=== PATIENT | male | born 1935 | race Caucasian/White ===

== ENCOUNTER → 2020-05-11 08:05 | Outpatient (BNVA) | payer SELFPAY | PROVIDERS: Family Provider Internal Medicine; PCP Internal Medicine; Visit Provider Specialist | DX: R41.89 Other symptoms and signs involving cognitive functions and awareness (principal); G40.309 Generalized idiopathic epilepsy and epileptic syndromes, not intractable, without status epilepticus; Z87.891 Personal history of nicotine dependence | CPT/HCPCS: 99212 ==

== ENCOUNTER → 2020-09-02 15:27 | Outpatient (BNVA) | payer SELFPAY | PROVIDERS: Family Provider Internal Medicine; PCP Internal Medicine; Visit Provider Specialist | DX: G40.309 Generalized idiopathic epilepsy and epileptic syndromes, not intractable, without status epilepticus (principal); H53.2 Diplopia; R13.10 Dysphagia, unspecified; R47.1 Dysarthria and anarthria | CPT/HCPCS: 99215 ==

== ENCOUNTER 2020-09-03 07:05 | Outpatient (CLI) | payer MEDICAID, SELFPAY ==
--- NOTE | 2020-09-03 07:15 | MR_ITS ---
WS: [id number] MRI HEAD WITH CONTRAST TECHNIQUE: Sagittal T1, T2 axial, T2 axial FLAIR, axial susceptibility weighted imaging, axial diffus ion weighted images, and coronal T2 images were obtained. Pre and post-T1 axial and post T1 coronal i mages. ADC and FSPGR images. CLINICAL INFORMATION: see dx COMPARISON: CT May 07, 2019 FINDINGS: No evidence of restricted diffusion to suggest acute ischemia. Ventricular system and basal cisterns are patent. Moderate to advanced supratentorial white matter changes consistent with small vessel dis ease in a patient this age. Mild parenchymal volume loss. 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 Normal vascular flow voids at the skull base. Visualized proximal 7th and 8th cranial nerves appe ar normal. No hemosiderin on susceptibly weighted images. Normal optic chiasm and pituitary infundibulum. Cavernous sinuses and Meckel's cave are normal in dejah earance. Mild symmetric atrophy involving the temporal lobes and hippocampal formations. No abnormal gadolinium enhancement. Normal visualized dural venous sinuses. MR/MR head wo/w con [id number] IMPRESSION: 1. No evidence of restricted diffusion to suggest acute ischemia. 2. Moderate to advanced small vessel changes with mild parenchymal volume loss . 3. Mild symmetric atrophy involving the temporal lobes hippocampal formations. 4. No abnormal gadolinium enhancement. 5. Normal dural venous sinuses. 6. No hemosiderin on the susceptibility weighted images. 7. Paranasal sinuses and mastoid air cells well aerated. 8. Tiny chronic lacunar infarct right cerebellum.
[2020-09-03 08:18] LABS: Blood Urea Nitrogen 14 mg/dL (8-23)
== END 2020-09-03 07:06 | disposition home or self-care (01) ==
LOC: RADSHAW 07:07
PROVIDERS: PCP Internal Medicine; Visit Provider Specialist
DX: G12.29 Other motor neuron disease (principal); G31.9 Degenerative disease of nervous system, unspecified; I63.81 Other cerebral infarction due to occlusion or stenosis of small artery; G40.309 Generalized idiopathic epilepsy and epileptic syndromes, not intractable, without status epilepticus; G12.22 Progressive bulbar palsy; G70.01 Myasthenia gravis with (acute) exacerbation; F17.210 Nicotine dependence, cigarettes, uncomplicated
CPT/HCPCS: 70553; 82565; 84520; 99215; A9579

== ENCOUNTER 2020-09-03 13:11 | Inpatient (IN) | payer MEDICARE, MEDICAID, SELFPAY ==
[2020-09-03] VITALS (24 sets, daily range): BP systolic 144–203; BP diastolic 63–96; PULSE 74–96; RESP 9–31; TEMP 37.4; O2SAT 92–98; BMI 24.5
--- NOTE | 2020-09-03 13:40 | PC.NURSE ---
Pt direct admin from Dr Posadas's office. Pt alert and oriented. He is able to undress self. Speech is clear. Pt oriented to room. Monitoring attached. Gown on. Iv started. at bedside.
[2020-09-03 14:30] LABS: Basophils # 0.1 10^3/uL (0.0-0.1); Basophils % 1.2 %; Eosinophils # 0.1 10^3/uL (0.0-0.8); Eosinophils % 1.6 %; Hematocrit 44.4 % (42.0-52.0); Hemoglobin 15.1 g/dL (11.7-16.6); Lymphocytes # 1.7 10^3/uL (0.8-4.8); Lymphocytes % 25.8 %; Mean Corpuscular Hemoglobin 30.6 pg (28.0-34.0); Mean Corpuscular Volume 89.9 fL (80-94); Mean Platelet Volume 10.1 fL (7.4-10.4); Monocytes # 0.9 10^3/uL (0.2-0.9); Monocytes % 12.9 %; Neutrophils # 3.87 10^3/uL (1.8-7.7); Neutrophils % 58.1 %; Nucleated Red Blood Cells % 0 %; Platelet Count 192 10^3/cmm (130-400); Red Blood Count 4.94 10^6/uL (4.1-5.3); Red Cell Distribution Width 12.3 % (12.1-15.1); White Blood Count 6.7 10^3/uL (4.0-10.0)
[2020-09-03 14:57] LABS: Alanine Aminotransferase 13 U/L (0-41); Albumin Level 4.2 g/dL (3.5-5.2); Alkaline Phosphatase 46 IU/L (40-130); Anion Gap 12.4 (5-19); Aspartate Amino Transferase 19 U/L (0-40); Blood Urea Nitrogen 11 mg/dL (8-23); Calcium 9.2 mg/dL (8.5-10.5); Carbon Dioxide 28 mmol/L (22-29); Chloride 91 mmol/L (98-107); Globulin 2.1 g/dL (1.3-4.6); Glucose 107 mg/dL (65-115); Osmolality Calculated 264 mOsm/kg (285-295); Potassium 4.4 mmol/L (3.5-5.1); Sodium 127 mmol/L (136-145); Thyroid Stimulating Hormone 3.81 uIU/mL (0.27-4.20); Total Bilirubin 1.1 mg/dL (0.15-1.2); Total Protein 6.3 g/dL (6.6-8.7)
[2020-09-03] MEDS: enoxaparin 60 mg/0.6 mL Syringe SUBCUT (15:37)
[2020-09-03] MEDS: predniSONE 5 mg Tablet PO (15:37)
--- NOTE | 2020-09-03 16:00 | PC.NURSE ---
Bedside swallow eval done. No throat clearing , cough or choking noted. Pt passed.
--- NOTE | 2020-09-03 16:59 | P.HP_ITS ---
Providers/Chief Complaint Admitting Physician: Rosalia Sinha DO Primary Care Provider: Jerman Henao DO Chief Complaint: MYASTHENIA GRAVIS CRISIS History of Present Illness Mauricio Wilson is a 85 year old male with a past medical history of epilepsy that presented to the hospital for direct admission from neurology office due to concern for myasthenic crisis. Patient reports that he has been having symptoms over the past 2 years of inability to close his eyes and over the past 1 month he has had worsening weakness of his muscles in his face. Reports he has been unable to talk or swallow, continually having liquids run out of his mouth and feels like his tongue is thick. Patient was seen for cataract surgery couple of days ago his eye doctor mentioned he was concerned for myasthenia gravis therefore his primary care provider sent him for neurologic evaluation today. Patient was recently started on Mestinon and has had improvement in his symptoms since that time. Dr. Posadas recommended direct admission for 5 days of IVIG followed by 0.4 mg/kg/week infusions following that time. She recommended starting on prednisone 5 mg/day with an increase of 5 mg/day until patient reaches 20 mg daily. Plan is to leave with 20 mg of prednisone Review of Systems Const: Reports: fatigue and malaise; Denies: fever(s) or chills Eyes: Denies: change in vision ENMT: Denies: nasal congestion Card: Denies: chest pain, palpitations or edema Resp: Denies: dyspnea, productive cough or hemoptysis GI: Denies: abdominal pain, nausea, vomiting, diarrhea, constipation, hematochezia or melena : Denies: dysuria or hematuria Musc: Denies: extremity pain or muscle cramps Skin/Breast: Denies: rash or new lesions Neuro: Reports: other (Gradual onset of weakness throughout the day with decreased ability to move facial muscles, inability to close his eyes); Denies: headache(s) or dizziness Psych: Denies: anxiety or depression Endo: Denies: polyuria or hot flashes Hermann/Lymph: Denies: easy bruising or easy bleeding Medications/Allergies Home Medications Medication Instructions Recorded Confirmed Last Taken Type magnesium oxide 420 mg tablet 420 mg PO DAILY 05/11/20 09/03/20 09/03/20 08:00 History levetiracetam 1,000 mg tablet 500 mg PO BID #90 tab 05/27/20 09/03/20 09/03/20 08:00 Rx 500 mg pyridostigmine bromide 60 mg tablet 60 mg PO TID #90 tab 09/02/20 09/03/20 09/03/20 08:00 Rx carboxymethylcellulose sodium 1 drp OPHTHALMIC (EYE) Q2H 09/03/20 09/03/20 09/03/20 16:00 History [Refresh Tears] cholecalciferol (vitamin D3) 2,000 unit PO DAILY 09/03/20 09/03/20 09/03/20 08:00 History [Vitamin D3] 2000 unit Allergies Allergy/AdvReac Type Severity Reaction Status Date / Time No Known Allergies Allergy Verified 05/11/20 08:13 PFSH Acute PFSH: Medical History (Updated 09/03/20 @ 17:03 by Rosalia Sinha DO) Generalized epilepsy Surgical History (Updated 09/03/20 @ 17:03 by Rosalia Sinha DO) History of back surgery History of cataract surgery History of esophagogastroduodenoscopy (EGD) Family History Other CAD (coronary artery disease) Diabetes Social History Smoking and tobacco status: former smoker Quit status (tobacco): has quit using tobacco Year quit tobacco: 40 years ago Alcohol intake: never Vitals/I&O/Wt Last Vital Signs Temp 99.3 F 09/03/20 14:00 Pulse 81 09/03/20 16:15 Resp 23 H 09/03/20 16:15 BP 172/91 09/03/20 16:15 Pulse Ox 96 09/03/20 16:15 09/03/20 09/03/20 09/03/20 06:59 14:59 22:59 Intake Total 42.625 / 42.625 Balance 42.625 / 42.625 Weight last 48 hrs Weight 77.519 kg Physical Exam Const: COMMON NORMALS: patient oriented x3 and alert GENERAL APPEARANCE: cooperative ORIENTATION/CONSCIOUSNESS: Yes awake, Yes oriented to person, Yes oriented to place and Yes oriented to time HENMT: OTHER: Conjunctival erythema bilaterally due to dry eyes chronically. Eye: COMMON NORMALS: Equal, round and reactive pupils present PUPIL: Yes Equal, round and reactive pupils present Neck/C-Spine: COMMON NORMALS: supple GENERAL: Yes normal visual inspection Resp: COMMON NORMALS: normal respiratory effort and clear to auscultation bilaterally EFFORT & INSPECTION: Yes able to speak in complete sentences AUSCULTATION: clear to auscultation bilaterally, no rhonchi and no wheezes Cardio: COMMON NORMALS: regular rate, regular rhythm and No murmurs present (Cardio) RATE: regular rate RHYTHM: regular rhythm GI: COMMON NORMALS: Soft to palpation and non-tender INSPECTION: No abdominal distension AUSCULTATION: Yes normoactive bowel sounds PALPATION: Yes Soft to palpation Extremity: COMMON NORMALS: no clubbing, cyanosis or edema and no calf tenderness Neuro: COMMON NORMALS: patient oriented x3 SENSORIUM/ORIENTATION: Yes alert, Yes oriented to person, Yes oriented to place and Yes oriented to time OTHER: Patient with conjunctival erythema due to inability to close his eyes, answering questions appropriately, alert and oriented x4. Does have some slurred speech, does have some drooling from the corner of his mouth during exam and discussion. Minimal movements of the tongue, no fasciculations. Patient has weakened facial muscles, upper and lower extremity strength symmetric bilaterally Psych: COMMON NORMALS: mental status grossly normal and cooperative Skin: COMMON NORMALS: no rashes or lesions noted GENERAL SKIN EXAM: no rashes or lesions noted Data : 09/03/20 14:20 09/03/20 14:20 A&P Assessment and plan (1) Myasthenic crisis: As discussed with Dr. Posadas direct admission under her guidance IVIG for 5 days Prednisone 5 mg daily and gradually increase by 5 mg/day until reaching 20 mg daily. Plan for potential discharge on [address] Posadas. Continue with serial neurologic checks Plan is to monitor in the ICU with close neurologic follow-up We will follow with neurology recommendations, appreciate recommendations and assistance in patient's care. 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
[2020-09-03] MEDS: levETIRAcetam 500 mg Tablet PO (18:21)
[2020-09-03] MEDS: sodium chloride 0.9% (100 ml) 100 ML (18:22)
[2020-09-03 19:32] LABS: Magnesium 2.1 mg/dL (1.7-2.3); Phosphorus 2.8 mg/dL (2.5-4.5)
--- NOTE | 2020-09-03 19:56 | PC.NURSE ---
Shift Summary: Pt arrives to ICU around 1330. He is a pleasant elderly man who is alert and oriented. He passed the bedside swallow test. IVIG started today, pt had no issues, no flushing or other discomforts with it. He did have elevated B/P for about an hour, it did come down on it's own. He has one IV in his right forearm, flushes well. He uses the urinal frequently, clear yellow urine. He had some leg cramps, requested acetaminophen. Dr Sinha notified via [facility], no reply as of yet. INfo passed on to fly setter, ISA Mack.
[2020-09-03] MEDS: HYDROcodone-acetaminophen 5-325 mg Tablet 1 TAB PO (20:27)
[2020-09-03] MEDS: pyridostigmine 60 mg Tablet PO (21:05)
[2020-09-03] MEDS: morphine 4 mg/mL SDV 1 mL 2 MG IVP (21:50)
[2020-09-04] VITALS (18 sets, daily range): BP systolic 129–186; BP diastolic 61–141; PULSE 66–90; RESP 12–36; TEMP 36.2–36.7; O2SAT 92–97; BMI 25.2
[2020-09-04] MEDS: cyclobenzaprine 10 mg Tablet PO (00:07)
[2020-09-04] MEDS: morphine 4 mg/mL SDV 1 mL 2 MG IVP ×2 (00:54→05:24)
[2020-09-04] MEDS: enoxaparin 60 mg/0.6 mL Syringe SUBCUT ×2 (04:14→16:36)
[2020-09-04 05:15] LABS: Basophils # 0.1 10^3/uL (0.0-0.1); Basophils % 1.5 %; Eosinophils # 0.1 10^3/uL (0.0-0.8); Eosinophils % 1.9 %; Hematocrit 46.8 % (42.0-52.0); Hemoglobin 15.8 g/dL (11.7-16.6); Lymphocytes # 1.4 10^3/uL (0.8-4.8); Lymphocytes % 26.7 %; Mean Corpuscular HGB Conc 33.8 g/dL (30.0-36.0); Mean Corpuscular Hemoglobin 30.4 pg (28.0-34.0); Mean Platelet Volume 10.6 fL (7.4-10.4); Monocytes # 0.5 10^3/uL (0.2-0.9); Neutrophils # 3.13 10^3/uL (1.8-7.7); Neutrophils % 59.3 %; Nucleated Red Blood Cells % 0 %; Platelet Count 185 10^3/cmm (130-400); Red Cell Distribution Width 12.3 % (12.1-15.1); White Blood Count 5.3 10^3/uL (4.0-10.0)
[2020-09-04 05:36] LABS: Alanine Aminotransferase 13 U/L (0-41); Albumin Level 3.9 g/dL (3.5-5.2); Alkaline Phosphatase 45 IU/L (40-130); Aspartate Amino Transferase 22 U/L (0-40); Blood Urea Nitrogen 7 mg/dL (8-23); Calcium 8.9 mg/dL (8.5-10.5); Carbon Dioxide 31 mmol/L (22-29); Globulin 3.4 g/dL (1.3-4.6); Glucose 119 mg/dL (65-115); Total Bilirubin 1.2 mg/dL (0.15-1.2); Total Protein 7.3 g/dL (6.6-8.7)
[2020-09-04 05:46] LABS: Anion Gap 10.2 (5-19); Chloride 93 mmol/L (98-107); Osmolality Calculated 269 mOsm/kg (285-295); Potassium 4.2 mmol/L (3.5-5.1); Sodium 130 mmol/L (136-145)
[2020-09-04] MEDS: CARBOXYMETHYLCELLULOSE SODIUM 1 EACH EYEAFF ×8 (08:09→23:01)
[2020-09-04] MEDS: cholecalciferol (vitamin D3) 1,000 unit Tablet 2000 UNIT PO (08:09)
[2020-09-04] MEDS: predniSONE 5 mg Tablet PO (08:09)
[2020-09-04] MEDS: levETIRAcetam 500 mg Tablet PO ×2 (08:09→17:25)
[2020-09-04] MEDS: pantoprazole 40 mg SDV IVP (08:09)
[2020-09-04] MEDS: pyridostigmine 60 mg Tablet PO ×3 (08:12→20:08)
--- NOTE | 2020-09-04 08:34 | PC.NURSE ---
Pt HR is irregular, frequent PVC, occasional dropped P waves and inverted T waves. Dr. Sinha notified of that and high BP. No new orders at this time as of yet.
--- NOTE | 2020-09-04 08:35 | ECG_ITS ---
[facility] Test Date: 2020-09-04 Pat Name: Mauricio Wilson Department: Room: ICU07 Gender: Male Finishing Range Feeder: : 1935 Requested By: Rosalia Sinha Order Number: [id number] Jhonny MD: Rory Epstein M.D. Measurements Intervals [place] Rate: 87 P: 67 LA: 190 QRS: -4 QRSD: 137 T: -26 QT: 381 QTc: 461 Interpretive Statements SINUS RHYTHM WITH FREQUENT VENTRICULAR PREMATURE COMPLEXES RIGHT BUNDLE BRANCH BLOCK [120+ ms QRS DURATION, UPRIGHT V1, 40+ ms S IN I/aVL/V4/V5/V6] No previous ECG available for comparison Electronically Signed On 09-04-2020 19:37:31 CDT by Rory Epstein M.D. [id number]
--- NOTE | 2020-09-04 08:36 | USCV_ITS ---
Mauricio Wilson Age: 85 Gender: M : 1935 Exam Date: 09/04/2020 10:24 Ordering Phys: Rosalia Sinha DO Technologist: Rolf Nick [place] [facility] [place]: MYASTHENIA BP: 129 / 68 HR: 72 Rhythm: Sinus Technical Quality: Suboptimal MEASUREMENTS (Male / Female) Normal Values 2D ECHO LV Diastolic Diameter PLAX 3.8 cm 4.2 - 5.9 / 3.9 - 5.3 cm LV Systolic Diameter PLAX 2.2 cm IVS Diastolic Thickness 0.9 cm 0.6 - 1.0 / 0.6 - 0.9 cm IVS Systolic Thickness 1.1 cm LVPW Diastolic Thickness 1.0 cm 0.6 - 1.0 / 0.6 - 0.9 cm LVPW Systolic Thickness 1.0 cm LVOT Diameter 2.1 cm LV Ejection Fraction 2D Teich 69.7 % LV Ejection Fraction MOD 2C 44.3 % LV Ejection Fraction 2C AL 45.3 % LA Diameter 3.6 cm LA Width 3.2 cm LA Height 4.3 cm RA Width 3.7 cm RA Height 4.5 cm Aorta at Sinotubular Diameter 0.9 cm M-MODE LV Diastolic Diameter MM 3.9 cm 4.2 - 5.9 / 3.9 - 5.3 cm LV Systolic Diameter MM 2.3 cm LV Ejection Fraction MM Teich 73.2 % IVS Diastolic Thickness MM 0.7 cm 0.6 - 1.0 / 0.6 - 0.9 cm IVS Systolic Thickness MM 1.2 cm LVPW Diastolic Thickness MM 1.0 cm 0.6 - 1.0 / 0.6 - 0.9 cm LVPW Systolic Thickness MM 1.4 cm RV Diastolic Diameter MM 1.4 cm Aortic Annulus Diameter 4.0 cm LA Ao Ratio MM 1.0 MV E Point Septal Separation 1.6 cm DOPPLER AV Peak Velocity 121.8 cm/s LVOT Peak Velocity 91.0 cm/s AV Area Cont Eq vti 2.4 cm squared AV Area Cont Eq pk 2.5 cm squared MV Area PHT 3.6 cm squared Mitral E to A Ratio 0.7 MV E' Velocity 36.2 cm/s Mitral E to MV E' Ratio 7.1 Mitral E to LV E' Lateral Ratio 8.4 Mitral E to LV E' Septal Ratio 6.1 TR Peak Velocity 115.3 cm/s TR Peak Gradient 5.3 mmHg TV Peak E Velocity 73.0 cm/s Right Atrial Pressure 3.0 mmHg Pulmonary Artery Systolic Pressu 8.3 mmHg PV Peak Velocity 105.0 cm/s FINDINGS Left Ventricle Normal left ventricular size and wall thickness. Mildly decreased left ventricular systolic function. Left ventricular ejection fraction is estimated at 50 %. Mild global hypokinesis. Right Ventricle Normal right ventricular size and systolic function. Right ventricular systolic pressure 8.3 mmHg. Right Atrium Normal right atrial size. Left Atrium Left atrium not well visualized. Mildly increased left atrial size. Mitral Valve Mildly thickened mitral valve. Bowing of posterior mitral valve leaflet. No mitral valve prolapse. No mitral valve stenosis. Trace to mild mitral valve regurgitation. Aortic Valve Moderately thickened trileaflet aortic valve. No aortic valve stenosis. No aortic valve regurgitation. Tricuspid Valve Structurally normal tricuspid valve. Trace tricuspid valve regurgitation. Pulmonic Valve Pulmonic valve not well visualized. No pulmonary valve stenosis. Trace pulmonary valve regurgitation. Pericardium No pericardial effusion. Aorta Normal size aortic root and proximal ascending aorta. CONCLUSIONS 1. Normal left ventricular size and wall thickness. Mildly decreased left ventricular systolic function. Left ventricular ejection fraction is estimated at 50 %. Mild global hypokinesis. 2. Normal right ventricular size and systolic function. 3. Mildly increased left atrial size. 4. Trace to mild mitral valve regurgitation. 5. No prior similar studies to compare. Antonia Myers MD (Electronically Signed) Final Date: 04 September 2020 18:53 S
--- NOTE | 2020-09-04 08:38 | PC.NURSE ---
New order for EKG and Echo.
[2020-09-04] MEDS: predniSONE 10 mg Tablet PO (12:02)
--- NOTE | 2020-09-04 13:23 | P.PN_ITS ---
Subjective Subjective: Interval history: Patient awake in bed at time of exam this morning. Reported some continued drooling but eye movement has continued to remain stable. Vitals/I&O/Wt Last Vital Signs Temp 97.8 F 09/04/20 13:00 Pulse 80 09/04/20 13:00 Resp 22 H 09/04/20 13:00 BP 155/61 09/04/20 13:00 Pulse Ox 96 09/04/20 13:00 09/03/20 09/04/20 09/04/20 22:59 06:59 14:59 Intake Total 900.000 / 900.000 220 / 220 Output Total 1600 / 1600 1100 / 2700 360 / 360 Balance -700 / -700.000 -1100 / -1800.000 -140 / -140 Weight last 48 hrs Weight 79.923 kg Weight 77.519 kg Physical Exam Const: COMMON NORMALS: patient oriented x3 and alert GENERAL APPEARANCE: cooperative ORIENTATION/CONSCIOUSNESS: Yes awake, Yes oriented to person, Yes oriented to place and Yes oriented to time HENMT: OTHER: Conjunctival erythema bilaterally due to dry eyes chronically. Eye: COMMON NORMALS: Equal, round and reactive pupils present PUPIL: Yes Equal, round and reactive pupils present Neck/C-Spine: COMMON NORMALS: supple GENERAL: Yes normal visual inspection Resp: COMMON NORMALS: normal respiratory effort and clear to auscultation natalya aterally EFFORT & INSPECTION: Yes able to speak in complete sentences AUSCULTATION: clear to auscultation bilaterally, no rhonchi and no wheezes Cardio: COMMON NORMALS: regular rate, regular rhythm and No murmurs present (Cardio) RATE: regular rate RHYTHM: regular rhythm GI: COMMON NORMALS: Soft to palpation and non-tender INSPECTION: No abdominal distension AUSCULTATION: Yes normoactive bowel sounds PALPATION: Yes Soft to palpation Extremity: COMMON NORMALS: no clubbing, cyanosis or edema and no calf tenderness Neuro: COMMON NORMALS: patient oriented x3 SENSORIUM/ORIENTATION: Yes alert, Yes oriented to person, Yes oriented to place and Yes oriented to time OTHER: Patient with conjunctival erythema due to inability to close his eyes, answering questions appropriately, alert and oriented x4. Does have some slurred speech, does have some drooling from the corner of his mouth during exam and discussion. Minimal movements of the tongue, no fasciculations. Patient has weakened facial muscles, upper and lower extremity strength symmetric bilaterally Psych: COMMON NORMALS: mental status grossly normal and cooperative Skin: COMMON NORMALS: no rashes or lesions noted GENERAL SKIN EXAM: no rashes or lesions noted Data : 09/04/20 04:27 09/04/20 04:27 A&P Assessment and plan (1) Myasthenic crisis: As discussed with Dr. Posadas direct admission under her guidance IVIG for 5 days Prednisone 5 mg daily and gradually increase by 5 mg/day until reaching 20 mg daily. Plan for potential discharge on [address] Posadas. Increase of prednisone to 10 mg today Continue with serial neurologic checks Transfer out of the ICU today We will follow with neurology recommendations, appreciate recommendations and assistance in patient's care. 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
[2020-09-04] MEDS: magnesium oxide 400 mg tablet PO (13:25)
--- NOTE | 2020-09-04 13:34 | PC.NURSE ---
Pt became SOB with excersion. 02 sat remained in the mid 90's but states he felt like he was breathing very thin air.
--- NOTE | 2020-09-04 14:54 | PC.OT ---
OT NOTE: OT EVALUATION ORDERS RECEIVED. OT SCREEN COMPLETED. PATIENT DEMONSTRATES ABILITY TO PERFORM ADLS WITH INDEPENDENCE. NO FURTHER SKILLED OT REQUIRED.
--- NOTE | 2020-09-04 16:07 | P.PN_ITS ---
Subjective Subjective: Interval history: He is able to get his eyes closed. He is able to chew but is having trouble swallowing based upon what he thinks is probably an esophageal stricture. He had a dilated 10 years ago and was warned that it would probably recur. Food gets down so far and he starts feeling short of breath. Vitals/I&O/Wt Last Vital Signs Temp 98.1 F 09/04/20 16:00 Pulse 72 09/04/20 16:00 Resp 20 H 09/04/20 16:00 BP 155/61 09/04/20 16:00 Pulse Ox 93 09/04/20 16:00 09/04/20 09/04/20 09/04/20 06:59 14:59 22:59 Intake Total 220 / 220 Output Total 1100 / 2700 360 / 360 Balance -1100 / -1800.000 -140 / -140 Weight last 48 hrs Weight 176 lb 3.2 oz Weight 170 lb 14.4 oz Physical Exam Narrative: EXAM NARRATIVE: He still has drift of the left eye laterally. No ptosis. He is closing his eyes completely now and although his facial weakness is still evident, right more than left, it is much improved over baseline. His speech is clear without dysarthria. No focal motor weakness. No drift. No tremor. He is sitting up in a chair. 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 He is on IVIG and Mestinon and has just started steroid treatments (which could paradoxically worsen his myasthenia). So far he is tolerating the treatment well and his M NIF has been stable. I think it is okay to transfer him to the floor. I encouraged him to be physically active. He has an esophageal stricture that is causing shortness of breath. Dr. Sinha already did an echocardiogram today and the results are pending on that so that will be helpful. After discharge we can arrange for EGD and dilation of his stricture. If that becomes more of a problem during acute hospitalization Dr. Sinha can consult Dr. Mitchell or Dr. Hodge for that. 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
[2020-09-05] VITALS (14 sets, daily range): BP systolic 148–183; BP diastolic 66–85; PULSE 60–83; RESP 18–21; TEMP 36.5–37.2; O2SAT 92–97
[2020-09-05] MEDS: CARBOXYMETHYLCELLULOSE SODIUM 1 EACH EYEAFF ×11 (00:25→19:46)
[2020-09-05] MEDS: enoxaparin 60 mg/0.6 mL Syringe SUBCUT ×2 (04:15→15:06)
[2020-09-05] MEDS: predniSONE 10 mg Tablet PO (09:09)
[2020-09-05] MEDS: levETIRAcetam 500 mg Tablet PO ×2 (09:09→17:48)
[2020-09-05] MEDS: cholecalciferol (vitamin D3) 1,000 unit Tablet 2000 UNIT PO (09:09)
[2020-09-05] MEDS: pyridostigmine 60 mg Tablet PO ×3 (09:09→19:12)
[2020-09-05] MEDS: magnesium oxide 400 mg tablet PO (09:10)
[2020-09-05 09:26] LABS: Basophils # 0.1 10^3/uL (0.0-0.1); Basophils % 1.5 %; Eosinophils # 0.1 10^3/uL (0.0-0.8); Hematocrit 50.7 % (42.0-52.0); Hemoglobin 16.9 g/dL (11.7-16.6); Lymphocytes # 1.8 10^3/uL (0.8-4.8); Lymphocytes % 28.6 %; Mean Corpuscular HGB Conc 33.3 g/dL (30.0-36.0); Mean Corpuscular Hemoglobin 30.6 pg (28.0-34.0); Mean Corpuscular Volume 91.8 fL (80-94); Mean Platelet Volume 10.4 fL (7.4-10.4); Monocytes # 0.7 10^3/uL (0.2-0.9); Monocytes % 11.1 %; Neutrophils # 3.55 10^3/uL (1.8-7.7); Neutrophils % 57.3 %; Nucleated Red Blood Cells % 0 %; Platelet Count 224 10^3/cmm (130-400); Red Blood Count 5.52 10^6/uL (4.1-5.3); Red Cell Distribution Width 12.5 % (12.1-15.1); White Blood Count 6.2 10^3/uL (4.0-10.0)
[2020-09-05 09:55] LABS: Alanine Aminotransferase 15 U/L (0-41); Albumin Level 4.4 g/dL (3.5-5.2); Alkaline Phosphatase 48 IU/L (40-130); Anion Gap 11.6 (5-19); Aspartate Amino Transferase 24 U/L (0-40); Blood Urea Nitrogen 11 mg/dL (8-23); Calcium 9.3 mg/dL (8.5-10.5); Carbon Dioxide 30 mmol/L (22-29); Chloride 88 mmol/L (98-107); Globulin 4.2 g/dL (1.3-4.6); Glucose 117 mg/dL (65-115); Osmolality Calculated 262 mOsm/kg (285-295); Potassium 3.6 mmol/L (3.5-5.1); Sodium 126 mmol/L (136-145); Total Bilirubin 1.2 mg/dL (0.15-1.2); Total Protein 8.6 g/dL (6.6-8.7)
[2020-09-05] MEDS: pantoprazole 40 mg SDV IVP (11:24)
--- NOTE | 2020-09-05 11:28 | P.PN_ITS ---
Subjective Subjective: Interval history: Patient awake and standing at the sink taking a bath at time of exam today. He reported he is doing well with no concerns. Denies any chest pain or shortness of breath. Vitals/I&O/Wt Last Vital Signs Temp 98.3 F 09/05/20 10:00 Pulse 65 09/05/20 10:00 Resp 20 H 09/05/20 10:00 BP 183/66 09/05/20 10:00 Pulse Ox 95 09/05/20 10:00 09/04/20 09/05/20 09/05/20 22:59 06:59 14:59 Intake Total 640 / 860 250 / 1110 480 / 480 Output Total 1000 / 1360 Balance -360 / -500 250 / -250 480 / 480 Weight last 48 hrs Weight 81.76 kg Weight 79.923 kg Weight 77.519 kg Physical Exam Const: COMMON NORMALS: patient oriented x3 and alert GENERAL APPEARANCE: cooperative ORIENTATION/CONSCIOUSNESS: Yes awake, Yes oriented to person, Yes oriented to place and Yes oriented to time HENMT: OTHER: Conjunctival erythema bilaterally due to dry eyes chronically. Eye: COMMON NORMALS: Equal, round and reactive pupils present PUPIL: Yes Equal, round and reactive pupils present Neck/C-Spine: COMMON NORMALS: supple GENERAL: Yes normal visual inspection Resp: COMMON NORMALS: normal respiratory effort and clear to auscultation bilaterally EFFORT & INSPECTION: Yes able to speak in complete sentences AUSCULTATION: clear to auscultation bilaterally, no rhonchi and no wheezes Cardio: COMMON NORMALS: regular rate, regular rhythm and No murmurs present (Cardio) RATE: regular rate RHYTHM: regular rhythm GI: COMMON NORMALS: Soft to palpation and non-tender INSPECTION: No abdominal distension AUSCULTATION: Yes normoactive bowel sounds PALPATION: Yes Soft to palpation Extremity: COMMON NORMALS: no clubbing, cyanosis or edema and no calf tenderness Neuro: COMMON NORMALS: patient oriented x3 SENSORIUM/ORIENTATION: Yes alert, Yes oriented to person, Yes oriented to place and Yes oriented to time OTHER: Patient with conjunctival erythema due to inability to close his eyes, answering questions appropriately, alert and oriented. Speech seems to have min imally improved, no visible pooling of saliva. Minimal movements of the tongue, no fasciculations. Patient has weakened facial muscles, upper and lower extremity strength symmetric bilaterally Psych: COMMON NORMALS: mental status grossly normal and cooperative Data : 09/05/20 08:35 09/05/20 08:35 A&P Assessment and plan (1) Myasthenic crisis: As discussed with Dr. Posadas direct admission under her guidance IVIG for 5 days, day 3 of IVIG today Prednisone 5 mg daily and gradually increase by 5 mg/day until reaching 20 mg daily. Plan for potential discharge on [address] Posadas. Increase of prednisone to 15 mg today Serial neurologic checks We will follow with neurology recommendations, appreciate recommendations and a ssistance in patient's care. Status: Acute (2) Dysarthria: Secondary to above, will order speech therapy Status: Acute (3) Dysphagia: Status: Acute (4) Diplopia: Patient reports improved since starting Mestinon, further plan as above Status: Acute (5) Generalized epilepsy: Continue on Keppra, seizure precautions Status: Acute Attestations Medical Necessity Statement*: Patient requires further hospitalization due to concern for myasthenic crisis receiving IVIG and steroids. Coding Level of Care Code Acute Casing In Line Setter for [facility] Fwd Diagnoses Myasthenic crisis G70.01 Dysarthria R47.1 Dysphagia R13.10 Diplopia H53.2 Generalized epilepsy G40.309
[2020-09-05] MEDS: sodium chloride 0.9% 1,000 ML 50 ML IV (12:28)
[2020-09-06] VITALS (13 sets, daily range): BP systolic 142–183; BP diastolic 62–85; PULSE 64–73; RESP 14–20; TEMP 36.4–37.1; O2SAT 94–98; BMI 25.8
[2020-09-06] MEDS: enoxaparin 60 mg/0.6 mL Syringe SUBCUT ×2 (03:31→16:59)
[2020-09-06 05:14] LABS: Basophils # 0.1 10^3/uL (0.0-0.1); Basophils % 1.3 %; Eosinophils # 0.1 10^3/uL (0.0-0.8); Eosinophils % 1.3 %; Hematocrit 44.8 % (42.0-52.0); Lymphocytes # 1.6 10^3/uL (0.8-4.8); Lymphocytes % 34.3 %; Mean Corpuscular HGB Conc 33.5 g/dL (30.0-36.0); Mean Corpuscular Hemoglobin 30.7 pg (28.0-34.0); Mean Corpuscular Volume 91.8 fL (80-94); Mean Platelet Volume 10.5 fL (7.4-10.4); Monocytes # 0.6 10^3/uL (0.2-0.9); Monocytes % 12.3 %; Neutrophils # 2.34 10^3/uL (1.8-7.7); Neutrophils % 50.6 %; Nucleated Red Blood Cells % 0 %; Platelet Count 171 10^3/cmm (130-400); Red Blood Count 4.88 10^6/uL (4.1-5.3); Red Cell Distribution Width 12.8 % (12.1-15.1); White Blood Count 4.6 10^3/uL (4.0-10.0)
[2020-09-06 05:43] LABS: Alanine Aminotransferase 14 U/L (0-41); Albumin Level 3.5 g/dL (3.5-5.2); Alkaline Phosphatase 38 IU/L (40-130); Anion Gap 10.1 (5-19); Aspartate Amino Transferase 23 U/L (0-40); Blood Urea Nitrogen 10 mg/dL (8-23); Carbon Dioxide 28 mmol/L (22-29); Chloride 92 mmol/L (98-107); Globulin 4.1 g/dL (1.3-4.6); Glucose 114 mg/dL (65-115); Osmolality Calculated 262 mOsm/kg (285-295); Potassium 4.1 mmol/L (3.5-5.1); Sodium 126 mmol/L (136-145); Total Bilirubin 0.8 mg/dL (0.15-1.2); Total Protein 7.6 g/dL (6.6-8.7)
[2020-09-06] MEDS: predniSONE 10 mg Tablet 15 MG PO (08:30)
[2020-09-06] MEDS: levETIRAcetam 500 mg Tablet PO ×2 (08:30→16:59)
[2020-09-06] MEDS: cholecalciferol (vitamin D3) 1,000 unit Tablet 2000 UNIT PO (08:30)
[2020-09-06] MEDS: magnesium oxide 400 mg tablet PO (08:30)
[2020-09-06] MEDS: pantoprazole 40 mg SDV IVP (08:31)
[2020-09-06] MEDS: pyridostigmine 60 mg Tablet PO ×3 (08:39→21:16)
--- NOTE | 2020-09-06 08:55 | PC.SOCIAL ---
IMM Updated Page 2 of IMM updated and given to patient. Initialed, dated, and timed and placed back in chart.
--- NOTE | 2020-09-06 09:19 | P.PN_ITS ---
Subjective Subjective: Interval history: Patient resting comfortably in bed at time of exam this morning. He denied any chest pain, no new headache or vision changes. Reported that he feels that he is getting ready to go home. He reports some continued redness and dryness in his eyes, continued drooling and occasional difficulty with speech. Vitals/I&O/Wt Last Vital Signs Temp 97.6 F 09/06/20 07:33 Pulse 70 09/06/20 07:33 Resp 20 H 09/06/20 07:33 BP 175/72 09/06/20 07:33 Pulse Ox 95 09/06/20 07:33 09/05/20 09/06/20 09/06/20 22:59 06:59 14:59 Intake Total 480 / 1440 540 / 1980 360 / 360 Output Total 500 / 500 400 / 900 Balance -20 / 940 140 / 1080 360 / 360 Weight last 48 hrs Weight 81.76 kg Weight 81.76 kg Physical Exam Const: COMMON NORMALS: patient oriented x3 and alert GENERAL APPEARANCE: cooperative ORIENTATION/CONSCIOUSNESS: Yes awake, Yes oriented to person, Yes oriented to place and Yes oriented to time HENMT: OTHER: Conjunctival erythema bilaterally due to dry eyes chronically. Eye: COMMON NORMALS: Equal, round and reactive pupils present PUPIL: Yes Equal, round and reactive pupils present Neck/C-Spine: COMMON NORMALS: supple GENERAL: Yes normal visual inspection Resp: COMMON NORMALS: normal respiratory effort and clear to auscultation bilaterally EFFORT & INSPECTION: Yes able to speak in complete sentences AUSCULTATION: clear to auscultation bilaterally, no rhonchi and no wheezes Cardio: COMMON NORMALS: regular rate, regular rhythm and No murmurs present (C ardio) RATE: regular rate RHYTHM: regular rhythm GI: COMMON NORMALS: Soft to palpation and non-tender INSPECTION: No abdominal distension AUSCULTATION: Yes normoactive bowel sounds PALPATION: Yes Soft to palpation Extremity: COMMON NORMALS: no clubbing, cyanosis or edema and no calf t enderness Neuro: COMMON NORMALS: patient oriented x3 SENSORIUM/ORIENTATION: Yes alert, Yes oriented to person, Yes oriented to place and Yes oriented to time OTHER: Patient with conjunctival erythema due to inability to close his eyes, answering questions appropriately, alert and oriented. Speech stable this morning, no visible drooling or pooling of saliva Psych: COMMON NORMALS: mental status grossly normal and cooperative Skin: COMMON NORMALS: no rashes or lesions noted GENERAL SKIN EXAM: no rashes or lesions noted Data : 09/06/20 04:33 09/06/20 04:33 A&P Assessment and plan (1) Myasthenic crisis: As discussed with Dr. Posadas direct admission under her guidance IVIG for 5 days, day 4 of IVIG today Prednisone 5 mg daily and gradually increase by 5 mg/day until reaching 20 mg daily. Plan for potential discharge on [address] mg of steroids per Dr. Posadas. Increase of prednisone to 20 mg today Serial neurologic checks We will follow with neurology recommendations, appreciate recommendations and assistance in patient's care. 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
[2020-09-07] VITALS (9 sets, daily range): BP systolic 142–172; BP diastolic 61–82; PULSE 58–83; RESP 12–20; TEMP 36.5–37.3; O2SAT 93–96
[2020-09-07] MEDS: enoxaparin 60 mg/0.6 mL Syringe SUBCUT (04:11)
[2020-09-07 05:38] LABS: Blood Urea Nitrogen 10 mg/dL (8-23); Calcium 9.2 mg/dL (8.5-10.5); Carbon Dioxide 29 mmol/L (22-29); Chloride 91 mmol/L (98-107); Glucose 109 mg/dL (65-115); Osmolality Calculated 266 mOsm/kg (285-295); Sodium 128 mmol/L (136-145)
[2020-09-07] MEDS: levETIRAcetam 500 mg Tablet PO (09:03)
[2020-09-07] MEDS: magnesium oxide 400 mg tablet PO (09:03)
[2020-09-07] MEDS: predniSONE 20 mg Tablet PO (09:03)
[2020-09-07] MEDS: pyridostigmine 60 mg Tablet PO ×2 (09:03→14:04)
[2020-09-07] MEDS: cholecalciferol (vitamin D3) 1,000 unit Tablet 2000 UNIT PO (09:04)
[2020-09-07] MEDS: pantoprazole 40 mg SDV IVP (09:05)
--- NOTE | 2020-09-07 10:09 | PC.CHAP ---
Pastoral Care Encounter/Spiritual Assessment Type of Contact [] Declined licensed dispensing optician visit [] Patient/Family/Request visit [] Outpatient visit [] Follow-up visit [] Physician referral [] Code/Alert [x] Routine visit [] Staff referral [] Actively dying [] Patient sleeping [] Family support [] [] Out of room [] Palliative care [] [] Receiving care in room [] Pre-surgical visit [] Trauma [] Long length of stay [] ICU visit [] Other: Relational/Emotional Strength [] Patient feels connected with others/family/visitors/staff [] Distress [] Loneliness/isolation [] Abandonment Spirituality of Patient [] Person of Mely [] Attends Confucianism of their Mely [] Believes in Prayer [] Reads Bible or Evangelical materials [] There are Spiritual issues to be addressed Pocket Secretary Assembler Interventions [x] Prayer [x] Active listening [x] Non-anxious presence [x] Spiritual/emotional support [] Crisis/trauma care [] Spiritual counseling [] Bereavement support [] Provided bereavement packet [] Provided Bible/devotional materials [] Provided toy/stuffed animal, coloring book to patient or family member [] Provided Communion [] Anointing/[place] [] Salvation [x] Completed spiritual assessment [] Other: Impact on Illness or Injury [] Angry [] Fearful [] Anxious [] Often cries [] Exhaustion [] Unable to work [] Unable to attend jehovah's witness [] Unable to walk/stand [] Unable to read [] Unable to drive [] Unable to eat/drink [] Unable to sleep [] Unable to be with family [] Patient intubated [] Other: Summary patient had setter. setting up, responsive to conversation Time spent with patient 5 min
--- NOTE | 2020-09-07 11:10 | P.DS_ITS ---
Discharge Providers Date of Admission: 09/03/20 13:11 Date of Discharge: September 07, 2020 Attending Provider at Admission: Rosalia Sinha DO Attending Provider at Discharge: Rosalia Sinha DO Primary Care Provider: Jerman Henao DO Diagnoses at Discharge Discharge Diagnosis (1) Myasthenic crisis: Status: Acute (2) Dysarthria: Status: Acute (3) Dysphagia: Status: Acute (4) Diplopia: Status: Acute (5) Generalized epilepsy: Status: Acute Reason for Visit Reason for Visit: MYASTHENIA GRAVIS CRISIS Hospital Course Hospital Course: Patient was seen and evaluated in neurology office and admitted for further evaluation and treatment due to concern for myasthenic cr bonnie. Under guidance of neurologist, Dr. Posadas, patient was started on IVIG infusions. He was kept on IVIG infusions for total of 5 days. He was continued on prednisone, it was initially started at 5 mg/day and increased 5 5 mg/day until reaching 20 mg daily. He continued to do well with this medication along with treatment with Mestinon. Patient was initially placed in the ICU, continued to improve and was therefore transitioned to the medical floor. Patient completed his 5-day course of IVIG infusion was doing well on date of discharge with no concerns. Discussed with him plan for discharge to home with weekly IVIG continued on Mestinon and steroids, he verbalized understanding and agreed with plan. Physical Exam Const: COMMON NORMALS: patient oriented x3 and alert GENERAL APPEARANCE: cooperative ORIENTATION/CONSCIOUSNESS: Yes awake, Yes oriented to person, Yes oriented to place and Yes oriented to time HENMT: OTHER: Conjunctival erythema bilaterally due to dry eyes chronically. Eye: COMMON NORMALS: Equal, round and reactive pupils present PUPIL: Yes Equal, round and reactive pupils present Neck/C-Spine: COMMON NORMALS: supple GENERAL: Yes normal visual inspection Resp: COMMON NORMALS: normal respiratory effort and clear to auscultation bilaterally EFFORT & INSPECTION: Yes able to speak in complete sentences AUSCULTATION: clear to auscultation bilaterally, no rhonchi and no wheezes Cardio: COMMON NORMALS: regular rate, regular rhythm and No murmurs present (Cardio) RATE: regular rate RHYTHM: regular rhythm GI: COMMON NORMALS: Soft to palpation and non-tender INSPECTION: No abdominal distension AUSCULTATION: Yes normoactive bowel sounds PALPATION: Yes Soft to palpation Extremity: COMMON NORMALS: no clubbing, cyanosis or edema and no calf tenderness Neuro: COMMON NORMALS: patient oriented x3 SENSORIUM/ORIENTATION: Yes alert, Yes oriented to person, Yes oriented to place and Yes oriented to time OTHER: Patient with conjunctival erythema due to inability to close his eyes, answering questions appropriately, alert and oriented. Speech stable this morning, no visible drooling or pooling of saliva Psych: COMMON NORMALS: mental status grossly normal and cooperative Skin: COMMON NORMALS: no rashes or lesions noted GENERAL SKIN EXAM: no rashes or lesions noted Discharge Data Data Completed and Pending: Completed Studies During Hospitalization Category Date Time Status CV echo complete* [id number] Routine Ultrasound 09/04/20 08:36 Completed Labs from last 24 hours 09/07/20 04:22 Sodium 128 L Potassium 4.0 Chloride 91 L Carbon Dioxide 29 Anion Gap 12.0 BUN 10 Creatinine 0.8 GFR Calculation Not Reportable Glucose 109 Calculated Osmolal ity 266 L Calcium 9.2 Vitals: Last Vital Signs Temp 98.6 F 09/07/20 09:49 Pulse 83 09/07/20 10:19 Resp 16 09/07/20 10:19 BP 172/61 09/07/20 09:49 Pulse Ox 93 09/07/20 10:19 Discharge Plan Discharge Patient Disposition: Home Condition: Stable Prescriptions: New prednisone 20 mg Tablet 20 mg PO DAILY 30 Days Qty: 30 RF: 0 Continued magnesium oxide 420 mg tablet 420 mg PO DAILY RF: 0 pyridostigmine bromide [Mestinon] 60 mg tablet 60 mg PO TID Qty: 90 RF: 4 levetiracetam [Keppra] 1,000 mg tablet 500 mg PO BID Qty: 90 RF: 3 Refresh Tears 0.5 % Drops 1 drp OPHTHALMIC (EYE) Q2H RF: 0 Vitamin D3 50 mcg (2,000 unit) Capsule 2,000 unit PO DAILY RF: 0 Discharge Orders: Discharge Order (Routine); Ordered 09/07/20 Ordered By: Rosalia Sinha Referrals: Sammi Posadas MD [Physician] - 2 weeks Jerman Henao DO [Primary Care Provider] - 1-3 days Discharge Diet: Advance as tolerated and Soft Mechanical Discharge Activity: Increase activity as tolerated Activity Restrictions/Additional Instructions: Continue with IVIG infusions weekly as directed by her neurologist, Dr. Posadas Discharge to home with prednisone 20 mg daily Follow-up with primary care provider in 2 to 3 days Follow-up with neurology, Dr. 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
== END 2020-09-07 16:00 | disposition home or self-care (01) | DRG 57 ==
LOC: ICU 13:22 → MEDSURG 09-04 18:43
PROVIDERS: Admitting Provider Family Medicine; PCP Internal Medicine; Referring Provider Specialist; Visit Provider Family Medicine
DX: G70.01 Myasthenia gravis with (acute) exacerbation (principal); G40.309 Generalized idiopathic epilepsy and epileptic syndromes, not intractable, without status epilepticus; Z79.899 Other long term (current) drug therapy; Z87.891 Personal history of nicotine dependence; R47.1 Dysarthria and anarthria; R13.10 Dysphagia, unspecified; H53.2 Diplopia; K22.2 Esophageal obstruction
CPT/HCPCS: 12345; 36415; 80048; 80053; 83735; 84100; 84443; 85025; 92507; 92523; 92526; 92610; 93005; 93306; 94664; 96372; 96375; 97110; 97161; C9113; J1568; J1650; J2270; J7030; J7512

== ENCOUNTER 2020-09-21 10:03 | Outpatient (RCR) | payer MEDICAID, SELFPAY ==
[2020-09-14 12:52] VITALS: BP 161/90; PULSE 97; RESP 18; TEMP 37.2; O2SAT 95; BMI 25.8
[2020-09-21 10:21] VITALS: BP 180/79; PULSE 80; RESP 18; TEMP 36.8; O2SAT 95
== END 2020-09-26 23:59 | disposition home or self-care (01) ==
LOC: OPS 10:03
PROVIDERS: PCP Internal Medicine; Visit Provider Family Medicine
DX: G70.01 Myasthenia gravis with (acute) exacerbation (principal)
CPT/HCPCS: 96365; 96366; J1568

== ENCOUNTER 2020-10-26 11:55 | Outpatient (RCR) | payer MEDICAID, SELFPAY ==
[2020-09-28 09:56] VITALS: BMI 25.8
[2020-09-28 10:24] VITALS: BP 173/72; PULSE 82; RESP 18; TEMP 36.8; O2SAT 97
[2020-10-05 10:14] VITALS: BP 184/73; PULSE 79; RESP 18; TEMP 36.8; O2SAT 96
[2020-10-12 10:37] VITALS: BP 174/82; PULSE 74; RESP 18; TEMP 36.8; O2SAT 97
--- NOTE | 2020-10-12 12:17 | PC.NURSE ---
started ivig at 96cc and hour. 30min in at 1116 increased to 196. 30min late increase to 330. Ended infusion at 1219.
[2020-10-19 10:27] VITALS: BP 158/73; PULSE 86; RESP 18; TEMP 36.9; O2SAT 96
[2020-10-26 12:43] VITALS: BP 197/81; PULSE 72; RESP 18; TEMP 37.4; O2SAT 98
== END 2020-10-26 23:59 | disposition home or self-care (01) ==
LOC: OPS 11:55
PROVIDERS: PCP Internal Medicine; Visit Provider Family Medicine
DX: G70.01 Myasthenia gravis with (acute) exacerbation (principal)
CPT/HCPCS: 96365; 96366; J1568

== ENCOUNTER 2020-11-02 10:43 | Outpatient (RCR) | payer MEDICAID, SELFPAY ==
[2020-11-02 11:01] VITALS: BP 180/90; PULSE 76; RESP 18; TEMP 36.6; O2SAT 96
== END 2020-11-26 23:59 | disposition home or self-care (01) ==
LOC: OPS 10:43
PROVIDERS: PCP Internal Medicine; Visit Provider Family Medicine
DX: G70.01 Myasthenia gravis with (acute) exacerbation (principal)
CPT/HCPCS: 96365; 96366; J1568

== ENCOUNTER 2020-12-07 11:58 | Inpatient (IN) | payer MEDICARE, MEDICAID, SELFPAY ==
[2020-12-07] VITALS (12 sets, daily range): BP systolic 161–202; BP diastolic 74–119; PULSE 80–120; RESP 16–27; TEMP 36.7–36.8; O2SAT 90–100; BMI 25.1
--- NOTE | 2020-12-07 12:28 | XRR_ITS ---
PROCEDURE INFORMATION: Exam: XR Chest, 1 View Exam date and time: 12/07/2020 12:30 PM Age: 85 years old Clinical indication: Cough and dyspnea; Additional info: Dyspnea/cough TECHNIQUE: Imaging protocol: XR of the chest Views: 1 view. COMPARISON: No relevant prior studies available. FINDINGS: Lungs: There are bibasilar pulmonary infiltrates greater on the left side which is consistent with bilateral pneumonia. Pleural space: Unremarkable. No pleural effusion. No pneumothorax. Heart/Mediastinum: Unremarkable. No cardiomegaly. Bones/joints: Unremarkable. XR/XR chest 1V portable [id number] IMPRESSION: Bibasilar pulmonary infiltrates greater on the left consistent with pneumonia.
--- NOTE | 2020-12-07 12:29 | ECG_ITS ---
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 Measurements Intervals [place] Rate: 90 P: 60 ID: [id number] QRS: -7 QRSD: 123 T: -5 QT: 388 QTc: 477 Interpretive Statements SINUS RHYTHM WITH OCCASIONAL SUPRAVENTRICULAR PREMATURE COMPLEXES POSSIBLE RIGHT VENTRICULAR CONDUCTION DELAY [RSR (QR) IN V1/V2] SEPTAL MYOCARDIAL INFARCTION , OF INDETERMINATE AGE [40+ ms Q WAVE IN V1/V2] Compared to ECG 09/04/2020 08:47:09 Myocardial infarct finding now present Ventricular premature complex(es) no longer present Right bundle-branch block no longer present Electronically Signed On 12-07-2020 17:22:32 COMPUTER SYSTEMS DESIGNER by Antonia Myers M.D. [id number]
[2020-12-07 12:45] LABS: ABG PCO2 44.2 mmHg (35-45); ABG PH Result 7.45 (7.35-7.45); Alveolar-Arterial Oxygen Gradi 3.8 mmHg (5-10); Arterial Blood Gas Hematocrit 44.9 % (42-52); Base Excess ABG 5.4 mmol/L (-2.0-2.0); Blood Gas Allen Test Pos; Blood Gas Operator Identificat MONRO; Blood Gas Sample Site Radial, right; Blood Gas Sample Type Arterial; Carboxyhemoglobin 1.8 %THgb (0.4-20.1); HCO3 ABG 30.4 mmol/L (22-26); HGB O2 Sat 92.1 % (95-100); Ionized Calcium Level - ABG 1.2 mmol/L (1.1-1.4); Methemoglobin 0.7 % (0.4-1.5); Oxygen Device ROOM AIR; Oxygen Saturation ABG 94.4; PO2 ABG 67.6 mmHg (80.0-100.0); Potassium Level - ABG 4.5 mmol/L (3.5-5.0); Total Hemoglobin 14.7 g/dL (14-18)
--- NOTE | 2020-12-07 12:56 | ED_ITS ---
HPI - SOB/Dyspnea General: Chief Complaint: Shortness of Breath/Dyspnea Stated Complaint: DIFFICULTY BREATHING, CONFUSION Time Seen by Provider: 12/07/20 12:14 History of Present Illness: HPI Narrative: 85-year-old male comes in complaining of shortness of breath. He has a history of myasthenia gravis. He also is a former smoker. Room air on arrival was 90%. He has had a moderately productive cough is been increasing for the last several weeks he denies any fever sweats chills no nausea vomiting or diarrhea. He is a former smoker he is not on any inhaled medications. MD elicited complaint: shortness of breath and cough Pertinent past history: COPD Onset (ago): day(s) Timing: constant Severity: moderate Exacerbating factors: exertion and coughing Relieving factors: oxygen Known history of: COPD Associated symptoms: Reports chest congestion and nausea; Deny abdominal pain, chest pain, cough, diaphoresis, dizziness, extremity pain, fever(s), hemoptysis, lightheadedness, myalgias, orthopnea, palpitations, paresthesias, polydipsia, polyuria, rash, sense of impending doom, syncope or vomiting Treatment prior to arrival: none Review of Systems Const: Denies: fever(s) or diaphoresis ENMT: Denies: throat pain, ear or mastoid pain, nasal discharge or nasal congestion Card: Denies: chest pain, palpitations, lightheadedness, syncope or orthopnea Resp: Reports: chest congestion; Denies: hemoptysis GI: Reports: nausea; Denies: abdominal pain or vomiting : Denies: flank pain, dysuria, urinary frequency or urinary urgency Musc: Denies: extremity pain Skin/Breast: Denies: rash or pruritus Neuro: Denies: dizziness Endo: Denies: polyuria or polydipsia PFSH ED PFSH: Medical History Generalized epilepsy Surgical History History of back surgery History of cataract surgery History of esophagogastroduodenoscopy (EGD) Family History Other CAD (coronary artery disease) Diabetes Social History (Reviewed 12/07/20 @ 13:28 by ASHOK Menchaca Smoking and tobacco status: former smoker Quit status (tobacco): has quit using tobacco Year quit tobacco: 40 years ago Alcohol intake: never Physical Exam Const: COMMON NORMALS: no acute distress GENERAL APPEARANCE: cooperative and comfortable ORIENTATION/CONSCIOUSNESS: Yes awake, Yes oriented to person, Yes oriented to place and Yes oriented to time HENMT: COMMON NORMALS: normocephalic, atraumatic and hearing grossly normal bilaterally HEAD & SCALP: normocephalic and atraumatic Eye: COMMON NORMALS: Equal, round and reactive pupils present, EOMs intact bilaterally, conjunctivae normal and no scleral icterus CONJUNCTIVA: Yes conjunctivae normal PUPIL: Yes Equal, round and reactive pupils present Neck/C-Spine: COMMON NORMALS: no JVD Resp: COMMON NORMALS: normal respiratory effort, No retractions and No use of accessory muscles AUSCULTATION: rales and wheezes Cardio: COMMON NORMALS: no JVD, regular rate, regular rhythm and No murmurs present (Cardio) RATE: regular rate RHYTHM: regular rhythm GI: COMMON NORMALS: Soft to palpation and No hepatosplenomegaly present AUSCULTATION: Yes normoactive bowel sounds PALPATION: Yes Soft to palpation, No Tenderness to palpation present (GI), No Guarding due to palpation present (GI) and Yes No hepatosplenomegaly present Extremity: COMMON NORMALS: normal to inspection, capillary refill normal, no clubbing, cyanosis or edema, no calf tenderness and no pedal edema Neuro: SENSORIUM/ORIENTATION: Yes oriented to person, Yes oriented to place and Yes oriented to time Skin: COMMON NORMALS: no rashes or lesions noted GENERAL SKIN EXAM: no rashes or lesions noted Course Vital Signs: Vital signs: Vital Signs Temperature 98.2 F 12/07/20 12:16 Pulse Rate 101 H 12/07/20 15:30 Respiratory Rate 16 12/07/20 15:30 Blood Pressure 171/84 12/07/20 15:30 Pulse Oximetry 93 12/07/20 15:30 MDM - SOB/Dyspnea MDM Narrative: Medical decision making narrative: Bilateral lower lobe pneumonia is also Covid positive. I think you will probably continue to struggle and may even worsen a bit at this point probably best to admit him for his hyponatremia community-acquired pneumonia and Covid pneumonitis discussed Dr. Nguyễn. Lab Data: Labs: Lab Results 12/07/20 12/07/20 12/07/20 Range/Units 12:31 12:42 12:42 WBC 8.7 (4.0-10.0) 10^3/ uL RBC 4.52 (4.1-5.3) 10^6/u L Hgb 14.5 (11.7-16.6) g/dL Hct 41.7 L (42.0-52.0) % MCV 92.3 (80-94) fL MCH 32.1 (28.0-34.0) pg MCHC 34.8 (30.0-36.0) g/dL RDW 12.2 (12.1-15.1) % Plt Count 264 (130-400) 10^3/c mm MPV 10.1 (7.4-10.4) fL Neut % (Auto) 80.2 % Lymph % (Auto) 9.0 % Wilson % (Auto) 9.2 % Eos % (Auto) 0.0 % Baso % (Auto) 0.6 % Neut # (Auto) 7.01 (1.8-7.7) 10^3/u L Lymph # (Auto) 0.8 (0.8-4.8) 10^3/u L Wilson # (Auto) 0.8 (0.2-0.9) 10^3/u L Eos # (Auto) 0.0 (0.0-0.8) 10^3/u L Baso # (Auto) 0.1 (0.0-0.1) 10^3/u L Nucleated RBC % (a uto) 0 % Nucleated RBCs # 0.0 /100WBC Specimen Type Arterial Sample Site Radial, right ABG pH 7.45 (7.35-7.45) ABG pCO2 44.2 (35-45) mmHg ABG pO2 67.6 L (80.0-100.0) mmH g ABG HCO3 30.4 H (22-26) mmol/L ABG O2 Saturation 94.4 ABG Base Excess 5.4 H (-2.0-2.0) mmol/ L Wayne Test Pos A-a O2 Gradient 3.8 L (5-10) mmHg Hematocrit 44.9 (42-52) % Hgb O2 Saturation 92.1 L (95-100) % Carboxyhemoglobin 1.8 (0.4-20.1) %THgb Methemoglobin 0.7 (0.4-1.5) % Total Hemoglobin 14.7 (14-18) g/dL Sodium 122.0 L 120 L (131-143) mmol/L Potassium 4.5 4.8 (3.5-5.0) mmol/L Glucose 123.0 H 124 H (70-115) mg/dL Ionized Calcium 1.2 (1.1-1.4) mmol/L O2 Delivery Device Room air FiO2 21.0 % Bondactor Machine Operator ID [place] Chloride 84 L (98-107) mmol/L Carbon Dioxide 28 (22-29) mmol/L Anion Gap 12.8 (5-19) BUN 17 (8-23) mg/dL Creatinine 0.7 (0.7-1.2) mg/dL GFR Calculation Not Reportable Calculated Osmolal ity 253 L (285-295) mOsm/k g Calcium 8.9 (8.5-10.5) mg/dL Total Bilirubin 0.7 (0.15-1.2) mg/dL AST 24 (0-40) U/L ALT 13 (0-41) U/L Alkaline Phosphata se 66 (40-130) IU/L Creatine Kinase 106 (39-308) U/L Troponin T Baselin e (0-15) ng/L Total Protein 6.2 L (6.6-8.7) g/dL Albumin 3.3 L (3.5-5.2) g/dL Globulin 2.9 (1.3-4.6) g/dL Urine Color (Yellow) Urine Appearance (CLEAR) Urine pH (5-7) Ur Specific Gravit y (1.005-1.030) Urine Protein (Negative) Urine Glucose (UA) (Normal) Urine Ketones (Negative) Urine Blood (Negative) Urine Nitrate (Negative) Urine Bilirubin (Negative) Urine Urobilinogen (Negative) mg/dL Ur Leukocyte Eda ase (Negative) Urine RBC (0-2) /hpf Urine WBC (0-5) /hpf Ur Squamous Epith Cells (0-5) /hpf Amorphous Sediment Urine Bacteria (NONE) /hpf Hyaline Casts /lpf Urine Mucus /hpf SARS-CoV-2 Ag (Rap id) (Negative) 01/11/21 01/11/21 01/11/21 Range/Units 12:42 12:53 13:59 WBC (4.0-10.0) 10^3/ uL RBC (4.1-5.3) 10^6/u L Hgb (11.7-16.6) g/dL Hct (42.0-52.0) % MCV (80-94) fL MCH (28.0-34.0) pg MCHC (30.0-36.0) g/dL RDW (12.1-15.1) % Plt Count (130-400) 10^3/c mm MPV (7.4-10.4) fL Neut % (Auto) % Lymph % (Auto) % Wilson % (Auto) % Eos % (Auto) % Baso % (Auto) % Neut # (Auto) (1.8-7.7) 10^3/u L Lymph # (Auto) (0.8-4.8) 10^3/u L Wilson # (Auto) (0.2-0.9) 10^3/u L Eos # (Auto) (0.0-0.8) 10^3/u L Baso # (Auto) (0.0-0.1) 10^3/u L Nucleated RBC % (a uto) % Nucleated RBCs # /100WBC Specimen Type Sample Site ABG pH (7.35-7.45) ABG pCO2 (35-45) mmHg ABG pO2 (80.0-100.0) mmH g ABG HCO3 (22-26) mmol/L ABG O2 Saturation ABG Base Excess (-2.0-2.0) mmol/ L Wayne Test A-a O2 Gradient (5-10) mmHg Hematocrit (42-52) % Hgb O2 Saturation (95-100) % Carboxyhemoglobin (0.4-20.1) %THgb Methemoglobin (0.4-1.5) % Total Hemoglobin (14-18) g/dL Sodium (131-143) mmol/L Potassium (3.5-5.0) mmol/L Glucose (70-115) mg/dL Ionized Calcium (1.1-1.4) mmol/L O2 Delivery Device FiO2 % Bondactor Machine Operator ID Chloride (98-107) mmol/L Carbon Dioxide (22-29) mmol/L Anion Gap (5-19) BUN (8-23) mg/dL Creatinine (0.7-1.2) mg/dL GFR Calculation Calculated Osmolal ity (285-295) mOsm/k g Calcium (8.5-10.5) mg/dL Total Bilirubin (0.15-1.2) mg/dL AST (0-40) U/L ALT (0-41) U/L Alkaline Phosphata se (40-130) IU/L Creatine Kinase (39-308) U/L Troponin T Baselin e 23 H (0-15) ng/L Total Protein (6.6-8.7) g/dL Albumin (3.5-5.2) g/dL Globulin (1.3-4.6) g/dL Urine Color Yellow (Yellow) Urine Appearance Clear (CLEAR) Urine pH 5 (5-7) Ur Specific Gravit y 1.020 (1.005-1.030) Urine Protein 1+ H (Negative) Urine Glucose (UA) Norm (Normal) Urine Ketones Negative (Negative) Urine Blood 2+ H (Negative) Urine Nitrate Negative (Negative) Urine Bilirubin Neg (Negative) Urine Urobilinogen Norm (Negative) mg/dL Ur Leukocyte Eda ase Negative (Negative) Urine RBC 0-4 H (0-2) /hpf Urine WBC 0-4 H (0-5) /hpf Ur Squamous Epith Cells 0-4 H (0-5) /hpf Amorphous Sediment Not Reportable Urine Bacteria Trace (NONE) /hpf Hyaline Casts 0-4 H /lpf Urine Mucus 1+ /hpf SARS-CoV-2 Ag (Rap id) Positive H (Negative) Discharge Plan Discharge Patient Disposition: Admitted As Inpatient Admit Provider: Janice Huffman Clinical Impression: Community acquired pneumonia, COVID-19, Hyponatremia Condition: Stable Coding Level of Care Code ED Dry Heat Room Attendant for Chg Fwd Exam Comprehensive
[2020-12-07 13:01] LABS: Basophils # 0.1 10^3/uL (0.0-0.1); Basophils % 0.6 %; Hematocrit 41.7 % (42.0-52.0); Hemoglobin 14.5 g/dL (11.7-16.6); Lymphocytes # 0.8 10^3/uL (0.8-4.8); Mean Corpuscular HGB Conc 34.8 g/dL (30.0-36.0); Mean Corpuscular Hemoglobin 32.1 pg (28.0-34.0); Mean Corpuscular Volume 92.3 fL (80-94); Mean Platelet Volume 10.1 fL (7.4-10.4); Monocytes # 0.8 10^3/uL (0.2-0.9); Monocytes % 9.2 %; Neutrophils # 7.01 10^3/uL (1.8-7.7); Neutrophils % 80.2 %; Nucleated Red Blood Cells % 0 %; Platelet Count 264 10^3/cmm (130-400); Red Blood Count 4.52 10^6/uL (4.1-5.3); Red Cell Distribution Width 12.2 % (12.1-15.1); White Blood Count 8.7 10^3/uL (4.0-10.0)
[2020-12-07 13:27] LABS: Troponin(5th) Baseline 23 ng/L (0-15)
[2020-12-07 13:28] LABS: Alanine Aminotransferase 13 U/L (0-41); Albumin Level 3.3 g/dL (3.5-5.2); Alkaline Phosphatase 66 IU/L (40-130); Anion Gap 12.8 (5-19); Aspartate Amino Transferase 24 U/L (0-40); Blood Urea Nitrogen 17 mg/dL (8-23); Calcium 8.9 mg/dL (8.5-10.5); Carbon Dioxide 28 mmol/L (22-29); Chloride 84 mmol/L (98-107); Creatine Phosphokinase 106 U/L (39-308); Globulin 2.9 g/dL (1.3-4.6); Glucose 124 mg/dL (65-115); Osmolality Calculated 253 mOsm/kg (285-295); Potassium 4.8 mmol/L (3.5-5.1); Sodium 120 mmol/L (136-145); Total Bilirubin 0.7 mg/dL (0.15-1.2); Total Protein 6.2 g/dL (6.6-8.7)
[2020-12-07 13:34] LABS: SARS Covid-2 Antigen Positive (Negative)
[2020-12-07 14:16] LABS: Add Urine Microscopic? YES; Bilirubin Urine Neg (Negative); Blood Urine 2+ (Negative); Glucose Urine UA Norm (Normal); Ketones Urine Negative (Negative); Leukocyte Esterase Urine Negative (Negative); Nitrate Urine Negative (Negative); Protein Urine 1+ (Negative); Urine Appearance Clear (CLEAR); Urine Color Yellow (Yellow); Urobilinogen Urine Norm (Negative); pH Urine 5 (5-7)
[2020-12-07 14:18] LABS: Mucus Urine 1+ /hpf
[2020-12-07 14:19] LABS: Bacteria Urine TRACE /hpf; Hyaline Casts Urine 0-4 /lpf
[2020-12-07 14:20] LABS: Add Urine Culture? No; RBC Urine 0-4 /hpf (0-2); Squamous Epithelial Cell Urine 0-4 /hpf (0-5); WBC Urine 0-4 /hpf (0-5)
--- NOTE | 2020-12-07 14:29 | ECG_ITS ---
[facility] Test Date: 2020-12-07 Pat Name: Mauricio Wilson Department: Room: Gender: Male Employment And Claims Aide: : 1935 Requested By: Benjamín Carlson Order Number: [id number] Jhonny MD: Antonia Myers M.D. Measurements Intervals [place] Rate: 92 P: 60 [place]: 180 QRS: -12 QRSD: 134 T: -8 QT: 376 QTc: 465 Interpretive Statements SINUS RHYTHM WITH FREQUENT VENTRICULAR PREMATURE COMPLEXES INTRAVENTRICULAR CONDUCTION DELAY [130+ ms QRS DURATION] Compared to ECG 12/07/2020 12:31:37 Ventricular premature complex(es) now present Intraventricular conduction delay now present Myocardial infarct finding no longer present Electronically Signed On 12-07-2020 20:25:05 CARDIO CLINICIAN by Antonia Myers M.D. [id number]
--- NOTE | 2020-12-07 15:50 | PC.NURSE ---
Spoke with pt's Lyn and updated her on pt admission. Pt left pt's phone and other belongings for pt. Belongings left at bedside in belonging bag with pt label and pt notified of belongings being at bedside.
[2020-12-07 16:03] LABS: Troponin 5 2HR 19.48 ng/L (0-15)
--- NOTE | 2020-12-07 16:03 | PC.NURSE ---
Read and agree with assessment.
[2020-12-07 16:11] LABS: Troponin 5 2HR Delta -3.52 ABS# (0-10)
--- NOTE | 2020-12-07 18:29 | ECG_ITS ---
[facility] Test Date: 2020-12-07 Pat Name: Mauricio Wilson Department: Room: 268 Gender: Male Weaving Teacher: : 1935 Requested By: Benjamín Carlson Order Number: [id number] Jhonny MD: Aniyah Elaine M.D. Measurements Intervals [place] Rate: 92 P: 66 [place]: 189 QRS: -17 QRSD: 136 T: 0 QT: 367 QTc: 454 Interpretive Statements SINUS RHYTHM WITH OCCASIONAL VENTRICULAR PREMATURE COMPLEXES RIGHT BUNDLE BRANCH BLOCK [120+ ms QRS DURATION, UPRIGHT V1, 40+ ms S IN I/aVL/V4/V5/V6] WARNING: DATA QUALITY MAY AFFECT INTERPRETATION Compared to ECG 12/07/2020 14:16:06 Right bundle-branch block now present Intraventricular conduction delay no longer present Electronically Signed On 12-08-2020 21:39:55 CORE FILER by Aniyah Elaine M.D. [email or web address] [email or web address].[email or web address]/[id number]
--- NOTE | 2020-12-07 18:30 | PC.NURSE ---
Report to Mel MOSS Report received from Frank in the ER. Frank states that patient came to the ER with complaints of being short of breath for 3 to 4 days with a couch that has productive yellow sputum. Patient is A&Ox3. Respirations even and non-labored on on 2 liters of oxygen. Patient has a #18 gauge in his left AC. Patient has Myasthenia Gravis. Frank states that he gave the patient 750mg of Levofloxacin in the ER and that was all he gave him.
[2020-12-07] MEDS: sodium chloride 0.9% 1,000 ML 100 ML IV (20:28)
[2020-12-07] MEDS: enoxaparin 40 mg/0.4 mL Syringe SUBCUT (20:29)
[2020-12-07] MEDS: dexamethasone 4 mg/mL INJ 6 MG IVP (20:34)
[2020-12-07] MEDS: famotidine 20 mg Tablet PO (20:39)
[2020-12-07] MEDS: pyridostigmine 60 mg Tablet PO (20:39)
[2020-12-07] MEDS: levETIRAcetam 500 mg Tablet PO (20:39)
--- NOTE | 2020-12-07 20:51 | P.HP_ITS ---
Providers/Chief Complaint Primary Care Provider: Jerman Henao DO Chief Complaint: DIFFICULTY BREATHING, CONFUSION History of Present Illness 85-year-old male with a past medical history significant for myasthenia gravis, and epilepsy was presented to the hospital with respiratory distress. This was associated with generalized weakness, subjective fevers and chills. Also noted poor appetite. Upon arrival to emergency room patient was subjectively complaining of respiratory distress however was not hypoxic. Oxygen saturations were 90% on room air. Initial laboratory workup showed a WBC of 8.7, hemoglobin of 14.5, hematocrit of 41.7 and a platelet count of 264. Arterial blood gases showed a pH of 7.45, pCO2 44.2, PO2 of 67.6 and bicarb of 30.4. Sodium of 120, potassium of 4.8, chloride of 84, bicarb 28, BUN of 17 and creatinine is 0.7. Troponin trend of 23, 19.48, delta T of -3.52. Rapid COVID antigen was positive. Imaging studies included a chest x-ray which showed bibasilar pulmonary infiltrates greater on the left consistent with pneumonia. Patient was given Levaquin 750 mg IV x1 and admitted to the hospital. Review of Systems General: Reports: 10 or more systems reviewed and unremarkable except in HPI and below Medications/Allergies Home Medications Medication Instructions Recorded Confirmed Last Taken Type magnesium oxide 420 mg tablet 420 mg PO DAILY@0800 05/11/20 12/07/20 12/07/20 History Refresh Tears 1 drp OPHTHALMIC (EYE) Q2H 09/03/20 12/07/20 12/07/20 History cholecalciferol (vitamin D3) 2,000 unit PO DAILY@0800 09/03/20 12/07/20 12/07/20 History [Vitamin D3] Keppra 500 mg PO BID@0800,199912/07/20 12/07/20 12/07/20 History Mestinon 60 mg PO TID@0800,1199,199912/07/20 12/07/20 12/07/20 History Allergies Allergy/AdvReac Type Severity Reaction Status Date / Time No Known Allergies Allergy Verified 10/05/20 11:18 PFSH Acute PFSH: Medical History Generalized epilepsy Surgical History History of back surgery History of cataract surgery History of esophagogastroduodenoscopy (EGD) Family History Other CAD (coronary artery disease) Diabetes Social History Smoking and tobacco status: former smoker Quit status (tobacco): has quit using tobacco Year quit tobacco: 40 years ago Alcohol intake: never Vitals/I&O/Wt Last Vital Signs Temp 98.2 F 12/07/20 12:16 Pulse 92 12/07/20 14:03 Resp 16 12/07/20 14:03 BP 161/89 12/07/20 12:16 Pulse Ox 100 12/07/20 14:03 Weight last 48 hrs Weight 79.379 kg Physical Exam Narrative: EXAM NARRATIVE: General: Alert, awake, no distress on RA HEENT : Grossly unremarkable CVS: NSR CHEST : non-labored respiration ABD ; Soft NT, ND Ext : No edema Data : 12/07/20 12:42 12/07/20 12:42 Micro: Microbiology 12/07/20 13:43 Blood Culture - Preliminary Blood SPECIMEN COLLECTED A&P Assessment and plan (1) COVID-19: Status: Acute (2) Hyponatremia: Status: Acute (3) Generalized epilepsy: Status: Acute (4) Acute respiratory distress: Status: Acute Acute respiratory distress due to COVID-19 pneumonia - COVID-19 ag positive - Chest x-ray bilateral bibasilar infiltrates - Currently on RA - Supplemental 02 as needed - Maintain o2 saturation > 92 - Albuterol MDI - Decadron 6 mg IV daily x total 10 days - Emperically on levaquin 750 mg IV daily - Blood culture x 2 drawn in ER - Check ferritin, d-dimer, CRP, procalcitonin in am - High risk for respiratory decompensation Hyponatremia - Chronically low - Today 120 - Check UA sodium,cl,cr,osm prior to IVF - NS at 75cc/hr - cautious IV hydration due to above Elevated troponin - Trend non-consistent with acs - May consider ECHO Hx of Myasthenia gravis / Epilepsy - Continue home meds GI ppx - Pepcid 20 mg PO BID DVT ppx - Lovenox 40 mg SQ daily Attestations Medical Necessity Statement*: Patient require less than 2 midnight stay in [facility] for evaluation and treatment currently. Time Spent in Patient Care: Greater than 35 minutes (>than 50% of time spent in counselling and/or direct pt care on unit) . 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
[2020-12-07 23:00] LABS: Urine Creatinine 133 mg/dL (39-259); Urine Random Chloride 37 mmol/L; Urine Random Sodium 24 mmol/L
[2020-12-08] VITALS (11 sets, daily range): BP systolic 130–184; BP diastolic 56–85; PULSE 73–102; RESP 16–18; TEMP 36.5–37.1; O2SAT 90–97
[2020-12-08] MEDS: ondansetron 2 mg/ML SDV 2 mL 4 MG IVP
--- NOTE | 2020-12-08 00:41 | PM.EVENT ---
Event Note Event Note: Called with patient haveing 2 episodes of vomiting bright red blood. Did receive lovenox. This has been stopped. Checkiing HH now with type and screen, PT, PTT. HR 70s, SBP 150s presently. No c/o abdmomnial pain but does not feel right . Have ordered a one time dose of IV protonix and changed oral pepcid to oral protonix. Nurse to let me know if any further vomiting. COVID positive which makes endoscopic evaluation more of a risk. Will monitor. Has telemetry.
[2020-12-08] MEDS: pantoprazole 40 mg SDV IVP (00:46)
--- NOTE | 2020-12-08 01:12 | PC.NURSE ---
Emesis Patient vomited bright red blood x3 at this time. Dr. Zurita notified after second emesis (within minutes apart from each other). Labs and protonix ordered. In the process of drawing labs patient vomited a 3rd time. Moderate amount of bright red blood. Patient has no complaints, stating that he has no pain, but something's not right. Patient setting on side of bed at this time. Protonix and zofran have both been administered IV. Will monitor for further vomiting and notify Dr. Zurita if continues.
[2020-12-08 01:20] LABS: Hematocrit 35.6 % (42.0-52.0); Hemoglobin 12.1 g/dL (11.7-16.6)
[2020-12-08 01:24] LABS: INR 1.18 (0.8-1.2)
[2020-12-08 01:25] LABS: Partial Thromboplastin Time 36.7 SECONDS (23.9-36.7)
--- NOTE | 2020-12-08 02:48 | PC.NURSE ---
Emesis Emptied basin bin of bright red blood again at this time. Moderate amount. Patient reports that he feels like it is slowing down. Updated him that we will draw labs again at 0400, and that Dr. Zurita has consulted for Dr. Mitchell to see him tomorrow.
[2020-12-08 04:34] LABS: Basophils % 0.2 %; Hemoglobin 12.9 g/dL (11.7-16.6); Lymphocytes # 0.5 10^3/uL (0.8-4.8); Lymphocytes % 4.6 %; Mean Corpuscular HGB Conc 33.9 g/dL (30.0-36.0); Mean Corpuscular Hemoglobin 32.1 pg (28.0-34.0); Mean Corpuscular Volume 94.5 fL (80-94); Mean Platelet Volume 10.4 fL (7.4-10.4); Monocytes # 0.3 10^3/uL (0.2-0.9); Neutrophils # 8.87 10^3/uL (1.8-7.7); Neutrophils % 91.3 %; Nucleated Red Blood Cells % 0 %; Platelet Count 294 10^3/cmm (130-400); Red Blood Count 4.02 10^6/uL (4.1-5.3); Red Cell Distribution Width 12.2 % (12.1-15.1); White Blood Count 9.7 10^3/uL (4.0-10.0)
[2020-12-08] MEDS: promethazine 25 mg Supp PR (04:46)
[2020-12-08 05:14] LABS: Alanine Aminotransferase 11 U/L (0-41); Albumin Level 3.1 g/dL (3.5-5.2); Alkaline Phosphatase 57 IU/L (40-130); Anion Gap 15.8 (5-19); Aspartate Amino Transferase 23 U/L (0-40); Blood Urea Nitrogen 30 mg/dL (8-23); Calcium 8.8 mg/dL (8.5-10.5); Carbon Dioxide 26 mmol/L (22-29); Chloride 88 mmol/L (98-107); Globulin 3.3 g/dL (1.3-4.6); Glucose 173 mg/dL (65-115); Osmolality Calculated 270 mOsm/kg (285-295); Potassium 4.8 mmol/L (3.5-5.1); Sodium 125 mmol/L (136-145); Total Bilirubin 0.5 mg/dL (0.15-1.2); Total Protein 6.4 g/dL (6.6-8.7)
[2020-12-08 05:15] LABS: Procalcitonin 0.31 ng/mL (0-0.5)
[2020-12-08 05:21] LABS: D Dimer 2.28 ug/mIFEU (0-0.59)
[2020-12-08 05:25] LABS: Ferritin 985 ng/mL (30-400)
[2020-12-08 06:00] LABS: Magnesium 2.1 mg/dL (1.7-2.3)
--- NOTE | 2020-12-08 06:32 | PC.NURSE ---
Shift Summary Patient had emesis throughout the night of bright red blood multiple times. Physician notified and lab work drawn, protonix, zofran, and phenergan administered as ordered with little relief. Hemoglobin drawn twice throughout shift, remains stable at this time. Per Dr. Zurita, Dr. Mitchell consulted to see patient. Patient reports that he feels fine. He states that it is him coughing that is causing the blood, although patient is vomiting the blood, he believes the blood is coming from him lungs.
--- NOTE | 2020-12-08 09:33 | PC.NURSE ---
couldn't keep breakfast down.
[2020-12-08] MEDS: pyridostigmine 60 mg Tablet PO ×2 (09:34→22:04)
[2020-12-08] MEDS: levETIRAcetam 500 mg Tablet PO (09:35)
[2020-12-08] MEDS: sodium chloride 0.9% 1,000 ML 50 ML IV (09:35)
[2020-12-08] MEDS: pantoprazole 40 MG in sodium chloride 0.9% (plus) 100 ML 20 MG IV ×3 (10:26→21:59)
--- NOTE | 2020-12-08 11:45 | PC.OT ---
OT note: Pt to transfer to VICU. Will attempt eval later as able.
[2020-12-08 11:47] LABS: Hematocrit 36.6 % (42.0-52.0); Hemoglobin 12.4 g/dL (11.7-16.6)
[2020-12-08] MEDS: metoclopramide 5 mg/mL SDV 2 mL 10 MG IVP ×2 (12:22→18:44)
--- NOTE | 2020-12-08 14:01 | PC.PT ---
PT note; patient demonstrated good safety awareness and independence with transfers and ambulation in room, instructed in written home exercise program, patient verbalized understanding of same, no further PT visits planned at this time patient to continue independently
--- NOTE | 2020-12-08 15:42 | P.PN_ITS ---
Subjective Subjective: Interval history: 85-year-old male with a past medical history significant for myasthenia gravis, and epilepsy was presented to the hospital with respiratory distress. This was associated with generalized weakness, subjective fevers and chills. Also noted poor appetite. Upon arrival to emergency room patient was subjectively complaining of respiratory distress however was not hypoxic. Oxygen saturations were 90% on room air. Initial laboratory workup showed a WBC of 8.7, hemoglobin of 14.5, hematocrit of 41.7 and a platelet count of 264. Arterial blood gases showed a pH of 7.45, pCO2 44.2, PO2 of 67.6 and bicarb of 30.4. Sodium of 120, potassium of 4.8, chloride of 84, bicarb 28, BUN of 17 and creatinine is 0.7. Troponin trend of 23, 19.48, delta T of -3.52. Rapid COVID antigen was positive. Imaging studies included a chest x-ray which showed bibasilar pulmonary infiltrates greater on the left consistent with pneumonia. Patient was given Levaquin 750 mg IV x1 and admitted to the hospital. Upon admission to the hospital patient's respiratory status has slightly worsened. He was requiring 4 L of O2 via nasal cannula which is increased from room air on admission. In addition was noted to have multiple episodes of bright red emesis overnight in addition throughout the day. Hemoglobin was rechecked however stable. Was started on PPI. General surgery was consulted and patient was transitioned NPO. Appear to have labored respiration at the time of my evaluation. Requested to have patient transferred to viral ICU. Patient was started on Lovenox on admission which was held. 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 Stated this had led to aspiration pneumonitis and pulmonary abscess which was also surgical drain. Since then he has not had any repeat EGDs. Medications: Reviewed: Yes Vitals/I&O/Wt Last Vital Signs Temp 98.7 F 12/08/20 12:00 Pulse 88 12/08/20 14:39 Resp 16 12/08/20 14:39 BP 142/56 12/08/20 12:00 Pulse Ox 90 12/08/20 14:39 12/08/20 12/08/20 12/08/20 06:59 14:59 22:59 Intake Total 120 / 120 Output Total 200 / 300 Balance -200 / -300 120 / 120 Weight last 48 hrs Weight 79.038 kg Weight 79.379 kg Physical Exam Narrative: EXAM NARRATIVE: General: Alert, awake, Labored respiration on 4L via NC HEENT : Grossly unremarkable CVS: NSR CHEST : non-labored respiration ABD ; Soft NT, ND Ext : No edema Data : 12/08/20 11:05 12/08/20 04:00 Micro: Microbiology 12/07/20 00:03 Gram Stain - Final Sputum - Expectorated Sputum 12/07/20 13:43 Blood Culture - Preliminary Blood NEGATIVE TO DATE 12/07/20 12:42 Blood Culture - Preliminary Blood SPECIMEN COLLECTED A&P Assessment and plan (1) COVID-19: Status: Acute (2) Hyponatremia: Status: Acute (3) Generalized epilepsy: Status: Acute (4) Acute respiratory distress: Status: Acute Upper GI bleed - Multiple episodes of blood emesis - HB stable - Monitor q8hr - Transfuse if sig drop - Type and cross - Lovneox stopped - General surgery consulted - NPO - Considering EGD - Emperically started on zosyn 3.375 g q8hr Acute respiratory distress due to COVID-19 pneumonia - COVID-19 ag positive - Chest x-ray bilateral bibasilar infiltrates - Labored respiration today - o2 requirement increased to 4L - Supplemental 02 as needed - Maintain o2 saturation > 92 - Albuterol MDI - Decadron 6 mg IV daily x total 10 days - may have to hold - Empirically on levaquin 750 mg IV daily / Zosyn 3.375g q8hr - Blood culture x 2 drawn - Check ferritin, d-dimer, CRP, procalcitonin qother day - High risk for respiratory decompensation Hyponatremia - Chronically low - Today 120 - 125 - Improving - Check UA sodium,cl,cr,osm prior to IVF - unfortunatly not drawn - NS at 75cc/hr - cautious IV hydration due to above Elevated troponin - Trend non-consistent with acs - May consider ECHO Hx of Myasthenia gravis / Epilepsy - Continue home meds - Keppra changed to IV 500 mg BID GI ppx - Protonix DVT ppx -SCDs only Disposition: Due to multiple episodes of blood emesis, labored respiration and increase in oxygen requirements will transfer to VICU for close observation due to high risk of decompensation. D/w VICU hospitalist - to assume care of patient. Attestations Medical Necessity Statement*: Will require further hospitalization for COVID- 19 related respiratory failure in addition to upper GI bleed. Will require over 2 midnights stay in hospital for further evaluation and treatment. Time Spent in Patient Care: Greater than 35 minutes (>than 50% of time spent in counselling and/or direct pt care on unit) . 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
[2020-12-08 16:53] LABS: Hemoglobin 12.5 g/dL (11.7-16.6)
[2020-12-08] MEDS: levofloxacin-dextrose 5 % 750 MG/150 ML PREMIX 100 MG IV (18:44)
--- NOTE | 2020-12-08 22:28 | PC.NURSE ---
When assessing the patient, he stated that he was tired of being sick and wanted to . This nurse used therapeutic communication to calm the patient down.
[2020-12-08 23:29] LABS: Hematocrit 33.9 % (42.0-52.0); Hemoglobin 11.3 g/dL (11.7-16.6)
[2020-12-09] VITALS (13 sets, daily range): BP systolic 140–164; BP diastolic 62–87; PULSE 81–102; RESP 16–19; TEMP 36.4–37.1; O2SAT 90–96
[2020-12-09] MEDS: pantoprazole 40 MG in sodium chloride 0.9% (plus) 100 ML 20 MG IV (03:08)
--- NOTE | 2020-12-09 04:48 | NUR.SHIFT ---
Patient has had one bout of emesis during the beginning of the night, this was some time after the patient received mastion, patient drank minimal amount of fluid to admin medication. Patient did state that he was feeling better than he was and didn't state anything about dying at the end of shift to this nurse.
[2020-12-09 05:23] LABS: Basophils % 0.3 %; Hematocrit 34.5 % (42.0-52.0); Hemoglobin 11.6 g/dL (11.7-16.6); Lymphocytes % 11.3 %; Mean Corpuscular HGB Conc 33.6 g/dL (30.0-36.0); Mean Corpuscular Volume 95.3 fL (80-94); Mean Platelet Volume 9.8 fL (7.4-10.4); Monocytes # 1.3 10^3/uL (0.2-0.9); Monocytes % 14.6 %; Neutrophils # 6.55 10^3/uL (1.8-7.7); Neutrophils % 71.4 %; Nucleated Red Blood Cells % 0 %; Platelet Count 327 10^3/cmm (130-400); Red Blood Count 3.62 10^6/uL (4.1-5.3); Red Cell Distribution Width 12.6 % (12.1-15.1); White Blood Count 9.2 10^3/uL (4.0-10.0)
[2020-12-09 05:46] LABS: Alanine Aminotransferase 11 U/L (0-41); Albumin Level 2.9 g/dL (3.5-5.2); Alkaline Phosphatase 45 IU/L (40-130); Anion Gap 11.1 (5-19); Aspartate Amino Transferase 26 U/L (0-40); Blood Urea Nitrogen 29 mg/dL (8-23); Calcium 8.7 mg/dL (8.5-10.5); Carbon Dioxide 32 mmol/L (22-29); Chloride 95 mmol/L (98-107); Globulin 2.9 g/dL (1.3-4.6); Glucose 162 mg/dL (65-115); Magnesium 2.3 mg/dL (1.7-2.3); Osmolality Calculated 285 mOsm/kg (285-295); Potassium 5.1 mmol/L (3.5-5.1); Sodium 133 mmol/L (136-145); Total Bilirubin 0.4 mg/dL (0.15-1.2); Total Protein 5.8 g/dL (6.6-8.7)
[2020-12-09 05:57] LABS: Slide Review Slide Review Perform
[2020-12-09] MEDS: sodium chloride 0.9% 1,000 ML 50 ML IV (08:14)
[2020-12-09] MEDS: remdesivir 200 MG in sodium chloride 0.9% (100 ml) 100 ML 100 MG IV (08:52)
--- NOTE | 2020-12-09 12:03 | P.PN_ITS ---
Subjective Subjective: Interval history: 85-year-old male with a past medical history significant for myasthenia gravis, and epilepsy was presented to the hospital with respiratory distress. This was associated with generalized weakness, subjective fevers and chills. Also noted poor appetite. Upon arrival to emergency room patient was subjectively complaining of respiratory distress however was not hypoxic. Oxygen saturations were 90% on room air. Initial laboratory workup showed a WBC of 8.7, hemoglobin of 14.5, hematocrit of 41.7 and a platelet count of 264. Arterial blood gases showed a pH of 7.45, pCO2 44.2, PO2 of 67.6 and bicarb of 30.4. Sodium of 120, potassium of 4.8, chloride of 84, bicarb 28, BUN of 17 and creatinine is 0.7. Troponin trend of 23, 19.48, delta T of -3.52. Rapid COVID antigen was positive. Imaging studies included a chest x-ray which showed bibasilar pulmonary infiltrates greater on the left consistent with pneumonia. Patient was given Levaquin 750 mg IV x1 and admitted to the hospital. Upon admission to the hospital patient's respiratory status has slightly worsened. He was requiring 4 L of O2 via nasal cannula which is increased from room air on admission. In addition was noted to have multiple episodes of bright red emesis overnight in addition throughout the day. Hemoglobin was rechecked however stable. Was started on PPI. General surgery was consulted and patient was transitioned NPO. Appear to have labored respiration at the time of my evaluation. Requested to have patient transferred to viral ICU. Patient was started on Lovenox on admission which was held. 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 Stated this had led to aspiration pneumonitis and pulmonary abscess which was also surgical drain. Since then he has not had any repeat EGDs. Throughout the day on 0112 patient improved. Did not have any further episodes of bloody emesis. Hemoglobin remained stable. O2 saturations remained at 4 L. initially plan to transition to ICU however as patient improved he was stable for regular medical floor. 12/09/2020 Patient remain on 4 L of O2 via nasal cannula overnight. No further episodes of bloody emesis. Did not have any new complaints. Medications: Reviewed: Yes Vitals/I&O/Wt Last Vital Signs Temp 98.1 F 12/09/20 10:57 Pulse 85 12/09/20 10:57 Resp 16 12/09/20 10:57 BP 156/62 12/09/20 10:57 Pulse Ox 95 12/09/20 10:57 12/08/20 12/09/20 12/09/20 22:59 06:59 14:59 Intake Total 349.667 / 400.510 9370 / 1579.667 Output Total 200 / 200 Balance 349.667 / 469.667 910 / 1379.667 Weight last 48 hrs Weight 78.925 kg Weight 79.038 kg Weight 79.379 kg Physical Exam Narrative: EXAM NARRATIVE: General: Alert, awake, Labored respiration on 4L via NC HEENT : Grossly unremarkable CVS: NSR CHEST : non-labored respiration ABD ; Soft NT, ND Ext : No edema Data : 12/09/20 05:13 12/09/20 05:13 Micro: Microbiology 12/07/20 00:03 Gram Stain - Final Sputum - Expectorated Sputum Sputum Culture - Preliminary 12/07/20 12:42 Blood Culture - Preliminary Blood NEGATIVE TO DATE 12/07/20 13:43 Blood Culture - Preliminary Blood NEGATIVE TO DATE A&P Assessment and plan (1) COVID-19: Status: Acute (2) Hyponatremia: Status: Acute (3) Generalized epilepsy: Status: Acute (4) Acute respiratory distress: Status: Acute Upper GI bleed - Currently resolved - Multiple episodes of blood emesis on 12/07-12(am) - HB stable- can change to daily labs - Hb 14 -> 11.6 - Type and cross - Lovenox stopped - General surgery consulted - NPO - Considering EGD- hold for now- will likely require once stable from COVID - Empirically started on zosyn 3.375 g q8hr Acute respiratory distress due to COVID-19 pneumonia - COVID-19 ag positive - Chest x-ray bilateral bibasilar infiltrates - Labored respiration today - o2 requirement increased to 4L - Supplemental 02 as needed - Maintain o2 saturation > 92 - Albuterol MDI - Decadron 6 mg IV daily x total 10 days - HELD - Started on Zosyn 3.375g q8hr - Will d/c levaquin - Blood culture x 2 drawn- NGTD - Check ferritin, d-dimer, CRP, procalcitonin qother day - High risk for respiratory decompensation - D/w patient - Started on Remdesivir 200mg IV x1 - 100mg IV daily x 4 days - Will Repeat chest x-ray - may require gentle diuresis Hyponatremia - Chronically low - Today 120 - 125 - 133 - Improving - Saline lock IVF Elevated troponin - Trend non-consistent with acs - ECHO ordered - pending - Monitor daily weight Hx of Myasthenia gravis / Epilepsy - Continue home meds - Keppra changed to IV 500 mg BID GI ppx - Protonix DVT ppx -SCDs only -No lovenox due to UGI bleed Attestations Medical Necessity Statement*: Patient require further hospitalization for management of acute hypoxic respiratory failure and upper GI bleed. Time Spent in Patient Care: Greater than 35 minutes (>than 50% of time spent in counselling and/or direct pt care on unit) . 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
--- NOTE | 2020-12-09 12:13 | XR_ITS ---
WS: [id number] Portable AP upright chest, 12/09/2020 Clinical Data: respiratory failure Comparison: Portable chest, 12/07/2020. Findings: The bibasilar pulmonary opacities remain unchanged. No nodules or masses are seen. The hear t is normal. The aortic arch and descending aorta show minimal calcification and tortuosity. The pulm onary vascularity is not increased. No pneumothorax is seen. Monitor leads are on the chest wall. XR/XR chest 1V portable [id number] Impression: Bilateral bibasilar pulmonary opacities are unchanged.
[2020-12-09] MEDS: pantoprazole 40 mg SDV IVP ×2 (12:51→22:17)
[2020-12-09 16:28] LABS: Osmolality Urine 703 mOsm/kg (50-1200)
[2020-12-09] MEDS: metoclopramide 5 mg/mL SDV 2 mL 10 MG IVP (17:40)
[2020-12-09] MEDS: levETIRAcetam 500 mg Tablet PO (17:40)
[2020-12-09] MEDS: levofloxacin-dextrose 5 % 750 MG/150 ML PREMIX 100 MG IV (17:40)
[2020-12-09] MEDS: pyridostigmine 60 mg Tablet PO (22:17)
[2020-12-10] VITALS (21 sets, daily range): BP systolic 132–181; BP diastolic 47–72; PULSE 77–93; RESP 17–23; TEMP 36.4–37.1; O2SAT 93–98
[2020-12-10] MEDS: albuterol 8 gm MDI 2 PUFF INHALATION ×5 (00:10→21:54)
[2020-12-10 05:15] LABS: Basophils # 0.1 10^3/uL (0.0-0.1); Basophils % 0.5 %; Hematocrit 35.2 % (42.0-52.0); Hemoglobin 11.4 g/dL (11.7-16.6); Lymphocytes # 1.3 10^3/uL (0.8-4.8); Lymphocytes % 13.8 %; Mean Corpuscular HGB Conc 32.4 g/dL (30.0-36.0); Mean Corpuscular Hemoglobin 32.1 pg (28.0-34.0); Mean Corpuscular Volume 99.2 fL (80-94); Mean Platelet Volume 9.7 fL (7.4-10.4); Monocytes # 1.2 10^3/uL (0.2-0.9); Monocytes % 12.8 %; Neutrophils # 6.54 10^3/uL (1.8-7.7); Neutrophils % 70.3 %; Nucleated Red Blood Cells % 0 %; Platelet Count 341 10^3/cmm (130-400); Red Blood Count 3.55 10^6/uL (4.1-5.3); Red Cell Distribution Width 12.6 % (12.1-15.1); White Blood Count 9.3 10^3/uL (4.0-10.0)
[2020-12-10 05:24] LABS: D Dimer 1.64 ug/mIFEU (0-0.59)
[2020-12-10 05:27] LABS: C Reactive Protein 49.5 mg/L (0.0-4.9)
[2020-12-10 05:28] LABS: Alanine Aminotransferase 11 U/L (0-41); Albumin Level 3.2 g/dL (3.5-5.2); Alkaline Phosphatase 45 IU/L (40-130); Anion Gap 7.9 (5-19); Aspartate Amino Transferase 27 U/L (0-40); Blood Urea Nitrogen 21 mg/dL (8-23); Calcium 8.7 mg/dL (8.5-10.5); Carbon Dioxide 39 mmol/L (22-29); Chloride 92 mmol/L (98-107); Globulin 2.4 g/dL (1.3-4.6); Glucose 139 mg/dL (65-115); Magnesium 2.2 mg/dL (1.7-2.3); Osmolality Calculated 283 mOsm/kg (285-295); Potassium 4.9 mmol/L (3.5-5.1); Sodium 134 mmol/L (136-145); Total Bilirubin 0.4 mg/dL (0.15-1.2); Total Protein 5.6 g/dL (6.6-8.7)
[2020-12-10 05:38] LABS: Procalcitonin 0.16 ng/mL (0-0.5)
[2020-12-10 05:49] LABS: Ferritin 913 ng/mL (30-400)
[2020-12-10 05:51] LABS: ABG PH Result 7.38 (7.35-7.45); Blood Gas Allen Test Pos; Blood Gas LPM 3.5 %; Blood Gas Sample Site Radial, right; Blood Gas Sample Type Arterial; HCO3 ABG 38.4 mmol/L (22-26); Oxygen Device NC; PO2 ABG 71.5 mmHg (80.0-100.0)
[2020-12-10 05:53] LABS: ABG PCO2 65.5 mmHg (35-45)
[2020-12-10 06:17] LABS: Slide Review Slide Review Perform
[2020-12-10] MEDS: remdesivir 100 MG in sodium chloride 0.9% (100 ml) 100 ML IV (06:19)
[2020-12-10] MEDS: pantoprazole 40 mg SDV IVP (08:55)
[2020-12-10] MEDS: pyridostigmine 60 mg Tablet PO (08:55)
[2020-12-10] MEDS: levETIRAcetam 500 mg Tablet PO (08:55)
--- NOTE | 2020-12-10 15:37 | PC.SOCIAL ---
*IMM* Pt was gave his Important message from medic[employer] via phone due to being on precautions. He stated that he understood. IMM is in the chart.
--- NOTE | 2020-12-10 17:01 | PM.PN ---
Subjective Subjective: Interval history: 85-year-old male with a past medical history significant for myasthenia gravis, and epilepsy was presented to the hospital with respiratory distress. This was associated with generalized weakness, subjective fevers and chills. Also noted poor appetite. Upon arrival to emergency room patient was subjectively complaining of respiratory distress however was not hypoxic. Oxygen saturations were 90% on room air. Initial laboratory workup showed a WBC of 8.7, hemoglobin of 14.5, hematocrit of 41.7 and a platelet count of 264. Arterial blood gases showed a pH of 7.45, pCO2 44.2, PO2 of 67.6 and bicarb of 30.4. Sodium of 120, potassium of 4.8, chloride of 84, bicarb 28, BUN of 17 and creatinine is 0.7. Troponin trend of 23, 19.48, delta T of -3.52. Rapid COVID antigen was positive. Imaging studies included a chest x-ray which showed bibasilar pulmonary infiltrates greater on the left consistent with pneumonia. Patient was given Levaquin 750 mg IV x1 and admitted to the hospital. Upon admission to the hospital patient's respiratory status has slightly worsened. He was requiring 4 L of O2 via nasal cannula which is increased from room air on admission. In addition was noted to have multiple episodes of bright red emesis overnight in addition throughout the day. Hemoglobin was rechecked however stable. Was started on PPI. General surgery was consulted and patient was transitioned NPO. Appear to have labored respiration at the time of my evaluation. Requested to have patient transferred to viral ICU. Patient was started on Lovenox on admission which was held. 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 Stated this had led to aspiration pneumonitis and pulmonary abscess which was also surgical drain. Since then he has not had any repeat EGDs. Throughout the day on 0112 patient improved. Did not have any further episodes of bloody emesis. Hemoglobin remained stable. O2 saturations remained at 4 L. initially plan to transition to ICU however as patient improved he was stable for regular medical floor. 12/09/2020 Patient remain on 4 L of O2 via nasal cannula overnight. No further episodes of bloody emesis. Did not have any new complaints. 12/10/2020 Overnight patient again had emesis some of which had evidence of bright red blood. Continued to feel nauseous. Noted to have slightly increase in work of breathing. Remain on 4 L via nasal cannula. Repeat arterial blood gases performed in a.m.. Patient stated he was feeling weak. Remained afebrile overnight. Medications: Reviewed: Yes Vitals/I&O/Wt Last Vital Signs Temp 98.7 F 12/10/20 11:58 Pulse 80 12/10/20 15:22 Resp 18 12/10/20 15:22 BP 142/47 12/10/20 11:58 Pulse Ox 96 12/10/20 15:22 12/10/20 12/10/20 12/10/20 06:59 14:59 22:59 Intake Total 240 / 240 Output Total 100 / 100 Balance 140 / 140 Weight last 48 hrs Weight 78.698 kg Weight 78.925 kg Physical Exam Narrative: EXAM NARRATIVE: General: Alert, awake, Labored respiration on 4L via NC HEENT : Grossly unremarkable CVS: NSR CHEST : non-labored respiration ABD ; Soft NT, ND Ext : No edema Data : 12/10/20 04:40 12/10/20 04:40 Micro: Microbiology 12/07/20 00:03 Gram Stain - Final Sputum - Expectorated Sputum Sputum Culture - Final A&P Assessment and plan (1) COVID-19: Status: Acute (2) Hyponatremia: Status: Acute (3) Generalized epilepsy: Status: Acute (4) Acute respiratory distress: Status: Acute Upper GI bleed - Multiple episodes of blood emesis on 12/07-12(am) - Intermittent episodes - HB stable- can change to daily labs - Hb 14 -> 11.6 - > 11.4 - Type and cross - Lovenox stopped - General surgery consulted however due to stable hbg this as held - CLD resumed - Empirically started on zosyn 3.375 g q8hr Acute respiratory distress with hypercapnia/hypoxemia due to COVID-19 pneumonia - COVID-19 ag positive - Chest x-ray bilateral bibasilar infiltrates - Ferritin 985 - > 913 - D-Dimer - 2.28 - > 1.64 - Supplemental 02 as needed - Maintain o2 saturation > 92 - Albuterol MDI - Decadron 6 mg IV daily x total 10 days - HELD - Started on Zosyn 3.375g q8hr - Blood culture x 2 drawn- NGTD - Check ferritin, d-dimer, CRP, procalcitonin qother day - High risk for respiratory decompensation - Remdesivir 200mg IV x1 - 100mg IV daily x 4 days - on day 2 today - 12/10-> Ph 7.38, PCO2 65.5, pO2 71.5, Hco3 38.4 - Unable to use bipap on floor- request to transfer to VICU placed - Repeat chest x-ray and ABG in am Hyponatremia - Chronically low - Today 120 - 125 - 133 - 134 - Improving - Saline lock IVF Elevated troponin with mild newly dx systolic HF - Trend non-consistent with acs - ECHO - Ef 50 %, mild global hypokinesis - May consider gentle diuresis - Monitor daily weight Hx of Myasthenia gravis / Epilepsy - Continue home meds - Keppra changed to IV 500 mg BID GI ppx - Protonix 40 mg IV BID DVT ppx -SCDs only -No lovenox due to UGI bleed Attestations Medical Necessity Statement*: Patient require further hospitalization for management of hypoxic respiratory failure, upper GI bleed Time Spent in Patient Care: Greater than 35 minutes (>than 50% of time spent in counselling and/or direct pt care on unit). 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
[2020-12-10 19:36] LABS: Hematocrit 31.7 % (42.0-52.0); Hemoglobin 10.3 g/dL (11.7-16.6)
[2020-12-10] MEDS: piperacillin-tazobactam 3.375 GM in sodium chloride 0.9% (plus) 50 ML IV (20:19)
[2020-12-11] VITALS (75 sets, daily range): BP systolic 120–200; BP diastolic 55–135; PULSE 71–183; RESP 15–43; TEMP 36.6–37.1; O2SAT 91–99; BMI 24.9
[2020-12-11] MEDS: pantoprazole 40 mg SDV IVP ×3 (00:21→21:33)
[2020-12-11] MEDS: pyridostigmine 60 mg Tablet PO ×4 (00:22→20:40)
--- NOTE | 2020-12-11 00:46 | ECG_ITS ---
[facility] ED Test Date: 2020-12-11 Pat Name: Mauricio Wilson Department: Room: ICU19 Gender: Male Enterer: : 1935 Requested By: Haimda Zurita Order Number: [id number] Jhonny MD: Antonia Myers M.D. Measurements Intervals [place] Rate: 170 P: MS: QRS: -16 QRSD: 88 T: 18 QT: 233 QTc: 392 Interpretive Statements ATRIAL FIBRILLATION WITH RAPID VENTRICULAR RESPONSE LOW QRS VOLTAGE IN PRECORDIAL LEADS [QRS DEFLECTION < 1.0 mV IN CHEST LEADS] POSSIBLE RIGHT VENTRICULAR CONDUCTION DELAY [RSR (QR) IN V1/V2] PROBABLE SEPTAL MYOCARDIAL INFARCTION [35 ms Q WAVE IN V1/V2], PROBABLY RECENT MARKED ST ELEVATION, CONSIDER ANTERIOR INJURY Compared to ECG 12/07/2020 20:59:21 Low QRS voltage now present Myocardial infarct finding now present ST (T wave) deviation now present Sinus rhythm no longer present Ventricular premature complex(es) no longer present Right bundle-branch block no longer present Electronically Signed On 12-15-2020 22:28:57 RESIDENT DOCTOR by Antonia Myers M.D. [id number]
--- NOTE | 2020-12-11 02:43 | PC.NURSE ---
Pt wanted to get to edge of bed to use urinal. Upon attempting to get up, heart rate increased to 170bpm. EKG obtained and Dr. Zurita notified of afib with RVR. EKG also read acute mi , Dr. Zurita notified of this also. Dilitazem ordered, but pt back in SR with heart rate 90s to 100s. Dr Zurita notified that diltiazem not given. Will continue to monitor and notify MD as needed.
[2020-12-11] MEDS: albuterol 8 gm MDI 2 PUFF INHALATION ×4 (03:45→19:22)
[2020-12-11] MEDS: piperacillin-tazobactam 3.375 GM in sodium chloride 0.9% (plus) 50 ML IV ×3 (04:00→19:10)
[2020-12-11 04:25] LABS: ABG PCO2 48.6 mmHg (35-45); ABG PH Result 7.48 (7.35-7.45); Arterial Blood Gas Hematocrit 36.2 % (42-52); Base Excess ABG 11.1 mmol/L (-2.0-2.0); Blood Gas Operator Identificat HARKR; Blood Gas Sample Site Brachial, left; Blood Gas Sample Type Arterial; HCO3 ABG 36.2 mmol/L (22-26); Oxygen Device NC
[2020-12-11] MEDS: remdesivir 100 MG in sodium chloride 0.9% (100 ml) 100 ML IV (06:06)
[2020-12-11] MEDS: acetaminophen 325 mg Tablet 650 MG PO (08:35)
[2020-12-11 13:47] LABS: Basophils % 0.3 %; Eosinophils % 0.1 %; Hematocrit 38.6 % (42.0-52.0); Hemoglobin 12.1 g/dL (11.7-16.6); Lymphocytes # 1.4 10^3/uL (0.8-4.8); Lymphocytes % 11.4 %; Mean Corpuscular HGB Conc 31.3 g/dL (30.0-36.0); Mean Corpuscular Hemoglobin 31.2 pg (28.0-34.0); Mean Corpuscular Volume 99.5 fL (80-94); Mean Platelet Volume 10.1 fL (7.4-10.4); Monocytes % 8.4 %; Neutrophils # 9.27 10^3/uL (1.8-7.7); Neutrophils % 78.4 %; Nucleated Red Blood Cells % 0 %; Platelet Count 333 10^3/cmm (130-400); Red Blood Count 3.88 10^6/uL (4.1-5.3); Red Cell Distribution Width 12.6 % (12.1-15.1); White Blood Count 11.8 10^3/uL (4.0-10.0)
[2020-12-11 13:50] LABS: Blood Urea Nitrogen 25 mg/dL (8-23); Calcium 8.7 mg/dL (8.5-10.5); Carbon Dioxide 29 mmol/L (22-29); Chloride 93 mmol/L (98-107); Glucose 154 mg/dL (65-115); Osmolality Calculated 287 mOsm/kg (285-295); Sodium 135 mmol/L (136-145)
[2020-12-11 13:57] LABS: Anion Gap 17.1 (5-19); Potassium 4.1 mmol/L (3.5-5.1)
--- NOTE | 2020-12-11 14:13 | PM.PN ---
Subjective Subjective: Interval history: 85-year-old male with a past medical history significant for myasthenia gravis on qwk IVIG, and epilepsy was presented to the hospital with respiratory distress. This was associated with generalized weakness, subjective fevers and chills. Also noted poor appetite. Upon arrival to emergency room patient was subjectively complaining of respiratory distress however was not hypoxic. Oxygen saturations were 90% on room air. Initial laboratory workup showed a WBC of 8.7, hemoglobin of 14.5, hematocrit of 41.7 and a platelet count of 264. Arterial blood gases showed a pH of 7.45, pCO2 44.2, PO2 of 67.6 and bicarb of 30.4. Sodium of 120, potassium of 4.8, chloride of 84, bicarb 28, BUN of 17 and creatinine is 0.7. Troponin trend of 23, 19.48, delta T of -3.52. Rapid COVID antigen was positive. Imaging studies included a chest x-ray which showed bibasilar pulmonary infiltrates greater on the left consistent with pneumonia. Patient was given Levaquin 750 mg IV x1 and admitted to the hospital. Upon admission to the hospital patient's respiratory status has slightly worsened. He was requiring 4 L of O2 via nasal cannula which is increased from room air on admission. Initially was started on decadron however did not tolerate this well. Due to increase in oxygen requirement he was then started on Remdesivir 5 day IV protocol. Inflammatory markers were slightly improving. He was noted to have hypercarbic/hypoxemic respiratory failure on ABG. Hospitalization was complicated with multiple episodes of nausea with subsequent bloody emesis. Hb decreased from 14.5 - > 10. Lovenox which was initially started was held. Noted to have wet cough after emesis, suspected to have some aspiration. IV abx were changed to zosyn 3.375g IV q8hr to added anaerobic coverage. General surgery was consulted however due to stable hgb in setting of covid19 plan for EGD was deferred. Due to concern of rapid respiratory decompensation he was transferred to VICU. Additionally was noted to have a brief run of atrial fibrillation with RVR. No prior h/o of this. Spontaneously converted to NSR as reported by nursing staff. 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 Stated this had led to aspiration pneumonitis and pulmonary abscess which was also surgical drain. Since then he has not had any repeat EGDs. 12/09/2020 Patient remain on 4 L of O2 via nasal cannula overnight. No further episodes of bloody emesis. Did not have any new complaints. 12/10/2020 Overnight patient again had emesis some of which had evidence of bright red blood. Continued to feel nauseous. Noted to have slightly increase in work of breathing. Remain on 4 L via nasal cannula. Repeat arterial blood gases performed in a.m.. Patient stated he was feeling weak. Remained afebrile overnight. 12/11/2020 Overnight patient was noted to have dark tarry bm. Also noted to have a brief run of atrial fibrillation lasting < 30 mins then converting to NSR. No recurrence of bloody emesis.Respiratory status remained stable. Medications: Reviewed: Yes Vitals/I&O/Wt Last Vital Signs Temp 98.8 F 12/11/20 11:00 Pulse 85 12/11/20 14:03 Resp 16 12/11/20 14:01 BP 135/73 12/11/20 13:00 Pulse Ox 97 12/11/20 14:01 12/10/20 12/11/20 12/11/20 22:59 06:59 14:59 Intake Total 30 / 370 155 / 525 188.333 / 188.333 Output Total 125 / 225 250 / 250 Balance 30 / 270 30 / 300 -61.667 / -61.667 Weight last 48 hrs Weight 78.698 kg Weight 78.698 kg Physical Exam Narrative: EXAM NARRATIVE: General: Alert, awake,4L via NC HEENT : Grossly unremarkable CVS: NSR on tele CHEST : non-labored respiration ABD ; Soft NT, ND Ext : No edema Data : 12/11/20 13:05 12/11/20 13:05 Micro: Microbiology 12/07/20 00:03 Gram Stain - Final Sputum - Expectorated Sputum Sputum Culture - Final A&P Assessment and plan (1) COVID-19: Status: Acute (2) Hyponatremia: Status: Acute (3) Generalized epilepsy: Status: Acute (4) Acute respiratory distress: Status: Acute Upper GI bleed - Multiple episodes of blood emesis on 12/07-(am) - Intermittent episodes - HB stable- can change to daily labs - Hb 14 -> 11.6 - > 11.4 -> 12.1 - Type and cross - Lovenox stopped - General surgery consulted however due to stable hbg this as held - CLD resumed today Acute respiratory distress with hypercapnia/hypoxemia due to COVID-19 pneumonia - COVID-19 ag positive - Chest x-ray bilateral bibasilar infiltrates - Ferritin 985 - > 913 - D-Dimer - 2.28 - > 1.64 - Supplemental 02 as needed - Maintain o2 saturation > 92 - Albuterol MDI - Decadron 6 mg IV daily x total 10 days - HELD - Started on Zosyn 3.375g q8hr - Blood culture x 2 drawn- NGTD - Check ferritin, d-dimer, CRP, procalcitonin qother day - High risk for respiratory decompensation - Remdesivir 200mg IV x1 - 100mg IV daily x 4 days - on day 2 today - 12/10-> Ph 7.38, PCO2 65.5, pO2 71.5, Hco3 38.4 - Will repeat ABG/Chest x-ray in Am Hyponatremia - Chronically low - Today 120 - 125 - 133 - 134 - 135 - Improving - Saline lock IVF Elevated troponin with mild newly dx systolic HF - Trend non-consistent with acs - ECHO - Ef 50 %, mild global hypokinesis - May consider gentle diuresis - Monitor daily weight Paroxysmal Atrial Fibrillation - Brief episode overnight - Currently NSR - ECHO as noted above - No OAC due to UGI bleed - May consider cardiology consult Hx of Myasthenia gravis / Epilepsy - Continue home meds - Holding weekly IVIG - D/w Neurology - If he becomes symptomatic - will order IVIG - Keppra 500 mg BID GI ppx - Protonix 40 mg IV BID DVT ppx -SCDs only -No lovenox due to UGI bleed Attestations Medical Necessity Statement*: Continue hospitalization for management of covid-19 pnuemonia, gi bleed and now p.afib Time Spent in Patient Care: Greater than 35 minutes (>than 50% of time spent in counselling and/or direct pt care on unit). Coding Level of Care Code Acute Speech Professor for g Fwd Diagnoses COVID-19 U07.1 Hyponatremia E87.1 Generalized epilepsy G40.309 Acute respiratory distress R06.03
--- NOTE | 2020-12-11 18:46 | PC.NURSE ---
1045 Dr. Huffman at bedside. Discussed lab results, small black tary stools, no vomiting. Orders to get PT up to chair and clear diet. 1415 Reported labs results and UOP to to Dr. Huffman.
[2020-12-11] MEDS: morphine 4 mg/mL SDV 1 mL 1 MG IVP (20:34)
[2020-12-11] MEDS: ondansetron 2 mg/ML SDV 2 mL 4 MG IVP (23:31)
[2020-12-12] VITALS (31 sets, daily range): BP systolic 101–148; BP diastolic 54–94; PULSE 67–105; RESP 12–31; TEMP 36.4–36.7; O2SAT 91–98
[2020-12-12] MEDS: morphine 4 mg/mL SDV 1 mL 1 MG IVP ×2 (02:27→11:27)
[2020-12-12] MEDS: piperacillin-tazobactam 3.375 GM in sodium chloride 0.9% (plus) 50 ML IV ×3 (02:36→19:10)
[2020-12-12 04:13] LABS: ABG PCO2 54.6 mmHg (35-45); ABG PH Result 7.45 (7.35-7.45); Arterial Blood Gas Hematocrit 38.4 % (42-52); Base Excess ABG 11.9 mmol/L (-2.0-2.0); Blood Gas Allen Test Pos; Blood Gas Operator Identificat JB; Blood Gas Sample Site Radial, left; Blood Gas Sample Type Arterial; Oxygen Device NC; PO2 ABG 67.6 mmHg (80.0-100.0)
[2020-12-12 04:25] LABS: Basophils # 0.1 10^3/uL (0.0-0.1); Basophils % 0.4 %; Eosinophils % 0.3 %; Hematocrit 36.6 % (42.0-52.0); Hemoglobin 11.7 g/dL (11.7-16.6); Lymphocytes # 1.6 10^3/uL (0.8-4.8); Lymphocytes % 13.9 %; Mean Corpuscular Hemoglobin 31.3 pg (28.0-34.0); Mean Corpuscular Volume 97.9 fL (80-94); Monocytes # 0.9 10^3/uL (0.2-0.9); Monocytes % 7.9 %; Neutrophils % 75.9 %; Nucleated Red Blood Cells % 0 %; Platelet Count 397 10^3/cmm (130-400); Red Blood Count 3.74 10^6/uL (4.1-5.3); Red Cell Distribution Width 12.5 % (12.1-15.1); White Blood Count 11.6 10^3/uL (4.0-10.0)
[2020-12-12 04:58] LABS: D Dimer 1.24 ug/mIFEU (0-0.59)
[2020-12-12 04:59] LABS: Procalcitonin 0.12 ng/mL (0-0.5)
[2020-12-12] MEDS: remdesivir 100 MG in sodium chloride 0.9% (100 ml) 100 ML IV (05:08)
[2020-12-12 05:11] LABS: Alanine Aminotransferase 12 U/L (0-41); Albumin Level 2.9 g/dL (3.5-5.2); Alkaline Phosphatase 49 IU/L (40-130); Anion Gap 10.9 (5-19); Aspartate Amino Transferase 59 U/L (0-40); Blood Urea Nitrogen 25 mg/dL (8-23); C Reactive Protein 66.2 mg/L (0.0-4.9); Calcium 8.8 mg/dL (8.5-10.5); Carbon Dioxide 35 mmol/L (22-29); Chloride 96 mmol/L (98-107); Ferritin 846 ng/mL (30-400); Globulin 3.5 g/dL (1.3-4.6); Glucose 150 mg/dL (65-115); Osmolality Calculated 293 mOsm/kg (285-295); Potassium 3.9 mmol/L (3.5-5.1); Sodium 138 mmol/L (136-145); Total Bilirubin 0.7 mg/dL (0.15-1.2); Total Protein 6.4 g/dL (6.6-8.7)
--- NOTE | 2020-12-12 07:00 | XRR_ITS ---
PROCEDURE INFORMATION: Exam: XR Chest, 1 View Exam date and time: 12/12/2020 12:00 AM Age: 85 years old Clinical indication: Shortness of breath; Additional info: Respiratory failure TECHNIQUE: Imaging protocol: XR of the chest Views: 1 view. COMPARISON: CR XR chest 1V portable [id number] 12/09/2020 1:00 PM FINDINGS: Lungs: Bibasilar pulmonary opacities are present greater on the left side. These have not significantly changed and are consistent with atelectasis and pneumonia. Pleural space: Unremarkable. No pleural effusion. No pneumothorax. Heart/Mediastinum: Unremarkable. No cardiomegaly. Bones/joints: Unremarkable. XR/XR chest 1V portable [id number] IMPRESSION: No significant change in the bibasilar infiltrates.
[2020-12-12] MEDS: pyridostigmine 60 mg Tablet PO ×3 (07:26→20:17)
[2020-12-12] MEDS: acetaminophen 325 mg Tablet 650 MG PO ×2 (08:36→20:17)
[2020-12-12] MEDS: albuterol 8 gm MDI 2 PUFF INHALATION ×2 (08:41→19:44)
[2020-12-12] MEDS: pantoprazole 40 mg SDV IVP ×2 (10:19→22:24)
[2020-12-12] MEDS: levETIRAcetam 500 mg Tablet PO ×2 (11:19→20:17)
--- NOTE | 2020-12-12 12:03 | ECG_ITS ---
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 Measurements Intervals [place] Rate: 88 P: 42 VT: 138 QRS: -32 QRSD: 126 T: 233 QT: 425 QTc: 517 Interpretive Statements SINUS RHYTHM MARKED LEFT AXIS DEVIATION [QRS AXIS < -30] RIGHT BUNDLE BRANCH BLOCK MARKED T-WAVE ABNORMALITY, CONSIDER ANTEROLATERAL ISCHEMIA MODERATE T-WAVE ABNORMALITY, CONSIDER INFERIOR ISCHEMIA Compared to ECG 12/11/2020 00:45:38 Left-axis deviation now present Right bundle-branch block now present T-wave abnormality now present Possible ischemia now present Atrial fibrillation no longer present ST (T wave) deviation no longer present Electronically Signed On 12-15-2020 22:26:53 SERVICE PROVIDER by Antonia Myers M.D. [id number]
--- NOTE | 2020-12-12 12:12 | PC.SOCIAL ---
IMM Updated Updated pt's family, via phone, on Pg 2 IMM. No questions voiced. Signed, dated, & timed copy to be scanned into chart.
--- NOTE | 2020-12-12 17:03 | P.PN_ITS ---
Subjective Subjective: Interval history: 85-year-old male with a past medical history significant for myasthenia gravis on qwk IVIG, and epilepsy was presented to the hospital with respiratory distress. This was associated with generalized weakness, subjective fevers and chills. Also noted poor appetite. Upon arrival to emergency room patient was subjectively complaining of respiratory distress however was not hypoxic. Oxygen saturations were 90% on room air. Initial laboratory workup showed a WBC of 8.7, hemoglobin of 14.5, hematocrit of 41.7 and a platelet count of 264. Arterial blood gases showed a pH of 7.45, pCO2 44.2, PO2 of 67.6 and bicarb of 30.4. Sodium of 120, potassium of 4.8, chloride of 84, bicarb 28, BUN of 17 and creatinine is 0.7. Troponin trend of 23, 19.48, delta T of -3.52. Rapid COVID antigen was positive. Imaging studies included a chest x-ray which showed bibasilar pulmonary infiltrates greater on the left consistent with pneumonia. Patient was given Levaquin 750 mg IV x1 and admitted to the hospital. Upon admission to the hospital patient's respiratory status has slightly worsened. He was requiring 4 L of O2 via nasal cannula which is increased from room air on admission. Initially was started on decadron however did not tolerate this well. Due to increase in oxygen requirement he was then started on Remdesivir 5 day IV protocol. Inflammatory markers were slightly improving. He was noted to have hypercarbic/hypoxemic respiratory failure on ABG. Hospitalization was complicated with multiple episodes of nausea with subsequent bloody emesis. Hb decreased from 14.5 - > 10. Lovenox which was initially started was held. Noted to have wet cough after emesis, suspected to have some aspiration. IV abx were changed to zosyn 3.375g IV q8hr to added anaerobic coverage. General surgery was consulted however due to stable hgb in setting of covid19 plan for EGD was deferred. Due to concern of rapid respiratory decompensation he was transferred to VICU. Additionally was noted to have a brief run of atrial fibrillation with RVR. No prior h/o of this. Spontaneously converted to NSR as reported by nursing staff. 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 Stated this had led to aspiration pneumonitis and pulmonary abscess which was also surgical drain. Since then he has not had any repeat EGDs. 12/09/2020 Patient remain on 4 L of O2 via nasal cannula overnight. No further episodes of bloody emesis. Did not have any new complaints. 12/10/2020 Overnight patient again had emesis some of which had evidence of bright red blood. Continued to feel nauseous. Noted to have slightly increase in work of breathing. Remain on 4 L via nasal cannula. Repeat arterial blood gases performed in a.m.. Patient stated he was feeling weak. Remained afebrile overnight. 12/11/2020 Overnight patient was noted to have dark tarry bm. Also noted to have a brief run of atrial fibrillation lasting < 30 mins then converting to NSR. No recurrence of bloody emesis.Respiratory status remained stable. 12/12/20 Patient remained stable overnight. No fever, chills, nausea or vomiting. Medications: Reviewed: Yes Vitals/I&O/Wt Last Vital Signs Temp 98.1 F 12/12/20 16:00 Pulse 77 12/12/20 16:23 Resp 18 12/12/20 16:23 BP 118/59 12/12/20 16:00 Pulse Ox 97 12/12/20 16:23 12/12/20 12/12/20 12/12/20 06:59 14:59 22:59 Intake Total 855 / 3598.333 600 / 600 Balance 855 / 3148.333 600 / 600 Weight last 48 hrs Weight 78.698 kg Physical Exam Narrative: EXAM NARRATIVE: General: Alert, awake,4L via NC HEENT : Grossly unremarkable CVS: NSR on tele CHEST : non-labored respiration ABD ; Soft NT, ND Ext : No edema Data : 12/12/20 03:15 12/12/20 03:15 Micro: Microbiology 12/07/20 12:42 Blood Culture - Final Blood NO GROWTH AFTER 5 DAYS 12/07/20 13:43 Blood Culture - Final Blood NO GROWTH AFTER 5 DAYS A&P Assessment and plan (1) COVID-19: Status: Acute (2) Hyponatremia: Status: Acute (3) Generalized epilepsy: Status: Acute (4) Acute respiratory distress: Status: Acute Upper GI bleed - Multiple episodes of blood emesis on 12/07-12(am) - Intermittent episodes - HB stable- can change to daily labs - Hb 14 -> 11.6 - > 11.4 -> 12.1 - 11.7 - Type and crossed - Lovenox stopped - General surgery consulted however due to stable hbg this as held - CLD resumed - tolerating - if stable hb will advance in am Acute respiratory distress with hypercapnia/hypoxemia due to COVID-19 pneumonia - COVID-19 ag positive - Chest x-ray bilateral bibasilar infiltrates - Ferritin 985 - > 913 - > 846 - D-Dimer - 2.28 - > 1.64 -> 1.24 - Supplemental 02 as needed - Maintain o2 saturation > 92 - Albuterol MDI - Decadron 6 mg IV daily x total 10 days - HELD - Continue on Zosyn 3.375g q8hr - Blood culture x 2 drawn- NGTD - Check ferritin, d-dimer, CRP, procalcitonin qother day - Remdesivir 200mg IV x1 - 100mg IV daily x 4 days - 12/10-> Ph 7.38, PCO2 65.5, pO2 71.5, Hco3 38.4 - Will repeat ABG/Chest x-ray PRN Hyponatremia -improved - Chronically low - Today 120 - 125 - 133 - 134 - 135 - Labs in am Elevated troponin with mild newly dx systolic HF - Trend non-consistent with acs - ECHO - Ef 50 %, mild global hypokinesis - May consider gentle diuresis - Monitor daily weight Paroxysmal Atrial Fibrillation - Currenlty NSR - Brief episode overnight - Currently NSR - ECHO as noted above - No OAC due to UGI bleed - May consider cardiology consult Hx of Myasthenia gravis / Epilepsy - Continue home meds - Holding weekly IVIG - D/w Neurology - If he becomes symptomatic - will order IVIG - Keppra 500 mg BID GI ppx - Protonix 40 mg IV BID DVT ppx -SCDs only -No lovenox due to UGI bleed Attestations Medical Necessity Statement*: Continue hospitalization for management of covid 19 pneumonia and UGI bleed Time Spent in Patient Care: Greater than 35 minutes (>than 50% of time spent in counselling and/or direct pt care on unit) . Coding Level of Care Code Acute Shear Assembler for g Fwd Diagnoses COVID-19 U07.1 Hyponatremia E87.1 Generalized epilepsy G40.309 Acute respiratory distress R06.03
--- NOTE | 2020-12-12 17:53 | PC.NURSE ---
1135 PT had run of bigeminy and felt restless. Morphine was given and Dr. Huffman was notified. 1200 Dr. Huffman at bedside. Orders for EKG. 1203 EKG done [address] Huffman, stated incomplete RBBB present on admission, PT with no other symptoms and ECHO ok. Continue to monitor.
[2020-12-13] VITALS (19 sets, daily range): BP systolic 121–172; BP diastolic 63–86; PULSE 68–100; RESP 18–31; TEMP 36.4–36.9; O2SAT 91–97; BMI 24.7
[2020-12-13] MEDS: piperacillin-tazobactam 3.375 GM in sodium chloride 0.9% (plus) 50 ML IV ×3 (03:08→18:40)
[2020-12-13] MEDS: morphine 4 mg/mL SDV 1 mL 1 MG IVP (04:21)
[2020-12-13] MEDS: remdesivir 100 MG in sodium chloride 0.9% (100 ml) 100 ML IV (05:29)
[2020-12-13] MEDS: levETIRAcetam 500 mg Tablet PO ×2 (08:16→22:37)
[2020-12-13] MEDS: pyridostigmine 60 mg Tablet PO ×3 (08:16→22:36)
[2020-12-13] MEDS: albuterol 8 gm MDI 2 PUFF INHALATION ×2 (09:13→15:25)
[2020-12-13] MEDS: pantoprazole 40 mg SDV IVP ×2 (09:44→22:37)
--- NOTE | 2020-12-13 12:58 | P.PN_ITS ---
Subjective Subjective: Interval history: 85-year-old male with a past medical history significant for myasthenia gravis on qwk IVIG, and epilepsy was presented to the hospital with respiratory distress. This was associated with generalized weakness, subjective fevers and chills. Also noted poor appetite. Upon arrival to emergency room patient was subjectively complaining of respiratory distress however was not hypoxic. Oxygen saturations were 90% on room air. Initial laboratory workup showed a WBC of 8.7, hemoglobin of 14.5, hematocrit of 41.7 and a platelet count of 264. Arterial blood gases showed a pH of 7.45, pCO2 44.2, PO2 of 67.6 and bicarb of 30.4. Sodium of 120, potassium of 4.8, chloride of 84, bicarb 28, BUN of 17 and creatinine is 0.7. Troponin trend of 23, 19.48, delta T of -3.52. Rapid COVID antigen was positive. Imaging studies included a chest x-ray which showed bibasilar pulmonary infiltrates greater on the left consistent with pneumonia. Patient was given Levaquin 750 mg IV x1 and admitted to the hospital. Upon admission to the hospital patient's respiratory status has slightly worsened. He was requiring 4 L of O2 via nasal cannula which is increased from room air on admission. Initially was started on decadron however did not tolerate this well. Due to increase in oxygen requirement he was then started on Remdesivir 5 day IV protocol. Inflammatory markers were slightly improving. He was noted to have hypercarbic/hypoxemic respiratory failure on ABG. Hospitalization was complicated with multiple episodes of nausea with subsequent bloody emesis. Hb decreased from 14.5 - > 10. Lovenox which was initially started was held. Noted to have wet cough after emesis, suspected to have some aspiration. IV abx were changed to zosyn 3.375g IV q8hr to added anaerobic coverage. General surgery was consulted however due to stable hgb in setting of covid19 plan for EGD was deferred. Due to concern of rapid respiratory decompensation he was transferred to VICU. Additionally was noted to have a brief run of atrial fibrillation with RVR. No prior h/o of this. Spontaneously converted to NSR as reported by nursing staff. 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 Stated this had led to aspiration pneumonitis and pulmonary abscess which was also surgical drain. Since then he has not had any repeat EGDs. 12/09/2020 Patient remain on 4 L of O2 via nasal cannula overnight. No further episodes of bloody emesis. Did not have any new complaints. 12/10/2020 Overnight patient again had emesis some of which had evidence of bright red blood. Continued to feel nauseous. Noted to have slightly increase in work of breathing. Remain on 4 L via nasal cannula. Repeat arterial blood gases performed in a.m.. Patient stated he was feeling weak. Remained afebrile overnight. 12/11/2020 Overnight patient was noted to have dark tarry bm. Also noted to have a brief run of atrial fibrillation lasting < 30 mins then converting to NSR. No recurrence of bloody emesis.Respiratory status remained stable. 12/12/20 Patient remained stable overnight. No fever, chills, nausea or vomiting. 12/13 Improving Medications: Reviewed: Yes Vitals/I&O/Wt Last Vital Signs Temp 97.8 F 12/14/20 04:00 Pulse 83 12/14/20 04:00 Resp 18 12/14/20 04:00 BP 147/66 12/14/20 04:00 Pulse Ox 93 12/14/20 04:00 12/13/20 12/13/20 12/14/20 14:59 22:59 06:59 Intake Total 1250 / 1250 580 / 1830 Balance 1250 / 1250 580 / 1830 Weight last 48 hrs Weight 78.97 kg Weight 78.018 kg Physical Exam Narrative: EXAM NARRATIVE: General: Alert, awake,4L via NC HEENT : Grossly unremarkable CVS: NSR on tele CHEST : non-labored respiration ABD ; Soft NT, ND Ext : No edema Data : 12/12/20 03:15 12/12/20 03:15 A&P Assessment and plan (1) COVID-19: Status: Acute (2) Hyponatremia: Status: Acute (3) Generalized epilepsy: Status: Acute (4) Acute respiratory distress: Status: Acute Upper GI bleed - Multiple episodes of blood emesis on 12/07-(am) - Intermittent episodes - HB stable- can change to daily labs - Hb 14 -> 11.6 - > 11.4 -> 12.1 - 11.7 - Type and crossed - Lovenox stopped - General surgery consulted however due to stable hbg this as held - CLD resumed - tolerating - if stable hb will advance in am Acute respiratory distress with hypercapnia/hypoxemia due to COVID-19 pneumonia - COVID-19 ag positive - Chest x-ray bilateral bibasilar infiltrates - Ferritin 985 - > 913 - > 846 - D-Dimer - 2.28 - > 1.64 -> 1.24 - Supplemental 02 as needed - Maintain o2 saturation > 92 - Albuterol MDI - Decadron 6 mg IV daily x total 10 days - HELD - Continue on Zosyn 3.375g q8hr - Blood culture x 2 drawn- NGTD - Check ferritin, d-dimer, CRP, procalcitonin qother day - Remdesivir 200mg IV x1 - 100mg IV daily x 4 days - 12/10-> Ph 7.38, PCO2 65.5, pO2 71.5, Hco3 38.4 - Will repeat ABG/Chest x-ray PRN Hyponatremia -improved - Chronically low - Today 120 - 125 - 133 - 134 - 135 - Labs in am Elevated troponin with mild newly dx systolic HF - Trend non-consistent with acs - ECHO - Ef 50 %, mild global hypokinesis - May consider gentle diuresis - Monitor daily weight Paroxysmal Atrial Fibrillation - Currenlty NSR - Brief episode overnight - Currently NSR - ECHO as noted above - No OAC due to UGI bleed - May consider cardiology consult Hx of Myasthenia gravis / Epilepsy - Continue home meds - Holding weekly IVIG - D/w Neurology - If he becomes symptomatic - will order IVIG - Keppra 500 mg BID GI ppx - Protonix 40 mg IV BID DVT ppx -SCDs only -No lovenox due to UGI bleed Transfer to floor Attestations Medical Necessity Statement*: Continuehospital say for advancing diet Time Spent in Patient Care: Greater than 35 minutes Coding Level of Care Code Acute Maintenance Leader for Chg Fwd Diagnoses COVID-19 U07.1 Hyponatremia E87.1 Generalized epilepsy G40.309 Acute respiratory distress R06.03
[2020-12-14] VITALS (8 sets, daily range): BP systolic 124–156; BP diastolic 66–76; PULSE 81–97; RESP 17–18; TEMP 36.6–37.1; O2SAT 88–96
[2020-12-14] MEDS: piperacillin-tazobactam 3.375 GM in sodium chloride 0.9% (plus) 50 ML IV ×2 (05:40→11:19)
--- NOTE | 2020-12-14 08:34 | PC.SOCIAL ---
*IMM* Updated. Patient received updated IMM.
[2020-12-14] MEDS: levETIRAcetam 500 mg Tablet PO (08:42)
[2020-12-14] MEDS: pyridostigmine 60 mg Tablet PO ×2 (08:42→11:19)
[2020-12-14] MEDS: albuterol 8 gm MDI 2 PUFF INHALATION (10:11)
[2020-12-14] MEDS: pantoprazole 40 mg SDV IVP (10:12)
[2020-12-14 14:22] LABS: Hematocrit 39.2 % (42.0-52.0); Hemoglobin 12.3 g/dL (11.7-16.6)
--- NOTE | 2020-12-14 14:54 | P.DS_ITS ---
Discharge Providers Date of Admission: 12/07/20 14:28 Date of Discharge: December 14, 2020 Attending Provider at Admission: Janice Huffman Attending Provider at Discharge: Janice Huffman Primary Care Provider: Jerman Henao DO Diagnoses at Discharge Discharge Diagnosis (1) COVID-19: Status: Acute (2) Hyponatremia: Status: Acute (3) Generalized epilepsy: Status: Acute (4) Acute respiratory distress: Status: Acute Reason for Visit Reason for Visit: DIFFICULTY BREATHING, CONFUSION Hospital Course Hospital Course 85-year-old male with a past medical history significant for myasthenia gravis on qwk IVIG, and epilepsy was presented to the hospital with respiratory distress. This was associated with generalized weakness, subjective fevers and chills. Also noted poor appetite. Upon arrival to emergency room patient was subjectively complaining of respiratory distress however was not hypoxic. Oxygen saturations were 90% on room air. Initial laboratory workup showed a WBC of 8.7, hemoglobin of 14.5, hematocrit of 41.7 and a platelet count of 264. Arterial blood gases showed a pH of 7.45, pCO2 44.2, PO2 of 67.6 and bicarb of 3 0.4. Sodium of 120, potassium of 4.8, chloride of 84, bicarb 28, BUN of 17 and creatinine is 0.7. Troponin trend of 23, 19.48, delta T of -3.52. Rapid COVID antigen was positive. Imaging studies included a chest x-ray which showed bibasilar pulmonary infiltrates greater on the left consistent with pneumonia. Patient was given Levaquin 750 mg IV x1 and admitted to the hospital. Upon admission to the hospital patient's respiratory status has slightly worsened. He was requiring 4 L of O2 via nasal cannula which is increased from room air on admission. Initially was started on decadron however did not tolerate this well. Due to increase in oxygen requirement he was then started on Remdesivir 5 day IV protocol. Inflammatory markers were slightly improving. He was noted to have hypercarbic/hypoxemic respiratory failure on ABG. Hospitalization was complicated with multiple episodes of nausea with subsequent bloody emesis. Hb decreased from 14.5 - > 10. 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 Stated this had led to aspiration pneumonitis and pulmonary abscess which was also surgical drain. Since then he has not had any repeat EGDs. General surgery was consulted however due to stable hemoglobin and COVID- 19 infection consultation was deferred to outpatient. Patient's diet was slowly advanced to GI soft which he tolerated. Did not have any further episodes of bloody emesis. Plan to follow up with general surgery outpatient for eval repeat cbc was requested for 2 days post discharge. Patient was advised to return to ER if any recurrance of emesis or bm with blood. Noted to have wet cough after emesis, suspected to have some aspiration. IV abx were changed to zosyn 3.375g IV q8hr to added anaerobic coverage. Additionally was noted to have a brief run of atrial fibrillation with RVR. No prior h/o of this. Spontaneously converted to NSR as reported by nursing staff. Patient's respiratory status continued to improve. After completion of 5 day course of remdesivir home O2 eval was obtained and patient was discharged in stable condition. Physical Exam Narrative: EXAM NARRATIVE: General: Alert, awake,2L via NC HEENT : Grossly unremarkable CVS: NSR on tele CHEST : non-labored respiration ABD ; Soft NT, ND Ext : No edema Discharge Data Data Completed and Pending: Completed Studies During Hospitalization Category Date Time Status XR chest 1V johan ble [id number] Routine Exams 12/09/20 12:13 Completed XR chest 1V johan ble [id number] Routine Exams 12/12/20 07:00 Completed XR chest 1V johan ble [id number] Stat Exams 12/07/20 12:28 Completed Labs from last 24 hours 12/14/20 14:10 Hgb 12.3 Hct 39.2 L Vitals: Last Vital Signs Temp 97.8 F 12/14/20 11:52 Pulse 88 12/14/20 11:52 Resp 17 12/14/20 11:52 BP 124/69 12/14/20 11:52 Pulse Ox 96 12/14/20 11:52 Discharge Plan Discharge Patient Disposition: Home Condition: Stable Prescriptions: New Augmentin 875-125 mg tablet 1 tab PO BID Qty: 10 RF: 0 Protonix 40 mg tablet,delayed release (DR/EC) 40 mg PO BID Qty: 30 RF: 0 Continued magnesium oxide 420 mg tablet 420 mg PO DAILY@0800 RF: 0 Refresh Tears 0.5 % Drops 1 drp OPHTHALMIC (EYE) Q2H RF: 0 cholecalciferol (vitamin D3) [Vitamin D3] 50 mcg (2,000 unit) Capsule 2,000 unit PO DAILY@0800 RF: 0 Mestinon 60 mg tablet 60 mg PO TID@0800,1200,2000 RF: 0 Keppra 1,000 mg tablet 500 mg PO BID@0800,1999 RF: 0 Discharge Orders: Discharge Order (Routine); Ordered 12/14/20 Ordered By: Janice Huffman Other Ambulatory Orders: Complete Blood Count w/Auto (Routine) Timeframe: 2 Days Location: Determined by Patient Ordered By: Janice Huffman DME: Oxygen (Order) Location: None Selected Ordered By: Janice Huffman Referrals: Sammi Posadas MD [Physician] - 01/13/21 1:15 pm (To resume weakly IVIG infusion ) Jerry Mitchell MD [Physician] - 12/25/20 10:45 am (Follow up outpatient for work up of GI bleed) Jerman Henao DO [Primary Care Provider] - 12/21/20 10:45 am Discharge Diet: GI Soft Discharge Activity: Increase activity as tolerated Patient Instructions: Amoxicillin/Clavulanate Potassium (By mouth), Pantoprazole (By mouth), Viral Pneumonia (DC) Activity Restrictions/Additional Instructions: Please retrn to Er if any recurrance of bloody emesis or trouble breathing Discharge Attestations Time Spent in Discharge Care*: greater than 30 min Specific Discharge Activities: educating patient, educating and/or supporting family/caregiver, discussing with pcp/other providers, discussing with case hardener/social workers/dc planners, documenting/other paperwork and evaluating patient/reviewing data Status at Discharge: Cognitive status at discharge: cognitively intact , Behavioral status at discharge: cooperative , Functional status at discharge: independent ambulation Overall status at discharge: patient is progressing back to baseline Quality Metrics Clinical Quality Measures During this hospital stay, did patient experience: None Coding Level of Care Code Acute Regional Rehabilitation Director for Chg Fwd Diagnoses COVID-19 U07.1 Hyponatremia E87.1 Generalized epilepsy G40.309 Acute respiratory distress R06.03
== END 2020-12-14 19:00 | disposition home or self-care (01) | DRG 177 ==
LOC: ER 13:30 → MEDSURG 15:53 → ICU 12-10 23:44 → MEDSURG 12-13 16:43
PROVIDERS: Hospitalist; Admitting Provider Hospitalist; Emergency Provider Family Medicine; PCP Internal Medicine; Visit Provider Hospitalist
DX: U07.1 COVID-19 (principal); J12.82 Pneumonia due to coronavirus disease 2019; J69.0 Pneumonitis due to inhalation of food and vomit; J96.02 Acute respiratory failure with hypercapnia; J96.01 Acute respiratory failure with hypoxia; E87.1 Hypo-osmolality and hyponatremia; K92.2 Gastrointestinal hemorrhage, unspecified; G70.00 Myasthenia gravis without (acute) exacerbation; G40.409 Other generalized epilepsy and epileptic syndromes, not intractable, without status epilepticus; Z87.891 Personal history of nicotine dependence; I48.91 Unspecified atrial fibrillation
CPT/HCPCS: 12345; 36415; 36600; 71045; 80048; 80051; 80053; 81001; 82330; 82436; 82550; 82570; 82728; 82803; 82805; 83605; 83735; 83935; 84145; 84300; 84484; 85014; 85018; 85025; 85378; 85610; 85730; 86140; 86850; 86900; 87040; 87070; 87205; 87426; 93005; 94640; 94664; 96372; 97161; 97165; 97530; 99283; C9113; J1100; J1650; J1953; J1956; J2270; J2405; J2543; J2765; J3535; J7030; J8498

== ENCOUNTER 2020-12-16 11:38 | Outpatient (CLI) | payer MEDICAID, SELFPAY ==
[2020-12-16 12:41] LABS: Basophils # 0.1 10^3/uL (0.0-0.1); Basophils % 0.7 %; Eosinophils # 0.1 10^3/uL (0.0-0.8); Eosinophils % 1.2 %; Hematocrit 34.6 % (42.0-52.0); Lymphocytes # 1.1 10^3/uL (0.8-4.8); Lymphocytes % 12.4 %; Mean Corpuscular HGB Conc 31.8 g/dL (30.0-36.0); Mean Corpuscular Hemoglobin 31.6 pg (28.0-34.0); Mean Corpuscular Volume 99.4 fL (80-94); Mean Platelet Volume 9.9 fL (7.4-10.4); Monocytes # 0.6 10^3/uL (0.2-0.9); Monocytes % 6.8 %; Neutrophils % 77.9 %; Nucleated Red Blood Cells % 0 %; Platelet Count 277 10^3/cmm (130-400); Red Blood Count 3.48 10^6/uL (4.1-5.3); Red Cell Distribution Width 12.7 % (12.1-15.1); White Blood Count 8.9 10^3/uL (4.0-10.0)
== END 2020-12-16 11:39 | disposition home or self-care (01) ==
PROVIDERS: PCP Internal Medicine; Visit Provider Hospitalist
DX: K92.2 Gastrointestinal hemorrhage, unspecified (principal)
CPT/HCPCS: 36415; 85025

== ENCOUNTER 2020-12-29 16:00 | Outpatient (CLI) | payer MEDICAID, SELFPAY ==
[2021-01-02 19:08] LABS: Acetylcholine Recept Modulatin 9
== END 2020-12-29 16:01 | disposition home or self-care (01) ==
PROVIDERS: PCP Internal Medicine; Visit Provider Specialist
DX: G12.29 Other motor neuron disease (principal)
CPT/HCPCS: 36415; 83516

== ENCOUNTER → 2021-01-05 11:37 | Outpatient (BNVA) | payer MEDICAID, SELFPAY | PROVIDERS: PCP Internal Medicine; Visit Provider Specialist | DX: G70.00 Myasthenia gravis without (acute) exacerbation (principal); G40.309 Generalized idiopathic epilepsy and epileptic syndromes, not intractable, without status epilepticus; Z87.891 Personal history of nicotine dependence | CPT/HCPCS: 99214; 99215 ==

== ENCOUNTER 2021-02-24 10:25 | Outpatient (CLI) | payer MEDICAID, SELFPAY ==
[2021-02-24 11:08] LABS: Basophils # 0.1 10^3/uL (0.0-0.1); Basophils % 1.9 %; Eosinophils # 0.3 10^3/uL (0.0-0.8); Eosinophils % 3.8 %; Hemoglobin 14.8 g/dL (11.7-16.6); Lymphocytes # 1.8 10^3/uL (0.8-4.8); Lymphocytes % 25.5 %; Mean Corpuscular HGB Conc 32.2 g/dL (30.0-36.0); Mean Corpuscular Hemoglobin 30.2 pg (28.0-34.0); Mean Corpuscular Volume 93.9 fL (80-94); Mean Platelet Volume 10.7 fL (7.4-10.4); Monocytes # 0.9 10^3/uL (0.2-0.9); Monocytes % 13.2 %; Neutrophils # 3.79 10^3/uL (1.8-7.7); Neutrophils % 55.2 %; Nucleated Red Blood Cells % 0 %; Platelet Count 234 10^3/cmm (130-400); Red Cell Distribution Width 13.2 % (12.1-15.1); White Blood Count 6.9 10^3/uL (4.0-10.0)
== END 2021-02-24 10:26 | disposition home or self-care (01) ==
PROVIDERS: PCP Internal Medicine; Visit Provider Specialist
DX: G70.00 Myasthenia gravis without (acute) exacerbation (principal); D49.89 Neoplasm of unspecified behavior of other specified sites
CPT/HCPCS: 36415; 85025

== ENCOUNTER 2021-03-10 13:24 | Inpatient (IN) | payer MEDICARE, MEDICAID, SELFPAY ==
[2021-03-10] VITALS (7 sets, daily range): BP systolic 161–190; BP diastolic 56–98; PULSE 60–79; RESP 16–18; TEMP 36.6–37.1; O2SAT 93–98; BMI 25.1
--- NOTE | 2021-03-10 14:22 | PFTS_ITS ---
Date of Study:03/10/21 Date of Dictation: 03/12/2021 MECHANICS: Forced vital capacity (FVC) is reduced. Forced expiratory volume in one second (FEV1) is moderately reduced 54%. FEV1/FVC is normal. Postbronchodilator study not performed.. . FLOW VOLUME LOOP: Normal . LUNG VOLUMES: Not measured DIFFUSING CAPACITY FOR CARBON MONOXIDE: Not measured . INTERPRETATION: The spirometry consistent with restrictive lung disease. Please correlate clinically. MTDD
--- NOTE | 2021-03-10 15:15 | W.ED.WEAKNES ---
HPI - Weakness General: Chief complaint: Weakness Stated complaint: SLURRED SPEECH, BLURRY VISION, MEDS NOT WORKING Time Seen by Provider: 03/10/21 14:03 History of Present Illness: HPI Narrative: This is a 85-year-old male who feels he is having a flare of his myasthenia gravis that is been progressing over the past week but has been out of town for the past 4 days and when returned noticed he seemed progressively worse. Both deny any respiratory distress or shortness of breath He feels his gait is a little bit more unsteady and having difficulty closing eyes all the way and using moisture drops. Patient has also noticed some intermittent dysarthria for 4 days as well, sometimes has difficulty getting out words or eating correctly. He denies any respiratory difficulty he does not feel this is severe as his previous flares but wanted to catch it early they called the neurologist but she is out of town in the office instructed him to come here. He is taking pyridostigmine, no steroids and no CellCept he is continuing to take his Keppra. In the past he has had IVIG for crisis and that has done him well Review of Systems General: Reports: 10 or more systems reviewed and unremarkable except in HPI and below Narrative: General: denies fatigue, fever or chills HEENT: denies ear pain, denies nasal congestion, diplopia, difficulty fully closing eyes, denies sore throat Neck: denies masses or pain Resp: denies cough, denies shortness of breath, denies pleuritic pain Cardio: denies chest pain, denies edema GI: denies abdominal pain, denies N/V/D, denies black/tarry or bloody stools : denies hematuria, denies dysuria Neuro: denies headache, denies dizziness, denies motor or sensory changes Musculoskeletal: denies pain, denies swelling Skin: denies rashes Psych: denies SI or HI Endocrine: denies thyroid symptoms, denies lymphadenopathy all over ROS reviewed and patient denies PFSH ED PFSH: Medical History Generalized epilepsy Surgical History History of back surgery History of cataract surgery History of esophagogastroduodenoscopy (EGD) Family History Other CAD (coronary artery disease) Diabetes Social History Smoking and tobacco status: former smoker Quit status (tobacco): has quit using tobacco Year quit tobacco: 40 years ago Alcohol intake: never Physical Exam Narrative: EXAM NARRATIVE: General: a/o/3, no distress Head: atraumatic HEENT: normal eyes except ptosis bilaterally, normal conjunctiva, normal hearing, normal external nose, normal mouth, mucous membranes moist Neck: FROM, trachea midline Chest: normal expansion, no gross deformities Resp: normal speech, no retractions, no accessory muscle use, CTA bilaterally Cardio: regular rate and rhythm and no murmur, no peripheral edema, normal peripheral pulses GI: soft, flat non tender, no guarding normal BS : deferred Musculoskeletal: FROM, no pain or gross deformities Neuro: a/o appropriate for age, no gross motor or sensory deficits, CN II-XII grossly intact, normal coordination, normal speech hand spray operator equal, gait is normal but he uses a cane for caution Skin: no rashes Psych: cooperative, normal mood and effect Course Vital Signs: Vital signs: Vital Signs Temperature 98.7 F 03/10/21 13:45 Pulse Rate 79 03/10/21 13:45 Respiratory Rate 18 03/10/21 13:45 Blood Pressure 190/79 03/10/21 13:45 Pulse Oximetry 95 03/10/21 13:45 MDM - Weakness MDM Narrative: Medical decision making narrative: Discussed with neurology on-call Dr. Alfonso who will be willing to start the case but he will be leaving town tomorrow so we checked with the hospitalist Dr. Zurtia who accepts the patient for admission and I checked with pharmacy who says they do have enough of the IVIG to treat him for 1 g/kg x 2 days. Patient is agreeable to this he and his both deny feeling he is had a stroke and declined a CAT scan they feel this is a reaction with his myasthenia gravis but both deny any type of respiratory complaints or distress they just wanted to get this taken care of sooner than later before he got too ill Still waiting for respiratory to do a vital capacity as requested per neurology consult for neurology was placed in the system and pharmacy ordered his IVIG to get that started soon as possible patient is respiratory groves very stable however as with this disease things can change quickly therefore medications were started immediately and patient at this time was stable for the medical floor. Medical Records: Attestation: I reviewed the patient's medical records. Lab Data: Attestation: I reviewed the patient's lab results. Labs: Lab Results 03/10/21 Range/Units 15:00 WBC 7.4 (4.0-10.0) 10^3/ uL RBC 5.61 H (4.1-5.3) 10^6/u L Hgb 16.6 (11.7-16.6) g/dL Hct 51.2 (42.0-52.0) % MCV 91.3 (80-94) fL MCH 29.6 (28.0-34.0) pg MCHC 32.4 (30.0-36.0) g/dL RDW 13.0 (12.1-15.1) % Plt Count 272 (130-400) 10^3/c mm MPV 10.8 H (7.4-10.4) fL Neut % (Auto) 58.9 % Lymph % (Auto) 25.9 % [place] % (Auto) 9.7 % Eos % (Auto) 3.1 % Baso % (Auto) 2.0 % Neut # (Auto) 4.37 (1.8-7.7) 10^3/u L Lymph # (Auto) 1.9 (0.8-4.8) 10^3/u L [place] # (Auto) 0.7 (0.2-0.9) 10^3/u L Eos # (Auto) 0.2 (0.0-0.8) 10^3/u L Baso # (Auto) 0.2 H (0.0-0.1) 10^3/u L Nucleated RBC % (a uto) 0 % Nucleated RBCs # 0.0 /100WBC Discharge Plan Discharge Patient Disposition: Admitted As Inpatient Clinical Impression: Myasthenia gravis Condition: Stable Coding Level of Care Code ED Poly Operator for Alessio Chavez
--- NOTE | 2021-03-10 15:19 | P.CONIM_ITS ---
Providers/Reason For Consult Consulting Physican/Specialty*: Alfonso/Neurology Reason for Consult*: Myasthenia History of Present Illness History of Present Illness Mauricio Wilson is a 85 year old male with diagnosis of myasthenia gravis followed by Dr Posadas. Dr Posadas's notes indicate a prior positive ACH antibody, but those results are not available in the computer. From the chart documentation, he presented with bulbar and ocular symptoms in August 2020. He was initially managed for the acute exacerbation with IVIG and was started on pyridostigmine and prednisone. He subsequently was apparently treated with weekly IVIG for maintenance. He was admitted in November 2020 with respiratory distress found to be related to Covid infection. During that hospitalization he was not apparently felt to have myasthenic complications. 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 There was plan for followup in 1 month, but it appears he was lost to followup. He indicates he took Cellcept until he ran out. He is unsure why he was not on prednisone. He presented to the ER today after he had contacted the neuroscience office to report that he had been going backwards he had only been taking pyridostigmine 60mg tid and has had several weeks of fluctuating ptosis, diplopia dysarthria and questionable dyspnea on exertion. The neuroscience office requested he report to the ER because Dr Posadas was out of town, and I have been consulted to assist in his management. Review of Systems General: Reports: 10 or more systems reviewed and unremarkable except in HPI and below Narrative: General: denies fatigue, fever or chills HEENT: denies ear pain, denies nasal congestion, diplopia, difficulty fully closing eyes, denies sore throat Neck: denies masses or pain Resp: denies cough, denies shortness of breath, denies pleuritic pain Cardio: denies chest pain, denies edema GI: denies abdominal pain, denies N/V/D, denies black/tarry or bloody stools : denies hematuria, denies dysuria Neuro: denies headache, denies dizziness, denies motor or sensory changes Musculoskeletal: denies pain, denies swelling Skin: denies rashes Psych: denies SI or HI Endocrine: denies thyroid symptoms, denies lymphadenopathy all over ROS reviewed and patient denies Meds/Allergies Home Medications and Allergies Home Medications Medication Instructions Recorded Confirmed Last Taken Type magnesium oxide 420 mg tablet 420 mg PO DAILY@0800 05/11/20 03/10/21 03/10/21 History carboxymethylcellulose sodium 1 drp OPHTHALMIC (EYE) Q2H 09/03/20 03/10/21 03/10/21 History [Refresh Tears] cholecalciferol (vitamin D3) 2,000 unit PO DAILY@0800 09/03/20 03/10/21 03/10/21 History [Vitamin D3] levetiracetam [Keppra] 500 mg PO BID@12/07/20 03/10/21 03/10/21 History pyridostigmine bromide 60 mg tablet 60 mg PO TID@0800,1199,1999 #270 01/05/21 03/10/21 03/10/21 Rx tab Allergies Allergy/AdvReac Type Severity Reaction Status Date / Time No Known Allergies Allergy Verified 01/05/21 13:06 PFSH Acute PFSH: Medical History Generalized epilepsy Surgical History History of back surgery History of cataract surgery History of esophagogastroduodenoscopy (EGD) Family History Other CAD (coronary artery disease) Diabetes Social History Smoking and tobacco status: former smoker Quit status (tobacco): has quit using tobacco Year quit tobacco: 40 years ago Alcohol intake: never Vitals/I&O/Wt Last Vital Signs Temp 98.7 F 03/10/21 13:45 Pulse 79 03/10/21 13:45 Resp 18 03/10/21 13:45 BP 190/79 03/10/21 13:45 Pulse Ox 95 03/10/21 13:45 Weight last 48 hrs Weight 175 lb Physical Exam Const: COMMON NORMALS: no acute distress, average body habitus, patient oriented x3, healthy appearing and alert GENERAL APPEARANCE: cooperative and comfortable HENMT: FACE & SINUS: normal facial exam and face symmetric Eye: COMMON NORMALS: Equal, round and reactive pupils present, EOMs intact bilaterally and conjunctivae normal CONJUNCTIVA: Yes conjunctivae normal PUPIL: Yes Equal, round and reactive pupils present OTHER: flutuating ptosis and some limted eye movements to up gaze. Neuro: COMMON NORMALS: patient oriented x3 and no focal motor deficits SEN SORIUM/ORIENTATION: Yes alert CRANIAL NERVES: Yes CN II (optic), Yes CN III (oculomotor), Yes CN IV (trochlear), Yes CN V (trigeminal), Yes CN VII (facial), Yes CN VIII (vestibulocochlear), Yes CN IX and CN X (glossopharyngeal/vagus), Yes CN XI (spinal accessory) and Yes CN XII (hypoglossal) COORDINATION/ BALANCE: [id number] test normal SPEECH: abnormal speech (flaccid dysarthria) GAIT: Yes Normal gait present MOTOR EXAM: 5/5 motor strength present throughout COORDINATION: [id number] test normal A&P Assessment and plan (1) Myasthenia gravis: The patient has apparently had prior myasthenic crisis in the past year that responded quickly to IVIG therapy. I recommend repeating this treatment for the acute relapse. This can be dosed as 1g/kg/day for 2 days or as 400mg/kg/day/for 5 days. I would also recommend he restart steroids as it is unclear that he has had a sufficent trial of them. I would recommend restarting prednisone 5mg/qd and increase daily by 5mg to a goal dose of 20mg/day. I would also agree with starting a steroid sparing agent as planned by Dr Posadas in her last visit, and would recommend Cellcept 1000mg BID. Would recommend close monitoring of his respiratory function with FVC/NIF q8 hour and low threshold to intensify his level of care should he deteriorate. I am [facility] and am departing the area tomorrow, I am available until 1600. Status: Acute Consult Attestations Medical Necessity Statement: I recommend treatment for myasthenic crisis with observation for neurologic deterioration and need for respiratory support. Time Spent in Patient Care: Greater than 35 minutes Coding Level of Care Code Acute Unix Systems Administrator for [facility] Diagnoses Myasthenia gravis G70.00
[2021-03-10 15:22] LABS: Basophils # 0.2 10^3/uL (0.0-0.1); Eosinophils # 0.2 10^3/uL (0.0-0.8); Eosinophils % 3.1 %; Hematocrit 51.2 % (42.0-52.0); Hemoglobin 16.6 g/dL (11.7-16.6); Lymphocytes # 1.9 10^3/uL (0.8-4.8); Lymphocytes % 25.9 %; Mean Corpuscular HGB Conc 32.4 g/dL (30.0-36.0); Mean Corpuscular Hemoglobin 29.6 pg (28.0-34.0); Mean Corpuscular Volume 91.3 fL (80-94); Mean Platelet Volume 10.8 fL (7.4-10.4); Monocytes # 0.7 10^3/uL (0.2-0.9); Monocytes % 9.7 %; Neutrophils # 4.37 10^3/uL (1.8-7.7); Neutrophils % 58.9 %; Nucleated Red Blood Cells % 0 %; Platelet Count 272 10^3/cmm (130-400); Red Blood Count 5.61 10^6/uL (4.1-5.3); White Blood Count 7.4 10^3/uL (4.0-10.0)
[2021-03-10 15:34] LABS: Lactate (Lactic Acid level) 0.8 mmol/L (0.5-2.2)
[2021-03-10 16:30] LABS: Erythrocyte Sedimentation Rate 7 mm/hr (0-10)
[2021-03-10 16:58] LABS: Add Urine Microscopic? NO; Charge for UA Resulting for Rev
[2021-03-10 17:16] LABS: Bilirubin Urine Neg (Negative); Blood Urine Neg (Negative); Glucose Urine UA Norm (Normal); Ketones Urine Negative (Negative); Leukocyte Esterase Urine Negative (Negative); Nitrate Urine Negative (Negative); Protein Urine Neg (Negative); Specific Gravity, Urine 1.005 (1.005-1.030); Urine Appearance Clear (CLEAR); Urine Color Straw (Yellow); Urobilinogen Urine Norm (Negative); pH Urine 6.5 (5-7)
[2021-03-10 17:29] LABS: Alanine Aminotransferase 14 U/L (0-41); Albumin Level 4.3 g/dL (3.5-5.2); Alkaline Phosphatase 53 IU/L (40-130); Anion Gap 10.3 (5-19); Aspartate Amino Transferase 25 U/L (0-40); Blood Urea Nitrogen 12 mg/dL (8-23); Calcium 8.6 mg/dL (8.5-10.5); Carbon Dioxide 31 mmol/L (22-29); Chloride 91 mmol/L (98-107); Globulin 2.7 g/dL (1.3-4.6); Glucose 108 mg/dL (65-115); Lipase 24 U/L (13-60); Magnesium 2.2 mg/dL (1.7-2.3); Osmolality Calculated 266 mOsm/kg (285-295); Potassium 4.3 mmol/L (3.5-5.1); Sodium 128 mmol/L (136-145); Thyroid Stimulating Hormone 2.69 uIU/mL (0.27-4.20)
--- NOTE | 2021-03-10 17:30 | PC.NURSE ---
pt report called to Ilya MOSS in SBAR format.
--- NOTE | 2021-03-10 18:29 | PM.HP ---
Providers/Chief Complaint Admitting Physician: Hamida Zurita MD Chief Complaint: SLURRED SPEECH, BLURRY VISION, MEDS NOT WORKING History of Present Illness Mauricio Wilson is a 85 year old male who presented to the emergency room with vision changes, difficulty swallowing and talking. He has known myasthenia gravis. He had previously been on maintenance IVIG in addition to Mestinon. He had Covid in November and his IVIG schedule was interrupted secondary to this. He was seen by Dr. Posadas in early December and started on CellCept. He has run out of this medication. Unable to tell me exactly when but says he quit taking it when the bottle was empty. The first thing that he really noticed specifically is that he was unable to read which he enjoys doing. He has been having both double and blurry vision. He currently is unable to close his eyes. His speech is gotten worse and he is started having difficulty swallowing because his lips and his tongue are not working the way that they usually do. Does not really describe any episodes of aspiration. Denies difficulty breathing. He walks with a walker. I cannot really get a sense of what his baseline exertional ability is. Does not sound like it is much worse than usual. He has been able to manage his ADLs but knows that he needs to get something to yield improvement. Dr. Alfonso is on-call for neurology. Case was discussed with him and he recommended 1 of 2 treatment options. IVIG 1 mg/kg/day was started in the emergency room. We do have sufficient stock on hand and he is being admitted for care. No recent fevers. He had Covid in November and reports that he has recovered well from that without lingering symptoms. He had had GI bleeding during that hospital stay but has not had recurrence of such. lung abscess esophagus surgery Review of Systems Const: Denies: fever(s), chills or change in appetite Eyes: Reports: change in vision, blurry vision, increased production of tears and other (Unable to close eyes) ENMT: Reports: dry mouth and other (Intermittent difficulty swallowing, tongue feels like it does not work); Denies: throat pain or nasal congestion Card: Denies: chest pain, palpitations or edema Resp: Denies: dyspnea, productive cough or non-productive cough GI: Denies: abdominal pain, nausea, vomiting, diarrhea, constipation, hematochezia or melena : Denies: difficulty urinating Musc: Reports: muscle cramps; Denies: extremity swelling Skin/Breast: Denies: rash or pruritus Neuro: Denies: headache(s), numbness in extremities or dizziness Psych: Denies: anxiety or depression Hermann/Lymph: Denies: easy bruising or easy bleeding Medications/Allergies Home Medications Medication Instructions Recorded Confirmed Last Taken Type magnesium oxide 420 mg tablet 420 mg PO DAILY@0800 05/11/20 03/10/21 03/10/21 History carboxymethylcellulose sodium 1 drp OPHTHALMIC (EYE) Q2H 09/03/20 03/10/21 03/10/21 History [Refresh Tears] cholecalciferol (vitamin D3) 2,000 unit PO DAILY@0800 09/03/20 03/10/21 03/10/21 History [Vitamin D3] levetiracetam [Keppra] 500 mg PO BID@0800,2000 12/07/20 03/10/21 03/10/21 History pyridostigmine bromide [Mestinon] 60 mg PO TID@0600,1400,2200 03/10/21 03/10/21 03/10/21 History Allergies Allergy/AdvReac Type Severity Reaction Status Date / Time No Known Allergies Allergy Verified 01/05/21 13:06 PFSH Acute PFSH: Medical History (Updated 03/10/21 @ 22:46 by Hamida Zurita MD) COVID-19 (~11/2020) Generalized epilepsy GI bleed when hospitalized with covid History of lung abscess Describes having had an abscess in his lung that required surgical removal many years ago Myasthenia gravis Surgical History (Updated 03/10/21 @ 22:46 by Hamida Zurita MD) History of back surgery x2 History of cataract surgery Bilateral History of esophagogastroduodenoscopy (EGD) History of surgery Describes a remote surgical procedure in which he had something done around his esophagus and his liver that may have involved around a concern for biliary duct malignancy possibility Family History Other CAD (coronary artery disease) Diabetes Social History Smoking and tobacco status: former smoker Quit status (tobacco): has quit using tobacco Year quit tobacco: 40 years ago Alcohol intake: never Vitals/I&O/Wt Last Vital Signs Temp 98.7 F 03/10/21 13:45 Pulse 79 03/10/21 17:15 Resp 18 03/10/21 17:15 BP 161/78 03/10/21 17:15 Pulse Ox 97 03/10/21 18:13 03/10/21 03/10/21 03/10/21 06:59 14:59 22:59 Intake Total 80.183 / 80.183 Balance 80.183 / 80.183 Weight last 48 hrs Weight 79.379 kg Physical Exam Narrative: EXAM NARRATIVE: Awake and alert, extraocular movements are intact although patient is unable to close his eyelids. Oropharynx is clear. Speech is a little slurred and at times difficult to understand. Able to swallow pills with water without choking. Lungs are clear to auscultation bilaterally. Regular rate and rhythm. Abdomen is soft. No lower extremity edema. Has a little bit of a tremor noted in both hands. Has his cane at his side. Gait was not currently assessed. Data : 03/10/21 15:00 03/10/21 15:00 A&P Assessment and plan (1) Myasthenia gravis: With acute presentation of progressively worsening symptoms Status: Acute (2) Hyponatremia: Clinically looks dry Status: Acute (3) Generalized epilepsy: No recent seizure activity Status: Acute Additional A&P Information Inpatient admission Appreciate Dr. Alfonso's assistance in care IVIG per neurology dose recommendations Continue Mestinon Has been started on some prednisone CellCept has been ordered and he will need a prescription at discharge Monitor both tolerance of and response to treatment Spirometry has been ordered, will follow Continuous pulse oximetry at least initially IV fluids Recheck electrolytes in the morning Lovenox for DVT prophylaxis Monitor for evidence of GI bleed which had occurred and November when he was hospitalized with Covid Follow-up pending acetylcholine receptor labs Continue home Keppra Continue home artificial tears and magnesium Supportive care otherwise Plans were discussed with patient and he was given an opportunity to ask questions Full code Attestations Medical Necessity Statement*: Anticipated stay greater than 2 midnights in a gentleman with acute symptoms attributable to myasthenia. IVIG and other immunosuppressive therapy has been initiated as described above. Coding Level of Care Code Acute Sales Merchandising Specialist for [facility] Fwd Diagnoses Myasthenia gravis G70.00 Hyponatremia E87.1 Generalized epilepsy G40.309
[2021-03-10] MEDS: levETIRAcetam 500 mg Tablet PO (19:59)
[2021-03-10] MEDS: pyridostigmine 60 mg Tablet PO (21:44)
[2021-03-10] MEDS: enoxaparin 40 mg/0.4 mL Syringe SUBCUT (22:48)
[2021-03-10] MEDS: sodium chloride 0.45% 1,000 ML 75 ML IV (22:49)
[2021-03-10] MEDS: acetaminophen 325 mg Tablet 650 MG PO (22:52)
--- NOTE | 2021-03-10 23:08 | PC.RESP ---
NIF best out of three was -45.
[2021-03-11] VITALS (13 sets, daily range): BP systolic 123–182; BP diastolic 62–82; PULSE 70–89; RESP 17–18; TEMP 36.4–36.8; O2SAT 91–96
[2021-03-11 06:29] LABS: Basophils # 0.1 10^3/uL (0.0-0.1); Eosinophils # 0.2 10^3/uL (0.0-0.8); Eosinophils % 4.1 %; Hematocrit 44.8 % (42.0-52.0); Hemoglobin 14.7 g/dL (11.7-16.6); Lymphocytes # 1.1 10^3/uL (0.8-4.8); Lymphocytes % 24.1 %; Mean Corpuscular HGB Conc 32.8 g/dL (30.0-36.0); Mean Corpuscular Hemoglobin 29.8 pg (28.0-34.0); Mean Corpuscular Volume 90.9 fL (80-94); Mean Platelet Volume 10.8 fL (7.4-10.4); Monocytes # 0.5 10^3/uL (0.2-0.9); Monocytes % 10.2 %; Neutrophils # 2.72 10^3/uL (1.8-7.7); Neutrophils % 59.2 %; Nucleated Red Blood Cells % 0 %; Platelet Count 207 10^3/cmm (130-400); Red Blood Count 4.93 10^6/uL (4.1-5.3); Red Cell Distribution Width 13.1 % (12.1-15.1); White Blood Count 4.6 10^3/uL (4.0-10.0)
[2021-03-11] MEDS: pyridostigmine 60 mg Tablet PO ×3 (06:30→22:19)
[2021-03-11 06:57] LABS: Anion Gap 12.2 (5-19); Blood Urea Nitrogen 11 mg/dL (8-23); Calcium 8.4 mg/dL (8.5-10.5); Carbon Dioxide 26 mmol/L (22-29); Chloride 97 mmol/L (98-107); Glucose 110 mg/dL (65-115); Magnesium 2.1 mg/dL (1.7-2.3); Osmolality Calculated 272 mOsm/kg (285-295); Potassium 4.2 mmol/L (3.5-5.1); Sodium 131 mmol/L (136-145)
[2021-03-11 07:23] LABS: Uric Acid 3.9 mg/dL (3.4-7.0)
[2021-03-11] MEDS: magnesium oxide 400 mg tablet PO (10:11)
[2021-03-11] MEDS: artificial tears Op Soln 15 mL Btl 1 DROP EYEAFF ×4 (10:11→15:56)
[2021-03-11] MEDS: levETIRAcetam 500 mg Tablet PO ×2 (10:11→22:19)
[2021-03-11] MEDS: cholecalciferol (vitamin D3) 1,000 unit Tablet 2000 UNIT PO (10:11)
[2021-03-11] MEDS: acetaminophen 325 mg Tablet 650 MG PO (10:11)
--- NOTE | 2021-03-11 11:10 | PC.CHAP ---
Pastoral Care Encounter/Spiritual Assessment Type of Contact [] Declined molded parts inspector visit [] Patient/Family/Request visit [] Outpatient visit [] Follow-up visit [] Physician referral [] Code/Alert [x] Routine visit [] Staff referral [] Actively dying [] Patient sleeping [] Family support [] [] Out of room [] Palliative care [] [x] Receiving care in room [] Pre-surgical visit [] Trauma [] Long length of stay [] ICU visit [] Other: Relational/Emotional Strength [x] Patient feels connected with others/family/visitors/staff [] Distress [] Loneliness/isolation [] Abandonment Spirituality of Patient [x] Person of Mely [] Attends Confucianist of their Mely [x] Believes in Prayer [] Reads Bible or Tenriism materials [] There are Spiritual issues to be addressed Automation Technologist Interventions [x] Prayer [x] Active listening [x] Non-anxious presence [x] Spiritual/emotional support [] Crisis/trauma care [x] Spiritual counseling [] Bereavement support [] Provided bereavement packet [] Provided Bible/devotional materials [] Provided toy/stuffed animal, coloring book to patient or family member [] Provided Communion [] Anointing/Bertrand [] Salvation [x] Completed spiritual assessment [] Other: Impact on Illness or Injury [] Angry [x] Fearful [] Anxious [] Often cries [] Exhaustion [] Unable to work [] Unable to attend yazdanism [] Unable to walk/stand [] Unable to read [] Unable to drive [] Unable to eat/drink [] Unable to sleep [] Unable to be with family [] Patient intubated [] Other: Summary checking Meds doesn't know what needs to be done? Time spent with patient 10 mins
--- NOTE | 2021-03-11 12:39 | PM.PN ---
Subjective Subjective: Interval history: No new symptoms. Has started to be able to close his left eye a bit. Speech is a bit better. Symptoms are still coming and going. Vitals/I&O/Wt Last Vital Signs Temp 97.5 F L 03/11/21 11:32 Pulse 76 03/11/21 11:32 Resp 18 03/11/21 11:32 BP 174/69 03/11/21 11:32 Pulse Ox 93 03/11/21 11:32 03/10/21 03/11/21 03/11/21 22:59 06:59 14:59 Intake Total 800.000 / 800.000 Output Total 0 / 0 Balance 800.000 / 800.000 Weight last 48 hrs Weight 79.379 kg Physical Exam Narrative: EXAM NARRATIVE: Awake and alert, speech is clear, able to protrude tongue midline, can close left eyelid, righted lead does not close completely but is improved from yesterday. Increased tearing noted particularly to the right eye. Lungs are clear. No accessory muscle use noted. Regular rate and rhythm. Moves all extremities. No abnormal movements currently noted. Data : 03/11/21 06:06 03/11/21 05:55 A&P Assessment and plan (1) Myasthenia gravis: With acute presentation of progressively worsening symptoms Status: Acute (2) Hyponatremia: Status: Acute (3) Generalized epilepsy: No recent seizure activity Status: Acute Additional A&P Information To receive second dose of IVIG today Continue Mestinon Prednisone was just a one-time dose and does not look like he got it CellCept resumed per Dr. Alfonso NIF has ranged -45-48 Continue IV fluids and recheck BMP in the morning Lovenox for DVT prophylaxis Monitor for evidence of GI bleed which had occurred and November when he was hospitalized with Covid Follow-up pending acetylcholine receptor labs Continue home Keppra Continue home artificial tears and magnesium Supportive care otherwise Assuming no issues overnight anticipate discharge tomorrow and will need outpatient follow-up with Dr. Posadas, prescription for CellCept Plans were discussed with patient and he was given an opportunity to ask questions Full code Attestations Medical Necessity Statement*: Requires ongoing inpatient stay for continued management with IVIG as noted. Coding Level of Care Code Acute Customs Entry Clerk for [facility] Fwd Diagnoses Myasthenia gravis G70.00 Hyponatremia E87.1 Generalized epilepsy G40.309
[2021-03-11] MEDS: predniSONE 5 mg Tablet PO (17:32)
[2021-03-11] MEDS: enoxaparin 40 mg/0.4 mL Syringe SUBCUT (22:19)
[2021-03-12 03:41] VITALS: BP 162/78; PULSE 73; RESP 16; TEMP 36.7; O2SAT 94
[2021-03-12] MEDS: pyridostigmine 60 mg Tablet PO (05:32)
[2021-03-12] MEDS: acetaminophen 325 mg Tablet 650 MG PO ×2 (06:54→12:44)
[2021-03-12 07:44] VITALS: BP 175/82; PULSE 65; RESP 16; TEMP 36.7; O2SAT 95
[2021-03-12] MEDS: cholecalciferol (vitamin D3) 1,000 unit Tablet 2000 UNIT PO (09:22)
[2021-03-12] MEDS: magnesium oxide 400 mg tablet PO (09:22)
[2021-03-12] MEDS: levETIRAcetam 500 mg Tablet PO (09:22)
[2021-03-12 09:27] VITALS: PULSE 74; RESP 20; O2SAT 96
--- NOTE | 2021-03-12 09:30 | PC.RESP ---
Patient performed NIF x3. -42, -44,-40.
[2021-03-12 11:07] VITALS: BP 164/80; PULSE 75; RESP 16; TEMP 36.9; O2SAT 92
--- NOTE | 2021-03-12 12:35 | PM.DCS ---
Discharge Providers Date of Admission: 03/10/21 15:14 Date of Discharge: March 12, 2021 Attending Provider at Admission: Hamida Zurita MD Attending Provider at Discharge: Hamida Zurita MD Diagnoses at Discharge Discharge Diagnosis (1) Myasthenia gravis: Status: Acute (2) Hyponatremia: Status: Acute (3) Generalized epilepsy: Status: Acute Reason for Visit Reason for Visit: SLURRED SPEECH, BLURRY VISION, MEDS NOT WORKING Hospital Course Hospital Course Mr. Wilson is a gentleman with myasthenia gravis who presented to the emergency room with increasing episodes and severity of double and blurry vision, inability to close his eyes, difficulty with mastication and the like. These are his classic symptoms with his myasthenia. He has not really been that short of breath. He had been off of IVIG since he had Covid in November. He saw Dr. Posadas in December and was given a prescription for CellCept but has not had a follow-up appointment since then and ran out of his prescription. Availability of IVIG was verified and he was admitted here with consultation by Dr. Alfonso. Dr. Alfonso recommended 1 g/kg of IVIG daily x2 days, increasing CellCept to 1000 twice daily and he also recommended initiation of prednisone. Patient had a significant earlier this year when he had Covid. I have held on initiating the recommended prednisone at this time. Patient did well without new issues throughout the hospital stay. NIF stayed in mid 40s. He was eager to go home after completing his IVIG. He could close his eyes a bit more. He was not having as much difficulty eating. Watch him to the middle of the day as he generally does better in the mornings. He has a follow-up appointment with Dr. Posadas already scheduled for 21 April. We will see if we can get him in sooner or at least get her in contact with him regarding ongoing management. Prescriptions were provided for the new medications including with a refill. Discharge Data Data Completed and Pending: Pending at discharge Category Date Time Status Acetylcholine Rec ept Modulatin Rout ine Lab 03/10/21 18:01 Received Acetylcholine Rec eptor Binding Rout ine Lab 03/10/21 18:01 Received Acetylcholine Rec eptor Block Routin e Lab 03/10/21 18:01 Received Miscellaneous Jennie t Routine Lab 03/10/21 Received Laboratory Last Values WBC 4.6 10^3/uL (4.0- 10.0) 03/11/21 06:06 RBC 4.93 10^6/uL (4.1 -5.3) 03/11/21 06:06 Hgb 14.7 g/dL (11.7-1 6.6) 03/11/21 06:06 Hct 44.8 % (42.0-52.0 ) 03/11/21 06:06 MCV 90.9 fL (80-94) 03/11/21 06:06 MCH 29.8 pg (28.0-34. 0) 03/11/21 06:06 MCHC 32.8 g/dL (30.0-3 6.0) 03/11/21 06:06 RDW 13.1 % (12.1-15.1 ) 03/11/21 06:06 Plt Count 207 10^3/cmm (130 -400) 03/11/21 06:06 MPV 10.8 fL (7.4-10.4 ) H 03/11/21 06:06 Neut % (Auto) 59.2 % 03/11/21 06:06 Lymph % (Auto) 24.1 % 03/11/21 06:06 Treasure % (Auto) 10.2 % 03/11/21 06:06 Eos % (Auto) 4.1 % 03/11/21 06:06 Baso % (Auto) 2.0 % 03/11/21 06:06 Neut # (Auto) 2.72 10^3/uL (1.8 -7.7) 03/11/21 06:06 Lymph # (Auto) 1.1 10^3/uL (0.8- 4.8) 03/11/21 06:06 [place] # (Auto) 0.5 10^3/uL (0.2- 0.9) 03/11/21 06:06 Eos # (Auto) 0.2 10^3/uL (0.0- 0.8) 03/11/21 06:06 Baso # (Auto) 0.1 10^3/uL (0.0- 0.1) 03/11/21 06:06 Nucleated RBC % (a uto) 0 % 03/11/21 06:06 Nucleated RBCs # 0.0 /100WBC 03/11/21 06:06 ESR 7 mm/hr (0-10) 03/10/21 15:00 Sodium 131 mmol/L (136-1 45) L 03/11/21 05:55 Potassium 4.2 mmol/L (3.5-5 .1) 03/11/21 05:55 Chloride 97 mmol/L (98-107 ) L 03/11/21 05:55 Carbon Dioxide 26 mmol/L (22-29) 03/11/21 05:55 Anion Gap 12.2 (5-19) 03/11/21 05:55 BUN 11 mg/dL (8-23) 03/11/21 05:55 Creatinine 0.6 mg/dL (0.7-1. 2) L 03/11/21 05:55 GFR Calculation Not Reportable 03/11/21 05:55 Glucose 110 mg/dL (65-115 ) 03/11/21 05:55 Calculated Osmolal ity 272 mOsm/kg (285- 295) L 03/11/21 05:55 Lactate 0.8 mmol/L (0.5-2 .2) 03/10/21 15:00 Uric Acid 3.9 mg/dL (3.4-7. 0) 03/11/21 05:55 Calcium 8.4 mg/dL (8.5-10 .5) L 03/11/21 05:55 Magnesium 2.1 mg/dL (1.7-2. 3) 03/11/21 05:55 Total Bilirubin 1.0 mg/dL (0.15-1 .2) 03/10/21 15:00 Total Bilirubin Cancelled 03/10/21 15:00 AST 25 U/L (0-40) 03/10/21 15:00 AST Cancelled 03/10/21 15:00 ALT 14 U/L (0-41) 03/10/21 15:00 ALT Cancelled 03/10/21 15:00 Alkaline Phosphata se 53 IU/L (40-130) 03/10/21 15:00 Alkaline Phosphata se Cancelled 03/10/21 15:00 Total Protein 7.0 g/dL (6.6-8.7 ) 03/10/21 15:00 Total Protein Cancelled 03/10/21 15:00 Albumin 4.3 g/dL (3.5-5.2 ) 03/10/21 15:00 Albumin Cancelled 03/10/21 15:00 Globulin 2.7 g/dL (1.3-4.6 ) 03/10/21 15:00 Globulin Cancelled 03/10/21 15:00 Lipase 24 U/L (13-60) 03/10/21 15:00 Lipase Cancelled 03/10/21 15:00 TSH 2.69 uIU/mL (0.27 -4.20) 03/10/21 15:00 TSH Cancelled 03/10/21 15:00 Urine Color Straw (Yellow) 03/10/21 16:45 Urine Appearance Clear (CLEAR) 03/10/21 16:45 Urine pH 6.5 (5-7) 03/10/21 16:45 Ur Specific Gravit y 1.005 (1.005-1.0 30) 03/10/21 16:45 Urine Protein Neg (Negative) 03/10/21 16:45 Urine Glucose (UA) Norm (Normal) 03/10/21 16:45 Urine Ketones Negative (Negati ve) 03/10/21 16:45 Urine Blood Neg (Negative) 03/10/21 16:45 Urine Nitrate Negative (Negati ve) 03/10/21 16:45 Urine Bilirubin Neg (Negative) 03/10/21 16:45 Urine Urobilinogen Norm mg/dL (Negat owen) 03/10/21 16:45 Ur Leukocyte Eda ase Negative (Negati ve) 03/10/21 16:45 Vitals: Last Vital Signs Temp 98.5 F 03/12/21 11:07 Pulse 75 03/12/21 11:07 Resp 16 03/12/21 11:07 BP 164/80 03/12/21 11:07 Pulse Ox 92 03/12/21 11:07 Discharge Plan Discharge Patient Disposition: Home Condition: Stable Prescriptions: New mycophenolate mofetil 500 mg Tablet 1,000 mg PO BID Qty: 60 RF: 1 Continued magnesium oxide 420 mg tablet 420 mg PO DAILY@0800 RF: 0 carboxymethylcellulose sodium [Refresh Tears] 0.5 % Drops 1 drp OPHTHALMIC (EYE) Q2H RF: 0 cholecalciferol (vitamin D3) [Vitamin D3] 50 mcg (2,000 unit) Capsule 2,000 unit PO DAILY@0800 RF: 0 levetiracetam [Keppra] 1,000 mg tablet 500 mg PO BID@0800,2000 RF: 0 Mestinon 60 mg tablet 60 mg PO TID@0600,1400,2200 RF: 0 Discharge Orders: Discharge Order (Routine); Ordered 03/12/21 Ordered By: Hamida Zurita Other Ambulatory Orders: Complete Blood Count w/Auto (Routine) Timeframe: 4 Weeks Location: Determined by Patient Ordered By: Hamida Zurita Referrals: Sammi Posadas MD [Physician] - 03/29/21 2:00 pm (Apt at Dr Posadas guidance. Hospital 03/10-03/12 with worse myasthenia symptoms. Resumed Cellcept, gave IVIG, next apt with Dr Posadas not until 04/21. Last seen 01/05. Labs okay, NIF 40s. Dr Alfonso recommended steroids be started but with GI bleed recently held on starting.) Discharge Diet: Usual diet Discharge Activity: Resume usual activity Patient Instructions: Mycophenolate (By mouth), Hyponatremia, Myasthenia Gravis, Opioid Safety Activity Restrictions/Additional Instructions: You were started back on Cellcept as per neurology instructions. You received IVIG 1gm/kg/day for 2 days. NIFs (a way to monitor respiratory status) during stay mid 40s. You mestinon and keppra are being continued. Will see if you can get an earlier appointment with Dr Posadas. Otherwise keep appointment on 04/21 as already scheduled. Discharge Attestations Time Spent in Discharge Care*: greater than 30 min Specific Discharge Activities: educating patient, documenting/other paperwork and evaluating patient/reviewing data Status at Discharge: Cognitive status at discharge: cognitively intact, Behavioral status at discharge: cooperative, Functional status at discharge: uses cane/walker Overall status at discharge: patient is not back to baseline Quality Metrics Clinical Quality Measures During this hospital stay, did patient experience: None Coding Level of Care Code Acute Chg FW OH note Diagnoses Myasthenia gravis G70.00 Hyponatremia E87.1 Generalized epilepsy G40.309
--- NOTE | 2021-03-12 13:00 | PC.NURSE ---
Patient had bottle of Pyridostigm in pyxis it was sent home with patient at this time.
[2021-03-12 13:08] VITALS: BP 164/80; PULSE 75; RESP 16; TEMP 36.9; O2SAT 92
--- NOTE | 2021-03-12 13:09 | PC.NURSE ---
Gave patient discharge instructions, answered all questions. Patient and state verbal understanding. IV catheter removed, tip intact patient tolerated well. Discharged in stable condition.
[2021-03-16 19:33] LABS: Acetylcholine Receptor Block 38 (<15)
[2021-03-18 18:29] LABS: Acetylcholine Recept Modulatin 88
== END 2021-03-12 13:13 | disposition home or self-care (01) | DRG 57 ==
LOC: ER 15:12 → MEDSURG 16:44
PROVIDERS: Psychiatry & Neurology Neurology; Admitting Provider Hospitalist; Emergency Provider Emergency Medicine; Visit Provider Hospitalist
DX: G70.01 Myasthenia gravis with (acute) exacerbation (principal); E87.1 Hypo-osmolality and hyponatremia; Z86.16 Personal history of COVID-19; Z79.899 Other long term (current) drug therapy; G40.409 Other generalized epilepsy and epileptic syndromes, not intractable, without status epilepticus; Z87.891 Personal history of nicotine dependence
CPT/HCPCS: 36415; 80048; 80053; 81003; 83516; 83519; 83605; 83690; 83735; 84443; 84550; 85025; 85651; 94010; 94664; 96372; 99285; J1568; J1650; J7512; J7517

== ENCOUNTER → 2021-03-29 14:12 | Outpatient (BNVA) | payer MEDICAID, SELFPAY | PROVIDERS: PCP Internal Medicine; Visit Provider Specialist | DX: G70.00 Myasthenia gravis without (acute) exacerbation (principal); D49.89 Neoplasm of unspecified behavior of other specified sites; G40.309 Generalized idiopathic epilepsy and epileptic syndromes, not intractable, without status epilepticus; Z87.891 Personal history of nicotine dependence | CPT/HCPCS: 99215 ==

== ENCOUNTER → 2021-03-30 13:16 | Day surgery (SDC) | payer MEDICAID, SELFPAY ==
[2021-03-30 14:34] VITALS: BP 176/93; PULSE 60; RESP 18; TEMP 36.8; O2SAT 94; BMI 25.1
== END ==
PROVIDERS: PCP Internal Medicine; Visit Provider Specialist
DX: G70.00 Myasthenia gravis without (acute) exacerbation (principal)
CPT/HCPCS: 96365; 96366; J1568

== ENCOUNTER → 2021-04-05 11:39 | Outpatient (BNVA) | payer MEDICAID, SELFPAY | PROVIDERS: PCP Internal Medicine; Visit Provider Specialist | DX: G70.00 Myasthenia gravis without (acute) exacerbation (principal); G40.309 Generalized idiopathic epilepsy and epileptic syndromes, not intractable, without status epilepticus | CPT/HCPCS: 99214 ==

== ENCOUNTER 2021-04-20 09:00 | Outpatient (RCR) | payer MEDICAID, SELFPAY ==
[2021-03-31 13:49] VITALS: BP 165/94; PULSE 78; RESP 18; TEMP 36.7; O2SAT 96
--- NOTE | 2021-03-31 15:26 | PC.NURSE ---
Pt receiving IVIG to left AC without difficulty. No reaction noted. Pt escorted to OPS Room 3 for remainder of infusion. Report given to Janelle MOSS.
[2021-04-07 10:32] VITALS: BP 172/105; PULSE 71; RESP 18; TEMP 36.7; O2SAT 96
[2021-04-13 09:27] VITALS: BP 173/84; PULSE 77; RESP 18; TEMP 36.9; O2SAT 97
[2021-04-20 09:30] VITALS: BP 159/83; PULSE 63; RESP 16; TEMP 36.9; O2SAT 97
== END 2021-04-26 23:59 | disposition home or self-care (01) ==
LOC: GILAB 09:00
PROVIDERS: PCP Internal Medicine; Visit Provider Specialist
DX: G70.00 Myasthenia gravis without (acute) exacerbation (principal)
CPT/HCPCS: 96365; 96366; J1568

== ENCOUNTER → 2021-05-10 08:09 | Outpatient (BNVA) | payer MEDICAID, SELFPAY | PROVIDERS: PCP Internal Medicine; Visit Provider Specialist | DX: G40.309 Generalized idiopathic epilepsy and epileptic syndromes, not intractable, without status epilepticus (principal); G70.00 Myasthenia gravis without (acute) exacerbation; Z87.891 Personal history of nicotine dependence | CPT/HCPCS: 99214 ==

== ENCOUNTER 2021-05-25 08:43 | Outpatient (RCR) | payer MEDICAID, SELFPAY ==
[2021-04-27 10:07] VITALS: BP 159/74; PULSE 62; RESP 18; TEMP 36.9; O2SAT 96; BMI 25.1
[2021-05-04 09:05] VITALS: BP 163/79; PULSE 72; RESP 18; TEMP 36.6; O2SAT 97
[2021-05-11 09:44] VITALS: BP 167/80; PULSE 67; RESP 18; TEMP 36.5; O2SAT 96
[2021-05-18 09:05] VITALS: BP 167/116; PULSE 57; RESP 18; TEMP 36.9; O2SAT 97
[2021-05-25 09:00] VITALS: BP 179/100; PULSE 93; RESP 18; TEMP 36.8; O2SAT 96; BMI 25.7
== END 2021-05-26 23:59 | disposition home or self-care (01) ==
LOC: GILAB 08:43
PROVIDERS: PCP Internal Medicine; Visit Provider Specialist
DX: G70.00 Myasthenia gravis without (acute) exacerbation (principal)
CPT/HCPCS: 96365; 96366; J1568

== ENCOUNTER 2021-06-01 09:00 | Outpatient (RCR) | payer MEDICAID, SELFPAY ==
[2021-06-01 09:14] VITALS: BP 184/90; PULSE 81; RESP 24; TEMP 36.9; O2SAT 98; BMI 25.7
== END 2021-06-26 23:59 | disposition home or self-care (01) ==
LOC: GILAB 09:00
PROVIDERS: PCP Internal Medicine; Visit Provider Specialist
DX: G70.00 Myasthenia gravis without (acute) exacerbation (principal)
CPT/HCPCS: 96365; 96366; J1568

== ENCOUNTER → 2021-06-07 08:08 | Outpatient (BNVA) | payer MEDICAID, SELFPAY | PROVIDERS: PCP Internal Medicine; Visit Provider Specialist | DX: G70.00 Myasthenia gravis without (acute) exacerbation (principal); G40.309 Generalized idiopathic epilepsy and epileptic syndromes, not intractable, without status epilepticus; Z87.891 Personal history of nicotine dependence | CPT/HCPCS: 99214 ==

== ENCOUNTER → 2021-06-15 08:57 | Day surgery (SDC) | payer MEDICAID, SELFPAY ==
[2021-06-15 08:45] VITALS: BMI 26.5
[2021-06-15 09:05] VITALS: BP 161/77; PULSE 79; RESP 18; TEMP 36.6; O2SAT 97
== END ==
PROVIDERS: PCP Internal Medicine; Visit Provider Specialist
DX: G70.00 Myasthenia gravis without (acute) exacerbation (principal)
CPT/HCPCS: 96365; 96366; J1568

== ENCOUNTER → 2021-07-05 08:12 | Outpatient (BNVA) | payer MEDICAID, SELFPAY | PROVIDERS: PCP Internal Medicine; Visit Provider Specialist | DX: G40.309 Generalized idiopathic epilepsy and epileptic syndromes, not intractable, without status epilepticus (principal); G70.00 Myasthenia gravis without (acute) exacerbation; Z87.891 Personal history of nicotine dependence | CPT/HCPCS: 99214 ==

== ENCOUNTER 2021-07-13 09:01 | Outpatient (RCR) | payer MEDICAID, SELFPAY ==
[2021-06-29 09:39] VITALS: BP 180/89; PULSE 89; RESP 18; TEMP 36.6; O2SAT 97
[2021-07-13 09:35] VITALS: BP 177/87; PULSE 79; RESP 18; TEMP 36.7; O2SAT 97
== END 2021-07-27 23:59 | disposition home or self-care (01) ==
LOC: GILAB 09:01
PROVIDERS: PCP Internal Medicine; Visit Provider Specialist
DX: G70.00 Myasthenia gravis without (acute) exacerbation (principal)
CPT/HCPCS: 96365; 96366; J1568

== ENCOUNTER 2021-08-11 10:59 | Outpatient (CLI) | payer MEDICAID, SELFPAY ==
[2021-08-11 11:30] LABS: Basophils % 0.6 %; Eosinophils % 0.1 %; Hemoglobin 16.3 g/dL (11.7-16.6); Lymphocytes # 0.5 10^3/uL (0.8-4.8); Lymphocytes % 7.3 %; Mean Corpuscular HGB Conc 33.3 g/dL (30.0-36.0); Mean Corpuscular Volume 96.3 fl (80-94); Mean Platelet Volume 10.3 fL (7.4-10.4); Monocytes # 0.2 10^3/uL (0.2-0.9); Monocytes % 3.2 %; Neutrophils # 6.36 10^3/uL (1.8-7.7); Nucleated Red Blood Cells % 0 %; Platelet Count 203 10^3/cmm (130-400); Red Blood Count 5.09 10^6/uL (4.1-5.3); Red Cell Distribution Width 13.1 % (12.1-15.1); White Blood Count 7.2 10^3/uL (4.0-10.0)
[2021-08-11 12:03] LABS: NT Pro B Type Natriuretic Pept 1157 pg/mL (0-450)
[2021-08-12 19:02] LABS: Alternaria Alternata (M6) Ige <0.10 kU/L; Alternaria Class 0; Bermuda Class 0; Bermuda Grass (G2) Ige <0.10 kU/L; Cat Dander (E1) Ige <0.10 kU/L; Cat Dander Class 0; Common Ragweed (Short) (W1) Ig <0.10 kU/L; D. Farinae Class 0; Dermatophagoides Class 0; Dermatophagoides Farinae (D2) <0.10 kU/L; Dermatophagoides Pteronyssinus <0.10 kU/L; Dog Dander (E5) Ige <0.10 kU/L; Dog Dander Class 0; Elm (T8) Ige <0.10 kU/L; Elm Class 0; English Plantain (W9) Ige <0.10 kU/L; English Plantain Class 0; House Dust (Greer) (H1) Ige <0.10 kU/L; House Dust (Hollister- Stier) <0.10 kU/L; House Dust Class 0; Immunoglobulin E 7 kU/L (<OR=114); Immunoglobulin E 8 kU/L (<OR=114); Johnson Grass (G10) Ige <0.10 kU/L; Johnson Grass Cl 0; June Grass Class 0; June Grass(Kentucky Blue) (G8) <0.10 kU/L; Lamb'S Quarters (Goose Foot) <0.10 kU/L; Lamb'S Quarters Class 0; Maple (Box Elder) (T1) Ige <0.10 kU/L; Maple Class 0; Meadow Fescue (G4) Ige <0.10 kU/L; Meadow Fescue Class 0; Mucor Racemosus Class 0; Oak (T7) Ige <0.10 kU/L; Oak Class 0; Orchard Grass (Cocksfoot) (G3) <0.10 kU/L; Penicillium Class 0; Penicillium Notatum (M1) Ige <0.10 kU/L; Perennial Rye Grass (G5) Ige <0.10 kU/L; Perennial Rye Grass Class 0; Ragweeed Class 0; Rough Marsh Elder (W16) Ige <0.10 kU/L; Rough Marsh Elder Class 0; Sweet Vernal Class 0; Sweet Vernal Grass (G1) Ige <0.10 kU/L; Timothy Grass (G6) Ige <0.10 kU/L; Timothy Grass Class 0
[2021-08-13 19:57] LABS: Aspergillus Fumigatus, Igg Ab, 41.9 mg/L (<=102)
== END 2021-08-11 11:00 | disposition home or self-care (01) ==
LOC: LAB 11:03
PROVIDERS: PCP Internal Medicine; Visit Provider Internal Medicine Pulmonary Disease
DX: J44.9 Chronic obstructive pulmonary disease, unspecified (principal); R06.02 Shortness of breath; R06.00 Dyspnea, unspecified
CPT/HCPCS: 36415; 82785; 83880; 85025; 86003

== ENCOUNTER → 2021-08-17 08:21 | Outpatient (BNVA) | payer MEDICAID, SELFPAY | PROVIDERS: PCP Internal Medicine; Visit Provider Specialist | DX: G70.00 Myasthenia gravis without (acute) exacerbation (principal); G40.309 Generalized idiopathic epilepsy and epileptic syndromes, not intractable, without status epilepticus; Z79.899 Other long term (current) drug therapy; J44.9 Chronic obstructive pulmonary disease, unspecified; Z87.891 Personal history of nicotine dependence | CPT/HCPCS: 99214 ==

== ENCOUNTER 2021-08-24 08:56 | Outpatient (RCR) | payer MEDICAID, SELFPAY ==
[2021-08-03 09:08] VITALS: BP 188/88; PULSE 71; RESP 18; TEMP 36.9; O2SAT 97
[2021-08-03 09:33] VITALS: BMI 25.8
[2021-08-24 09:11] VITALS: BMI 26.1
[2021-08-24 09:27] VITALS: BP 161/84; PULSE 90; RESP 16; TEMP 36.9; O2SAT 97
== END 2021-08-26 23:59 | disposition home or self-care (01) ==
LOC: GILAB 08:56
PROVIDERS: PCP Internal Medicine; Visit Provider Specialist
DX: G70.00 Myasthenia gravis without (acute) exacerbation (principal)
CPT/HCPCS: 96365; 96366; J1568

== ENCOUNTER → 2021-09-14 09:09 | Day surgery (SDC) | payer MEDICAID, SELFPAY ==
[2021-09-14 09:36] VITALS: BP 161/79; PULSE 95; RESP 18; TEMP 36.4; O2SAT 98; BMI 26.1
== END ==
PROVIDERS: PCP Internal Medicine; Visit Provider Specialist
DX: G70.00 Myasthenia gravis without (acute) exacerbation (principal)
CPT/HCPCS: 96365; 96366; J1568

== ENCOUNTER → 2021-10-05 08:55 | Day surgery (SDC) | payer MEDICAID, SELFPAY ==
[2021-10-05 09:43] VITALS: BP 179/71; PULSE 86; RESP 18; TEMP 36.8; O2SAT 97; BMI 26.1
== END ==
PROVIDERS: PCP Internal Medicine; Visit Provider Specialist
DX: G70.00 Myasthenia gravis without (acute) exacerbation (principal)
CPT/HCPCS: 96365; J1568

== ENCOUNTER → 2021-10-26 08:53 | Day surgery (SDC) | payer MEDICAID, SELFPAY ==
[2021-10-26 09:11] VITALS: BP 152/113; PULSE 75; RESP 18; TEMP 36.5; O2SAT 96
[2021-10-26 09:12] VITALS: BMI 26.1
== END ==
PROVIDERS: PCP Internal Medicine; Visit Provider Specialist
DX: G70.00 Myasthenia gravis without (acute) exacerbation (principal)
CPT/HCPCS: 96365; 96366; J1568

== ENCOUNTER 2021-11-04 10:03 | Inpatient (IN) | payer MEDICARE, MEDICAID, SELFPAY ==
[2021-11-04] VITALS (13 sets, daily range): BP systolic 111–161; BP diastolic 65–91; PULSE 55–102; RESP 16–28; TEMP 36.7–37.1; O2SAT 91–96; BMI 25.8
--- NOTE | 2021-11-04 10:41 | ED_ITS ---
HPI - SOB/Dyspnea General: Chief Complaint: Shortness of Breath/Dyspnea Stated Complaint: SOB/WEAK/N,V Time Seen by Provider: 11/04/21 10:40 History of Present Illness: HPI Narrative: 86-year-old male with history of COPD and myasthenia gravis presents due to worsening shortness of breath over the past 2 to 3 days. Reports diffuse weakness. Denies any recent change in his medications. Denies any focal numbness weakness or tingling. Denies fevers chills or cough. Denies chest pain. States that he has had some lower extremity swelling bilaterally but no pain. Denies fevers or chills. Does report some episodes of nausea with activity but denies any vomiting. Denies any abdominal pain diarrhea or constipation. Review of Systems Narrative: - CONSTITUTIONAL: Denies weight loss, fever and chills. - HEENT: Denies changes in vision and hearing. - RESPIRATORY: As above - CV: Denies palpitations and CP. - GI: As above - : Denies dysuria and urinary frequency. - MSK: Denies myalgia and joint pain. - SKIN: Denies rash and pruritus. - NEUROLOGICAL: Denies headache, weakness, numbness and syncope. - PSYCHIATRIC: Denies suicidal ideation PFSH ED PFSH: Medical History COVID-19 (~11/2020) Generalized epilepsy GI bleed when hospitalized with covid History of lung abscess Describes having had an abscess in his lung that required surgical removal many years ago Myasthenia gravis Surgical History History of back surgery x2 History of cataract surgery Bilateral History of esophagogastroduodenoscopy (EGD) History of surgery Describes a remote surgical procedure in which he had something done around his esophagus and his liver that may have involved around a concern for b iliary duct malignancy possibility Family History Other CAD (coronary artery disease) Diabetes Social History Smoking and tobacco status: former smoker Quit status (tobacco): has quit using tobacco Year quit tobacco: 1979 Former quit date comment: 2ppd x 15 years then 4-5 cigars/day x 25 years Alcohol intake: never History of recent travel: No Physical Exam Narrative: EXAM NARRATIVE: - GENERAL: Alert and oriented x 3. No acute distress. Well-nourished. - EYES: EOMI. Anicteric. - HENT: Atraumatic, no C-spine tenderness. Moist mucous membranes. No scleral icterus. No cervical lymphadenopathy. - LUNGS: Speaks in full sentences without stopping, mild bilateral wheezing. No accessory muscle use. Equal lung sounds bilaterally. No respiratory distress. - CARDIOVASCULAR: Regular rate and rhythm. No murmur. No JVD. - ABDOMEN: Soft, non-tender and non-distended. Negative CVA tenderness bilaterally, no rebound or guarding, negative Macias sign. No palpable masses. - EXTREMITIES: +1 edema. Non-tender. - SKIN: No rashes or lesions. Warm. - NEUROLOGIC: No meningismus or focal neurological deficits. CN II-XII grossly intact. - PSYCHIATRIC: Cooperative. Appropriate mood and affect. Course Vital Signs: Vital signs: Vital Signs Temperature 98.7 F 11/04/21 10:30 Pulse Rate 102 H 11/04/21 12:30 Respiratory Rate 28 H 11/04/21 12:30 Blood Pressure 161/91 11/04/21 12:30 Pulse Oximetry 91 11/04/21 12:30 MDM - SOB/Dyspnea MDM Narrative: Medical decision making narrative: 86-year-old male presents with shortness of breath. Is found to be mildly overloaded with lower extremity edema. BNP is elevated to 9000.EKG does not reveal any sign of acute ischemia but he did go back and forth between normal sinus rhythm and A. fib with RVR which improved with diltiazem. Lasix also provided. D-dimer is elevated but CTA does not reveal signs of PE. Initial x-ray read as possible pneumonia so patient was covered with 1 dose of azithromycin and Rocephin however due to volume overload do not believe IV fluids are required at this time. Remainder of lab work reviewed. Remainder of lab work and imaging reviewed. Discussed with hospitalist and they agreed patient would benefit from admission. Patient admitted in stable condition. Further evaluation management per hospitalist team. Lab Data: Labs: Lab Results 3 11/04/21 11/04/21 11/04/21 11:07 11:07 11:07 WBC 9.9 10^3/uL 10^3/ uL (4.0-10.0) RBC 4.84 10^6/uL 10^6 /uL (4.1-5.3) Hgb 14.9 g/dL g/dL (11.7-16.6) Hct 45.7 % % (42.0-52.0) MCV 94.4 fl H fl (80-94) MCH 30.8 pg pg (28.0-34.0) MCHC 32.6 g/dL g/dL (30.0-36.0) RDW 13.5 % % (12.1-15.1) Plt Count 185 10^3/cmm 10^3 /cmm (130-400) MPV 10.8 fL H fL (7.4-10.4) Neut % (Auto) 90.1 % % Lymph % (Auto) 3.9 % % [place] % (Auto) 4.4 % % Eos % (Auto) 0.1 % % Baso % (Auto) 0.6 % % Neut # (Auto) 8.90 10^3/uL H 10 ^3/uL (1.8-7.7) Lymph # (Auto) 0.4 10^3/uL L 10^ 3/uL (0.8-4.8) [place] # (Auto) 0.4 10^3/uL 10^3/ uL (0.2-0.9) Eos # (Auto) 0.0 10^3/uL 10^3/ uL (0.0-0.8) Baso # (Auto) 0.1 10^3/uL 10^3/ uL (0.0-0.1) Nucleated RBC % (a uto) 0 % % Nucleated RBCs # 0.0 /100WBC /100W BC PT 13.60 SECONDS SEC ONDS (12.1-14.9) INR 1.01 (0.8-1.2) APTT 28.1 SECONDS SECO NDS (23.9-36.7) D-Dimer 0.94 ug/mIFEU H u g/mIFEU (0-0.59) Sodium 129 mmol/L L mmol /L (136-145) Potassium 4.4 mmol/L mmol/L (3.5-5.1) Chloride 92 mmol/L L mmol/ L (98-107) Carbon Dioxide 26 mmol/L mmol/L (22-29) Anion Gap 15.4 (5-19) BUN 12 mg/dL mg/dL (8-23) Creatinine 0.8 mg/dL mg/dL (0.7-1.2) GFR Calculation Not Reportable Glucose 138 mg/dL H mg/dL (65-115) Calculated Osmolal ity 270 mOsm/kg L mOs m/kg (285-295) Lactate Calcium 8.8 mg/dL mg/dL (8.5-10.5) Total Bilirubin 1.0 mg/dL mg/dL (0.15-1.2) AST 43 U/L H U/L (0-40) ALT 31 U/L U/L (0-41) Alkaline Phosphata se 55 IU/L IU/L (40-130) Troponin T Baselin e Troponin T 120 [place] Troponin T NT-Pro-B Natriuret Pep 9424 pg/mL H pg/m L (0-450) Total Protein 7.2 g/dL g/dL (6.6-8.7) Albumin 4.1 g/dL g/dL (3.5-5.2) Globulin 3.1 g/dL g/dL (1.3-4.6) TSH 3.07 uIU/mL uIU/m L (0.27-4.20) Free T4 1.28 ng/dL ng/dL (0.82-1.77) Urine Color Urine Appearance Urine pH Ur Specific Gravit y Urine Protein Urine Glucose (UA) Urine Ketones Urine Blood Urine Nitrate Urine Bilirubin Urine Urobilinogen Ur Leukocyte Eda ase Urine RBC Urine WBC Ur Squamous Epith Cells Amorphous Sediment Urine Bacteria SARS-CoV-2 Ag (Rap id) 11/04/21 11/04/21 11/04/21 11:07 11:07 11:07 WBC RBC Hgb Hct MCV MCH MCHC RDW Plt Count MPV Neut % (Auto) Lymph % (Auto) [place] % (Auto) Eos % (Auto) Baso % (Auto) Neut # (Auto) Lymph # (Auto) [place] # (Auto) Eos # (Auto) Baso # (Auto) Nucleated RBC % (a uto) Nucleated RBCs # PT INR APTT D-Dimer Sodium Potassium Chloride Carbon Dioxide Anion Gap BUN Creatinine GFR Calculation Glucose Calculated Osmolal ity Lactate 1.3 mmol/L mmol/L (0.5-2.2) Calcium Total Bilirubin AST ALT Alkaline Phosphata se Troponin T Baselin e 62 ng/L H ng/L (0-15) Troponin T 120 [place] Troponin T NT-Pro-B Natriuret Pep Total Protein Albumin Globulin TSH Free T4 Urine Color Urine Appearance Urine pH Ur Specific Gravit y Urine Protein Urine Glucose (UA) Urine Ketones Urine Blood Urine Nitrate Urine Bilirubin Urine Urobilinogen Ur Leukocyte Eda ase Urine RBC Urine WBC Ur Squamous Epith Cells Amorphous Sediment Urine Bacteria SARS-CoV-2 Ag (Rap id) Negative (Negative) 11/04/21 11/04/21 11:09 13:33 WBC RBC Hgb Hct MCV MCH MCHC RDW Plt Count MPV Neut % (Auto) Lymph % (Auto) [place] % (Auto) Eos % (Auto) Baso % (Auto) Neut # (Auto) Lymph # (Auto) [place] # (Auto) Eos # (Auto) Baso # (Auto) Nucleated RBC % (a uto) Nucleated RBCs # PT INR APTT D-Dimer Sodium Potassium Chloride Carbon Dioxide Anion Gap BUN Creatinine GFR Calculation Glucose Calculated Osmolal ity Lactate Calcium Total Bilirubin AST ALT Alkaline Phosphata se Troponin T Baselin e Troponin T 120 [place] 55.51 ng/L H ng/L (0-15) Delta Troponin T -6.49 ABS# L ABS# (0-10) NT-Pro-B Natriuret Pep Total Protein Albumin Globulin TSH Free T4 Urine Color Yellow (Yellow) Urine Appearance Clear (CLEAR) Urine pH 7 (5-7) Ur Specific Gravit y 1.005 (1.005-1.030) Urine Protein Trace (Negative) Urine Glucose (UA) Norm (Normal) Urine Ketones 1+ H (Negative) Urine Blood Neg (Negative) Urine Nitrate Negative (Negative) Urine Bilirubin Neg (Negative) Urine Urobilinogen Norm mg/dL mg/dL (Negative) Ur Leukocyte Eda ase Negative (Negative) Urine RBC 0-4 /hpf H /hpf (0-2) Urine WBC 0-4 /hpf H /hpf (0-5) Ur Squamous Epith Cells 0-4 /hpf H /hpf (0-5) Amorphous Sediment Not Reportable Urine Bacteria Trace /hpf /hpf (NONE) SARS-CoV-2 Ag (Rap id) EKG Data^: EKG 1: Other EKG Comments: Sinus rhythm with frequent PVC, rate of 98, right bundle branch block, no sign of acute ischemia or other acute abnormality. Second EKG: A. fib with RVR rate of 120. PVCs are present. No sign of acute ischemia or other acute abnormality. There is still right bundle branch block. Discharge Plan Discharge Prescriptions: No Action levetiracetam [Keppra] 1,000 mg tablet 500 mg PO BID@0800,2000 Qty: 180 RF: 3 carboxymethylcellulose sodium [Refresh Tears] 0.5 % Drops 1 drp OPHTHALMIC (EYE) PRN RF: 0 cholecalciferol (vitamin D3) [Vitamin D3] 50 mcg (2,000 unit) Capsule 2,000 unit PO DAILY@0800 RF: 0 ropinirole 0.5 mg tablet 1 mg PO BEDTIME RF: 0 aspirin 325 mg Tablet 650 mg PO PRN PRN (Reason: Pain) RF: 0 Tylenol Ex Str Rapid Release 500 mg Tablet 1,000 mg PO Q4H PRN (Reason: Pain) RF: 0 Refresh P.M. Ointment 1 applic OPHTHALMIC (EYE) BEDTIME RF: 0 Vitamin C 500 mg Tablet 500 mg PO QAM RF: 0 magnesium oxide 400 mg magnesium Tablet 400 mg PO QAM RF: 0 prednisone 20 mg tablet 20 mg PO QAM RF: 0 mycophenolate mofetil 500 mg tablet 1,000 mg PO BID@08,20 RF: 0 Mestinon 60 mg tablet 60 mg PO TID@06,14,22 RF: 0 Symbicort 80-4.5 mcg/actuation HFA aerosol inhaler 2 puff inhalation BID@08,20 RF: 0 albuterol sulfate 90 mcg/actuation aerosol powdr breath activated 1 inh inhalation QID PRN (Reason: Shortness Of Breath) RF: 0 Coding Level of Care Code ED [employer] Disassembler for Jakeg Scott
--- NOTE | 2021-11-04 10:45 | XR_ITS ---
WS: [id number] Exam: XR chest 1V portable [id number] Date/Time of Exam: 11/04/2021 10:47 AM Reason For Exam: sob Comparison 12/12/2020. Mild infiltrate noted in the left lower lung zone. The right lung is clear. No pleural effusions. Hea rt size is top limits normal. Mild prominence of superior mediastinum unchanged. No pneumothorax. Bon y structures are intact. Chronically elevated left diaphragm. XR/XR chest 1V portable [id number] IMPRESSION: 1. Mild infiltrate in the left lower lung zone.
--- NOTE | 2021-11-04 10:46 | ECG_ITS ---
[facility] Test Date: 2021-11-04 Pat Name: Mauricio Wilson Department: Room: Gender: Male Automated Weaver: : 1935 Requested By: King Bear Order Number: [id number] Jhonny MD: Rory Epstein M.D. Measurements Intervals [place] Rate: 98 P: 63 NE: 170 QRS: -59 QRSD: 137 T: -59 QT: 392 QTc: 502 Interpretive Statements SINUS RHYTHM WITH FREQUENT VENTRICULAR PREMATURE COMPLEXES WITH OCCASIONAL SUPRAVENTRICULAR PREMATURE COMPLEXES INDETERMINATE AXIS RIGHT BUNDLE BRANCH BLOCK [120+ ms QRS DURATION, UPRIGHT V1, 40+ ms S IN I/aVL/V4/V5/V6] Compared to ECG 12/12/2020 12:17:16 Ventricular premature complex(es) now present Indeterminate axis now present Left-axis deviation no longer present T-wave abnormality no longer present Possible ischemia no longer present Electronically Signed On 11-06-2021 7:41:16 PLASTER PATTERN CASTER by Rory Epstein M.D. [id number] f
--- NOTE | 2021-11-04 11:04 | PC.NURSE ---
pt placed on continuous spo2, nibp, and cm monitoring.
[2021-11-04 11:22] LABS: Basophils # 0.1 10^3/uL (0.0-0.1); Basophils % 0.6 %; Eosinophils % 0.1 %; Hematocrit 45.7 % (42.0-52.0); Hemoglobin 14.9 g/dL (11.7-16.6); Lymphocytes # 0.4 10^3/uL (0.8-4.8); Lymphocytes % 3.9 %; Mean Corpuscular HGB Conc 32.6 g/dL (30.0-36.0); Mean Corpuscular Hemoglobin 30.8 pg (28.0-34.0); Mean Corpuscular Volume 94.4 fl (80-94); Mean Platelet Volume 10.8 fL (7.4-10.4); Monocytes # 0.4 10^3/uL (0.2-0.9); Monocytes % 4.4 %; Neutrophils % 90.1 %; Nucleated Red Blood Cells % 0 %; Platelet Count 185 10^3/cmm (130-400); Red Blood Count 4.84 10^6/uL (4.1-5.3); Red Cell Distribution Width 13.5 % (12.1-15.1); White Blood Count 9.9 10^3/uL (4.0-10.0)
[2021-11-04] MEDS: albuterol 8 gm MDI 2 PUFF INHALATION (11:43)
[2021-11-04 11:44] LABS: SARS Covid-2 Antigen Negative (Negative)
[2021-11-04] MEDS: cefTRIAXone 2,000 MG in sodium chloride 0.9% (plus) 50 ML 100 MG IV (11:50)
[2021-11-04 11:51] LABS: Troponin(5th) Baseline 62 ng/L (0-15)
[2021-11-04 11:52] LABS: Lactate (Lactic Acid level) 1.3 mmol/L (0.5-2.2)
[2021-11-04 11:59] LABS: Alanine Aminotransferase 31 U/L (0-41); Albumin Level 4.1 g/dL (3.5-5.2); Alkaline Phosphatase 55 IU/L (40-130); Anion Gap 15.4 (5-19); Aspartate Amino Transferase 43 U/L (0-40); Blood Urea Nitrogen 12 mg/dL (8-23); Calcium 8.8 mg/dL (8.5-10.5); Carbon Dioxide 26 mmol/L (22-29); Chloride 92 mmol/L (98-107); Creatinine Clr Calc Pharmacy 74.3349; Globulin 3.1 g/dL (1.3-4.6); Glucose 138 mg/dL (65-115); NT Pro B Type Natriuretic Pept 9424 pg/mL (0-450); Osmolality Calculated 270 mOsm/kg (285-295); Potassium 4.4 mmol/L (3.5-5.1); Sodium 129 mmol/L (136-145); Thyroid Stimulating Hormone 3.07 uIU/mL (0.27-4.20); Total Protein 7.2 g/dL (6.6-8.7)
[2021-11-04 12:03] LABS: Bilirubin Urine Neg (Negative); Blood Urine Neg (Negative); Glucose Urine UA Norm (Normal); Ketones Urine 1+ (Negative); Nitrate Urine Negative (Negative); Protein Urine Trace (Negative); Specific Gravity, Urine 1.005 (1.005-1.030); Urine Appearance Clear (CLEAR); Urine Color Yellow (Yellow); pH Urine 7 (5-7)
[2021-11-04 12:04] LABS: Leukocyte Esterase Urine Negative (Negative); Urobilinogen Urine Norm (Negative)
[2021-11-04 12:12] LABS: Bacteria Urine TRACE /hpf; RBC Urine 0-4 /hpf (0-2); Squamous Epithelial Cell Urine 0-4 /hpf (0-5); WBC Urine 0-4 /hpf (0-5)
[2021-11-04 12:13] LABS: Add Urine Culture? No
[2021-11-04] MEDS: FUROsemide 10 mg/mL SDV 4mL 40 MG IVP ×2 (12:32→21:03)
[2021-11-04] MEDS: azithromycin 500 MG in sodium chloride 0.9% 250 ML 250 MG IV (12:35)
[2021-11-04 12:36] LABS: INR 1.01 (0.8-1.2)
[2021-11-04 12:37] LABS: Partial Thromboplastin Time 28.1 SECONDS (23.9-36.7)
[2021-11-04 12:39] LABS: D Dimer 0.94 ug/mIFEU (0-0.59)
[2021-11-04 12:40] LABS: Free T4 Free Thyroxine 1.28 ng/dL (0.82-1.77)
--- NOTE | 2021-11-04 12:46 | ECG_ITS ---
[facility] Test Date: 2021-11-04 Pat Name: Mauricio Wilson Department: Room: Gender: Male Vice President Of Engineering: : 1935 Requested By: King Bear Order Number: [id number] Jhonny MD: Rory Epstein M.D. Measurements Intervals [place] Rate: 120 P: NC: QRS: -61 QRSD: 134 T: 11 QT: 306 QTc: 434 Interpretive Statements ATRIAL FIBRILLATION WITH RAPID VENTRICULAR RESPONSE WITH ABERRANT CONDUCTION OR VENTRICULAR PREMATURE COMPLEXES INDETERMINATE AXIS RIGHT BUNDLE BRANCH BLOCK [120+ ms QRS DURATION, UPRIGHT V1, 40+ ms S IN I/aVL/V4/V5/V6] Compared to ECG 11/04/2021 10:58:30 Aberrant conduction of supraventricular beat(s) now present Sinus rhythm no longer present Electronically Signed On 11-06-2021 7:48:22 DIRECTOR OF GROUP COUNSELING PROGRAM by Rory Epstein M.D. [id number]
--- NOTE | 2021-11-04 12:49 | CT_ITS ---
WS: [id number] CT CHEST ANGIOGRAPHY WITH REFORMATS HISTORY: Pulmonary embolism. TECHNIQUE: Contiguous axial images are obtained through the chest during arterial injection of intrav enous contrast. Images are reconstructed to evaluate the pulmonary arteries. MIP imaging also reviewe d. All CT scans at [facility] use at least one of these dose optimization techniques: automat ed exposure control; mA and/or kV adjustment per patient size (includes targeted exams where dose is matched to clinical indication); or iterative reconstruction. CONTRAST: Omnipaque 350; 72 mL IV. DLP: 581.2 mGy.cm COMPARISON: 03/02/2009 Very good opacification of the pulmonary arteries. No filling defects or pulmonary emboli. Mild ather osclerosis aorta. Mild ectasia of aorta. Marked enlargement of the LEFT heart chambers. No RIGHT hear t strain. Scattered small subsegmental irregular opacifications throughout both lobes. More significant increas e interstitial thickening at the lung bases probably due to pneumonitis. There is a small amount of p leural thickening and a very small effusion at the LEFT lung base. Subpleural triangular nodule super ior segment LEFT lower lobe may be an area of scarring. Similar finding seen on the prior study. There is marked distention of the esophagus with fluid beginning just above the [place]. Similar findi ngs were noted on the study from 03/02/2009. No significant mediastinal or hilar adenopathy. Cholelithiasis without acute cholecystitis. Visualized adrenal glands are normal. Mild anterior wedgi ng of T4, T5 and T6. CT/CT angio chest PE protcl [id number] IMPRESSION: 1. No pulmonary emboli. 2. Markedly enlarged LEFT heart chambers. 3. Dilated fluid-filled esophagus. Similar findings were noted involving the e sophagus on a study from 2008 suggesting this is chronic stricture or achalasia . 4. A few scattered irregular opacifications throughout both lobes and areas of pneumonitis at the lung bases.
[2021-11-04] MEDS: iohexol 350 mg/mL 100 mL Btl IV (13:08)
--- NOTE | 2021-11-04 13:27 | PC.NURSE ---
food tray provided to pt.
[2021-11-04 14:13] LABS: Troponin 5 2HR 55.51 ng/L (0-15)
[2021-11-04 14:21] LABS: Troponin 5 2HR Delta -6.49 ABS# (0-10)
--- NOTE | 2021-11-04 15:05 | PM.HP ---
Providers/Chief Complaint Primary Care Provider: Jerman Henao DO Chief Complaint: SOB/WEAK/N,V History of Present Illness Mauricio Wilson is a 86 year old male with past medical history of, myasthenia gravis, seizure disorder, COPD asthma overlap syndrome,HFpEF, A. fib, COVID-19, came in with chief complaint of shortness of breath with minimal exertion,going on for the last couple of days , generalized weakness and fatigue, worsening bilateral lower extremity swelling.He denies any fever, cough chest pain, nausea vomiting, headache runny nose. Upon arrival in the ER he was found to be in A. fib with RVR, for which he received IV diltiazem.He also received a dose of Rocephin and azithromycin in the ER, along with 40 mg Lasix IV one-time dose. he was worked up for above-mentioned complaint: Pertinent imaging studies: CTA chest: No pulmonary emboli Markedly enlarged LEFT heart chambers,Scattered small subsegmental irregular opacifications throughout both lobes. More significant increase interstitial thickening at the lung bases probably due to pneumonitis. There is a small amount of pleural thickening and a very small effusion at the LEFT lung base. Subpleural triangular nodule superior segment LEFT lower lobe may be an area of scarring. Similar finding seen on the prior study. EKG : A. fib with RVR Pertinent labs: WBC 9.9, H&H : 14.9/45, PLT : 185 , serum sodium 129, serum potassium 4.4, BUN serum creatinine: 12/0.8, serum lactic acid 1.3, TSH 3, proBNP: 9424, troponin trend without significant delta Rapid Covid antigen negative Review of Systems Const: Denies: body aches, change in appetite or diaphoresis Resp: Denies: wheezing or pain on inspiration GI: Denies: abdominal pain, nausea, vomiting, diarrhea or constipation : Denies: flank pain or difficulty urinating Musc: Denies: back pain, extremity pain or extremity swelling Neuro: Denies: headache(s) or confusion Medications/Allergies Home Medications Medication Instructions Recorded Confirmed Last Taken Type carboxymethylcellulose sodium 1 drp OPHTHALMIC (EYE) PRN 09/03/20 11/04/21 10/26/21 History [Refresh Tears] cholecalciferol (vitamin D3) 2,000 unit PO DAILY@0800 09/03/20 11/04/21 11/04/21 History [Vitamin D3] levetiracetam 1,000 mg tablet 500 mg PO BID@0800,1999 #180 tab 08/17/21 11/04/21 11/04/21 08:00 Rx ropinirole 1 mg PO BEDTIME 08/24/21 11/04/21 11/03/21 History Mestinon 60 mg PO TID@06,,11/04/21 11/04/21 11/04/21 06:00 History Symbicort 2 puff INHALATION BID@11/04/21 11/04/21 11/04/21 History acetaminophen [Tylenol Ex Str 1,000 mg PO Q4H PRN 11/04/21 11/04/21 Unknown History Rapid Release] albuterol sulfate 1 inh INHALATION QID PRN 11/04/21 11/04/21 Unknown History artificial tears ointment [Refresh 1 applic OPHTHALMIC (EYE) BEDTIME 11/04/21 11/04/21 Unknown History P.M.] ascorbic acid (vitamin C) [Vitamin 500 mg PO QAM 11/04/21 11/04/21 11/04/21 History C] aspirin 650 mg PO PRN PRN 11/04/21 11/04/21 11/03/21 History magnesium oxide 400 mg PO QAM 11/04/21 11/04/21 11/04/21 06:00 History mycophenolate mofetil 1,000 mg PO BID@11/04/21 11/04/21 11/04/21 08:00 History prednisone 20 mg PO QAM 11/04/21 11/04/21 11/04/21 06:30 History Allergies Allergy/AdvReac Type Severity Reaction Status Date / Time No Known Allergies Allergy Verified 11/04/21 11:40 PFSH Acute PFSH: Medical History COVID-19 (~11/2020) Generalized epilepsy GI bleed when hospitalized with covid History of lung abscess Describes having had an abscess in his lung that required surgical removal many years ago Myasthenia gravis Surgical History History of back surgery x2 History of cataract surgery Bilateral History of esophagogastroduodenoscopy (EGD) History of surgery Describes a remote surgical procedure in which he had something done around his esophagus and his liver that may have involved around a concern for biliary duct malignancy possibility Family History Other CAD (coronary artery disease) Diabetes Social History Smoking and tobacco status: former smoker Quit status (tobacco): has quit using tobacco Year quit tobacco: 1979 Former quit date comment: 2ppd x 15 years then 4-5 cigars/day x 25 years Alcohol intake: never History of recent travel: No Vitals/I&O/Wt Last Vital Signs Temp 98.7 F 11/04/21 10:30 Pulse 102 H 11/04/21 12:30 Resp 28 H 11/04/21 12:30 BP 161/91 11/04/21 12:30 Pulse Ox 91 11/04/21 12:30 Weight last 48 hrs Weight 81.647 kg Physical Exam Const: COMMON NORMALS: patient oriented x3 HENMT: COMMON NORMALS: normocephalic and atraumatic Resp: OTHER: Diminished breath sound bilaterally Cardio: PERIPHERAL PULSES: Peripheral pulses 2+ throughout OTHER: Irregularly irregular rhythm, S1-S2 variable intensity GI: COMMON NORMALS: Normal to inspection, nondistended, normoactive bowel sounds present, Soft to palpation, non-tender, No hepatosplenomegaly present and no masses AUSCULTATION: Yes normoactive bowel sounds PALPATION: Yes Soft to palpation and Yes No hepatosplenomegaly present RECTAL EXAM: Yes deferred Extremity: COMMON NORMALS: no clubbing, cyanosis or edema and no pedal edema Neuro: COMMON NORMALS: patient oriented x3 Data : 11/04/21 11:07 11/04/21 11:07 Micro: Microbiology 11/04/21 11:07 Blood Culture - Preliminary Blood SPECIMEN COLLECTED 11/04/21 11:07 Blood Culture - Preliminary Blood SPECIMEN COLLECTED A&P Assessment and plan (1) Heart failure: Status: Acute (2) Atrial fibrillation with RVR: Status: Acute (3) Asthma-COPD overlap syndrome: Status: Acute (4) Hyponatremia: Status: Acute (5) Myasthenia gravis: Status: Acute (6) Generalized epilepsy: Status: Acute Additional A&P Information 86 year old male with past medical history of, myasthenia gravis, seizure disorder, COPD asthma overlap syndrome,HFpEF, A. fib, COVID-19, came in with chief complaint of shortness of breath with minimal exertion,going on for the last couple of days , generalized weakness and fatigue, worsening bilateral lower extremity swelling. #Decompensated heart failure with preserved ejection fraction: Secondary to A. fib with RVR Patient presented with worsening shortness of breath, worsening bilateral lower extremity swelling, fatigue, weakness. Elevated proBNP, CT chest suggestive of, volume overload (interstitial thickening, small pleural effusion) 2D echo: Monitor x-ray chest Lasix 40 mg IV every 12 hours daily Intake output charting Daily weight Telemetry monitoring k>4, mg >2 #A. fib with RVR: Received IV Cardizem push in the ER. Currently heart rate is better controlled. Metoprolol tartrate 5 mg p.o. twice daily Eliquis 5 mg p.o. twice daily. Monitor H&H. #Hyponatremia: Likely secondary to decompensated heart failure Continue to monitor BMP #Asthma COPD overlap syndrome: Continue inhalers, duo nebs, prednisone #History of seizure disorder: Continue Keppra 500 mg p.o. twice daily #History of myasthenia gravis: Continue CellCept, continue pyridostigmine CODE STATUS: Full code DVT prophylaxis: On Eliquis Attestations Medical Necessity Statement*: Patient needs to be in hospital for management of decompensated heart failure. A. fib with RVR, anticipated length of stay greater than 2 midnights. 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
--- NOTE | 2021-11-04 15:05 | PC.NURSE ---
attempted report nurse unavailable.
--- NOTE | 2021-11-04 15:30 | PC.NURSE ---
From ER Received pt from ER. Pt is alert, orientedx4. Denies any pain or SOB. Pt is hard of hearing. Pt telemetry shows SR w/ occ. PVC's. Call ligh provided to pt. Oriented pt to staff.
[2021-11-04 17:48] LABS: Troponin 5 6HR 51.06 ng/L (0-15)
[2021-11-04] MEDS: ipratropium-albuterol 3 mL Neb INHALATION (20:26)
[2021-11-04] MEDS: levETIRAcetam 500 mg Tablet PO (20:59)
[2021-11-04] MEDS: ropinirole 1 mg Tablet PO (20:59)
[2021-11-04] MEDS: metoprolol tartrate 25 mg Tablet PO (20:59)
[2021-11-04] MEDS: apixaban 5 mg Tablet PO (21:02)
[2021-11-04] MEDS: pyridostigmine 60 mg Tablet PO (21:17)
[2021-11-05] VITALS (13 sets, daily range): BP systolic 111–147; BP diastolic 65–82; PULSE 72–96; RESP 16–28; TEMP 36.6–36.8; O2SAT 92–96
[2021-11-05] MEDS: ipratropium-albuterol 3 mL Neb INHALATION ×3 (02:46→21:41)
--- NOTE | 2021-11-05 05:11 | PC.NURSE ---
Frequent safety and comfort rounds continue. Orders and/or nursing care completed as indicated. Patient monitored for response to intervention and treatment(s). Education provided include when taking leads off to walk or go to the bathroom that they must be put back on. Patient and/or customer account representative verbalizes understanding. Will continue to monitor.
[2021-11-05] MEDS: pyridostigmine 60 mg Tablet PO ×3 (05:43→21:36)
[2021-11-05] MEDS: predniSONE 20 mg Tablet PO (05:44)
[2021-11-05 06:45] LABS: Basophils % 0.2 %; Hematocrit 44.8 % (42.0-52.0); Hemoglobin 15.1 g/dL (11.7-16.6); Lymphocytes # 0.7 10^3/uL (0.8-4.8); Lymphocytes % 8.3 %; Mean Corpuscular HGB Conc 33.7 g/dL (30.0-36.0); Mean Corpuscular Hemoglobin 31.5 pg (28.0-34.0); Mean Corpuscular Volume 93.3 fl (80-94); Mean Platelet Volume 10.6 fL (7.4-10.4); Monocytes # 1.1 10^3/uL (0.2-0.9); Monocytes % 13.4 %; Neutrophils % 77.2 %; Nucleated Red Blood Cells % 0 %; Platelet Count 210 10^3/cmm (130-400); Red Cell Distribution Width 13.5 % (12.1-15.1); White Blood Count 8.2 10^3/uL (4.0-10.0)
[2021-11-05 07:07] LABS: Alanine Aminotransferase 28 U/L (0-41); Albumin Level 3.9 g/dL (3.5-5.2); Alkaline Phosphatase 45 IU/L (40-130); Anion Gap 19.9 (5-19); Aspartate Amino Transferase 33 U/L (0-40); Blood Urea Nitrogen 22 mg/dL (8-23); Calcium 9.2 mg/dL (8.5-10.5); Carbon Dioxide 24 mmol/L (22-29); Chloride 92 mmol/L (98-107); Globulin 3.1 g/dL (1.3-4.6); Glucose 128 mg/dL (65-115); Osmolality Calculated 279 mOsm/kg (285-295); Potassium 3.9 mmol/L (3.5-5.1); Sodium 132 mmol/L (136-145); Total Bilirubin 0.8 mg/dL (0.15-1.2)
[2021-11-05 07:18] LABS: Procalcitonin 0.08 ng/mL (0-0.5)
[2021-11-05] MEDS: apixaban 5 mg Tablet PO ×2 (08:20→21:36)
[2021-11-05] MEDS: levETIRAcetam 500 mg Tablet PO ×2 (08:20→21:36)
[2021-11-05] MEDS: cholecalciferol (vitamin D3) 1,000 unit Tablet 2000 UNIT PO (08:20)
[2021-11-05] MEDS: metoprolol tartrate 25 mg Tablet PO ×2 (08:20→21:36)
[2021-11-05] MEDS: FUROsemide 10 mg/mL SDV 4mL 40 MG IVP ×2 (08:20→21:39)
--- NOTE | 2021-11-05 10:00 | PC.NURSE ---
Pt sitting on the side of the bed talking to staff. Pt resp even and non-labored no distress or sob noted. Pt had no c/o pain or discomfort at the present time. No needs voiced. Call light in reach. Will cont to monitor.
--- NOTE | 2021-11-05 13:17 | PM.PN ---
Subjective Subjective: Interval history: Patient was seen and examined this morning shortness of breath has improved, Heart rate is well controlled. H&H has remained stable. His other vitals and labs have been reviewed. Medications: Reviewed: Yes Vitals/I&O/Wt Last Vital Signs Temp 98.3 F 11/05/21 08:00 Pulse 88 11/05/21 12:00 Resp 23 H 11/05/21 12:00 BP 147/79 11/05/21 12:00 Pulse Ox 93 11/05/21 12:00 11/04/21 11/05/21 11/05/21 22:59 06:59 14:59 Intake Total 50 / 300 250 / 250 Output Total 700 / 700 Balance 50 / 300 -450 / -450 Weight last 48 hrs Weight 81.238 kg Weight 81.647 kg Physical Exam Const: COMMON NORMALS: patient oriented x3 HENMT: COMMON NORMALS: normocephalic and atraumatic HEAD & SCALP: normocephalic and atraumatic Resp: OTHER: Minimal wheezing present in both lungs reynoso Cardio: COMMON NORMALS: Peripheral pulses 2+ throughout PERIPHERAL PULSES: Peripheral pulses 2+ throughout OTHER: Irregularly irregular rhythm, S1-S2 variable intensity GI: COMMON NORMALS: Normal to inspection, nondistended, normoactive bowel sounds present, Soft to palpation, non-tender, No hepatosplenomegaly present and no masses AUSCULTATION: Yes normoactive bowel sounds PALPATION: Yes Soft to palpation and Yes No hepatosplenomegaly present RECTAL EXAM: Yes deferred Extremity: COMMON NORMALS: no clubbing, cyanosis or edema and no pedal edema Neuro: COMMON NORMALS: patient oriented x3 Data : 11/05/21 06:29 11/05/21 06:29 Micro: Microbiology 11/04/21 11:07 Blood Culture - Preliminary Blood NEGATIVE TO DATE 11/04/21 11:07 Blood Culture - Preliminary Blood NEGATIVE TO DATE A&P Assessment and plan (1) Heart failure: Status: Acute (2) Atrial fibrillation with RVR: Status: Acute (3) Asthma-COPD overlap syndrome: Status: Acute (4) Hyponatremia: Status: Acute (5) Myasthenia gravis: Status: Acute (6) Generalized epilepsy: Status: Acute Additional A&P Information 86 year old male with past medical history of, myasthenia gravis, seizure disorder, COPD asthma overlap syndrome,HFpEF, AMisbah cr, COVID-19, came in with chief complaint of shortness of breath with minimal exertion,going on for the last couple of days , generalized weakness and fatigue, worsening bilateral lower extremity swelling. #Decompensated heart failure with preserved ejection fraction: Secondary to A. shaye with RVR Patient presented with worsening shortness of breath, worsening bilateral lower extremity swelling, fatigue, weakness. Elevated proBNP, CT chest suggestive of, volume overload (interstitial thickening, small pleural effusion) 2D echo: Monitor x-ray chest Lasix 40 mg IV every 12 hours daily Intake output charting Daily weight Telemetry monitoring k>4, mg >2 #A. fib with RVR: Received IV Cardizem push in the ER. Currently heart rate is better controlled. Metoprolol tartrate 50 mg p.o. twice daily Eliquis 5 mg p.o. twice daily. Monitor H&H. #Hyponatremia: Likely secondary to decompensated heart failure:Improving Continue to monitor BMP #Asthma COPD overlap syndrome: Continue inhalers, duo nebs, prednisone #History of seizure disorder: Continue Keppra 500 mg p.o. twice daily #History of myasthenia gravis: Continue CellCept, continue pyridostigmine CODE STATUS: Full code DVT prophylaxis: On Eliquis Attestations Medical Necessity Statement*: needs to be in hospital for management of decompensated heart failure. 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
--- NOTE | 2021-11-05 13:38 | PC.CHAP ---
Pastoral Care Encounter/Spiritual Assessment Type of Contact [] Declined enterprise systems administrator visit [] Patient/Family/Request visit [] Outpatient visit [] Follow-up visit [] Physician referral [] Code/Alert [xx] Routine visit [] Staff referral [] Actively dying [] Patient sleeping [] Family support [] [] Out of room [] Palliative care [] [] Receiving care in room [] Pre-surgical visit [] Trauma [] Long length of stay [] ICU visit [] Other: Relational/Emotional Strength [xx] Patient feels connected with others/family/visitors/staff [] Distress [] Loneliness/isolation [] Abandonment Spirituality of Patient [xx] Person of Mely [] Attends Evangelical of their Mely [xx] Believes in Prayer [xx] Reads Bible or Restorationism materials [] There are Spiritual issues to be addressed Clerical Warehouse Worker Interventions [xx] Prayer [xx] Active listening [xx] Non-anxious presence [] Spiritual/emotional support [] Crisis/trauma care [] Spiritual counseling [] Bereavement support [] Provided bereavement packet [xx] Provided Bible/devotional materials [] Provided toy/stuffed animal, coloring book to patient or family member [] Provided Communion [] Anointing/[place] [] Salvation [xx] Completed spiritual assessment [] Other: Impact on Illness or Injury [] Angry [] Fearful [] Anxious [] Often cries [] Exhaustion [] Unable to work [] Unable to attend pentecostal [] Unable to walk/stand [] Unable to read [] Unable to drive [] Unable to eat/drink [] Unable to sleep [] Unable to be with family [] Patient intubated [] Other: Summary 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 He and his have also had numerous foster children they have cared for over the years. He hopes he has made a positive difference in the lives of others during his life. This is his greatest concern and he hopes God will continue to use him and his in positive influences for the rest of their lives. Time spent with patient 15 minutes
--- NOTE | 2021-11-05 16:44 | USCV_ITS ---
Mauricio Wilson Age: 86 Gender: M : 1935 Exam Date: 11/05/2021 05:09 Ordering Phys: Allen Meza MD Technologist: Nella Rojas Exam Location: [facility] [place] Indication: SOB BP: 128 / 65 HR: 78 Rhythm: Sinus Technical Quality: Adequate MEASUREMENTS (Male / Female) Normal Values 2D ECHO LV Diastolic Diameter PLAX 5.1 cm 4.2 - 5.9 / 3.9 - 5.3 cm LV Systolic Diameter PLAX 4.2 cm LV Chamber Size 6.3 cm IVS Diastolic Thickness 1.1 cm 0.6 - 1.0 / 0.6 - 0.9 cm IVS Systolic Thickness 1.5 cm LVPW Diastolic Thickness 1.6 cm 0.6 - 1.0 / 0.6 - 0.9 cm LVPW Systolic Thickness 1.7 cm RV Chamber Size 2.5 cm LVOT Diameter 2.0 cm LV Ejection Fraction 2D Teich 37.2 % LV Ejection Fraction MOD 2C 44.9 % LV Ejection Fraction 2C AL 48.5 % LA Diameter 4.3 cm LA Width 3.6 cm LA Height 5.2 cm RA Width 4.4 cm RA Height 5.3 cm Aorta at Sinotubular Diameter 2.9 cm M-MODE Aortic Annulus Diameter 3.4 cm LA Ao Ratio MM 1.5 MV E Point Septal Separation 1.3 cm DOPPLER AV Peak Velocity 140.0 cm/s LVOT Peak Velocity 86.0 cm/s AV Area Cont Eq vti 2.2 cm squared AV Area Cont Eq pk 1.9 cm squared MV Area PHT 5.0 cm squared Mitral E to A Ratio 1.3 MV E' Velocity 45.6 cm/s Mitral E to MV E' Ratio 13.2 Mitral E to LV E' Lateral Ratio 13.1 Mitral E to LV E' Septal Ratio 13.6 TR Peak Velocity 273.3 cm/s TR Peak Gradient 29.9 mmHg TR Mean Velocity 201.7 cm/s TR Mean Gradient 18.4 mmHg TR Velocity Time Integral 96.4 cm TV Peak E Velocity 80.0 cm/s Right Atrial Pressure 3.0 mmHg Pulmonary Artery Systolic Pressu 32.9 mmHg PV Peak Velocity 75.0 cm/s RV Acceleration Time 0.1 s RV Ejection Time 0.4 s RV AcT/ET 0.4 FINDINGS Left Ventricle Diffuse hypokinesis of the left ventricle. Ejection fraction around 37%. Mildly dilated LV cavity Right Ventricle Normal right ventricular size and systolic function. Right Atrium Mildly increased right atrial size. Left Atrium Mildly increased left atrial size. Mitral Valve Mild to moderate mitral valve regurgitation. Aortic Valve Thickened aortic valve. Tricuspid Valve Mild tricuspid valve regurgitation. Pulmonic Valve Pulmonic valve not well visualized. Pericardium Normal pericardium without effusion. Aorta Normal ascending aorta dimension. CONCLUSIONS Diffuse hypokinesis of the left ventricle. Ejection fraction around 37%. Mildly dilated LV cavity. Mild biatrial enlargement Thickened aortic valve. Mild to moderate mitral valve regurgitation. Mild tricuspid valve regurgitation. Estimated pulmonary artery peak systolic pressure of 33 mmHg There is no pericardial effusion. There are no intracardiac masses. Compared to the study from 09/04/2020, there is worsening of the LV systolic function Dr Aniyah Elaine MD FAC (Electronically Signed) Final Date: 05 November 2021 15:49 S
[2021-11-05] MEDS: ropinirole 1 mg Tablet PO (21:36)
[2021-11-06] VITALS (18 sets, daily range): BP systolic 111–152; BP diastolic 66–86; PULSE 76–98; RESP 16–28; TEMP 36.4–36.7; O2SAT 93–97
[2021-11-06] MEDS: ipratropium-albuterol 3 mL Neb INHALATION ×4 (02:59→21:15)
[2021-11-06 05:22] LABS: Basophils % 0.6 %; Eosinophils % 0.3 %; Hematocrit 42.5 % (42.0-52.0); Hemoglobin 14.2 g/dL (11.7-16.6); Lymphocytes # 1.2 10^3/uL (0.8-4.8); Mean Corpuscular HGB Conc 33.4 g/dL (30.0-36.0); Mean Corpuscular Hemoglobin 31.1 pg (28.0-34.0); Mean Platelet Volume 10.3 fL (7.4-10.4); Monocytes # 0.8 10^3/uL (0.2-0.9); Monocytes % 12.2 %; Neutrophils # 4.62 10^3/uL (1.8-7.7); Neutrophils % 68.2 %; Nucleated Red Blood Cells % 0 %; Platelet Count 202 10^3/cmm (130-400); Red Blood Count 4.57 10^6/uL (4.1-5.3); Red Cell Distribution Width 13.6 % (12.1-15.1); White Blood Count 6.8 10^3/uL (4.0-10.0)
[2021-11-06] MEDS: pyridostigmine 60 mg Tablet PO ×3 (05:42→20:48)
[2021-11-06] MEDS: predniSONE 20 mg Tablet PO (05:42)
[2021-11-06 05:44] LABS: Alanine Aminotransferase 22 U/L (0-41); Albumin Level 3.5 g/dL (3.5-5.2); Alkaline Phosphatase 39 IU/L (40-130); Anion Gap 19.5 (5-19); Aspartate Amino Transferase 28 U/L (0-40); Blood Urea Nitrogen 27 mg/dL (8-23); Calcium 8.4 mg/dL (8.5-10.5); Carbon Dioxide 25 mmol/L (22-29); Chloride 92 mmol/L (98-107); Globulin 2.6 g/dL (1.3-4.6); Glucose 127 mg/dL (65-115); Osmolality Calculated 283 mOsm/kg (285-295); Potassium 3.5 mmol/L (3.5-5.1); Sodium 133 mmol/L (136-145); Total Bilirubin 0.8 mg/dL (0.15-1.2); Total Protein 6.1 g/dL (6.6-8.7)
--- NOTE | 2021-11-06 06:25 | PC.NURSE ---
Frequent safety and comfort rounds continue. Orders and/or nursing care completed as indicated. Patient monitored for response to intervention and treatment(s). Education provided include not taking iv tubing off. Patient and/or rental sales representative verbalizes understanding. Will continue to monitor.
[2021-11-06] MEDS: levETIRAcetam 500 mg Tablet PO ×2 (08:59→20:48)
[2021-11-06] MEDS: cholecalciferol (vitamin D3) 1,000 unit Tablet 2000 UNIT PO (08:59)
[2021-11-06] MEDS: metoprolol tartrate 25 mg Tablet PO ×2 (09:00→20:49)
--- NOTE | 2021-11-06 09:03 | P.PN_ITS ---
Subjective Subjective: Interval history: Patient was seen and examined this morning,sob has improved a lot. deny any other complain. His vitals and labs have been reviewed. Medications: Reviewed: Yes Vitals/I&O/Wt Last Vital Signs Temp 98.2 F 11/05/21 18:51 Pulse 96 11/06/21 08:00 Resp 28 H 11/06/21 08:00 BP 152/86 11/06/21 08:00 Pulse Ox 94 11/06/21 08:00 11/05/21 11/06/21 11/06/21 22:59 06:59 14:59 Intake Total 120 / 370 Output Total 950 / 1650 2150 / 3800 150 / 150 Balance -830 / -1280 -2150 / -3430 -150 / -150 Weight last 48 hrs Weight 81.221 kg Weight 81.238 kg Weight 81.647 kg Physical Exam Const: COMMON NORMALS: patient oriented x3 HENMT: COMMON NORMALS: normocephalic and atraumatic HEAD & SCALP: normocephalic and atraumatic Resp: COMMON NORMALS: normal respiratory effort and clear to auscultation bilaterally EFFORT & INSPECTION: Yes able to speak in complete sentences and Yes symmetric chest movement AUSCULTATION: clear to auscultation bilaterally Cardio: COMMON NORMALS: regular rhythm, S1 normal heart sound present, S2 normal heart sound present and Peripheral pulses 2+ throughout RHYTHM: regular rhythm HEART SOUNDS: S1 normal heart sound present and S2 normal heart sound present PERIPHERAL PULSES: Peripheral pulses 2+ throughout GI: COMMON NORMALS: Normal to inspection, nondistended, normoactive bowel sounds present, Soft to palpation, non-tender, No hepatosplenomegaly present and no masses AUSCULTATION: Yes normoactive bowel sounds PALPATION: Yes Soft to palpation and Yes No hepatosplenomegaly present RECTAL EXAM: Yes deferred Extremity: COMMON NORMALS: no clubbing, cyanosis or edema and no pedal edema Neuro: COMMON NORMALS: patient oriented x3 Data : 11/06/21 05:06 11/06/21 05:06 Micro: Microbiology 11/04/21 11:07 Blood Culture - Preliminary Blood NEGATIVE TO DATE 11/04/21 11:07 Blood Culture - Preliminary Blood NEGATIVE TO DATE A&P Assessment and plan (1) Heart failure: Status: Acute (2) Atrial fibrillation with RVR: Status: Acute (3) Asthma-COPD overlap syndrome: Status: Acute (4) Hyponatremia: Status: Acute (5) Myasthenia gravis: Status: Acute (6) Generalized epilepsy: Status: Acute Additional A&P Information 86 year old male with past medical history of, myasthenia gravis, seizure disorder, COPD asthma overlap syndrome,HFpEF, A. fib, COVID-19, came in with chief complaint of shortness of breath with minimal exertion,going on for the last couple of days , generalized weakness and fatigue, worsening bilateral lower extremity swelling. #Decompensated heart failure with reduced ejection fraction: Secondary to A. fib with RVR Patient presented with worsening shortness of breath, worsening bilateral lower extremity swelling, fatigue, weakness. Elevated proBNP, CT chest suggestive of, volume overload (interstitial thickening, small pleural effusion) Repeat 2D echo: Diffuse hypokinesis of the left ventricle. Ejection fraction around 37%. Mildly dilated LV cavity. Mild biatrial enlargement. Thickened aortic valve. Mild to moderate mitral valve regurgitation. Mild tricuspid valve regurgitation. Echo done in 2019: Normal left ventricular size and wall thickness. Mildly decreased left ventricular systolic function. Left ventricular ejection fraction is estimated at 50 %.Mild global hypokinesis. Normal right ventricular size and systolic function. Mildly increased left atrial size. Trace to mild mitral valve regurgitation. Monitor x-ray chest Initially on Lasix 40 mg IV every 12 hours daily. Switch to Lasix 40 p.o. twice daily Entresto started Will initiate low-dose spironolactone Intake output charting Daily weight Telemetry monitoring k>4, mg >2 Appreciate cardiology input: Patient will follow up with his primary supervisor remelt as an outpatient for possible stress test, and if needed any intervention. #A. fib with RVR: Received IV Cardizem push in the ER. Currently heart rate is better controlled. Metoprolol tartrate 50 mg p.o. twice daily Eliquis 5 mg p.o. twice daily. Monitor H&H. #Hyponatremia: Likely secondary to decompensated heart failure:Improving Continue to monitor BMP #Asthma COPD overlap syndrome: Continue inhalers, duo nebs, prednisone #History of seizure disorder: Continue Keppra 500 mg p.o. twice daily #History of myasthenia gravis: Continue CellCept, continue pyridostigmine CODE STATUS: Full code DVT prophylaxis: On Eliquis Attestations Medical Necessity Statement*: Patient is in hospital for management of heart failure. 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
--- NOTE | 2021-11-06 10:26 | P.CONIM_ITS ---
Providers/Reason For Consult Consulting Physician/Specialty*: TARAN Elaine MD/cardiology Reason for Consult*: Patient with a heart failure and worsening LV systolic function Attending Physician: Allen Meza MD Primary Care Provider: Jerman Henao DO History of Present Illness History of Present Illness Mauricio Wilson is a 86 year old male with a history of intermittent atrial fibrillation, COPD, myasthenia gravis and epilepsy presented to the emergency room with progressive shortness of breath. He was found to have features of congestive heart failure. His echocardiogram revealed LV ejection fraction of around 37%. This is a significant drop in the LV ejection fraction from August 2020 when the echocardiogram revealed ejection fraction around 50%. Cardiology consult is requested for further cardiac evaluation recommendations. This patient has no previous history for any coronary disease, myocardial infarction or congestive heart failure. He was admitted to hospital in November of this year with respiratory distress. At that time, he was found to be COVID- 19 positive with lung infiltrates. His hospital course was complicated with a brief. Of atrial fibrillation. He spontaneously converted to sinus rhythm. Apart from this history, he has no significant past history for cardiac arrhythmias or any coronary events. He is mainly present with a progressive shortness of breath and some leg swelling. He was treated with IV diuretics and other symptomatic measures. He seems to be improving. Currently his status is back to the baseline. Denies any fever or chills. No severe cough. He has difficulty in ambulation because of the extremity weakness with exertion. Apparently this is attributed to the myasthenia gravis. He has no history for any high blood pressure, dyslipidemia or diabetes. History of generalized seizures disorder and COPD. He is being followed by the pulmonary service as an outpatient for his lung conditions. Review of Systems Narrative: CONSTITUTIONAL: No fever or chills. Has some feeling of generalized weakness/fatigue, chronic EYES: No blurring of vision or other visual disturbances lately. ENT: No hoarseness of voice, auditory disturbances or sore throat. CARDIOVASCULAR: As mentioned above. RESPIRATORY: History of COPD GASTROINTESTINAL: Moderate history of GI bleed GENITOURINARY: No dysuria or hematuria. INTEGUMENTARY: No skin rashes or history of skin cancer. NEURO: History of myasthenia gravis PSYCHIATRIC: No history of psychosis or major depression. HEMATOLOGIC: History of anemia ENDOCRINE: No history of polyuria or polydipsia. MUSCULOSKELETAL: No recent joint pain or swelling. ALLERGY/IMMUNOLOGY: As mentioned above. Meds/Allergies Home Medications and Allergies Home Medications Medication Instructions Recorded Confirmed Last Taken Type carboxymethylcellulose sodium 1 drp OPHTHALMIC (EYE) PRN 09/03/20 11/08/21 10/26/21 History [Refresh Tears] cholecalciferol (vitamin D3) 2,000 unit PO DAILY@0800 09/03/20 11/08/21 11/04/21 History [Vitamin D3] Symbicort 2 puff INHALATION BID@,20 11/04/21 11/08/21 11/04/21 History Vitamin C 500 mg PO QAM 11/04/21 11/08/21 11/04/21 History acetaminophen 1,000 mg PO Q4H PRN 11/04/21 11/08/21 Unknown History albuterol sulfate 1 inh INHALATION QID PRN 11/04/21 11/08/21 Unknown History artificial tears ointment 1 applic OPHTHALMIC (EYE) BEDTIME 11/04/21 11/08/21 Unknown History magnesium oxide 400 mg PO QAM 11/04/21 11/08/21 11/04/21 06:00 History apixaban [Eliquis] 5 mg PO BID@0900,2100 #60 tab 11/07/21 11/08/21 Unknown Rx aspirin 81 mg PO DAILY #30 tab 11/07/21 11/08/21 Unknown Rx furosemide 40 mg PO BID@08,16 30 Days #60 tab 11/07/21 11/08/21 Unknown Rx metoprolol tartrate 25 mg PO BID@0900,2100 30 Days #60 11/07/21 11/08/21 Unknown Rx tab sacubitril-valsartan [Entresto] 1 tab PO BID #60 tab 11/07/21 11/08/21 Unknown Rx levetiracetam 1,000 mg tablet 500 mg PO BID@0800,1999 #180 tab 11/08/21 11/08/21 Unknown Rx mycophenolate mofetil 500 mg tablet 1,000 mg PO BID@, #120 tab 11/08/21 11/08/21 Unknown Rx prednisone 20 mg tablet 20 mg PO QAM #30 tab 11/08/21 11/08/21 Unknown Rx pyridostigmine bromide 60 mg tablet 60 mg PO TID@ #90 tab 11/08/21 11/08/21 Unknown Rx ropinirole 2 mg tablet 2 mg PO BEDTIME #30 tab 11/08/21 11/08/21 Unknown Rx Allergies Allergy/AdvReac Type Severity Reaction Status Date / Time No Known Allergies Allergy Verified 11/08/21 09:32 Current Medications Current Medications Generic Name Dose Route Start Last Admin Trade Name Roloq PRN Reason Stop Dose Admin Albuterol/Ipratropium 3 ml 11/05/21 21:30 11/06/21 09:12 Ipratropium-Albuterol 3 Ml Neb INHALATION 3 ml Q6H.RESPIRATORY CEASAR Administration Apixaban 5 mg 11/04/21 21:00 11/05/21 21:36 Apixaban 5 Mg Tablet PO 5 mg BID@0900,2100 CEASAR Administration Furosemide 40 mg 11/04/21 22:00 11/05/21 21:39 Furosemide 10 Mg/Ml Sdv 4ml IVP 40 mg Q12H CEASAR Administration Levetiracetam 500 mg 11/04/21 20:00 11/06/21 08:59 Levetiracetam 500 Mg Tablet PO 500 mg BID@0800,2000 CEASAR Administration Metoprolol Tartrate 25 mg 11/04/21 21:00 11/06/21 09:00 Metoprolol Tartrate 25 Mg Tablet PO 25 mg BID@0900,2100 CEASAR Administration Mycophenolate Mofetil 1,000 mg 11/04/21 20:00 11/05/21 21:35 Mycophenolate Mofetil 500 Mg Tablet PO 1,000 mg BID@08,20 CEASAR Administration Prednisone 20 mg 11/05/21 06:00 11/06/21 05:42 Prednisone 20 Mg Tablet PO 20 mg QAM CEASAR Administration Pyridostigmine [place] 60 mg 11/04/21 22:00 11/06/21 05:42 Pyridostigmine 60 Mg Tablet PO 60 mg TID@ CEASAR Administration Ropinirole HCl 1 mg 11/04/21 21:00 11/05/21 21:36 Ropinirole 1 Mg Tablet PO 1 mg BEDTIME CEASAR Administration Fluticasone/Salmeterol 2 puff 11/04/21 20:00 11/06/21 09:12 Fluticasone-Salmeterol 250-50 Diskus INHALATION 2 puff BID@08,20 CEASAR Administration Vitamin D 2,000 unit 11/05/21 08:00 11/06/21 08:59 Cholecalciferol (Vitamin D3) 1,000 Unit Tablet PO 2,000 unit DAILY@0800 CEASAR Administration PFSH Acute PFSH: Medical History Asthma-COPD overlap syndrome COVID-19 (~11/2020) Generalized epilepsy GI bleed when hospitalized with covid Heart failure History of lung abscess Describes having had an abscess in his lung that required surgical removal many years ago Myasthenia gravis Surgical History History of back surgery x2 History of cataract surgery Bilateral History of esophagogastroduodenoscopy (EGD) History of surgery Describes a remote surgical procedure in which he had something done around his esophagus and his liver that may have involved around a concern for bilia ry duct malignancy possibility Family History Other CAD (coronary artery disease) Diabetes Social History Quit status (tobacco): has quit using tobacco Year quit tobacco: 1979 Former quit date comment: 2ppd x 15 years then 4-5 cigars/day x 25 years Alcohol intake: never History of recent travel: No Vitals/I&O/Wt Last Vital Signs Temp 98.2 F 11/05/21 18:51 Pulse 98 11/06/21 09:21 Resp 20 H 11/06/21 09:21 BP 152/86 11/06/21 08:00 Pulse Ox 94 11/06/21 09:21 11/05/21 11/06/21 11/06/21 22:59 06:59 14:59 Intake Total 120 / 370 Output Total 950 / 1650 2150 / 3800 150 / 150 Balance -830 / -1280 -2150 / -3430 -150 / -150 Weight last 48 hrs Weight 179 lb 1 oz Weight 179 lb 1.6 oz Weight 180 lb Physical Exam Narrative: EXAM NARRATIVE: GENERAL: The patient is alert and oriented times three. Not in any acute distress. HEENT: No significant pallor, icterus or lymphadenopathy. The pupils are symmetrical. Oral cavity: There are no mucous membrane lesions. Funduscopic examination: The fundus is not visualized NECK: Trachea appears to be central. No masses noted. No JVD or thyromegaly appreciated. No carotid bruit. RESPIRATORY: Chest is symmetrical. No intercostals muscle retraction or any accessory muscle activation. There is no chest wall tenderness. Breath sounds are heard bilaterally. Scattered coarse crackles and occasional expiratory wheezing BREASTS: Deferred. HEART: The PMI is in the 5th left intercostals space just inside the midclavicular line. No palpable precordial events. S1 and S2 are normal. No S3 or S4 heard. No pericardial rub or any click heard. Short systolic murmur the left sternal border. No diastolic murmurs ABDOMEN: No vessel pulsations or distention. No tenderness. No organomegaly appreciated. No abdominal bruit. Bowel sounds are normally heard. : Deferred. RECTAL: Deferred. LYMPHATIC: No lymphadenopathy noted in the neck or groin. EXTREMITIES: No edema or cyanosis. No clubbing. Peripheral pulses are palpable in fairly good volume and amplitude. MUSCULOSKELETAL: No acute joint deformities or swelling SKIN: There are no significant scars or skin rash noted. NEUROPSYCHIATRIC: The patient is alert and oriented x3. Appears to be in a good mood. The higher functions are grossly within normal limits. No tremors or rigidity noted. Data 2 Labs: Other Labs: Laboratory Last Values WBC 6.8 10^3/uL (4.0- 10.0) 11/06/21 05:06 RBC 4.57 10^6/uL (4.1 -5.3) 11/06/21 05:06 Hgb 14.2 g/dL (11.7-1 6.6) 11/06/21 05:06 Hct 42.5 % (42.0-52.0 ) 11/06/21 05:06 MCV 93.0 fl (80-94) 11/06/21 05:06 MCH 31.1 pg (28.0-34. 0) 11/06/21 05:06 MCHC 33.4 g/dL (30.0-3 6.0) 11/06/21 05:06 RDW 13.6 % (12.1-15.1 ) 11/06/21 05:06 Plt Count 202 10^3/cmm (130 -400) 11/06/21 05:06 MPV 10.3 fL (7.4-10.4 ) 11/06/21 05:06 Neut % (Auto) 68.2 % 11/06/21 05:06 Lymph % (Auto) 18.0 % 11/06/21 05:06 [place] % (Auto) 12.2 % 11/06/21 05:06 Eos % (Auto) 0.3 % 11/06/21 05:06 Baso % (Auto) 0.6 % 11/06/21 05:06 Neut # (Auto) 4.62 10^3/uL (1.8 -7.7) 11/06/21 05:06 Lymph # (Auto) 1.2 10^3/uL (0.8- 4.8) 11/06/21 05:06 [place] # (Auto) 0.8 10^3/uL (0.2- 0.9) 11/06/21 05:06 Eos # (Auto) 0.0 10^3/uL (0.0- 0.8) 11/06/21 05:06 Baso # (Auto) 0.0 10^3/uL (0.0- 0.1) 11/06/21 05:06 Nucleated RBC % (a uto) 0 % 11/06/21 05:06 Nucleated RBCs # 0.0 /100WBC 11/06/21 05:06 PT 13.60 SECONDS (12 .1-14.9) 11/04/21 11:07 INR 1.01 (0.8-1.2) 11/04/21 11:07 APTT 28.1 SECONDS (23. 9-36.7) 11/04/21 11:07 D-Dimer 0.94 ug/mIFEU (0- 0.59) H 11/04/21 11:07 Sodium 133 mmol/L (136-1 45) L 11/06/21 05:06 Potassium 3.5 mmol/L (3.5-5 .1) 11/06/21 05:06 Chloride 92 mmol/L (98-107 ) L 11/06/21 05:06 Carbon Dioxide 25 mmol/L (22-29) 11/06/21 05:06 Anion Gap 19.5 (5-19) H 11/06/21 05:06 BUN 27 mg/dL (8-23) H 11/06/21 05:06 Creatinine 0.9 mg/dL (0.7-1. 2) 11/06/21 05:06 GFR Calculation Not Reportable 11/06/21 05:06 Glucose 127 mg/dL (65-115 ) H 11/06/21 05:06 Calculated Osmolal ity 283 mOsm/kg (285- 295) L 11/06/21 05:06 Lactate 1.3 mmol/L (0.5-2 .2) 11/04/21 11:07 Calcium 8.4 mg/dL (8.5-10 .5) L 11/06/21 05:06 Magnesium 2.0 mg/dL (1.7-2. 3) 11/05/21 06:29 Total Bilirubin 0.8 mg/dL (0.15-1 .2) 11/06/21 05:06 AST 28 U/L (0-40) 11/06/21 05:06 ALT 22 U/L (0-41) 11/06/21 05:06 Alkaline Phosphata se 39 IU/L (40-130) L 11/06/21 05:06 Troponin T Baselin e 62 ng/L (0-15) H 11/04/21 11:07 Troponin T 120 Min mirna 55.51 ng/L (0-15) H 11/04/21 13:33 Delta Troponin T -6.49 ABS# (0-10) L 11/04/21 13:33 Troponin T Hi Sens 6Hr 51.06 ng/L (0-15) H 11/04/21 17:22 Troponin T Hi Sens 6Hr Delta -10.94 ng/L (0-12 ) L 11/04/21 17:22 NT-Pro-B Natriuret Pep 9424 pg/mL (0-450 ) H 11/04/21 11:07 Total Protein 6.1 g/dL (6.6-8.7 ) L 11/06/21 05:06 Albumin 3.5 g/dL (3.5-5.2 ) 11/06/21 05:06 Globulin 2.6 g/dL (1.3-4.6 ) 11/06/21 05:06 Procalcitonin 0.08 ng/mL (0-0.5 ) 11/05/21 06:29 TSH 3.07 uIU/mL (0.27 -4.20) 11/04/21 11:07 Free T4 1.28 ng/dL (0.82- 1.77) 11/04/21 11:07 Urine Color Yellow (Yellow) 11/04/21 11:09 Urine Appearance Clear (CLEAR) 11/04/21 11:09 Urine pH 7 (5-7) 11/04/21 11:09 Ur Specific Gravit y 1.005 (1.005-1.0 30) 11/04/21 11:09 Urine Protein Trace (Negative) 11/04/21 11:09 Urine Glucose (UA) Norm (Normal) 11/04/21 11:09 Urine Ketones 1+ (Negative) H 11/04/21 11:09 Urine Blood Neg (Negative) 11/04/21 11:09 Urine Nitrate Negative (Negati ve) 11/04/21 11:09 Urine Bilirubin Neg (Negative) 11/04/21 11:09 Urine Urobilinogen Norm mg/dL (Negat owen) 11/04/21 11:09 Ur Leukocyte Eda ase Negative (Negati ve) 11/04/21 11:09 Urine RBC 0-4 /hpf (0-2) H 11/04/21 11:09 Urine WBC 0-4 /hpf (0-5) H 11/04/21 11:09 Ur Squamous Epith Cells 0-4 /hpf (0-5) H 11/04/21 11:09 Amorphous Sediment Not Reportable 11/04/21 11:09 Urine Bacteria Trace /hpf (NONE) 11/04/21 11:09 SARS-CoV-2 Ag (Rap id) Negative (Negati ve) 11/04/21 11:07 Micro: Micro: Microbiology 11/04/21 11:07 Blood Culture - Pr eliminary Blood NEGATIVE TO LION E 11/04/21 11:07 Blood Culture - Pr eliminary Blood NEGATIVE TO LION E Imaging^: Echo: My impression: Done on 11/05/2021 Diffuse hypokinesis of the left ventricle. Ejection fraction around 37%. Mildly dilated LV cavity. Mild biatrial enlargement Thickened aortic valve. Mild to moderate mitral valve regurgitation. Mild tricuspid valve regurgitation. Estimated pulmonary artery peak systolic pressure of 33 mmHg There is no pericardial effusion. There are no intracardiac masses. Compared to the study from 09/04/2020, there is worsening of the LV systolic function CTA Chest: Radiologist's impression: 1. No pulmonary emboli. 2. Markedly enlarged LEFT heart chambers. 3. Dilated fluid-filled esophagus. Similar findings were noted involving the esophagus on a study from 2008 suggesting this is chronic stricture or achalasia. 4. A few scattered irregular opacifications throughout both lobes and areas of pneumonitis at the lung bases. EKG^: EKG 1: My Interpretation: Multifocal atrial tachycardia with a rate of 120 bpm. Frequent PVCs. Diffuse nonspecific T wave changes. Right bundle branch block pattern. A&P Assessment and plan (1) Acute on chronic systolic heart failure: Patient is currently compensated. Hemodynamically seems to be stable. At this point, I may change the IV Lasix to p.o. Lasix 40 mg twice daily. I also may start him on Entresto 1 tablet p.o. twice daily. Watching his vital signs closely. Status: Resolved (2) Intermittent atrial fibrillation: Currently the patient is in sinus rhythm. He is on oral anticoagulation which may be continued. He was found to be in multifocal atrial tachycardia during this hospital admission. Because of the history of atrial fibrillation and the cardiomyopathy, it may be appropriate to keep him on oral anticoagulation. Status: Acute (3) Myasthenia gravis: May continue on the current management (4) Asthma-COPD overlap syndrome: Optimize bronchodilator treatment as per the primary (5) Generalized epilepsy: Continue on the current management as per the neurology service (6) Cardiomyopathy: The etiology is unclear. For further evaluation, a sestamibi/sestamibi perfusion scan would be appropriate. This could be done as an outpatient, since the patient seems to be stable with no specific symptoms. Status: Acute Qualifiers: Cardiomyopathy type: other Qualified Code(s): I42.8 - Other car diomyopathies Additional A&P Information The other problems are History of electrolyte imbalance, currently seems corrected History of dysphagia/diplopia/dysarthria-possibly myasthenia related Patient be closely monitored on telemetry today. If he continues to remain stable, may be discharged home tomorrow to have further cardiac performed as an outpatient. The current assessment and management plans were discussed with the patient and his family in detail which he understood well. Thank you for the opportunity to follow this patient make these recommendations Consult Attestations Medical Necessity Statement: Deferred to the primary Coding Level of Care Code Acute Range Technician for Jakeg Fwd History Detailed Exam Detailed Medical Decision Making Moderate Complexity Diagnoses Acute on chronic systolic heart failure I50.23 Intermittent atrial fibrillation I48.0 Myasthenia gravis G70.00 Asthma-COPD overlap syndrome J44.9 Generalized epilepsy G40.309 Cardiomyopathy I42.8 Cardiomyopathy type: other Hyponatremia E87.1
[2021-11-06] MEDS: FUROsemide 40 mg Tablet PO (17:10)
[2021-11-06] MEDS: sacubitril/valsartan 24-26 mg Tablet 1 EACH PO (17:10)
[2021-11-06] MEDS: magnesium lactate 84 mg Tablet PO (17:10)
[2021-11-06] MEDS: ropinirole 1 mg Tablet PO (20:49)
[2021-11-06] MEDS: apixaban 5 mg Tablet PO ×2 (20:49→20:50)
[2021-11-07] VITALS (8 sets, daily range): BP systolic 98–135; BP diastolic 57–76; PULSE 74–93; RESP 18–25; TEMP 36.1–36.7; O2SAT 90–95
[2021-11-07] MEDS: ipratropium-albuterol 3 mL Neb INHALATION (03:10)
[2021-11-07 06:11] LABS: Basophils # 0.1 10^3/uL (0.0-0.1); Basophils % 0.8 %; Eosinophils # 0.1 10^3/uL (0.0-0.8); Eosinophils % 0.6 %; Hematocrit 51.8 % (42.0-52.0); Hemoglobin 17.1 g/dL (11.7-16.6); Lymphocytes # 1.7 10^3/uL (0.8-4.8); Lymphocytes % 16.1 %; Mean Corpuscular Hemoglobin 30.9 pg (28.0-34.0); Mean Corpuscular Volume 93.5 fl (80-94); Mean Platelet Volume 10.6 fL (7.4-10.4); Monocytes % 9.4 %; Neutrophils # 7.67 10^3/uL (1.8-7.7); Nucleated Red Blood Cells % 0 %; Platelet Count 265 10^3/cmm (130-400); Red Blood Count 5.54 10^6/uL (4.1-5.3); Red Cell Distribution Width 13.4 % (12.1-15.1); White Blood Count 10.7 10^3/uL (4.0-10.0)
[2021-11-07] MEDS: pyridostigmine 60 mg Tablet PO (06:22)
[2021-11-07] MEDS: predniSONE 20 mg Tablet PO (06:22)
[2021-11-07 06:35] LABS: Alanine Aminotransferase 28 U/L (0-41); Albumin Level 4.3 g/dL (3.5-5.2); Alkaline Phosphatase 54 IU/L (40-130); Anion Gap 17.6 (5-19); Aspartate Amino Transferase 36 U/L (0-40); Blood Urea Nitrogen 19 mg/dL (8-23); Calcium 9.1 mg/dL (8.5-10.5); Carbon Dioxide 29 mmol/L (22-29); Chloride 89 mmol/L (98-107); Creatinine Clr Calc Pharmacy 59.4396; Globulin 3.7 g/dL (1.3-4.6); Glucose 128 mg/dL (65-115); Osmolality Calculated 278 mOsm/kg (285-295); Potassium 3.6 mmol/L (3.5-5.1); Sodium 132 mmol/L (136-145); Total Bilirubin 1.1 mg/dL (0.15-1.2)
[2021-11-07] MEDS: metoprolol tartrate 25 mg Tablet PO (08:07)
[2021-11-07] MEDS: levETIRAcetam 500 mg Tablet PO (08:07)
[2021-11-07] MEDS: magnesium lactate 84 mg Tablet PO (08:07)
[2021-11-07] MEDS: sacubitril/valsartan 24-26 mg Tablet 1 EACH PO (08:07)
[2021-11-07] MEDS: cholecalciferol (vitamin D3) 1,000 unit Tablet 2000 UNIT PO (08:07)
[2021-11-07] MEDS: FUROsemide 40 mg Tablet PO (08:08)
[2021-11-07] MEDS: apixaban 5 mg Tablet PO (08:08)
--- NOTE | 2021-11-07 10:16 | P.DS_ITS ---
Discharge Providers Date of Admission: 11/04/21 14:43 Date of Discharge: November 07, 2021 Attending Provider at Admission: Allen Meza MD Attending Provider at Discharge: Allen Meza MD Primary Care Provider: Jerman Henao DO Diagnoses at Discharge Discharge Diagnosis (1) Heart failure: (2) Atrial fibrillation with RVR: Status: Resolved (3) Asthma-COPD overlap syndrome: (4) Hyponatremia: Status: Resolved (5) Myasthenia gravis: (6) Generalized epilepsy: Reason for Visit Reason for Visit: SOB/WEAK/N,V Hospital Course Hospital Course 86 year old male with past medical history of, myasthenia gravis, seizure disorder, COPD asthma overlap syndrome,HFpEF, Paroxysmal A. fib, COVID-19, came in with chief complaint of shortness of breath with minimal exertion,going on for the last couple of days , generalized weakness and fatigue, worsening bilateral lower extremity swelling.He denies any fever, cough chest pain, nausea vomiting, headache runny nose. Upon arrival in the ER he was found to be in A. fib with RVR, for which he received IV diltiazem.He also received a dose of Rocephin and azithromycin in the ER, along with 40 mg Lasix IV one-time dose. he was worked up for above-mentioned complaint: Pertinent imaging studies: CTA chest: No pulmonary emboli Markedly enlarged LEFT heart chambers,Scattered small subsegmental irregular opacifications throughout both lobes. More significant increase interstitial thickening at the lung bases probably due to pneumonitis. There is a small amount of pleural thickening and a very small effusion at the LEFT lung base. Subpleural triangular nodule superior segment LEFT lower lobe may be an area of scarring. Similar finding seen on the prior study. EKG : A. fib with RVR . Pertinent labs: WBC 9.9, H&H : 14.9/45, PLT : 185 , serum sodium 129, serum potassium 4.4, BUN serum creatinine: 12/0.8, serum lactic acid 1.3, TSH 3, proBNP: 9424, troponin trend without significant delta Rapid Covid antigen negative. During the hospital stay he was managed for Decompensated H/F Reduced ejection fraction vuley 2/2 A Fib with RVR, 2D Echo done during the hospital stay has shown marked reduction in L.V function as compared to 2d Echo done a year back. She was kept on I.V diuresis and was discharged on po lasix 40 bid as well as entresto was started in addition to metoprolol.T 50 mg po BID.For his afib he was discharged on metoprolol.T as well as eliquis was added.He was in sinus at the time of discharge. For his Hyponatremia: Likely secondary to decompensated heart failure, serum sodium was normal at the time of discharge. Asthma COPD overlap syndrome: Continue inhalers, duo nebs, prednisone.History of seizure disorder: Continue Keppra 500 mg p.o. twice daily. History of myasthenia gravis: Continue CellCept, continue pyridostigmine.Patient will continue to follow cardiology as outpatient for possible stress test as a part of cardiomyopathy work up to r/o possible ischemic Cardiomyopathy. Patient has been asked to do repeat BMP as well as cbc in a week as he has been started on entresto as well as eliquis,he has likely prior h/o G.I Bleed, kiran not too certain at this time.It will be good to monitor his cbc.Patient responded well to above medical management and at the time of discharge he was euvolemic and was not complaining of SOB.He will continue to follow as well cardiology as outpatient. Physical Exam Const: COMMON NORMALS: patient oriented x3 HENMT: COMMON NORMALS: normocephalic and atraumatic HEAD & SCALP: normocephalic and atraumatic Resp: COMMON NORMALS: normal respiratory effort and clear to auscultation bilaterally EFFORT & INSPECTION: Yes able to speak in complete sentences and Yes symmetric chest movement AUSCULTATION: clear to auscultation bilaterally OTHER: Minimal wheezing present in both lungs reynoso Cardio: COMMON NORMALS: regular rhythm, S1 normal heart sound present, S2 normal heart sound present and Peripheral pulses 2+ throughout RHYTHM: regular rhythm HEART SOUNDS: S1 normal heart sound present and S2 normal heart sound present PERIPHERAL PULSES: Peripheral pulses 2+ throughout OTHER: Irregularly irregular rhythm, S1-S2 variable intensity GI: COMMON NORMALS: Normal to inspection, nondistended, normoactive bowel sounds present, Soft to palpation, non-tender, No hepatosplenomegaly present and no masses AUSCULTATION: Yes normoactive bowel sounds PALPATION: Yes Soft to palpation and Yes No hepatosplenomegaly present RECTAL EXAM: Yes deferred Extremity: COMMON NORMALS: no clubbing, cyanosis or edema and no pedal edema Neuro: COMMON NORMALS: patient oriented x3 Discharge Data Data Completed and Pending: Completed Studies During Hospitalization Category Date Time Status CT angio chest PE protcl [id number] Urge nt Cat Scan 11/04/21 12:49 Completed XR chest 1V johan ble [id number] Stat Exams 11/04/21 10:45 Completed CV. echo complete * [id number] Routine Ultrasound 11/05/21 16:44 Completed Pending at discharge Category Date Time Status Blood Culture Sta t Lab 11/04/21 11:07 Results Labs from last 24 hours 11/07/21 11/07/21 05:37 05:37 WBC 10.7 H RBC 5.54 H Hgb 17.1 H Hct 51.8 MCV 93.5 MCH 30.9 MCHC 33.0 RDW 13.4 Plt Count 265 D MPV 10.6 H Neut % (Auto) 72.0 Lymph % (Auto) 16.1 [place] % (Auto) 9.4 Eos % (Auto) 0.6 Baso % (Auto) 0.8 Neut # (Auto) 7.67 Lymph # (Auto) 1.7 [place] # (Auto) 1.0 H Eos # (Auto) 0.1 Baso # (Auto) 0.1 Nucleated RBC % (a uto) 0 Nucleated RBCs # 0.0 Sodium 132 L Potassium 3.6 Chloride 89 L Carbon Dioxide 29 Anion Gap 17.6 BUN 19 Creatinine 1.0 GFR Calculation Not Reportable Glucose 128 H Calculated Osmolal ity 278 L Calcium 9.1 Total Bilirubin 1.1 AST 36 ALT 28 Alkaline Phosphata se 54 Total Protein 8.0 Albumin 4.3 Globulin 3.7 Vitals: Last Vital Signs Temp 97.0 F L 11/07/21 07:51 Pulse 92 11/07/21 07:51 Resp 25 H 11/07/21 07:51 BP 98/57 11/07/21 07:51 Pulse Ox 94 11/07/21 07:51 Discharge Plan Discharge Patient Disposition: Home Condition: Stable Prescriptions: New aspirin 81 mg tablet,delayed release (DR/EC) 81 mg PO DAILY Qty: 30 RF: 3 Eliquis 5 mg Tablet 5 mg PO BID@0900,2100 Qty: 60 RF: 3 furosemide 40 mg Tablet 40 mg PO BID@08,16 30 Days Qty: 60 RF: 3 metoprolol tartrate 25 mg Tablet 25 mg PO BID@0900,2100 30 Days Qty: 60 RF: 3 Entresto 24-26 mg Tablet 1 tab PO BID Qty: 60 RF: 3 Continued levetiracetam [Keppra] 1,000 mg tablet 500 mg PO BID@0800,2000 Qty: 180 RF: 3 carboxymethylcellulose sodium [Refresh Tears] 0.5 % Drops 1 drp OPHTHALMIC (EYE) PRN RF: 0 cholecalciferol (vitamin D3) [Vitamin D3] 50 mcg (2,000 unit) Capsule 2,000 unit PO DAILY@0800 RF: 0 ropinirole 0.5 mg tablet 1 mg PO BEDTIME RF: 0 acetaminophen 500 mg Tablet 1,000 mg PO Q4H PRN (Reason: Pain) RF: 0 artificial tears ointment Ointment 1 applic OPHTHALMIC (EYE) BEDTIME RF: 0 Vitamin C 500 mg Tablet 500 mg PO QAM RF: 0 magnesium oxide 400 mg magnesium Tablet 400 mg PO QAM RF: 0 prednisone 20 mg tablet 20 mg PO QAM RF: 0 mycophenolate mofetil 500 mg tablet 1,000 mg PO BID@08,20 RF: 0 Mestinon 60 mg tablet 60 mg PO TID@06,, RF: 0 Symbicort 80-4.5 mcg/actuation HFA aerosol inhaler 2 puff inhalation BID@08,20 RF: 0 albuterol sulfate 90 mcg/actuation aerosol powdr breath activated 1 inh inhalation QID PRN (Reason: Shortness Of Breath) RF: 0 Discontinued aspirin 325 mg Tablet 650 mg PO PRN PRN (Reason: Pain) RF: 0 Discharge Orders: Discharge Order (Routine); Ordered 11/07/21 Ordered By: Allen Meza Other Ambulatory Orders: Basic Metabolic Panel (Routine) Timeframe: 1 Week Facility: [facility] - Location: Lab - Main Lab Ordered By: Allen Meza Complete Blood Count w/Auto (Routine) Timeframe: 1 Week Location: Determined by Patient Ordered By: Allen Meza Referrals: Rory Epstein M.D [Physician] - 2 weeks ([facility] will contact you to schedule an follow-up appointment. If you haven't heard from them by Monday. Please call ) Phyllis Glynn FNP [Nurse Practitioner] - 1 week ([facility] will contact you to schedule an follow-up appointment. If you haven't heard from them by Monday. Please call ) Discharge Diet: Regular Discharge Activity: Resume usual activity Patient Instructions: Metoprolol (By mouth), Furosemide (By mouth) (Lasix), Aspirin (By mouth), Apixaban (By mouth) (Eliquis), Sacubitril/Valsartan (By mouth) (Entresto), Heart Failure (DC), A-fib (Atrial Fibrillation) (DC), Hyponatremia (DC), Opioid Safety Discharge Attestations Time Spent in Discharge Care*: greater than 30 min Specific Discharge Activities: educating patient, educating and/or supporting family/caregiver, discussing with pcp/other providers, discussing with disability case manager/social workers/dc planners, documenting/other paperwork and evaluating patient/reviewing data Status at Discharge: Cognitive status at discharge: cognitively intact , Behavioral status at discharge: cooperative , Quality Metrics Clinical Quality Measures During this hospital stay, did patient experience: None Coding Level of Care Code Acute Chg FW DC note Diagnoses Heart failure I50.9 Atrial fibrillation with RVR I48.91 Asthma-COPD overlap syndrome J44.9 Hyponatremia E87.1 Myasthenia gravis G70.00 Generalized epilepsy G40.309
--- NOTE | 2021-11-07 10:42 | PC.SOCIAL ---
IMM UPDATED IMM dated and initialed and copy given to patient
--- NOTE | 2021-11-07 13:48 | PC.NURSE ---
Discharge Note Patient discharged to Home via Private vehicle accompanied by spouse. Discharge instructions reviewed with patient and/or junior sales representative. Mobile pharmacy medications and/or prescriptions provided. Belongings/home medications returned.
== END 2021-11-07 13:52 | disposition home or self-care (01) | DRG 292 ==
LOC: ER 15:03 → CSU 15:05
PROVIDERS: Admitting Provider Internal Medicine; Emergency Provider Emergency Medicine; PCP Internal Medicine; Visit Provider Internal Medicine
DX: I50.33 Acute on chronic diastolic (congestive) heart failure (principal); E87.1 Hypo-osmolality and hyponatremia; I42.9 Cardiomyopathy, unspecified; I48.0 Paroxysmal atrial fibrillation; J44.9 Chronic obstructive pulmonary disease, unspecified; G70.00 Myasthenia gravis without (acute) exacerbation; G40.409 Other generalized epilepsy and epileptic syndromes, not intractable, without status epilepticus; Z86.16 Personal history of COVID-19; Z79.82 Long term (current) use of aspirin; Z87.891 Personal history of nicotine dependence; Z79.52 Long term (current) use of systemic steroids
CPT/HCPCS: 36415; 71045; 71275; 80053; 81001; 83605; 83735; 83880; 84145; 84439; 84443; 84484; 85025; 85378; 85610; 85730; 87040; 87426; 93005; 93306; 94640; 96365; 96367; 96375; 99285; J0456; J0696; J1940; J2930; J3490; J3535; J7050; J7512; J7517; Q9967

== ENCOUNTER → 2021-11-08 09:27 | Outpatient (BNVA) | payer MEDICAID, SELFPAY | PROVIDERS: PCP Internal Medicine; Visit Provider Specialist | DX: G70.00 Myasthenia gravis without (acute) exacerbation (principal); I42.8 Other cardiomyopathies; I48.0 Paroxysmal atrial fibrillation; J44.9 Chronic obstructive pulmonary disease, unspecified; G40.309 Generalized idiopathic epilepsy and epileptic syndromes, not intractable, without status epilepticus; Z87.891 Personal history of nicotine dependence | CPT/HCPCS: 99213; 99214 ==

== ENCOUNTER → 2021-11-15 10:48 | Outpatient (BNVA) | payer MEDICAID, SELFPAY | PROVIDERS: PCP Internal Medicine; Visit Provider Nurse Practitioner Family | DX: I42.8 Other cardiomyopathies (principal) | CPT/HCPCS: 80048 ==

== ENCOUNTER → 2021-11-23 08:56 | Day surgery (SDC) | payer MEDICAID, SELFPAY ==
[2021-11-23 09:09] VITALS: BP 142/77; PULSE 76; RESP 18; TEMP 36.7; O2SAT 97
== END ==
PROVIDERS: PCP Internal Medicine; Visit Provider Specialist
DX: G70.00 Myasthenia gravis without (acute) exacerbation (principal)
CPT/HCPCS: 96365; 96366; J1568

== ENCOUNTER 2021-12-16 14:31 | Outpatient (CLI) | payer MEDICAID, SELFPAY ==
--- NOTE | 2021-12-16 15:00 | USCV_ITS ---
Mauricio Wilson Age: 86 Gender: M : 1935 Exam Date: 12/16/2021 14:49 Ordering Phys: Rory Epstein M.D ([email or web address]) Technologist: UMA [place] [facility] [place]ication: heart failure BP: 126 / 58 HR: 76 Rhythm: Other Technical Quality: Technically difficult study MEASUREMENTS (Male / Female) Normal Values 2D ECHO LV Diastolic Diameter PLAX 4.2 cm 4.2 - 5.9 / 3.9 - 5.3 cm LV Systolic Diameter PLAX 3.1 cm IVS Diastolic Thickness 0.9 cm 0.6 - 1.0 / 0.6 - 0.9 cm IVS Systolic Thickness 1.2 cm LVPW Diastolic Thickness 1.2 cm 0.6 - 1.0 / 0.6 - 0.9 cm LVPW Systolic Thickness 1.5 cm RV Chamber Size 2.9 cm LVOT Diameter 2.0 cm LV Ejection Fraction MOD 2C 61.9 % LV Ejection Fraction 2C AL 62.1 % LA Diameter 3.4 cm LA Width 3.6 cm LA Height 4.8 cm RA Width 2.9 cm RA Height 3.8 cm Aorta at Sinotubular Diameter 2.4 cm M-MODE Aortic Annulus Diameter 3.3 cm LA Ao Ratio MM 1.1 MV E Point Septal Separation 0.9 cm DOPPLER AV Peak Velocity 106.0 cm/s LVOT Peak Velocity 119.0 cm/s AV Area Cont Eq vti 3.3 cm squared AV Area Cont Eq pk 3.5 cm squared MV Area PHT 3.1 cm squared Mitral E to A Ratio 0.6 MV E' Velocity 30.0 cm/s Mitral E to MV E' Ratio 12.1 Mitral E to LV E' Lateral Ratio 10.5 Mitral E to LV E' Septal Ratio 14.3 TV Peak E Velocity 34.0 cm/s PV Peak Velocity 82.7 cm/s RV Acceleration Time 0.1 s RV Ejection Time 0.3 s RV AcT/ET 0.4 FINDINGS Left Ventricle Mildly increased left ventricular cavity size. Severely decreased left ventricular systolic function. Global left ventricular hypokinesis. Left ventricular ejection fraction is estimated at 35 %. Grade I/IV diastolic dysfunction (abnormal relaxation filling pattern), normal to mildly elevated filling pressures. Right Ventricle The right ventricle is normal in size and function. Right Atrium The right atrium is normal in size. Left Atrium The left atrium is normal in size. Mitral Valve Structurally normal mitral valve without significant stenosis or prolapse. There is no mitral regurgitation. Aortic Valve Severe aortic valve calcification. Mild restriction of the leaflet noted. Tricuspid Valve Structurally normal tricuspid valve without significant stenosis or regurgitation. Pulmonary artery systolic pressure is normal. Pulmonic Valve Structurally normal pulmonic valve without significant stenosis. There is no pulmonic regurgitation. Pericardium Normal pericardium without effusion. Aorta Normal ascending aorta dimension. CONCLUSIONS 1-Mildly increased left ventricular cavity size. Severely decreased left ventricular systolic function. Global left ventricular hypokinesis. Left ventricular ejection fraction is estimated at 35 %. Grade I/IV diastolic dysfunction (abnormal relaxation filling pattern), normal to mildly elevated filling pressures. 2-Severe aortic valve calcification. Mild restriction of the leaflet noted. 4-There is no pericardial effusion. 5-Right atrial pressure is around 5 mm of mercury. 6-No significant change since the prior echocardiogram study of 11/05/2021. Anabel Cortez MD (Electronically Signed) Final Date: 16 December 2021 19:58 S
== END 2021-12-16 14:32 | disposition home or self-care (01) ==
LOC: RAD 14:33
PROVIDERS: PCP Internal Medicine; Visit Provider Internal Medicine
DX: I50.9 Heart failure, unspecified (principal); I70.0 Atherosclerosis of aorta
CPT/HCPCS: 93306

== ENCOUNTER → 2021-12-22 09:01 | Day surgery (SDC) | payer MEDICAID, SELFPAY ==
[2021-12-22 09:46] VITALS: BP 143/61; PULSE 68; RESP 18; TEMP 36.2; O2SAT 99
== END ==
PROVIDERS: PCP Internal Medicine; Visit Provider Specialist
DX: G70.00 Myasthenia gravis without (acute) exacerbation (principal)
CPT/HCPCS: 96365; 96366; J1568

== ENCOUNTER → 2022-01-18 09:01 | Day surgery (SDC) | payer MEDICAID, SELFPAY ==
[2022-01-18 09:26] VITALS: BP 127/72; PULSE 73; RESP 18; TEMP 36.7; O2SAT 97
== END ==
PROVIDERS: PCP Internal Medicine; Visit Provider Specialist
DX: G70.00 Myasthenia gravis without (acute) exacerbation (principal)
CPT/HCPCS: 96365; 96366; J1568

== ENCOUNTER → 2022-02-15 08:53 | Day surgery (SDC) | payer MEDICAID, SELFPAY ==
[2022-02-15 10:06] VITALS: BP 144/66; PULSE 79; RESP 18; TEMP 36.5; O2SAT 96
== END ==
PROVIDERS: PCP Internal Medicine; Visit Provider Specialist
DX: G70.00 Myasthenia gravis without (acute) exacerbation (principal)
CPT/HCPCS: 96365; 96366; J1568

== ENCOUNTER → 2022-02-23 10:29 | Outpatient (BNVA) | payer MEDICAID, SELFPAY | PROVIDERS: PCP Internal Medicine; Visit Provider Specialist | DX: G70.00 Myasthenia gravis without (acute) exacerbation (principal); G40.309 Generalized idiopathic epilepsy and epileptic syndromes, not intractable, without status epilepticus; I50.20 Unspecified systolic (congestive) heart failure | CPT/HCPCS: 99214 ==

== ENCOUNTER 2022-02-24 09:44 | Outpatient (CLI) | payer MEDICAID, SELFPAY ==
[2022-02-24 09:48] VITALS: BMI 25.8
--- NOTE | 2022-02-24 09:53 | NMCV_ITS ---
NM reyes perf SPECT r/s* [id number] Mauricio Wilson Age: 86 Gender: M : 1935 Exam Date: 02/24/2022 11:04 Ordering Phys: Rory Epstein M.D ([email or web address]) Technologist: CASI Lopes Exam Location: [facility] Indications: CONGESTIVE HEART FAILURE STRESS TEST Please see separate stress test report [facility] for full findings IMAGE PROTOCOL Rest/Stress 1 Lexiscan Day Radiopharmaceutical Dose (mCi) Administration Site Administered by Rest: Tc-99m 11.0 IV CASI Rosales Sestamibi Stress:Tc-99m 32.2 IV CASI Bolaños Sestamibi Rest: 24-Feb-2022 60 Discovery 630 Stress: 24-Feb-2022 30 Discovery 630 0.4mg Lexiscan. Supine position only as patient was unable to lay prone. SPECT RESULTS Technical Quality: Excellent Raw Data Analysis: Normal Image Corrections: No attenuation or motion correction applied Summed Stress Score: 1 Summed Rest Score: 4 Summed Difference Score: 0 PERFUSION FINDINGS There is homogenous radiotracer uptake throughout the myocardium. No evidence of ischemia seen. FUNCTIONAL RESULTS (calculated via Gated SPECT) Stress Image LV EF (%): 44 Stress EDV (mL):124 TID: 0.8 Stress ESV (mL):69 FUNCTIONAL FINDINGS: LV systolic function is mildly reduced with EF of 44% IMPRESSIONS 1. Normal myocardial perfusion imaging with no evidence of ischemia 2. LV systolic function is mildly reduced Rory Epstein MD (Electronically Signed) Final Date: 24 February 2022 21:17 S
--- NOTE | 2022-02-24 09:53 | ECG_ITS ---
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 Interpretive Statements NAME OF STUDY: LEXISCAN SESTAMIBI STRESS TEST INDICATION: [Heart Failure, New Onset] Procedure: At the baseline, the blood pressure was 158/55 mmHg with a heart rate of 75 bpm. The electrocardiogram showed normal sinus rhythm, normal axis with normal ST and T's. The Lexiscan was infused over a period of 20 seconds. A total of 0.4 mg of Lexiscan was infused. The stress phase was continued for a total of 5 minutes. Heart rate was at the end of stress phase was 82 bpm and a blood pressure of 119/63 mmHg. The EKG at the peak infusion revealed since normal sinus rhythm with no significant ST-T wave changes.PVCs are noted Sestamibi was injected 20 seconds after the Lexiscan infusion. Blood pressure at the end of recovery phase was 105/54 mmHg with a heart rate of 76 bpm. Conclusion: 1. Normal EKG response to Lexiscan infusion 2. No Lexiscan induced chest pain or cardiac arrhythmia. 3. Normal blood pressure and heart rate response. 4. Sestamibi/sestamibi perfusion scan pending; see separate report. Electronically Signed On 03-05-2022 13:12:06 CDT by Rory Epstein M.D. [id number]
[2022-02-24] MEDS: regadenoson 0.4 Mg/5 ml Syringe IVP (12:04)
[2022-02-24 12:53] VITALS: BP 155/70; PULSE 69
== END 2022-02-24 09:45 | disposition home or self-care (01) ==
LOC: CDL 09:45
PROVIDERS: PCP Internal Medicine; Visit Provider Internal Medicine
DX: I50.9 Heart failure, unspecified (principal); R06.02 Shortness of breath
CPT/HCPCS: 78452; 93017; A9500; J2785

== ENCOUNTER → 2022-03-15 08:57 | Day surgery (SDC) | payer MEDICAID, SELFPAY ==
[2022-03-15 09:23] VITALS: BP 136/67; PULSE 69; RESP 18; TEMP 36.4; O2SAT 100
== END ==
PROVIDERS: PCP Internal Medicine; Visit Provider Specialist
DX: G70.00 Myasthenia gravis without (acute) exacerbation (principal)
CPT/HCPCS: 96365; 96366; J1568

== ENCOUNTER → 2022-03-23 09:31 | Outpatient (BNVA) | payer MEDICAID, SELFPAY | PROVIDERS: PCP Internal Medicine; Visit Provider Internal Medicine Pulmonary Disease | DX: J44.9 Chronic obstructive pulmonary disease, unspecified (principal); R29.90 Unspecified symptoms and signs involving the nervous system; G70.00 Myasthenia gravis without (acute) exacerbation; G40.309 Generalized idiopathic epilepsy and epileptic syndromes, not intractable, without status epilepticus; R06.00 Dyspnea, unspecified; Z87.891 Personal history of nicotine dependence; Z86.16 Personal history of COVID-19 | CPT/HCPCS: 99214 ==

== ENCOUNTER → 2022-04-12 08:50 | Day surgery (SDC) | payer MEDICAID, SELFPAY ==
[2022-04-12 09:21] VITALS: BP 145/59; PULSE 72; RESP 18; TEMP 36.6; O2SAT 99
== END ==
PROVIDERS: PCP Internal Medicine; Visit Provider Specialist
DX: G70.00 Myasthenia gravis without (acute) exacerbation (principal)
CPT/HCPCS: 96365; 96366; J1568

== ENCOUNTER → 2022-05-23 10:08 | Outpatient (BNVA) | payer MEDICAID, SELFPAY | PROVIDERS: PCP Internal Medicine; Visit Provider Internal Medicine Pulmonary Disease | DX: J44.9 Chronic obstructive pulmonary disease, unspecified (principal); R29.90 Unspecified symptoms and signs involving the nervous system; G70.00 Myasthenia gravis without (acute) exacerbation; G40.309 Generalized idiopathic epilepsy and epileptic syndromes, not intractable, without status epilepticus; R06.00 Dyspnea, unspecified; Z87.891 Personal history of nicotine dependence | CPT/HCPCS: 99214 ==

== ENCOUNTER 2022-06-14 11:07 | Outpatient (CLI) | payer MEDICAID, SELFPAY ==
--- NOTE | 2022-06-14 11:33 | PFTS_ITS ---
Date of Study:06/14/22 Date of Dictation: MECHANICS: Forced vital capacity (FVC) is reduced. Forced expiratory volume in one second (FEV1) is reduced. FEV1/FVC is reduced. FLOW VOLUME LOOP: Reduced lateral lung volumes with scooping. LUNG VOLUMES: Total lung capacity (TLC) is normal. Residual volume (RV) is normal. DIFFUSING CAPACITY FOR CARBON MONOXIDE: Mild reduced. INTERPRETATION: The postbronchodilator spirometry is consistent with moderate airflow obstruction. There is no significant postbronchodilator response. Lung volumes are normal. Gas exchange (DLCO) is mildly reduced. MTDD
== END 2022-06-14 11:08 | disposition home or self-care (01) ==
PROVIDERS: PCP Internal Medicine; Visit Provider Internal Medicine Pulmonary Disease
DX: J44.9 Chronic obstructive pulmonary disease, unspecified (principal)
CPT/HCPCS: 94060; 94618; 94726; 94729

== ENCOUNTER → 2022-06-16 09:53 | Outpatient (BNVA) | payer MEDICAID, SELFPAY | PROVIDERS: PCP Internal Medicine; Visit Provider Specialist | DX: G70.00 Myasthenia gravis without (acute) exacerbation (principal); G40.309 Generalized idiopathic epilepsy and epileptic syndromes, not intractable, without status epilepticus; M79.7 Fibromyalgia; Z79.52 Long term (current) use of systemic steroids | CPT/HCPCS: 20550; 20552; 99213; 99214; J1030; J3490 ==

== ENCOUNTER → 2022-07-11 13:37 | Outpatient (BNVA) | payer MEDICAID, SELFPAY | PROVIDERS: PCP Internal Medicine; Visit Provider Internal Medicine | DX: I50.22 Chronic systolic (congestive) heart failure (principal); R06.00 Dyspnea, unspecified; Z87.891 Personal history of nicotine dependence; J44.9 Chronic obstructive pulmonary disease, unspecified; I48.0 Paroxysmal atrial fibrillation; Z79.01 Long term (current) use of anticoagulants | CPT/HCPCS: 99214 ==

== ENCOUNTER → 2022-08-25 15:09 | Outpatient (BNVA) | payer MEDICAID, SELFPAY | PROVIDERS: PCP Internal Medicine; Referring Provider Internal Medicine; Visit Provider Orthopaedic Surgery | DX: M48.56XA Collapsed vertebra, not elsewhere classified, lumbar region, initial encounter for fracture (principal); M48.54XA Collapsed vertebra, not elsewhere classified, thoracic region, initial encounter for fracture | CPT/HCPCS: 99204 ==

== ENCOUNTER 2022-08-29 13:05 | Outpatient (CLI) | payer MEDICAID, SELFPAY ==
--- NOTE | 2022-08-29 13:14 | MR_ITS ---
WS: [id number] MRI LUMBAR SPINE NONCONTRAST HISTORY: Chronic back pain. Prior history of surgery. COMPARISON: None available. TECHNIQUE: Sagittal and axial multisequence imaging is submitted. Increase in thoracic kyphosis. Please see thoracic spine MRI performed on the same day. Straightening of the normal lumbar lordosis. L3 anterolisthesis by 3 mm. Mild anterior wedging of L1 with marrow edema and fracture noted along the inferior endplate. Additional very minimal marrow doc a in the L4 and L5 vertebral bodies. Loss of height involving all lumbar vertebral bodies. Disc spaces are narrowed and desiccated, most significant at L5-S1. Conus terminates normally at L1-2 disc level. L1-L2: Mild disc bulging and facet arthritis. L2-L3: Mild annular disc bulging and osteophytic ridging. L3-L4: Mild annular disc bulging. Large posterior laminectomy defect. No significant stenosis. L4-L5: Diffuse annular disc bulging and osteophytic ridging. Large posterior laminectomy defect. Mild RIGHT foraminal stenosis due to osteophyte and disc disease. L5-S1: Mild disc bulging with a large posterior laminectomy defect. Moderate facet joint arthritis. M ild bilateral foraminal stenosis. MR/MR lumbar spine wo con* [id number] IMPRESSION: 1. Large posterior laminectomy defects from L3 to L5. 2. Mild bilateral foraminal stenosis L5-S1 on the RIGHT at L4-5. 3. New compression fracture of L1 without retropulsion. Very minimal increased T2 signal in the L4 and L5 vertebral bodies probably due to subacute fractures . No retropulsion.
--- NOTE | 2022-08-29 13:45 | MR_ITS ---
WS: [id number] MRI THORACIC SPINE noncontrast HISTORY: Chronic back pain. COMPARISON: None available. TECHNIQUE: Multiplanar sequences are performed in sagittal and axial planes. Increase in thoracic kyphosis. Multiple compression fractures are identified. There is a very small a mount of increased T2 and STIR sequences in the superior endplates of T9 and T10. Slightly greater in creased signal within the T11 vertebral body. No retropulsion. T2 bright lobulated mass in the soft t issues posterior to the T4-5 thoracic spine. Disc spaces throughout the thoracic spine are narrowed. Mild LEFT curvature thoracic spine. T1-2: Normal. T2-3: Mild LEFT facet arthritis. T3-4: Normal. T4-5: Mild foraminal narrowing due to facet arthritis. T5-6: Normal. T6-7: Normal. T7-8: Mild foraminal narrowing. T8-9: Mild osteophytic ridging and disc bulging. Mild encroachment upon the ventral thecal sac and f oraminal stenosis. T9-10: Moderate facet joint arthritis and foraminal narrowing. T10-11: Mild facet joint arthritis. T11-12: Facet joint arthritis. Paravertebral soft tissues are negative. MR/MR thoracic spin wo con* [id number] IMPRESSION: 1. Minimal acute appearing compression fractures along the superior endplates of T9 and T10 and slightly greater involvement of the superior endplate of T11. No retropulsion. 2. Multilevel facet joint arthritis and foraminal narrowing as above. No high- grade stenosis. Most significant stenosis at T8-9 due to disc and osteophyte di sease.
== END 2022-08-29 13:06 | disposition home or self-care (01) ==
LOC: RAD 13:06
PROVIDERS: PCP Internal Medicine; Visit Provider Orthopaedic Surgery
DX: M48.54XA Collapsed vertebra, not elsewhere classified, thoracic region, initial encounter for fracture (principal); M48.04 Spinal stenosis, thoracic region; M48.07 Spinal stenosis, lumbosacral region; M54.6 Pain in thoracic spine
CPT/HCPCS: 72146; 72148

== ENCOUNTER → 2022-08-30 08:46 | Outpatient (BNVA) | payer MEDICAID, SELFPAY | PROVIDERS: PCP Internal Medicine; Visit Provider Orthopaedic Surgery | DX: M48.54XA Collapsed vertebra, not elsewhere classified, thoracic region, initial encounter for fracture (principal); M48.56XA Collapsed vertebra, not elsewhere classified, lumbar region, initial encounter for fracture | CPT/HCPCS: 99214 ==

== ENCOUNTER 2022-09-05 05:42 | Day surgery (SDC) | payer MEDICAID, SELFPAY ==
[2022-09-01 13:36] VITALS: BMI 25.8
--- NOTE | 2022-09-01 13:53 | ECG_ITS ---
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 Measurements Intervals [place] Rate: 76 P: 49 FL: 192 QRS: -14 QRSD: 132 T: -14 QT: 382 QTc: 430 Interpretive Statements SINUS RHYTHM WITH SINUS ARRHYTHMIA INDETERMINATE AXIS RIGHT BUNDLE BRANCH BLOCK [120+ ms QRS DURATION, UPRIGHT V1, 40+ ms S IN I/aVL/V4/V5/V6] Compared to ECG 11/04/2021 14:01:42 Atrial fibrillation no longer present Aberrant conduction of supraventricular beat(s) no longer present Ventricular premature complex(es) no longer present Electronically Signed On 09-01-2022 17:11:02 CDT by Antonia Myers M.D. [id number]
[2022-09-01 14:19] LABS: Anion Gap 14.6 (5-19); Blood Urea Nitrogen 25 mg/dL (8-23); Calcium 8.5 mg/dL (8.5-10.5); Carbon Dioxide 28 mmol/L (22-29); Chloride 93 mmol/L (98-107); Glucose 144 mg/dL (65-115); Osmolality Calculated 279 mOsm/kg (285-295); Potassium 4.6 mmol/L (3.5-5.1); Sodium 131 mmol/L (136-145)
--- NOTE | 2022-09-01 15:51 | ANES.PREANE2 ---
Pre-Anesthetic Assessment Height/Weight: Height 1.78 m Weight 81.647 kg Operation Date: 09/05/22 07:00 Proposed Procedures p Kyphoplasty L4 L5 32765(Bilateral) - Lee Marie DO Familial anesthetic complications: none Was Beta Herber taken within 24 hours: N/A Was Clonidine taken within 24 hours: N/A Social No alcohol and No tobacco Exam alert, oriented x 3, clear to auscultation bilaterally and regular rate & rhythm Airway Submandibular: within normal limits Cervical ROM: within normal limits Mallampati: Class II Dentition: false Pulmonary Chronic Obstructive Pulmonary Disease CV/HEM Congestive Heart Failure (EF 30%), Hypertension and Murmur CONCLUSIONS ?1-Mildly increased left ventricular cavity size. Severely ?decreased left ventricular systolic function. Global left ?ventricular hypokinesis. Left ventricular ejection fraction is ?estimated at 35 %. Grade I/IV diastolic dysfunction (abnormal ?relaxation filling pattern), normal to mildly elevated filling ?pressures. ?2-Severe aortic valve calcification.? Mild restriction of the ?leaflet noted. ?4-There is no pericardial effusion. ?5-Right atrial pressure is around 5 mm of mercury. ?6-No significant change since the prior echocardiogram study of ?11/05/2021. ?Anabel Cortez MD ?(Electronically Signed) ?Final Date:? ? ? 16 December 2021 Metabolic chronic steroids Neuropsych Seizure Myasthenia Gravis Anesthetic Plan ASA status: 3 Anesthesia: General Medications/Allergies Home Medications Medication Instructions Recorded Confirmed Last Taken Type cholecalciferol (vitamin D3) 50 2,000 unit PO DAILY@0800 09/03/20 09/01/22 04/12/22 History mcg (2,000 unit) capsule (Vitamin D3) acetaminophen 500 mg tablet 1,000 mg PO Q4H PRN Pain 11/04/21 09/01/22 04/12/22 History albuterol sulfate 90 mcg/actuation 1 inh inhalation QID PRN Shortness 11/04/21 09/01/22 04/12/22 History breath activated powder inhaler Of Breath aspirin 81 mg tablet,delayed 81 mg PO DAILY #30 tabs 11/07/21 09/01/22 08/30/22 Rx release levetiracetam 1,000 mg tablet 500 mg PO BID@0800,1999 #180 tabs 11/08/21 08/30/22 04/12/22 Rx (Keppra) apixaban 5 mg tablet (Eliquis) 5 mg PO BID@0900,2100 #180 tabs 03/07/22 09/01/22 04/12/22 Rx furosemide 40 mg tablet 40 mg PO BID@08,16 #180 tabs 03/07/22 09/01/22 04/12/22 Rx metoprolol tartrate 25 mg tablet 25 mg PO BID@0900,2100 #180 tabs 03/07/22 09/01/22 04/12/22 Rx budesonide-formoterol HFA 160 2 puff inhalation BID #10.2 grams 03/23/22 09/01/22 04/12/22 Rx mcg-4.5 mcg/actuation aerosol inhaler (Symbicort) ropinirole 4 mg tablet 4 mg .Route .COMPLEX #90 tabs 07/05/22 09/01/22 Unknown Rx sacubitril 49 mg-valsartan 51 mg 1 tab PO BID #180 tabs 07/11/22 09/01/22 Unknown Rx tablet (Entresto) prednisone 20 mg tablet 20 mg PO DAILY #15 tabs 08/25/22 09/01/22 Unknown Rx pyridostigmine bromide 60 mg 60 mg PO TID@, #90 tabs 08/30/22 09/01/22 Unknown Rx tablet (Mestinon) mycophenolate mofetil 500 mg tablet 1,000 mg PO BID 09/01/22 09/01/22 Unknown History Allergies Allergy/AdvReac Type Severity Reaction Status Date / Time No Known Allergies Allergy Verified 08/30/22 09:00 FOR[facility], [facility] Anesthesia Medical History Asthma-COPD overlap syndrome COVID-19 (~11/2020) Generalized epilepsy GI bleed when hospitalized with covid Heart failure History of lung abscess Describes having had an abscess in his lung that required surgical removal many years ago Myasthenia gravis Systolic CHF with reduced left ventricular function, NYHA class 2 Surgical History History of back surgery x2 History of cataract surgery Bilateral History of esophagogastroduodenoscopy (EGD) History of surgery Describes a remote surgical procedure in which he had something done around his esophagus and his liver that may have involved around a concern for biliary duct malignancy possibility Family History Other CAD (coronary artery disease) Diabetes Social History Smoking and tobacco status: former smoker Quit status (tobacco): has quit using tobacco Year quit tobacco: 1979 Former quit date comment: 2ppd x 15 years then 4-5 cigars/day x 25 years Alcohol intake: former History of recent travel: No Data Anesthesia : 09/01/22 13:45 BMP 09/01/22 13:45 Sodium 131 L Potassium 4.6 Chloride 93 L Carbon Dioxide 28 BUN 25 H Creatinine 1.0 Glucose 144 H Calcium 8.5 Cardiac Studies: Echocardiogram 12/16/21 Echocardiogram Ultrasound 09/04/20 Sestamibi Stress Test (Cardiology) 02/24/22
[2022-09-05] VITALS (8 sets, daily range): BP systolic 83–137; BP diastolic 49–68; PULSE 76–109; RESP 14–114; TEMP 36.4–36.7; O2SAT 93–100
--- NOTE | 2022-09-05 | SCC_ITS ---
Procedure: 1. Kyphoplasty L4 2. Kyphoplasty L5 236 seconds of fluoroscopic guidance, for a cumulative dose of 57.4 mGy and 71.4 mGy, was provided to Dr. Marie by the radiology department. C-arm images of the lumbar spine were saved for the patient's permanent record. [facility]
[2022-09-05] MEDS: sodium chloride 0.9% 1,000 ML 30 ML IV (06:30)
--- NOTE | 2022-09-05 06:31 | P.ANESUD_ITS ---
Pre-Anesthetic Update Pre-Anesthetic Assessment: Date of Surgery/Procedure: 09/05/22 Preop Rebecca gnosis: Lumbar 4 and lumbar 5 compression fractures Proposed Procedure: Operation Date: 09/05/22 07:00 Proposed Procedures p Kyphoplasty L4 L5 65875(Bilateral) - Lee Marie, DO Any changes to Pre-Anesthetic Assessment?: No Last Intake: Intake Last Liquid Date 09/04/22 Last Liquid Time 19:00 Last Solid Date 09/04/22 Last Solid Time 19:00 Vitals: Temperature 98.1 F 09/05/22 06:05 Temperature Source Temporal Artery S can 09/05/22 06:05 Pulse Rate 90 09/05/22 06:05 Respiratory Rate 20 H 09/05/22 06:05 Blood Pressure 122/54 09/05/22 06:05 Blood Pressure Misty n 76 09/05/22 06:05 Pulse Oximetry 94 09/05/22 06:05 Oxygen Delivery Me thod 09/05/22 06:14 Exam: Pre-Anes Outpt Exam: alert, oriented x 3, clear to auscultation bilaterally and regular rate & rhythm Additional Exam Findings (including area of procedure): coarse breath sounds b/l Cardiac Studies: Echocardiogram 12/16/21 Echocardiogram Ultrasound 09/04/20 Sestamibi Stress Test (Cardiology) 02/24
--- NOTE | 2022-09-05 06:35 | W.PM.OPSUD ---
Surgery/Procedure H&P Update DATE OF PROCEDURE: September 05, 2022 DATE H&P PERFORMED: 08/30/22 H&P UPDATE INFORMATION: I have reviewed H&P completed within last 30 days, I have examined patient prior to procedure and No changes to prior documentation PREOP DIAGNOSIS: Lumbar 4 and lumbar 5 compression fractures PLANNED PROCEDURE: Operation Date: 09/05/22 07:00 Proposed Procedures p Kyphoplasty L4 L5 36215(Bilateral) - Lee Marie DO
[2022-09-05] MEDS: ceFAZolin 2,000 MG in sodium chloride 0.9% (plus) 50 ML 100 MG IV (07:03)
[2022-09-05] MEDS: iohexol 300 mg/mL 50 mL Btl (OR ONLY) XX (08:00)
--- NOTE | 2022-09-05 08:37 | PM.OP ---
Operative Report Date of procedure: September 05, 2022 Pre-op diagnosis: Preop Diagnosis 1. 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 Kyphoplasty L4 2. Kyphoplasty L5 Surgeon: Lee Marie Guidance And Control System Engineer: Jose Otero Estimated blood loss (mL): 5 Procedure: 1. Kyphoplasty L4 2. Kyphoplasty L5 Patient is brought to the operative suite after being placed in the prone position all areas impingement well-padded. Patient is prepped and draped normal sterile fashion. Biplanar fluoroscopy was brought in in order to get AP and lateral fluoroscopy. The skin incision is made over the L4 pedicle on both the left and right side. The gouge was inserted the drill was inserted and then the balloon was inserted. This was also done on the right side. Then the cement was inserted. This is washed under AP and lateral fluoroscopy. Next attention was brought to the L5 level. The again because of the angle like it actually is a same incision and the starting drill was inserted on the superior lateral corner of the pedicle and driven into the pedicle into the vertebral body and the drill was brought and then the balloon then the cement as was done on L4. AP lateral fluoroscopy ensured that the cement was in appropriate position. Wounds were irrigated and the wounds were closed with suture and sterile dressings were applied and patient was transferred to the PACU in stable condition
--- NOTE | 2022-09-05 08:38 | SUR.PHASEI ---
0825 PT TO PACU 4 PT AWAKES TO VOICE BUT DOES NOT FOLLOW COMMANDS, MONIOTR SR NO ECTOPY NOTED IV TO RT AC #20 WITH NS 300ML NS UP AT KVO RATE PER GRAVITY, ID BRACELET TO LT WRIST, PT ID'D WITH 2 IDENTIFIERS, WARM BLANKET TO PT. BILAT SCDS ON DRESSING TO BACK X 1 D/I . 0835 PT MORE ALERT , VERY [place], PT MOVES BILAT FEET TO COMMAND, MONITOR UNCHANGED PT ON RA TRIAL, PT DENIES PAIN AND NAUSEA AT THIS TIME, PT ORIENTED X3.
[2022-09-05] MEDS: HYDROcodone-acetaminophen 5-325 mg Tablet 1 TAB PO (09:32)
--- NOTE | 2022-09-05 13:21 | ANE.PACU2 ---
Inpatient post-anesthesia follow up: Airway intact: Yes Vital signs: Temperature 97.6 F Pulse Rate 78 Respiratory Rate 18 Blood Pressure 128/68 Pulse Oximetry 96 Oxygen Delivery Me thod Room Air Oxygen Flow Rate 8 Fraction of Inspir ed Oxygen Hydration adequate: Yes Nausea and vomiting: No Pain level: 1 Mental status: Baseline
== END 2022-09-05 10:25 | disposition home or self-care (01) ==
PROVIDERS: Anesthesiology; PCP Internal Medicine; Visit Provider Orthopaedic Surgery
PROC: (CPT 63047; principal; 2022-09-05 07:00)
DX: S32.040A Wedge compression fracture of fourth lumbar vertebra, initial encounter for closed fracture (principal); S32.050A Wedge compression fracture of fifth lumbar vertebra, initial encounter for closed fracture; X58.XXXA Exposure to other specified factors, initial encounter; J44.9 Chronic obstructive pulmonary disease, unspecified; I11.0 Hypertensive heart disease with heart failure; I50.20 Unspecified systolic (congestive) heart failure; Z79.52 Long term (current) use of systemic steroids; Z79.82 Long term (current) use of aspirin; Z86.16 Personal history of COVID-19; Z87.891 Personal history of nicotine dependence
CPT/HCPCS: 63047; 63048; 76000; 80048; 93005; J1100; J2370; J2405; J2704; J2710; J3010; J3490; J7030

== ENCOUNTER → 2022-09-20 10:38 | Outpatient (BNVA) | payer MEDICAID, SELFPAY | PROVIDERS: PCP Internal Medicine; Visit Provider Orthopaedic Surgery | DX: Z47.89 Encounter for other orthopedic aftercare (principal) | CPT/HCPCS: 99212; 99213 ==

== ENCOUNTER → 2022-09-22 10:55 | Outpatient (BNVA) | payer MEDICAID, SELFPAY | PROVIDERS: PCP Internal Medicine; Visit Provider Internal Medicine Pulmonary Disease | DX: J44.9 Chronic obstructive pulmonary disease, unspecified (principal); R06.00 Dyspnea, unspecified; J45.909 Unspecified asthma, uncomplicated; Z87.891 Personal history of nicotine dependence; G70.00 Myasthenia gravis without (acute) exacerbation; Z86.16 Personal history of COVID-19; I50.9 Heart failure, unspecified | CPT/HCPCS: 80053; 83735; 85025; 99214 ==

== ENCOUNTER 2022-10-04 11:09 | Inpatient (IN) | payer MEDICARE, MEDICAID, SELFPAY ==
[2022-10-04] VITALS (31 sets, daily range): BP systolic 101–138; BP diastolic 51–72; PULSE 74–110; RESP 15–34; TEMP 36.5–37.1; O2SAT 83–100
--- NOTE | 2022-10-04 11:21 | W.ED.EXTPRO ---
HPI - Extremity Problem General: Chief complaint: Extremity Problem,Nontraumatic Stated complaint: legs swelling Time Seen by Provider: 10/04/22 11:21 History of Present Illness: Mr. Wilson is an 87-year-old gentleman with significant past medical history of systolic heart failure, cardiomyopathy, myasthenia gravis, COPD, intermittent atrial fibrillation presenting to the emergency department with lower extremity concerns. He reports longstanding history of bilateral lower extremity swelling associated with his heart disease. Over the past month this has become more painful and he has noticed near constant weeping to the point that it soaks and socks and shoes. He has been on medications including recent increase in Lasix without significant relief. Due to a history of restless leg syndrome he is unable to significantly elevate his feet. He has not tried compression wraps. Overall intensity symptoms is moderate to severe. Course has worsened. No other specific changes in health, exacerbating, or alleviating factors identified. Onset (ago): month(s) Pain Consistency: constant Location: lower extremity (Bilateral) Associated symptoms: Reports other Review of Systems General: Reports: 10 or more systems reviewed and unremarkable except in HPI and below PFSH ED PFSH: Medical History Asthma-COPD overlap syndrome COVID-19 (~11/2020) Generalized epilepsy GI bleed when hospitalized with covid Heart failure History of lung abscess Describes having had an abscess in his lung that required surgical removal many years ago Myasthenia gravis Systolic CHF with reduced left ventricular function, NYHA class 2 Surgical History History of back surgery x2 History of cataract surgery Bilateral History of esophagogastroduodenoscopy (EGD) History of surgery Describes a remote surgical procedure in which he had something done around his esophagus and his liver that may have involved around a concern for biliary duct malignancy possibility Family History Other CAD (coronary artery disease) Diabetes Social History Smoking and tobacco status: former smoker Quit status (tobacco): has quit using tobacco Year quit tobacco: 1979 Former quit date comment: 2ppd x 15 years then 4-5 cigars/day x 25 years Alcohol intake: former History of recent travel: No Physical Exam Const: COMMON NORMALS: alert GENERAL APPEARANCE: cooperative and well developed HENMT: COMMON NORMALS: normocephalic and atraumatic HEAD & SCALP: normocephalic and atraumatic THROAT: posterior oropharynx normal Eye: COMMON NORMALS: conjunctivae normal CONJUNCTIVA: Yes conjunctivae normal SCLERA: sclerae normal Neck/C-Spine: COMMON NORMALS: supple GENERAL: Yes trachea midline Resp: EFFORT & INSPECTION: Yes able to speak in complete sentences AUSCULTATION: diminished lung sounds Cardio: COMMON NORMALS: regular rate and regular rhythm RATE: regular rate RHYTHM: regular rhythm GI: COMMON NORMALS: Soft to palpation PALPATION: Yes Soft to palpation and No Tenderness to palpation present (GI) Extremity: GENERAL: Yes normal exam except as noted and Yes edema (3+ pitting edema bilateral lower extremities, soft, weeping) Neuro: COMMON NORMALS: moves all extremities SENSORIUM/ORIENTATION: Yes alert and No Orientation impaired Psych: COMMON NORMALS: mental status grossly normal and Normal thought process present THOUGHT PROCESS: Normal thought process present Course Vital Signs: Vital signs: Vital Signs Temperature 98.6 F 10/06/22 15:14 Pulse Rate 88 10/06/22 16:00 Respiratory Rate 18 10/06/22 15:14 Blood Pressure 113/56 10/06/22 15:14 Pulse Oximetry 96 10/06/22 15:14 Oxygen Delivery Me thod 10/06/22 11:51 MDM - Extremity (Nontraumatic) Medical Decision Making 87-year-old gentleman presenting with leg swelling. Patient has significant evidence of lower extremity volume overload. Previous outpatient management appears to have failed. EKG with nonspecific ST segment abnormalities, right bundle branch block, no STEMI. Labs notable for leukocytosis, normocytic anemia without clear source of bleeding. Metabolic panel with ELENO and elevated lactic acid. 2-hour delta troponin is negative. Patient provided informed consent for blood transfusion and transfusion ordered. Chest x-ray with no lobar consolidation or pneumothorax. No evidence of DVT. Analgesia, Lasix ordered. Most likely etiology of patient's symptoms is heart failure exacerbation with significant peripheral edema and anemia of uncertain etiology meeting transfusion criteria. The results of ED evaluation were discussed with the patient including plan for admission due to requirement for level of care not available if discharged to prevent significant worsening/deterioration. Patient agreeable with plan. Discussed with hospitalist service who was agreeable to admit patient. Medical Records I reviewed the patient's medical records. Lab Data I reviewed the patient's lab results. : 10/06/22 05:06 10/06/22 05:06 Radiology Impressions Chest X-Ray 10/04/22 11:36 IMPRESSION: 1. No acute findings. 2. Low lung volumes seen. 3. Elevated left hemidiaphragm Laboratory Results WBC 20.6 10^3/uL (4.0-10.0) H 10/04/22 12:05 RBC 2.72 10^6/uL (4.1-5.3) L 10/04/22 12:05 Hgb 6.7 g/dL (11.7-16.6) L 10/04/22 12:05 Hct 25.5 % (42.0-52.0) L 10/04/22 12:05 MCV 93.8 fl (80-94) 10/04/22 12:05 MCH 24.6 pg (28.0-34.0) L 10/04/22 12:05 MCHC 26.3 g/dL (30.0-36.0) L 10/04/22 12:05 RDW 17.2 % (12.1-15.1) H 10/04/22 12:05 Plt Count 391 10^3/cmm (130-400) 10/04/22 12:05 MPV 9.8 fL (7.4-10.4) 10/04/22 12:05 Neut % (Auto) 88.7 % 10/04/22 12:05 Lymph % (Auto) 3.0 % 10/04/22 12:05 Hanson % (Auto) 3.7 % 10/04/22 12:05 Eos % (Auto) 0.0 % 10/04/22 12:05 Baso % (Auto) 0.3 % 10/04/22 12:05 Neut # (Auto) 18.26 10^3/uL (1.8-7.7) H 10/04/22 12:05 Lymph # (Auto) 0.6 10^3/uL (0.8-4.8) L 10/04/22 12:05 Hanson # (Auto) 0.8 10^3/uL (0.2-0.9) 10/04/22 12:05 Eos # (Auto) 0.0 10^3/uL (0.0-0.8) 10/04/22 12:05 Baso # (Auto) 0.1 10^3/uL (0.0-0.1) 10/04/22 12:05 Nucleated RBC % (auto) 0.1 % 10/04/22 12:05 Nucleated RBCs # 0.0 /100WBC 10/04/22 12:05 Sodium 134 mmol/L (136-145) L 10/04/22 12:05 Potassium 4.6 mmol/L (3.5-5.1) 10/04/22 12:05 Chloride 96 mmol/L (98-107) L 10/04/22 12:05 Carbon Dioxide 23 mmol/L (22-29) 10/04/22 12:05 Anion Gap 19.6 (5-19) H 10/04/22 12:05 BUN 51 mg/dL (8-23) H 10/04/22 12:05 Creatinine 1.5 mg/dL (0.7-1.2) H 10/04/22 12:05 GFR Calculation Not Reportable 10/04/22 12:05 Glucose 145 mg/dL (65-115) H 10/04/22 12:05 Calculated Osmolality 294 mOsm/kg (285-295) 10/04/22 12:05 Lactic Acid 3.2 mmol/L (0.5-2.2) H 10/04/22 13:40 Calcium 9.2 mg/dL (8.5-10.5) 10/04/22 12:05 Iron 44 ug/dL (59-158) L 10/04/22 12:05 TIBC 277 mcg/dl 10/04/22 12:05 % Saturation 15.8 % (20-50) L 10/04/22 12:05 Unsat Iron Binding 233 ug/dL (112-347) 10/04/22 12:05 Ferritin 36 ng/mL (30-400) 10/04/22 12:05 Total Bilirubin 0.2 mg/dL (0.15-1.2) 10/04/22 12:05 AST 14 U/L (0-40) 10/04/22 12:05 ALT 10 U/L (0-41) 10/04/22 12:05 Alkaline Phosphatase 113 U/L (40-130) 10/04/22 12:05 Troponin T Baseline 36 ng/L (0-15) H 10/04/22 12:05 Troponin T 120 Minute 36.79 ng/L (0-15) H 10/04/22 13:40 Delta Troponin T 0.79 ABS# (0-10) 10/04/22 13:40 NT-Pro-B Natriuret Pep 382 pg/mL (0-450) 10/04/22 12:05 Total Protein 6.1 g/dL (6.6-8.7) L 10/04/22 12:05 Albumin 3.3 g/dL (3.5-5.2) L 10/04/22 12:05 Globulin 2.8 g/dL (1.3-4.6) 10/04/22 12:05 Procalcitonin 0.14 ng/mL (0-0.5) 10/04/22 12:05 Blood Type A Negative 10/04/22 13:40 Rho(D) Type Negative 10/04/22 13:40 Antibody Screen Negative 10/04/22 13:40 Crossmatch See Detail 10/04/22 13:40 Discharge Plan Discharge Patient Disposition: Admitted As Inpatient Admit Provider: Suzie Ortiz Clinical Impression: Cardiomyopathy, Lower extremity edema, Anemia Condition: Stable Discharge Diet: Cardiac Discharge Activity: Increase activity as tolerated Coding Level of Care Code ED Director Television News for Alessio Fwd Exam Comprehensive
--- NOTE | 2022-10-04 11:36 | ECG_ITS ---
[facility] Test Date: 2022-10-04 Pat Name: Mauricio Wilson Department: Room: Gender: Male Tugboat Engineer: : 1935 Requested By: Epifanio Escobedo Order Number: [id number] Jhonny MD: Aniyah Elaine M.D. Measurements Intervals [place] Rate: 78 P: 58 ND: 194 QRS: -8 QRSD: 84 T: 33 QT: 369 QTc: 422 Interpretive Statements SINUS RHYTHM LOW QRS VOLTAGE [QRS DEFLECTION < 0.5/1.0 mV IN LIMB/CHEST LEADS] RIGHT BUNDLE BRANCH BLOCK pattern Compared to ECG 09/01/2022 13:53:41 Low QRS voltage now present ST (T wave) deviation now present Sinus arrhythmia no longer present Indeterminate axis no longer present Right bundle-branch block no longer present Electronically Signed On 10-04-2022 21:00:26 COLOR REPAIRER by Aniyah Elaine M.D. [id number]
--- NOTE | 2022-10-04 11:36 | XRR_ITS ---
PROCEDURE INFORMATION: Exam: XR Chest Exam date and time: 10/04/2022 1:21 PM Age: 87 years old Clinical indication: Other: Fluid overload TECHNIQUE: Imaging protocol: Radiologic exam of the chest. Views: 1 view. COMPARISON: CR XR chest 1V portable [id number] 11/04/2021 10:50 AM FINDINGS: Lungs: Volume loss is seen in the lungs.. No consolidation. Pleural spaces: Elevation of the left hemidiaphragm is seen. No pleural effusion. No pneumothorax. Heart/Mediastinum: Unremarkable. No cardiomegaly. Bones/joints: Unremarkable. Other findings: Comparison to prior examination similar findings seen XR/XR chest 1V portable [id number] IMPRESSION: 1. No acute findings. 2. Low lung volumes seen. 3. Elevated left hemidiaphragm
--- NOTE | 2022-10-04 11:57 | USCV_ITS ---
Mauricio Wilson Age: 87 Gender: M : 1935 Exam Date: 10/04/2022 12:08 Ordering Phys: Epifanio Escobedo MD Technologist: CT Exam Location: [facility] [place]_ Indication: swelling PROCEDURES: Venous duplex imaging was performed in bilateral lower extremities. Bilaterally, the common femoral, superficial femoral, profunda femoral, popliteal, posterior tibial, greater saphenous veins, and the peroneal trunk were identified and interrogated in the standard fashion. These veins were found to be easily compressible with spontaneous blood flow. No evidence of insufficiency or thrombus noted. In addition, the posterior tibial veins were evaluated. FINDINGS: normal us CONCLUSIONS No evidence of right lower extremity DVT. No evidence of left lower extremity DVT. Jesse Friedman MD (Electronically Signed) Final Date: 04 October 2022 16:05 S
[2022-10-04 12:15] LABS: Basophils # 0.1 10^3/uL (0.0-0.1); Basophils % 0.3 %; Hematocrit 25.5 % (42.0-52.0); Hemoglobin 6.7 g/dL (11.7-16.6); Lymphocytes # 0.6 10^3/uL (0.8-4.8); Mean Corpuscular HGB Conc 26.3 g/dL (30.0-36.0); Mean Corpuscular Hemoglobin 24.6 pg (28.0-34.0); Mean Corpuscular Volume 93.8 fl (80-94); Mean Platelet Volume 9.8 fL (7.4-10.4); Monocytes # 0.8 10^3/uL (0.2-0.9); Monocytes % 3.7 %; Neutrophils # 18.26 10^3/uL (1.8-7.7); Neutrophils % 88.7 %; Nucleated Red Blood Cells % 0.1 %; Platelet Count 391 10^3/cmm (130-400); Red Blood Count 2.72 10^6/uL (4.1-5.3); Red Cell Distribution Width 17.2 % (12.1-15.1); White Blood Count 20.6 10^3/uL (4.0-10.0)
[2022-10-04 12:37] LABS: Troponin(5th) Baseline 36 ng/L (0-15)
[2022-10-04 12:42] LABS: Alanine Aminotransferase 10 U/L (0-41); Albumin Level 3.3 g/dL (3.5-5.2); Alkaline Phosphatase 113 U/L (40-130); Anion Gap 19.6 (5-19); Aspartate Amino Transferase 14 U/L (0-40); Blood Urea Nitrogen 51 mg/dL (8-23); Calcium 9.2 mg/dL (8.5-10.5); Carbon Dioxide 23 mmol/L (22-29); Chloride 96 mmol/L (98-107); Globulin 2.8 g/dL (1.3-4.6); Glucose 145 mg/dL (65-115); NT Pro B Type Natriuretic Pept 382 pg/mL (0-450); Osmolality Calculated 294 mOsm/kg (285-295); Potassium 4.6 mmol/L (3.5-5.1); Sodium 134 mmol/L (136-145); Total Bilirubin 0.2 mg/dL (0.15-1.2); Total Protein 6.1 g/dL (6.6-8.7)
[2022-10-04] MEDS: fentaNYL 50 mcg/mL INJ 2mL IVP ×2 (13:00→15:12)
--- NOTE | 2022-10-04 13:36 | ECG_ITS ---
[facility] Test Date: 2022-10-04 Pat Name: Mauricio Wilson Department: Room: Gender: Male Bank Accountant: : 1935 Requested By: Epifanio Escobedo Order Number: [id number] Jhonny MD: Aniyah Elaine M.D. Measurements Intervals [place] Rate: 88 P: 58 MA: 178 QRS: -17 QRSD: 128 T: 33 QT: 370 QTc: 450 Interpretive Statements SINUS RHYTHM RIGHT BUNDLE BRANCH BLOCK [120+ ms QRS DURATION, UPRIGHT V1, 40+ ms S IN I/aVL/V4/V5/V6] Compared to ECG 10/04/2022 11:53:00 Right bundle-branch block now present ST (T wave) deviation no longer present Electronically Signed On 10-04-2022 21:06:45 SENIOR SECURITY ANALYST by Aniyah Elaine M.D. [id number]
[2022-10-04 14:30] LABS: Troponin 5 2HR 36.79 ng/L (0-15)
[2022-10-04 14:31] LABS: Troponin 5 2HR Delta 0.79 ABS# (0-10)
--- NOTE | 2022-10-04 14:57 | USCV_ITS ---
Mauricio Wilson Age: 87 Gender: M : 1935 Exam Date: 10/04/2022 15:09 Ordering Phys: Suzie Ortiz MD Technologist: POONAM Exam Location: [facility] [place] Indication: HEART FAILURE BP: 102 / 51 HR: 67 Rhythm: Sinus Technical Quality: Adequate MEASUREMENTS (Male / Female) Normal Values 2D ECHO LVOT Diameter 2.0 cm LV Ejection Fraction MOD 2C 59.2 % LV Ejection Fraction 2C AL 58.9 % LA Diameter 3.4 cm LA Width 3.0 cm LA Height 4.6 cm RA Width 2.7 cm RA Height 4.6 cm Aorta at Sinotubular Diameter 2.7 cm M-MODE Aortic Annulus Diameter 3.2 cm LA Ao Ratio MM 1.1 MV E Point Septal Separation 0.3 cm DOPPLER AV Peak Velocity 177.0 cm/s LVOT Peak Velocity 112.0 cm/s AV Area Cont Eq vti 2.3 cm squared AV Area Cont Eq pk 2.1 cm squared MV Peak Velocity 100.0 cm/s MV Area PHT 5.0 cm squared Mitral E to A Ratio 0.7 MV E' Velocity 30.0 cm/s Mitral E to MV E' Ratio 5.8 Mitral E to LV E' Lateral Ratio 5.2 Mitral E to LV E' Septal Ratio 6.6 TR Peak Velocity 232.0 cm/s TR Peak Gradient 21.5 mmHg TR Mean Velocity 166.3 cm/s TR Mean Gradient 11.7 mmHg TR Velocity Time Integral 52.0 cm TV Peak E Velocity 85.0 cm/s Right Atrial Pressure 8.0 mmHg Pulmonary Artery Systolic Pressu 29.5 mmHg PV Peak Velocity 123.0 cm/s RV Acceleration Time 0.1 s RV Ejection Time 0.3 s RV AcT/ET 0.4 FINDINGS Left Ventricle Normal left ventricular size, systolic function and upper normal wall thickness, with no regional wall motion abnormalities. Left ventricular ejection fraction is estimated at 60 %. Grade I diastolic dysfunction (abnormal relaxation filling pattern), normal to mildly elevated filling pressures. Right Ventricle Normal right ventricular size and systolic function. Right ventricular systolic pressure 33 mmHg. Right Atrium Normal right atrial size. Left Atrium Mildly increased left atrial size. Mitral Valve Structurally normal mitral valve. No mitral valve stenosis. Trace mitral valve regurgitation. Aortic Valve Mildly thickened trileaflet aortic valve. No aortic valve stenosis. No aortic valve regurgitation. Tricuspid Valve Structurally normal tricuspid valve. Trace tricuspid valve regurgitation. Pulmonic Valve Structurally normal pulmonic valve. No pulmonary valve stenosis. Trace pulmonary valve regurgitation. Pericardium No pericardial effusion. Aorta Normal size aortic root and proximal ascending aorta. IVC Inferior vena cava not visualized. CONCLUSIONS 1. Normal left ventricular size, systolic function and upper normal wall thickness, with no regional wall motion abnormalities. Left ventricular ejection fraction is estimated at 60 %. Grade I diastolic dysfunction (abnormal relaxation filling pattern), normal to mildly elevated filling pressures. 2. Normal right ventricular size and systolic function. 3. No significant valvular abnormality. 4. When compared to study dated 12/16/2021, left ventricle systolic function seems to have normalized from 35% then. Antonia Myers MD (Electronically Signed) Final Date: 04 October 2022 18:40 S
--- NOTE | 2022-10-04 15:00 | PM.HP ---
Providers/Chief Complaint Primary Care Provider: Jerman Henao DO Chief Complaint: legs swelling History of Present Illness Mauricio Wilson is a 87 year old male Medications/Allergies Home Medications Medication Instructions Recorded Confirmed Last Taken Type cholecalciferol (vitamin D3) 50 2,000 unit PO DAILY@0800 09/03/20 09/22/22 09/04/22 History mcg (2,000 unit) capsule (Vitamin D3) acetaminophen 500 mg tablet 1,000 mg PO Q4H PRN Pain 11/04/21 09/22/22 04/12/22 History aspirin 81 mg tablet,delayed 81 mg PO DAILY #30 tabs 11/07/21 09/22/22 08/29/22 Rx release levetiracetam 1,000 mg tablet 500 mg PO BID@0800,2000 #180 tabs 11/08/21 09/22/22 09/04/22 Rx (Keppra) apixaban 5 mg tablet (Eliquis) 5 mg PO BID@0900,2100 #180 tabs 03/07/22 09/22/22 09/02/22 Rx furosemide 40 mg tablet 40 mg PO BID@08,16 #180 tabs 03/07/22 09/22/22 09/04/22 Rx metoprolol tartrate 25 mg tablet 25 mg PO BID@0900,2100 #180 tabs 03/07/22 09/22/22 09/04/22 Rx ropinirole 4 mg tablet 4 mg .Route .COMPLEX #90 tabs 07/05/22 09/22/22 09/04/22 Rx sacubitril 49 mg-valsartan 51 mg 1 tab PO BID #180 tabs 07/11/22 09/22/22 09/04/22 Rx tablet (Entresto) prednisone 20 mg tablet 20 mg PO DAILY #15 tabs 08/25/22 09/22/22 Unknown Rx pyridostigmine bromide 60 mg 60 mg PO TID@ #90 tabs 08/30/22 09/22/22 09/04/22 Rx tablet (Mestinon) mycophenolate mofetil 500 mg tablet 1,000 mg PO BID 09/01/22 09/22/22 09/04/22 History budesonide-formoterol HFA 160 2 puff inhalation BID #10.2 grams 09/12/22 09/22/22 Unknown Rx mcg-4.5 mcg/actuation aerosol inhaler (Symbicort) potassium chloride 10 mEq 10 meq PO DAILY #30 caps 09/25/22 09/25/22 Unknown Rx capsule,extended release Allergies Allergy/AdvReac Type Severity Reaction Status Date / Time No Known Allergies Allergy Verified 09/22/22 10:08 PFSH Acute PFSH: Medical History Asthma-COPD overlap syndrome COVID-19 (~11/2020) Generalized epilepsy GI bleed when hospitalized with covid Heart failure History of lung abscess Describes having had an abscess in his lung that required surgical removal many years ago Myasthenia gravis Systolic CHF with reduced left ventricular function, NYHA class 2 Surgical History History of back surgery x2 History of cataract surgery Bilateral History of esophagogastroduodenoscopy (EGD) History of surgery Describes a remote surgical procedure in which he had something done around his esophagus and his liver that may have involved around a concern for biliary duct malignancy possibility Family History Other CAD (coronary artery disease) Diabetes Social History Smoking and tobacco status: former smoker Quit status (tobacco): has quit using tobacco Year quit tobacco: 1979 Former quit date comment: 2ppd x 15 years then 4-5 cigars/day x 25 years Alcohol intake: former History of recent travel: No Vitals/I&O/Wt Last Vital Signs Temp 97.7 F 10/04/22 14:45 Pulse 74 10/04/22 14:45 Resp 18 10/04/22 14:45 BP 102/51 10/04/22 14:45 Pulse Ox 99 10/04/22 14:45 Weight last 48 hrs Weight 79.832 kg Data : 10/04/22 12:05 10/04/22 12:05 Micro: Microbiology 10/04/22 13:40 Blood Culture - Preliminary Blood SPECIMEN COLLECTED 10/04/22 13:40 Blood Culture - Preliminary Blood SPECIMEN COLLECTED Coding Level of Care Code Acute Political Science Professor for Chg Scott
[2022-10-04] MEDS: FUROsemide 10 mg/mL SDV 4mL 40 MG IVP (15:11)
[2022-10-04] MEDS: sodium chloride 0.9% 100 mL Bag 50 ML IV (15:11)
[2022-10-04 15:22] LABS: Ferritin 36 ng/mL (30-400); Iron 44 ug/dL (59-158); Percent Saturation 15.8 % (20-50); Total Iron Binding Capacity 277 mcg/dl; Unsaturated Iron Binding 233 ug/dL (112-347)
[2022-10-04 15:27] LABS: Procalcitonin 0.14 ng/mL (0-0.5)
[2022-10-04] MEDS: perflutren protein-a microsphr 0.22 mg/mL SDV 3 mL IV (15:44)
[2022-10-04] MEDS: pantoprazole 40 mg SDV IVP (15:47)
[2022-10-04 15:55] LABS: Lactic Sepsis W/Reflex 3.2 mmol/L (0.5-2.2)
[2022-10-04 16:36] LABS: Reflex Lactate Order REFLEX LACTIC ORDERD
[2022-10-04 17:14] LABS: Lactic Acid level (Lactate) 4.2 mmol/L (0.5-2.2)
--- NOTE | 2022-10-04 17:36 | ECG_ITS ---
[facility] Test Date: 2022-10-04 Pat Name: Mauricio Wilson Department: Room: 112 Gender: Male Editing Clerk: : 1935 Requested By: Epifanio Escobedo Order Number: [id number] Barry MD: Antonia Myers M.D. Measurements Intervals [place] Rate: 88 P: 55 WV: 181 QRS: 10 QRSD: 122 T: -11 QT: 357 QTc: 433 Interpretive Statements SINUS RHYTHM WITH OCCASIONAL VENTRICULAR PREMATURE COMPLEXES INDETERMINATE AXIS RIGHT BUNDLE BRANCH BLOCK [120+ ms QRS DURATION, UPRIGHT V1, 40+ ms S IN I/aVL/V4/V5/V6] Compared to ECG 10/04/2022 13:45:06 Ventricular premature complex(es) now present Indeterminate axis now present Electronically Signed On 10-05-2022 8:50:51 COLORER MACHINE by Antonia Myers M.D. [id number]
--- NOTE | 2022-10-04 17:54 | PM.HP ---
Providers/Chief Complaint Admitting Physician: Suzie Ortiz MD Primary Care Provider: Jerman Henao DO Chief Complaint: legs swelling History of Present Illness Mauricio Wilson is a 87 year old male who has multiple comorbid conditions such as myasthenia gravis, on p.o. regimen, heart failure reduced action fraction EF 35%, recent kyphoplasty, COPD, presented to the hospital for worsening of leg swelling and redness. Patient is stating that his lower part of his body has become so bloated that he can walk on his own he has noted scrotal swelling worsening of edema of his legs, he has not noticed any fever, diarrhea, nausea, vomiting, worsening of chest pain or shortness of breath however he has been noticing losing of yellow discharge from the wounds. He has not noticed any chest pain. He lives with his family. He has not noticed any hematuria, hematochezia, blood in urine He decided to come to the hospital because of worsening leg swelling He does have sepsis at the time of admission however judicious use of fluids because of underlying cardiomyopathy and active heart failure his hemoglobin is very low I have requested another H&H before giving him blood transfusion Requested 2 unit PRBC after H&H Will give broad-spectrum antibiotics for sepsis related to cellulitis Review of Systems Const: Reports: chills; Denies: fever(s) Eyes: Denies: change in vision ENMT: Denies: throat pain Card: Denies: chest pain Resp: Denies: dyspnea GI: Denies: abdominal pain : Denies: flank pain Musc: Reports: extremity pain, extremity swelling and limited range of motion; Denies: neck pain Skin/Breast: Reports: rash Neuro: Denies: headache(s) Psych: Reports: anxiety Endo: Denies: polyuria Hermann/Lymph: Denies: easy bruising All/Imm: Denies: urticaria Medications/Allergies Home Medications Medication Instructions Recorded Confirmed Last Taken Type cholecalciferol (vitamin D3) 50 2,000 unit PO DAILY@06 09/03/20 10/04/22 10/04/22 History mcg (2,000 unit) capsule (Vitamin D3) acetaminophen 500 mg tablet 1,000 mg PO Q4H PRN Pain 11/04/21 10/04/22 04/12/22 History levetiracetam 1,000 mg tablet 500 mg PO BID@799,1999 #180 tabs 11/08/21 10/04/22 10/04/22 Rx (Keppra) apixaban 5 mg tablet (Eliquis) 5 mg PO BID@0900,2100 #180 tabs 03/07/22 10/04/22 10/04/22 09:00 Rx furosemide 40 mg tablet 40 mg PO BID@08,16 #180 tabs 03/07/22 10/04/22 10/04/22 Rx pyridostigmine bromide 60 mg 60 mg PO TID@ #90 tabs 08/30/22 10/04/22 10/04/22 14:00 Rx tablet (Mestinon) mycophenolate mofetil 500 mg tablet 1,000 mg PO BID@09/01/22 10/04/22 10/04/22 08:00 History budesonide-formoterol HFA 160 2 puff inhalation BID #10.2 grams 09/12/22 10/04/22 Unknown Rx mcg-4.5 mcg/actuation aerosol inhaler (Symbicort) aspirin 81 mg tablet,delayed 81 mg PO DAILY@10/04/22 10/04/22 10/04/22 History release hydrocodone 5 mg-acetaminophen 325 1 - 2 tab PO QID PRN Pain 10/04/22 10/04/22 10/04/22 11:00 History mg tablet magnesium oxide 400 mg PO DAILY@10/04/22 10/04/22 10/04/22 06:00 History metoprolol tartrate 25 mg tablet 25 mg PO BID@10/04/22 10/04/22 10/04/22 History potassium chloride 10 mEq 10 meq PO DAILY@10/04/22 10/04/22 10/04/22 06:00 History capsule,extended release prednisone 20 mg tablet 20 mg PO DAILY@10/04/22 10/04/22 10/04/22 07:00 History ropinirole 4 mg tablet 4 mg PO BEDTIME@10/04/22 10/04/22 10/03/22 History sacubitril 49 mg-valsartan 51 mg 1 tab PO BID@10/04/22 10/04/22 10/04/22 09:00 History tablet (Entresto) Allergies Allergy/AdvReac Type Severity Reaction Status Date / Time No Known Allergies Allergy Verified 10/04/22 15:11 PFSH Acute PFSH: Medical History Asthma-COPD overlap syndrome COVID-19 (~11/2020) Generalized epilepsy GI bleed when hospitalized with covid Heart failure History of lung abscess Describes having had an abscess in his lung that required surgical removal many years ago Myasthenia gravis Systolic CHF with reduced left ventricular function, NYHA class 2 Surgical History History of back surgery x2 History of cataract surgery Bilateral History of esophagogastroduodenoscopy (EGD) History of surgery Describes a remote surgical procedure in which he had something done around his esophagus and his liver that may have involved around a concern for biliary duct malignancy possibility Family History Other CAD (coronary artery disease) Diabetes Social History Smoking and tobacco status: former smoker Quit status (tobacco): has quit using tobacco Year quit tobacco: 1979 Former quit date comment: 2ppd x 15 years then 4-5 cigars/day x 25 years Alcohol intake: former History of recent travel: No Vitals/I&O/Wt Last Vital Signs Temp 97.7 F 10/04/22 14:45 Pulse 74 10/04/22 14:45 Resp 18 10/04/22 15:12 BP 102/51 10/04/22 14:45 Pulse Ox 99 10/04/22 14:45 Weight last 48 hrs Weight 79.832 kg Physical Exam Narrative: Patient clinically looks fluid overloaded Awake and alert No signs of myasthenia crisis Awake and alert Variable S1-S2 Currently on room air lOwer extremity swelling with multiple open wounds, purulent base Serosanguineous discharge noted Pleasant and cooperative Nonfocal neuro exam Scrotal edema positive Edema extending all the way up up to thighs Urinary Catheter Management: Serrato: Cath Placed During This Visit: yes Urinary Catheter Date of Insertion: 10/04/22 Urinary Catheter Time of Insertion: 16:37 Data : 10/04/22 12:05 10/04/22 12:05 Micro: Microbiology 10/04/22 13:40 Blood Culture - Preliminary Blood SPECIMEN COLLECTED 10/04/22 13:40 Blood Culture - Preliminary Blood SPECIMEN COLLECTED A&P Assessment and plan (1) Lower extremity edema: (2) Anemia: (3) Compression fracture: (4) Cellulitis: (5) Sepsis: Plan Sepsis related to cellulitis Criteria met with leukocytosis, high lactic acid, endorgan damage, Issues of fluids Start broad-spectrum antibiotics Requested blood cultures, repeat lactic acid Acute CHF exacerbation Systolic congestive heart failure exacerbation EF 35% Patient is stating he never had any discussion regarding LifeVest or AICD Followed up with Dr. Epstein in the past A. 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
[2022-10-04 18:44] LABS: Troponin 5 6HR 31.66 ng/L (0-15)
[2022-10-04 18:49] LABS: Troponin 5 6HR Delta -4.34 ng/L (0-12)
[2022-10-04 18:56] LABS: Glucose Urine UA Norm (Normal); Ketones Urine Negative (Negative); Protein Urine Neg (Negative); Specific Gravity, Urine 1.015 (1.005-1.030); Urine Appearance Clear (CLEAR); Urine Color Yellow (Yellow); pH Urine 7 (5-7)
[2022-10-04 18:57] LABS: Add Urine Microscopic? YES; Bilirubin Urine Neg (Negative); Blood Urine 3+ (Negative); Leukocyte Esterase Urine Negative (Negative); Nitrate Urine Negative (Negative); RBC Urine 0-4 /hpf (0-2); Urobilinogen Urine Norm (Negative)
[2022-10-04 18:58] LABS: Add Urine Culture? Yes; Bacteria Urine 3+ /hpf; Squamous Epithelial Cell Urine 0-4 /hpf (0-5)
[2022-10-04 19:04] LABS: Hematocrit 21.7 % (42.0-52.0)
[2022-10-04 19:13] LABS: Hemoglobin 6.1 g/dL (11.7-16.6)
--- NOTE | 2022-10-04 19:43 | PC.NURSE ---
received into room 112-2 from er via stretcher at 1755.report received.pt is alert and awake and oriented x 4 .sr on monitor.denies chest pain at present.oriented to room environment.instructed to notify staff for any chest pain,sob,or for any complaints or concerns at all.pt verb understanding.order for prbc's to hold until repeat h and h obtained
[2022-10-04] MEDS: levETIRAcetam 500 mg Tablet PO (21:19)
[2022-10-04] MEDS: piperacillin-tazobactam 3.375 GM in sodium chloride 0.9% (plus) 50 ML IV (21:19)
[2022-10-04] MEDS: ropinirole 2 mg Tablet 4 MG PO (22:02)
[2022-10-04] MEDS: pyridostigmine 60 mg Tablet PO (22:02)
[2022-10-05] VITALS (82 sets, daily range): BP systolic 71–139; BP diastolic 38–77; PULSE 71–108; RESP 13–35; TEMP 36.3–36.8; O2SAT 92–99
[2022-10-05] MEDS: morphine IR 15 mg Tablet PO (01:06)
[2022-10-05] MEDS: vancomycin 1,250 MG/250 ML PIGGYBACK 250 MG IV (01:07)
[2022-10-05] MEDS: pantoprazole 40 mg SDV IVP ×2 (02:24→16:07)
[2022-10-05] MEDS: piperacillin-tazobactam 3.375 GM in sodium chloride 0.9% (plus) 50 ML IV ×3 (03:34→21:41)
[2022-10-05 04:22] LABS: ABG PCO2 38.9 mmHg (35-45); ABG PH Result 7.44 (7.35-7.45); Arterial Blood Gas Hematocrit 28.8 % (42-52); Base Excess ABG 2.1 mmol/L (-2.0-2.0); Blood Gas Allen Test Pos; Blood Gas Sample Site Radial, left; Blood Gas Sample Type Arterial; HCO3 ABG 26.4 mmol/L (22-26); PO2 ABG 91.3 mmHg (80.0-100.0)
[2022-10-05] MEDS: pyridostigmine 60 mg Tablet PO ×3 (05:54→21:40)
[2022-10-05] MEDS: magnesium oxide 400 mg tablet PO (05:54)
[2022-10-05] MEDS: aspirin 81 mg EC Tablet PO (05:54)
[2022-10-05] MEDS: budesonide 0.5 mg/2 mL Neb INHALATION ×2 (07:33→19:13)
[2022-10-05] MEDS: albuterol 2.5 mg/3 mL Neb INHALATION ×4 (07:33→19:13)
[2022-10-05 09:24] LABS: Anion Gap 17.1 (5-19); Blood Urea Nitrogen 51 mg/dL (8-23); C Reactive Protein 45.7 mg/L (0.0-4.9); Calcium 8.7 mg/dL (8.5-10.5); Carbon Dioxide 25 mmol/L (22-29); Chloride 104 mmol/L (98-107); Glucose 172 mg/dL (65-115); Osmolality Calculated 312 mOsm/kg (285-295); Potassium 4.1 mmol/L (3.5-5.1); Sodium 142 mmol/L (136-145)
[2022-10-05 09:27] LABS: Alanine Aminotransferase 7 U/L (0-41); Alkaline Phosphatase 90 U/L (40-130); Aspartate Amino Transferase 8 U/L (0-40); Blood Urea Nitrogen 51 mg/dL (8-23); Calcium 8.8 mg/dL (8.5-10.5); Carbon Dioxide 24 mmol/L (22-29); Chloride 103 mmol/L (98-107); Globulin 2.3 g/dL (1.3-4.6); Glucose 173 mg/dL (65-115); Lactate (Lactic Acid level) 2.3 mmol/L (0.5-2.2); Magnesium 2.5 mg/dL (1.7-2.3); Osmolality Calculated 310 mOsm/kg (285-295); Sodium 141 mmol/L (136-145); Total Bilirubin 0.8 mg/dL (0.15-1.2); Total Protein 5.3 g/dL (6.6-8.7)
[2022-10-05] MEDS: levETIRAcetam 500 mg Tablet PO ×2 (09:47→21:41)
[2022-10-05 09:57] LABS: Basophils # 0.1 10^3/uL (0.0-0.1); Basophils % 0.5 %; Eosinophils % 0.2 %; Hematocrit 28.2 % (42.0-52.0); Hemoglobin 8.3 g/dL (11.7-16.6); Lymphocytes # 1.4 10^3/uL (0.8-4.8); Lymphocytes % 8.1 %; Mean Corpuscular HGB Conc 29.4 g/dL (30.0-36.0); Mean Corpuscular Hemoglobin 25.8 pg (28.0-34.0); Mean Corpuscular Volume 87.6 fl (80-94); Monocytes % 5.7 %; Neutrophils # 13.59 10^3/uL (1.8-7.7); Neutrophils % 80.4 %; Nucleated Red Blood Cells % 0.2 %; Platelet Count 290 10^3/cmm (130-400); Red Blood Count 3.22 10^6/uL (4.1-5.3); Red Cell Distribution Width 17.5 % (12.1-15.1); White Blood Count 16.9 10^3/uL (4.0-10.0)
--- NOTE | 2022-10-05 10:07 | PM.PN ---
Subjective Subjective: Patient is endorsing feeling better Leg swelling has improved Afebrile Adequate urine output Echo showing improvement in EF Patient is happy with his progress Continue IV antibiotics I did insurance counsel him to raise his legs and use compression wraps at the bedside Vitals/I&O/Wt Last Vital Signs Temp 97.7 F 10/05/22 05:56 Pulse 92 10/05/22 07:42 Resp 16 10/05/22 07:36 BP 104/60 10/05/22 05:56 Pulse Ox 97 10/05/22 07:36 O2 Del Method 10/05/22 07:36 10/04/22 10/05/22 10/05/22 22:59 06:59 14:59 Intake Total 120 / 120 1000 / 1120 50 / 50 Output Total 650 / 650 800 / 1450 Balance -530 / -530 200 / -330 50 / 50 Weight last 48 hrs Weight 79.832 kg Physical Exam Narrative: Patient is laying supine His leg swelling has improved remarkably Multiple wounds on his legs bilaterally Purulent cellulitis No erythema Nonfocal neuro exam Currently on room air Abdomen soft Variable S1-S2 Urinary Catheter Management: Serrato: Cath Placed During This Visit: yes Reason for Continuing Indwelling Catheter: Acute Urinary Retention or Obstruction Urinary Catheter Date of Insertion: 10/04/22 Urinary Catheter Time of Insertion: 16:37 Data : 10/04/22 18:21 10/05/22 08:36 Micro: Microbiology 10/04/22 13:40 Blood Culture - Preliminary Blood SPECIMEN COLLECTED 10/04/22 13:40 Blood Culture - Preliminary Blood SPECIMEN COLLECTED A&P Assessment and plan (1) Cellulitis: (2) Lower extremity edema: (3) Anemia: (4) Sepsis: (5) Compression fracture: (6) COPD (chronic obstructive pulmonary disease): (7) Intermittent atrial fibrillation: Plan Acute S CHF exacerbation Improving Leg swelling has improved Increased diuretic dose to Bumex 1 mg every 12 hours continue Serrato catheter urine output measurement Lower extremity swelling Sepsis related to cellulitis Leg swelling has improved remarkably Continue IV antibiotics I will do venous Doppler to rule out clots Patient also has component of neuropathic pain of lower extremities we will add low-dose Lyrica Acute normocytic anemia my concern is 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
[2022-10-05] MEDS: acetaminophen 500 mg Tablet PO (10:41)
[2022-10-05] MEDS: hydrocortisone 100 mg/2 mL SDV IVP ×2 (10:46→21:40)
[2022-10-05] MEDS: sodium chloride 0.9% 250 ML 999 ML IV (10:46)
[2022-10-05 10:57] LABS: Slide Review Slide Review Perform
[2022-10-05 11:12] LABS: Hematocrit 26.5 % (42.0-52.0)
--- NOTE | 2022-10-05 11:35 | PC.NURSE ---
dr dale notified of pt's bp 80/42 ..he ordered to hold a.m. dose of bumex.at 1030 bp 62/40. hr 90.pt denies dizziness,sob.dr stubbs notified.he ordered 250 cc ns bolus,stat h&h, and levophed drip at 2mcg.these were initiated.bp gradually increasing.pt remained asymptomatic.
[2022-10-05 16:27] LABS: Hematocrit 26.1 % (42.0-52.0); Hemoglobin 7.9 g/dL (11.7-16.6)
[2022-10-05] MEDS: pregabalin 25 mg Capsule PO (17:54)
[2022-10-05] MEDS: bumetanide 0.25 mg/mL SDV 4 mL 1 MG IVP (21:40)
[2022-10-05] MEDS: ropinirole 2 mg Tablet 4 MG PO (21:40)
[2022-10-06] VITALS (20 sets, daily range): BP systolic 113–155; BP diastolic 56–75; PULSE 71–103; RESP 15–24; TEMP 36.7–37; O2SAT 90–99
[2022-10-06] MEDS: vancomycin 1,250 MG/250 ML PIGGYBACK 250 MG IV (01:05)
[2022-10-06] MEDS: pantoprazole 40 mg SDV IVP (02:09)
--- NOTE | 2022-10-06 03:12 | PC.NURSE ---
Patient's blood pressure continues to improved. Informed Dr Hassan and doctor placed Levophed on hold at this time. Medication has been stopped.
[2022-10-06] MEDS: magnesium oxide 400 mg tablet PO (05:18)
[2022-10-06] MEDS: piperacillin-tazobactam 3.375 GM in sodium chloride 0.9% (plus) 50 ML IV ×2 (05:18→12:52)
[2022-10-06] MEDS: aspirin 81 mg EC Tablet PO (05:18)
[2022-10-06] MEDS: pyridostigmine 60 mg Tablet PO ×2 (05:21→08:35)
[2022-10-06 05:25] LABS: Basophils # 0.1 10^3/uL (0.0-0.1); Basophils % 0.4 %; Hemoglobin 8.2 g/dL (11.7-16.6); Lymphocytes # 0.6 10^3/uL (0.8-4.8); Lymphocytes % 3.7 %; Mean Corpuscular HGB Conc 30.4 g/dL (30.0-36.0); Mean Corpuscular Hemoglobin 26.1 pg (28.0-34.0); Mean Platelet Volume 9.8 fL (7.4-10.4); Monocytes # 0.6 10^3/uL (0.2-0.9); Monocytes % 3.7 %; Neutrophils # 14.13 10^3/uL (1.8-7.7); Nucleated Red Blood Cells % 0.2 %; Platelet Count 332 10^3/cmm (130-400); Red Blood Count 3.14 10^6/uL (4.1-5.3); Red Cell Distribution Width 17.5 % (12.1-15.1); White Blood Count 16.6 10^3/uL (4.0-10.0)
[2022-10-06 05:48] LABS: Anion Gap 14.3 (5-19); Blood Urea Nitrogen 35 mg/dL (8-23); Calcium 8.1 mg/dL (8.5-10.5); Carbon Dioxide 25 mmol/L (22-29); Chloride 104 mmol/L (98-107); Glucose 182 mg/dL (65-115); Osmolality Calculated 301 mOsm/kg (285-295); Potassium 4.3 mmol/L (3.5-5.1); Sodium 139 mmol/L (136-145)
[2022-10-06] MEDS: bumetanide 0.25 mg/mL SDV 4 mL 1 MG IVP (08:35)
[2022-10-06] MEDS: levETIRAcetam 500 mg Tablet PO (08:35)
[2022-10-06] MEDS: albuterol 2.5 mg/3 mL Neb INHALATION ×2 (09:13→11:53)
[2022-10-06] MEDS: budesonide 0.5 mg/2 mL Neb INHALATION (09:14)
[2022-10-06] MEDS: hydrocortisone 100 mg/2 mL SDV IVP (09:45)
[2022-10-06] MEDS: pregabalin 25 mg Capsule PO (10:25)
--- NOTE | 2022-10-06 12:11 | PM.DCS ---
Discharge Providers Date of Admission: 10/04/22 14:50 Date of Discharge: October 06, 2022 Attending Provider at Admission: Suzie Ortiz MD Attending Provider at Discharge: Anabel Mireles MD Primary Care Provider: Jerman Henao DO Diagnoses at Discharge Discharge Diagnosis (1) Cellulitis: Status: Acute (2) Lower extremity edema: Status: Acute (3) Anemia: Status: Acute (4) Sepsis: Status: Acute (5) Compression fracture: Status: Acute (6) COPD (chronic obstructive pulmonary disease): Status: Acute (7) Intermittent atrial fibrillation: Status: Acute Reason for Visit Reason for Visit: legs swelling Hospital Course Hospital Course 87-year-old male who carries history of cardiomyopathy with EF 35%, presented to the hospital with chief complaint of worsening of leg swelling and pain. Patient was initially treated for cellulitis of left lower extremity with IV antibiotics, he remained afebrile, his leukocytosis started trending down, cultures remain negative, echo was repeated which showed improvement in EF up to 60%, with IV diuretics leg swelling improved remarkably. Patient was very happy with his progress. Discharge weight to put him on bacitracin topical ointment along with doxycycline 10-day regimen and discharge him home. Please note during hospitalization he required Levophed for a few hours I do believe this is related to stress response of the body and being steroid dependent he needed IV stress dose steroids for about 24 hours, Levophed was turned off around 2 AM on 10/06 and his pressures remain remarkably well off Levophed. She was made to discharge home and follow-up with PCP. I did public relations counselor him to keep his legs raised above heart level and use compression wraps, no signs of DVT. Vascular compromise. Leukocytosis improving, creatinine improving as well He remained in A. fib however converted to normal sinus rhythm on 10/06. I have resumed his metoprolol and Eliquis Hold Entresto for now Physical Exam Narrative: Awake and alert Leg swelling has improved remarkably Left leg cellulitis improving S1-S2 with PVCs Abdomen soft Appropriate mood and affect Currently on room air Urinary Catheter Management: Serrato: Cath Placed During This Visit: yes, but has since been removed by the nurse Reason for Continuing Indwelling Catheter: Decision to DC Catheter Urinary Catheter Date of Insertion: 10/04/22 Urinary Catheter Time of Insertion: 16:37 Date Urinary Catheter Removed: 10/06/22 Time Urinary Catheter Discontinued: 09:58 Discharge Data Studies Completed and Pending Completed Studies During Hospitalization Category Date Time Status XR chest 1V portable [id number] Stat Exams 10/04/22 11:36 Completed CV. echo wo/w contrast [id number] Urgent Ultrasound 10/04/22 14:57 Completed US venous duplex lower extremity bilat [CV venous Ultrasound 10/04/22 11:57 [place] [id number]] Stat Pending at discharge Category Date Time Status Blood Culture Stat Lab 10/04/22 13:40 Results Leukocyte Reduced RBC Routine Lab 10/04/22 13:40 Results Occult Blood Stool [Immunochemical Fecal OCB] Stat Lab 10/04/22 14:49 Uncollected Type and Screen Routine Lab 10/04/22 13:40 Results Urine Culture Stat Lab 10/04/22 18:15 Results Vancomycin Trough Timed Lab 10/06/22 23:00 Ordered Radiology Impressions Chest X-Ray 10/04/22 11:36 IMPRESSION: 1. No acute findings. 2. Low lung volumes seen. 3. Elevated left hemidiaphragm Laboratory Results WBC 16.6 10^3/uL (4.0-10.0) H 10/06/22 05:06 RBC 3.14 10^6/uL (4.1-5.3) L 10/06/22 05:06 Hgb 8.2 g/dL (11.7-16.6) L 10/06/22 05:06 Hct 27.0 % (42.0-52.0) L 10/06/22 05:06 MCV 86.0 fl (80-94) 10/06/22 05:06 MCH 26.1 pg (28.0-34.0) L 10/06/22 05:06 MCHC 30.4 g/dL (30.0-36.0) 10/06/22 05:06 RDW 17.5 % (12.1-15.1) H 10/06/22 05:06 Plt Count 332 10^3/cmm (130-400) 10/06/22 05:06 MPV 9.8 fL (7.4-10.4) 10/06/22 05:06 Neut % (Auto) 85.0 % 10/06/22 05:06 Lymph % (Auto) 3.7 % 10/06/22 05:06 Mathews % (Auto) 3.7 % 10/06/22 05:06 Eos % (Auto) 0.0 % 10/06/22 05:06 Baso % (Auto) 0.4 % 10/06/22 05:06 Neut # (Auto) 14.13 10^3/uL (1.8-7.7) H 10/06/22 05:06 Lymph # (Auto) 0.6 10^3/uL (0.8-4.8) L 10/06/22 05:06 Mathews # (Auto) 0.6 10^3/uL (0.2-0.9) 10/06/22 05:06 Eos # (Auto) 0.0 10^3/uL (0.0-0.8) 10/06/22 05:06 Baso # (Auto) 0.1 10^3/uL (0.0-0.1) 10/06/22 05:06 Nucleated RBC % (auto) 0.2 % 10/06/22 05:06 Nucleated RBCs # 0.0 /100WBC 10/06/22 05:06 Specimen Type Arterial 10/05/22 04:10 Sample Site Radial, left 10/05/22 04:10 ABG pH 7.44 (7.35-7.45) 10/05/22 04:10 ABG pCO2 38.9 mmHg (35-45) 10/05/22 04:10 ABG pO2 91.3 mmHg (80.0-100.0) 10/05/22 04:10 ABG HCO3 26.4 mmol/L (22-26) H 10/05/22 04:10 ABG Base Excess 2.1 mmol/L (-2.0-2.0) H 10/05/22 04:10 Wayne Test Pos 10/05/22 04:10 Hematocrit 28.8 % (42-52) L 10/05/22 04:10 O2 Delivery Device None 10/05/22 04:10 FiO2 21.0 % 10/05/22 04:10 Leadership Development Consultant ID [email or web address] 10/05/22 04:10 Sodium 139 mmol/L (136-145) 10/06/22 05:06 Potassium 4.3 mmol/L (3.5-5.1) 10/06/22 05:06 Chloride 104 mmol/L (98-107) 10/06/22 05:06 Carbon Dioxide 25 mmol/L (22-29) 10/06/22 05:06 Anion Gap 14.3 (5-19) 10/06/22 05:06 BUN 35 mg/dL (8-23) H 10/06/22 05:06 Creatinine 1.3 mg/dL (0.7-1.2) H 10/06/22 05:06 GFR Calculation Not Reportable 10/06/22 05:06 Glucose 182 mg/dL (65-115) H 10/06/22 05:06 Calculated Osmolality 301 mOsm/kg (285-295) H 10/06/22 05:06 Lactic Acid 3.2 mmol/L (0.5-2.2) H 10/04/22 13:40 Lactic Acid (Sepsis) 4.2 mmol/L (0.5-2.2) H* 10/04/22 15:20 Lactate 2.3 mmol/L (0.5-2.2) H 10/05/22 08:36 Calcium 8.1 mg/dL (8.5-10.5) L 10/06/22 05:06 Phosphorus 3.0 mg/dL (2.5-4.5) 10/05/22 08:36 Magnesium 2.5 mg/dL (1.7-2.3) H 10/05/22 08:36 Iron 44 ug/dL (59-158) L 10/04/22 12:05 TIBC 277 mcg/dl 10/04/22 12:05 % Saturation 15.8 % (20-50) L 10/04/22 12:05 Unsat Iron Binding 233 ug/dL (112-347) 10/04/22 12:05 Ferritin 36 ng/mL (30-400) 10/04/22 12:05 Total Bilirubin 0.8 mg/dL (0.15-1.2) 10/05/22 08:36 AST 8 U/L (0-40) 10/05/22 08:36 ALT 7 U/L (0-41) 10/05/22 08:36 Alkaline Phosphatase 90 U/L (40-130) 10/05/22 08:36 Troponin T Baseline 36 ng/L (0-15) H 10/04/22 12:05 Troponin T 120 Minute 36.79 ng/L (0-15) H 10/04/22 13:40 Delta Troponin T 0.79 ABS# (0-10) 10/04/22 13:40 Troponin T Hi Sens 6Hr 31.66 ng/L (0-15) H 10/04/22 18:00 Troponin T Hi Sens 6Hr Delta -4.34 ng/L (0-12) L 10/04/22 18:00 C-Reactive Protein 45.7 mg/L (0.0-4.9) H 10/05/22 08:36 NT-Pro-B Natriuret Pep 382 pg/mL (0-450) 10/04/22 12:05 Total Protein 5.3 g/dL (6.6-8.7) L 10/05/22 08:36 Albumin 3.0 g/dL (3.5-5.2) L 10/05/22 08:36 Globulin 2.3 g/dL (1.3-4.6) 10/05/22 08:36 Procalcitonin 0.14 ng/mL (0-0.5) 10/04/22 12:05 TSH 2.10 uIU/mL (0.27-4.20) 10/04/22 18:00 Urine Color Yellow (Yellow) 10/04/22 18:15 Urine Appearance Clear (CLEAR) 10/04/22 18:15 Urine pH 7 (5-7) 10/04/22 18:15 Ur Specific Laurel 1.015 (1.005-1.030) 10/04/22 18:15 Urine Protein Neg (Negative) 10/04/22 18:15 Urine Glucose (UA) Norm (Normal) 10/04/22 18:15 Urine Ketones Negative (Negative) 10/04/22 18:15 Urine Blood 3+ (Negative) H 10/04/22 18:15 Urine Nitrate Negative (Negative) 10/04/22 18:15 Urine Bilirubin Neg (Negative) 10/04/22 18:15 Urine Urobilinogen Norm mg/dL (Negative) 10/04/22 18:15 Ur Leukocyte Esterase Negative (Negative) 10/04/22 18:15 Urine RBC 0-4 /hpf (0-2) H 10/04/22 18:15 Urine WBC 5-10 /hpf (0-5) H 10/04/22 18:15 Ur Squamous Epith Cells 0-4 /hpf (0-5) H 10/04/22 18:15 Amorphous Sediment Not Reportable 10/04/22 18:15 Urine Bacteria 3+ /hpf (NONE) H 10/04/22 18:15 Blood Type A Negative 10/04/22 13:40 Rho(D) Type Negative 10/04/22 13:40 Antibody Screen Negative 10/04/22 13:40 Crossmatch See Detail 10/04/22 13:40 Vitals Last Vital Signs Temp 98.0 F 10/06/22 11:47 Pulse 93 10/06/22 11:51 Resp 16 10/06/22 11:51 BP 114/59 10/06/22 11:47 Pulse Ox 96 10/06/22 11:51 O2 Del Method 10/06/22 11:51 Discharge Plan Discharge Patient Disposition: Home Condition: Stable Prescriptions: New doxycycline hyclate 100 mg tablet 100 mg PO BID 10 Days Qty: 20 0RF bacitracin 500 unit/gram ointment 1 applic topical Q12H Qty: 28.4 0RF Continued levetiracetam [Keppra] 1,000 mg tablet 500 mg PO BID@0800,2000 Qty: 180 3RF Eliquis 5 mg tablet 5 mg PO BID@0900,2100 Qty: 180 3RF furosemide 40 mg tablet 40 mg PO BID@08,16 Qty: 180 3RF Mestinon 60 mg tablet 60 mg PO TID@06,, Qty: 90 3RF budesonide-formoterol [Symbicort] 160-4.5 mcg/actuation HFA aerosol inhaler 2 puff inhalation BID Qty: 10.2 5RF cholecalciferol (vitamin D3) [Vitamin D3] 50 mcg (2,000 unit) Capsule 2,000 unit PO DAILY@06 acetaminophen 500 mg Tablet 1,000 mg PO Q4H PRN (Reason: Pain) hydrocodone-acetaminophen 5-325 mg tablet 1 - 2 tab PO QID PRN (Reason: Pain) magnesium oxide 400 mg magnesium Tablet 400 mg PO DAILY@06 potassium chloride 10 mEq capsule, extended release 10 meq PO DAILY@06 prednisone 20 mg tablet 20 mg PO DAILY@07 aspirin 81 mg tablet,delayed release (DR/EC) 81 mg PO DAILY@06 ropinirole 4 mg tablet 4 mg PO BEDTIME@22 metoprolol tartrate 25 mg tablet 25 mg PO BID@07, mycophenolate mofetil 500 mg tablet 1,000 mg PO BID@08, Held Entresto 49-51 mg tablet 1 tab PO BID@,21 Hold Instructions: Resume on 11/03/22. Discharge Orders: Discharge Order (Routine); Ordered 10/06/22 Ordered By: Anabel Mireles Other Ambulatory Orders: DME: Walker (Order) Location: None Selected Ordered By: Suize Ortiz Referrals: Jerman Henao DO [Primary Care Provider] - 1 week Discharge Diet: Cardiac Discharge Activity: Increase activity as tolerated Patient Instructions: Opioid Safety Discharge Attestations Time Spent in Discharge Care*: less than 30 min Status at Discharge: Cognitive status at discharge: cognitively intact, Behavioral status at discharge: cooperative, Quality Metrics Clinical Quality Measures [ No reported AMI, CVA or VTE this stay] Coding Level of Care Code Acute g [facility] note Diagnoses Cellulitis L03.90 Lower extremity edema R60.0 Anemia D64.9 Sepsis A41.9 Compression fracture COPD (chronic obstructive pulmonary disease) J44.9 Intermittent atrial fibrillation I48.0
--- NOTE | 2022-10-06 12:35 | PC.NURSE ---
Heart rate pt HR is in upper 110s to 120s. BP-139/94. Notified Dr Mireles via phone, received order to give oral metoprolol 50 mg once and watch for 2hrs, if hr is below 110s call prior to dc.
[2022-10-06] MEDS: metoprolol tartrate 50 mg Tablet PO (12:49)
--- NOTE | 2022-10-06 15:25 | PC.NURSE ---
no bleeding noted on his penis anymore urine is clear dark yellow. 200 ml output.
--- NOTE | 2022-10-06 17:03 | PC.NURSE ---
Discharge Note Patient discharged to home via private vehicle accompanied by son. Discharge instructions reviewed with patient and/or accounting representative. Mobile pharmacy medications and/or prescriptions provided. Belongings/home medications returned.
== END 2022-10-06 16:00 | disposition home or self-care (01) | DRG 602 ==
LOC: ER 14:46 → CSU 16:08
PROVIDERS: Admitting Provider Internal Medicine; Emergency Provider Emergency Medicine; PCP Internal Medicine; Visit Provider Internal Medicine
DX: L03.116 Cellulitis of left lower limb (principal); I50.23 Acute on chronic systolic (congestive) heart failure; I42.9 Cardiomyopathy, unspecified; G70.00 Myasthenia gravis without (acute) exacerbation; J44.9 Chronic obstructive pulmonary disease, unspecified; Z86.16 Personal history of COVID-19; G40.409 Other generalized epilepsy and epileptic syndromes, not intractable, without status epilepticus; D64.9 Anemia, unspecified; I48.0 Paroxysmal atrial fibrillation; G62.9 Polyneuropathy, unspecified; G25.81 Restless legs syndrome; Z79.01 Long term (current) use of anticoagulants; Z79.891 Long term (current) use of opiate analgesic; Z79.82 Long term (current) use of aspirin; Z87.891 Personal history of nicotine dependence
CPT/HCPCS: 36415; 36430; 36600; 51702; 71045; 80048; 80053; 81001; 82728; 82803; 83540; 83550; 83605; 83735; 83880; 84100; 84145; 84443; 84484; 85014; 85018; 85025; 86140; 86850; 86900; 86920; 87040; 87086; 93005; 93970; 94640; 94664; 96374; 96375; 99285; C8929; C9113; J1720; J1940; J2543; J3010; J3370; J3490; J7050; J7060; J7517; J7613; J7626; P9016; Q9956

== ENCOUNTER 2022-10-11 12:40 | Emergency (ER) | payer MEDICAID, SELFPAY ==
[2022-10-11] VITALS (8 sets, daily range): BP systolic 86–144; BP diastolic 49–99; PULSE 87–130; RESP 16–23; TEMP 36.2–36.9; O2SAT 94–100
--- NOTE | 2022-10-11 13:32 | ED_ITS ---
HPI - Nausea/Vomiting/Diarrhea General: Chief complaint: Nausea/Vomiting/Diarrhea Stated complaint: throwing up blood Time Seen by Provider: 10/11/22 13:32 History of Present Illness: Mr. Wilson is an 87-year-old gentleman on Eliquis presenting to the emergency department due to hematemesis. He had a recent hospitalization for heart failure exacerbation with significant peripheral edema and does note blood in stool at time of discharge which she did not notify staff about. He has continued to have dark stools however this morning at around 11 AM has had episodes of bright red blood in his emesis. This began spontaneously and was not after cough or hard retching. Mild associated lightheadedness however that has not significantly changed. No history of liver disease or va rices reported. Has had 8 or 10 episodes since the first one. No other specific changes in health, exacerbating, or alleviating factors identified. Onset (ago): hour(s) Description of vomiting: bloody Associated nausea: Yes Associated abdominal pain: Yes Pain consistency: constant Associated symtoms: Reports nausea Review of Systems General: Reports: 10 or more systems reviewed and unremarkable except in HPI and below GI: Reports: nausea [facility] ED PFSH: Medical History Asthma-COPD overlap syndrome COVID-19 (~11/2020) Generalized epilepsy GI bleed when hospitalized with covid Heart failure History of lung abscess Describes having had an abscess in his lung that required surgical removal many years ago Myasthenia gravis Systolic CHF with reduced left ventricular function, NYHA class 2 Surgical History History of back surgery x2 History of cataract surgery Bilateral History of esophagogastroduodenoscopy (EGD) History of surgery Describes a remote surgical procedure in which he had something done around his esophagus and his liver that may have involved around a concern for biliary duct malignancy possibility Family History Other CAD (coronary artery disease) Diabetes Social History Smoking and tobacco status: former smoker Quit status (tobacco): has quit using tobacco Year quit tobacco: 1979 Former quit date comment: 2ppd x 15 years then 4-5 cigars/day x 25 years Alcohol intake: former History of recent travel: No Physical Exam Const: COMMON NORMALS: alert GENERAL APPEARANCE: cooperative, well developed and ill appearing HENMT: COMMON NORMALS: normocephalic and atraumatic HEAD & SCALP: normocephalic and atraumatic THROAT: posterior oropharynx normal Eye: COMMON NORMALS: conjunctivae normal CONJUNCTIVA: Yes conjunctivae normal SCLERA: sclerae normal Neck/C-Spine: COMMON NORMALS: supple GENERAL: Yes trachea midline Resp: COMMON NORMALS: clear to auscultation bilaterally EFFORT & INSPECTION: Yes able to speak in complete sentences AUSCULTATION: clear to auscultation bilaterally Cardio: COMMON NORMALS: regular rate and regular rhythm RATE: regular rate RHYTHM: regular rhythm GI: COMMON NORMALS: Soft to palpation PALPATION: Yes Soft to palpation, Yes Tenderness to palpation present (GI), No Guarding due to palpation present (GI) and No Rigid due to palpation PERCUSSION: normal to percussion Extremity: GENERAL: Yes normal exam except as noted and No edema Neuro: COMMON NORMALS: moves all extremities SENSORIUM/ORIENTATION: Yes alert and No Orientation impaired Psych: COMMON NORMALS: mental status grossly normal and Normal thought process present THOUGHT PROCESS: Normal thought process present Course Vital Signs: Vital signs: Vital Signs Temperature 98.5 F 10/11/22 18:15 Pulse Rate 129 H 10/11/22 18:15 Respiratory Rate 23 H 10/11/22 18:15 Blood Pressure 144/75 10/11/22 18:15 Pulse Oximetry 94 10/11/22 18:15 Oxygen Delivery Fl thod 10/11/22 15:43 MDM - Nausea/Vomiting/Diarrhea Medical Decision Making 87-year-old gentleman presenting with hematemesis. Exam as above. Initial vitals are satisfactory however medical history is very concerning and patient is on anticoagulation. Patient with leukocytosis which may be reactive, initial hemoglobin 7.7. Metabolic panel without significant electrolyte arrangement, BUN is elevated with preserved renal function. CT with distention of the thoracic esophagus with increased density products as well as evidence of small amount of active bleeding. Additional findings noted. Patient reviewed hemoglobin worsening with slowly increasing heart rate throughout ED care. Blood transfusion ordered after patient provided informed consent. Additionally due to high risk of clinically significant deterioration up to including due to development of massive hemorrhage patient requires reversal of Eliquis which was ordered. During ED course patient additionally administered Protonix, antiemetic, antibiotic. The results of ED evaluation were discussed with the patient including plan for transfer due to requirement for level of care not available if discharged to prevent significant worsening/deterioration. Patient agreeable with plan. Patient accepted by Dr Dougherty at [facility] ED in [place]. Given high risk of clinically significant deterioration patient requires emergent transfer. Medical Records I reviewed the patient's medical records. Lab Data I reviewed the patient's lab results. 10/11/22 13:29 10/11/22 13:29 Radiology Impressions Chest/Abdomen/Pelvis CTA 10/11/22 13:38 IMPRESSION: 1. Marked distention of the thoracic esophagus with increased density intraluminal products likely blood products and/or bezoar. Obstructing neoplasm not excluded. Distention worse in the distal thoracic esophagus and GE junction. Suggestion of a small amount of peripheral esophageal pneumatosis. No med iastinal air. Patient at risk for aspiration. 2. Small amount of increased attenuation on the noncontrast and contrast- enhanced images may represent a small amount of active bleeding. 3. LEFT inguinal hernia with herniation of nonobstructed sigmoid colon. Sigmoid diverticulitis. 4. No evidence of aortic dissection. 5. Irregular atheromatous disease distal abdominal aorta with ulceration and small pseudoaneurysm. Aorta measures 2.7 x 2.7 cm in maximum dimension. 6. Slightly ectatic ascending thoracic aorta measuring 3.4 CM. 7. Markedly enlarged prostate measuring 5.6 cm. 8. Numerous compression fractures in the lower thoracic and lumbar spine. Prior kyphoplasty is L4 and L5. Compression fractures recently assessed on the prior August MRI. 9. Cholelithiasis. Notified Epifanio Escobedo MD at 10/11/2022 3:50 PM. Laboratory Results WBC 21.0 10^3/uL (4.0-10.0) H 10/11/22 13:29 RBC 2.99 10^6/uL (4.1-5.3) L 10/11/22 13:29 Hgb 6.9 g/dL (11.7-16.6) L 10/11/22 15:47 Hct 24.0 % (42.0-52.0) L 10/11/22 15:47 MCV 90.0 fl (80-94) 10/11/22 13: MCH 25.8 pg (28.0-34.0) L 10/11/22 13: MCHC 28.6 g/dL (30.0-36.0) L 10/11/22 13: RDW 17.7 % (12.1-15.1) H 10/11/22 13: Plt Count 393 10^3/cmm (130-400) 10/11/22 13: MPV 9.8 fL (7.4-10.4) 10/11/22 13: Neut % (Auto) 87.1 % 10/11/22 13: Lymph % (Auto) 4.2 % 10/11/22: Dent % (Auto) 3.6 % 10/11/22 13: Eos % (Auto) 0.0 % 10/11/22 13: Baso % (Auto) 0.2 % 10/11/22: Neut # (Auto) 18.26 10^3/uL (1.8-7.7) H 10/11/22 13: Lymph # (Auto) 0.9 10^3/uL (0.8-4.8) 10/11/22 13: Dent # (Auto) 0.8 10^3/uL (0.2-0.9) 10/11/22 13: Eos # (Auto) 0.0 10^3/uL (0.0-0.8) 10/11/22 13: Baso # (Auto) 0.0 10^3/uL (0.0-0.1) 10/11/22 13: Nucleated RBC % (auto) 0.1 % 10/11/22: Nucleated RBCs # 0.0 /100WBC 10/11/22 13: PT 18.50 SECONDS (12.1-14.9) H 10/11/22 13: INR 1.51 (0.8-1.2) H 10/11/22 13: Sodium 137 mmol/L (136-145) 10/11/22 13: Potassium 4.6 mmol/L (3.5-5.1) 10/11/22 13: Chloride 97 mmol/L (98-107) L 10/11/22 13:29 Carbon Dioxide 24 mmol/L (22-29) 10/11/22 13:29 Anion Gap 20.6 (5-19) H 10/11/22 13:29 BUN 48 mg/dL (8-23) H 10/11/22 13:29 Creatinine 1.1 mg/dL (0.7-1.2) 10/11/22 13:29 GFR Calculation Not Reportable 10/11/22 13:29 Glucose 158 mg/dL (65-115) H 10/11/22 13:29 Calculated Osmolality 300 mOsm/kg (285-295) H 10/11/22 13:29 Calcium 8.6 mg/dL (8.5-10.5) 10/11/22 13:29 Total Bilirubin 0.4 mg/dL (0.15-1.2) 10/11/22 13:29 AST 20 U/L (0-40) 10/11/22 13:29 ALT 14 U/L (0-41) 10/11/22 13:29 Alkaline Phosphatase 98 U/L (40-130) 10/11/22 13:29 Total Protein 5.7 g/dL (6.6-8.7) L 10/11/22 13:29 Albumin 3.2 g/dL (3.5-5.2) L 10/11/22 13:29 Globulin 2.5 g/dL (1.3-4.6) 10/11/22 13:29 Blood Type A Negative 10/11/22 13:29 Rho(D) Type Negative 10/11/22 13:29 Antibody Screen Negative 10/11/22 13:29 Crossmatch See Detail 10/11/22 13:29 Critical Care Time Critical Care Time: Critical Care Time: Yes Total Critical Care Time: 50 Attestation: Due to a high probability of clinically significant, possibly life threatening deterioration, the patient required my highest level of attention and pr eparedness to intervene emergently and I personally spent this critical care time directly and personally managing the patient. This critical care time included obtaining a history; examining the patient; pulse oximetry; ordering and review of laboratory and imaging studies; arranging urgent treatment with development of a management plan; evaluation of patient's response to treatment; frequent reassessment; and, discussions with other providers as applicable. It was exclusive of separately billable procedures. Primary system involved in GI/Vascular Discharge Plan Discharge Patient Disposition: Transfer to ED Clinical Impression: Acute GI bleeding Condition: Stable Prescriptions: No Action levetiracetam [Keppra] 1,000 mg tablet 500 mg PO BID@0800,2000 Qty: 180 3RF Eliquis 5 mg tablet 5 mg PO BID@0900,2100 Qty: 180 3RF furosemide 40 mg tablet 40 mg PO BID@08,16 Qty: 180 3RF Mestinon 60 mg tablet 60 mg PO TID@06,14,22 Qty: 90 3RF budesonide-formoterol [Symbicort] 160-4.5 mcg/actuation HFA aerosol inhaler 2 puff inhalation BID Qty: 10.2 5RF cholecalciferol (vitamin D3) [Vitamin D3] 50 mcg (2,000 unit) Capsule 2,000 unit PO DAILY@06 acetaminophen 500 mg Tablet 1,000 mg PO Q4H PRN (Reason: Pain) hydrocodone-acetaminophen 5-325 mg tablet 1 - 2 tab PO QID PRN (Reason: Pain) magnesium oxide 400 mg magnesium Tablet 400 mg PO DAILY@06 potassium chloride 10 mEq capsule, extended release 10 meq PO DAILY@14 prednisone 20 mg tablet 20 mg PO DAILY@07 aspirin 81 mg tablet,delayed release (DR/EC) 81 mg PO DAILY@06 ropinirole 4 mg tablet 4 mg PO BEDTIME@22 metoprolol tartrate 25 mg tablet 25 mg PO BID@07,19 Entresto 49-51 mg tablet 1 tab PO BID@09,21 Hold Instructions: Resume on 11/03/22. Rx Instructions: on hold bacitracin 500 unit/gram ointment 1 applic topical Q12H Qty: 28.4 0RF Rx Instructions: @08:00,20:00 doxycycline hyclate 100 mg tablet 100 mg PO BID@08,20 mycophenolate mofetil 500 mg tablet 1,000 mg PO BID@08,20 Referrals: Jerman Henao DO [Primary Care Provider] - Coding Level of Care Code ED Decal Transferrer for Alessio Chavez
--- NOTE | 2022-10-11 13:38 | CT_ITS ---
WS: [id number] CTA CHEST ABDOMEN AND PELVIS TECHNIQUE: Noncontrast plus contrast enhanced CTA of the chest, abdomen, and pelvis with coronal and sagittal reformatted images and additional MIP Images. CLINICAL INFORMATION: hematemesis, GI bleed COMPARISON: None. DLP: 1266.[address] scans at [facility] use at least one of these dose optimization techniques: automated e xposure control; mA and/or kV adjustment per patient size (includes targeted exams where dose is matc hed to clinical indication); or iterative reconstruction. FINDINGS: Moderate chronic emphysematous changes. No acute pulmonary infiltrates. No focal pneumonia or pleural fluid. Subsegmental atelectasis LEFT lower lobe. Slightly ectatic ascending thoracic aorta measuring 3.4 CM. Normal caliber descending thoracic aorta. Aortic calcification. Coronary calcification. Card iomegaly. Large esophageal hiatal hernia with dilatation of the thoracic esophagus. Increased density within the thoracic esophagus extending to the GE junction likely due to hematoma a nd/or bezoar. Obstructing neoplasm not excluded. Consider endoscopy in further evaluation. Normal caliber abdominal aorta. Splenic artery calcification. Slightly ectatic infrarenal abdominal a akash measuring 2.7 x 2.7 CM. Irregular atheromatous disease with small pseudoaneurysm posteriorly oscar suring 2.0 x 0.9 cm. Celiac and superior mesenteric artery are patent. Markedly enlarged prostate measuring 5.6 cm. LEFT inguinal hernia with nonobstructed herniated sigmoi d colon. Cholelithiasis. Gallbladder is contracted. Adrenal glands are normal. Normal renal parenchymal enhanc ement. No hydronephrosis. Stable chronic appearing compression deformities in the lower thoracic and upper lumbar spine with vacuum disc phenomenon. Compression fractures recently evaluated on the Octob er MRI. Laminectomies lower lumbar spine. No evidence of high-grade small or large bowel obstruction. Bilateral hydroceles. CT/CT angio chest abdomen pelvis IMPRESSION: 1. Marked distention of the thoracic esophagus with increased density intralum inal products likely blood products and/or bezoar. Obstructing neoplasm not exc luded. Distention worse in the distal thoracic esophagus and GE junction. Sugge stion of a small amount of peripheral esophageal pneumatosis. No mediastinal ai r. Patient at risk for aspiration. 2. Small amount of increased attenuation on the noncontrast and contrast-enhan romero images may represent a small amount of active bleeding. 3. LEFT inguinal hernia with herniation of nonobstructed sigmoid colon. Sigmoi d diverticulitis. 4. No evidence of aortic dissection. 5. Irregular atheromatous disease distal abdominal aorta with ulceration and s mall pseudoaneurysm. Aorta measures 2.7 x 2.7 cm in maximum dimension. 6. Slightly ectatic ascending thoracic aorta measuring 3.4 CM. 7. Markedly enlarged prostate measuring 5.6 cm. 8. Numerous compression fractures in the lower thoracic and lumbar spine. Prio r kyphoplasty is L4 and L5. Compression fractures recently assessed on the prio r August MRI. 9. Cholelithiasis. Notified Epifanio Escobedo MD at 10/11/2022 3:50 PM.
[2022-10-11 13:48] LABS: Basophils % 0.2 %; Hematocrit 26.9 % (42.0-52.0); Hemoglobin 7.7 g/dL (11.7-16.6); Lymphocytes # 0.9 10^3/uL (0.8-4.8); Lymphocytes % 4.2 %; Mean Corpuscular HGB Conc 28.6 g/dL (30.0-36.0); Mean Corpuscular Hemoglobin 25.8 pg (28.0-34.0); Mean Platelet Volume 9.8 fL (7.4-10.4); Monocytes # 0.8 10^3/uL (0.2-0.9); Monocytes % 3.6 %; Neutrophils # 18.26 10^3/uL (1.8-7.7); Neutrophils % 87.1 %; Nucleated Red Blood Cells % 0.1 %; Platelet Count 393 10^3/cmm (130-400); Red Blood Count 2.99 10^6/uL (4.1-5.3); Red Cell Distribution Width 17.7 % (12.1-15.1)
[2022-10-11 13:59] LABS: INR 1.51 (0.8-1.2)
[2022-10-11 14:01] LABS: Alanine Aminotransferase 14 U/L (0-41); Albumin Level 3.2 g/dL (3.5-5.2); Alkaline Phosphatase 98 U/L (40-130); Anion Gap 20.6 (5-19); Aspartate Amino Transferase 20 U/L (0-40); Blood Urea Nitrogen 48 mg/dL (8-23); Calcium 8.6 mg/dL (8.5-10.5); Carbon Dioxide 24 mmol/L (22-29); Chloride 97 mmol/L (98-107); Creatinine Clr Calc Pharmacy 51.8364; Globulin 2.5 g/dL (1.3-4.6); Glucose 158 mg/dL (65-115); Osmolality Calculated 300 mOsm/kg (285-295); Potassium 4.6 mmol/L (3.5-5.1); Sodium 137 mmol/L (136-145); Total Bilirubin 0.4 mg/dL (0.15-1.2); Total Protein 5.7 g/dL (6.6-8.7)
[2022-10-11] MEDS: iohexol 350 mg/mL 500 mL Btl (per mL) IV (14:59)
[2022-10-11] MEDS: pantoprazole 40 mg SDV 80 MG IVP (14:59)
[2022-10-11] MEDS: ondansetron 2 mg/ML SDV 2 mL 4 MG IVP (15:43)
[2022-10-11 15:52] LABS: Hemoglobin 6.9 g/dL (11.7-16.6)
--- NOTE | 2022-10-11 15:53 | ECG_ITS ---
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: : 1935 Requested By: Epifanio Escobedo Order Number: [id number] Jhonny MD: Maurice Robertson Measurements Intervals [place] Rate: 106 P: 66 VA: 180 QRS: -17 QRSD: 129 T: 29 QT: 354 QTc: 472 Interpretive Statements SINUS TACHYCARDIA INDETERMINATE AXIS RIGHT BUNDLE BRANCH BLOCK [120+ ms QRS DURATION, UPRIGHT V1, 40+ ms S IN I/aVL/V4/V5/V6] Compared to ECG 10/04/2022 23:17:18 Sinus rhythm no longer present Ventricular premature complex(es) no longer present Electronically Signed On 10-11-2022 17:56:02 TRANSPORTATION MANAGER by Maurice Robertson [email or web address]/[id number]
[2022-10-11] MEDS: factor xa, inactivated-zhzo 400 MG in empty flexible container 1 EACH, non-DEHP filter ... 180 MG IV (17:25)
[2022-10-11] MEDS: sodium chloride 0.9% 100 mL Bag 50 ML IV (17:27)
[2022-10-11] MEDS: metoclopramide 5 mg/mL SDV 2 mL 10 MG IVP (17:29)
[2022-10-11] MEDS: factor xa, inactivated-zhzo 400 MG in empty flexible container 1 EACH, non-DEHP filter ... 24 MG IV (17:55)
[2022-10-11] MEDS: cefTRIAXone 2,000 MG in sodium chloride 0.9% (plus) 50 ML 100 MG IV (18:08)
[2022-10-11] MEDS: sodium chloride 0.9% (100 ml) 100 ML 50 ML (18:09)
== END 2022-10-11 18:25 ==
PROVIDERS: Emergency Provider Emergency Medicine; PCP Internal Medicine
DX: K92.2 Gastrointestinal hemorrhage, unspecified (principal)
CPT/HCPCS: 36415; 36430; 71275; 74174; 80053; 85014; 85018; 85025; 85610; 86850; 86900; 86920; 93005; 96365; 96366; 96367; 96375; 99285; A4222; C9113; J0696; J2405; J2765; J7169; P9016; Q9967

== ENCOUNTER → 2022-10-27 14:54 | Outpatient (BNVA) | payer MEDICAID, SELFPAY | PROVIDERS: PCP Internal Medicine; Visit Provider Internal Medicine | DX: I50.20 Unspecified systolic (congestive) heart failure (principal); R06.00 Dyspnea, unspecified; Z87.891 Personal history of nicotine dependence; J44.9 Chronic obstructive pulmonary disease, unspecified; I48.91 Unspecified atrial fibrillation | CPT/HCPCS: 36415; 85025; 99214 ==

== ENCOUNTER → 2022-12-14 12:55 | Outpatient (BNVA) | payer MEDICAID, SELFPAY | PROVIDERS: PCP Internal Medicine; Visit Provider Specialist | DX: G70.00 Myasthenia gravis without (acute) exacerbation (principal); G40.309 Generalized idiopathic epilepsy and epileptic syndromes, not intractable, without status epilepticus; G25.81 Restless legs syndrome; J44.9 Chronic obstructive pulmonary disease, unspecified; Z87.891 Personal history of nicotine dependence; Z79.01 Long term (current) use of anticoagulants; Z87.19 Personal history of other diseases of the digestive system; Z79.69 Long term (current) use of other immunomodulators and immunosuppressants; Z79.52 Long term (current) use of systemic steroids; Z87.311 Personal history of (healed) other pathological fracture | CPT/HCPCS: 99215 ==

== ENCOUNTER 2023-01-05 15:09 | Outpatient (CLI) | payer MEDICAID, SELFPAY ==
[2023-01-05 15:59] LABS: Basophils # 0.1 10^3/uL (0.0-0.1); Basophils % 0.6 %; Hematocrit 33.9 % (42.0-52.0); Hemoglobin 9.4 g/dL (11.7-16.6); Lymphocytes # 0.8 10^3/uL (0.8-4.8); Lymphocytes % 7.1 %; Mean Corpuscular HGB Conc 27.7 g/dL (30.0-36.0); Mean Corpuscular Hemoglobin 24.1 pg (28.0-34.0); Mean Corpuscular Volume 86.9 fl (80-94); Mean Platelet Volume 9.8 fL (7.4-10.4); Monocytes # 0.4 10^3/uL (0.2-0.9); Monocytes % 3.8 %; Neutrophils # 9.16 10^3/uL (1.8-7.7); Neutrophils % 85.9 %; Nucleated Red Blood Cells % 0 %; Platelet Count 277 10^3/cmm (130-400); Red Cell Distribution Width 17.4 % (12.1-15.1); White Blood Count 10.7 10^3/uL (4.0-10.0)
== END 2023-01-05 15:10 | disposition home or self-care (01) ==
LOC: LAB 15:16
PROVIDERS: PCP Internal Medicine; Visit Provider Internal Medicine
DX: I50.20 Unspecified systolic (congestive) heart failure (principal); D64.9 Anemia, unspecified
CPT/HCPCS: 85025

== ENCOUNTER 2023-01-17 10:46 | Inpatient (IN) | payer MEDICARE, MEDICAID, SELFPAY ==
[2023-01-17] VITALS (49 sets, daily range): BP systolic 74–130; BP diastolic 42–78; PULSE 58–113; RESP 12–30; TEMP 36.5–38.8; O2SAT 89–100; BMI 23.6; BMI 24.3
--- NOTE | 2023-01-17 10:56 | ECG_ITS ---
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 Measurements Intervals [place] Rate: 115 P: 0 OR: 0 QRS: 80 QRSD: 138 T: 38 QT: 341 QTc: 473 Interpretive Statements ATRIAL FIBRILLATION WITH RAPID VENTRICULAR RESPONSE WITH ABERRANT CONDUCTION OR VENTRICULAR PREMATURE COMPLEXES INDETERMINATE AXIS RIGHT BUNDLE BRANCH BLOCK [120+ ms QRS DURATION, UPRIGHT V1, 40+ ms S IN I/aVL/V4/V5/V6] Compared to ECG 10/11/2022 15:59:31 Ventricular premature complex(es) now present Aberrant conduction of supraventricular beat(s) now present Sinus tachycardia no longer present Electronically Signed On 01-17-2023 17:35:57 BEACH PATROL LIEUTENANT by Rory Epstein M.D. [email or web address].[email or web address]/store/OM/[id number]
--- NOTE | 2023-01-17 11:20 | XR_ITS ---
WS: [id number] Exam: XR chest 1V portable [id number] Date/Time of Exam: 01/17/2023 11:33 AM Reason For Exam: SOB, cough and fever Comparison 10/04/2022. The lungs are fully expanded and clear. Eventration of the left diaphragm. Heart size top limits norm al. There appears to be some mild widening of the superior mediastinum unchanged. Bony structures are intact. XR/XR chest 1V portable [id number] IMPRESSION: 1. No acute process identified. 2. Widening of the mediastinum which is unchanged. Eventration of the left diap hragm unchanged.
--- NOTE | 2023-01-17 11:45 | ED_ITS ---
HPI - SOB/Dyspnea General: Chief Complaint: Shortness of Breath/Dyspnea Stated Complaint: SOB, weakness Time Seen by Provider: 01/17/23 11:04 Source: patient and family () Mode of arrival: ambulatory Limitations: no limitations History of Present Illness: HPI Narrative: This 87-year-old male with a history of COPD presents to the ER with progressively worsening shortness of breath over the last 6 days. was out of town for 3 days and when she returned today, discovered that patient was having significant shortness of breath with generalized weakness. Patient had done a breathing treatment prior to arrival. Here in the ER, his temperature is 101.8. Patient reports productive cough with whitish sputum. He appears short of breath with use of accessory muscles and inability to complete sentences without pauses. He denies any sick contacts. He does not smoke. Associated symptoms: Deny chest pain or lightheadedness Review of Systems Const: Reports: body aches, change in appetite and other (Weakness) ENMT: Denies: throat pain, dental pain or nasal discharge Card: Denies: chest pain or lightheadedness Resp: Reports: dyspnea, productive cough and wheezing : Denies: dysuria Musc: Denies: neck pain or back pain Neuro: Denies: headache(s) or weakness in extremities All/Imm: Denies: urticaria, tongue swelling or facial swelling PFSH ED PFSH: Medical History Anemia Asthma-COPD overlap syndrome Cardiomyopathy Cellulitis Compression fracture COPD (chronic obstructive pulmonary disease) COVID-19 (~11/2020) Generalized epilepsy GI bleed when hospitalized with covid Heart failure History of lung abscess Describes having had an abscess in his lung that required surgical removal many years ago Intermittent atrial fibrillation Lower extremity edema Myasthenia gravis Sepsis Systolic CHF with reduced left ventricular function, NYHA class 2 Surgical History History of back surgery x2 History of cataract surgery Bilateral History of esophagogastroduodenoscopy (EGD) History of surgery Describes a remote surgical procedure in which he had something done around his esophagus and his liver that may have involved around a concern for biliary duct malignancy possibility Family History Other CAD (coronary artery disease) Diabetes Social History Smoking and tobacco status: former smoker Quit status (tobacco): has quit using tobacco Year quit tobacco: 1979 Former quit date comment: 2ppd x 15 years then 4-5 cigars/day x 25 years Alcohol intake: former Physical Exam Const: COMMON NORMALS: patient oriented x3, no limitations and alert OTHER: Moderate distress due to shortness of breath. HENMT: COMMON NORMALS: normocephalic HEAD & SCALP: normocephalic Eye: COMMON NORMALS: EOMs intact bilaterally Neck/C-Spine: COMMON NORMALS: full ROM and supple Chest: COMMONS NORMALS: normal inspection of the chest Resp: OTHER: Tachypnea, use of accessory muscles to breathe, prolonged expiratory phase, inspiratory and expiratory wheeze, bibasilar crackles. Cardio: COMMON NORMALS: No murmurs present (Cardio) OTHER: Tachycardia, regular rhythm, no murmur. GI: COMMON NORMALS: Normal to inspection, nondistended, normoactive bowel sounds present and non-tender : COMMON NORMALS: Yes no CVA tenderness BLADDER/KIDNEY EXAM: Yes no CVA tenderness Back/Pelvis: COMMON NORMALS: no CVA tenderness and no thoracic nor lumbar tenderness Extremity: GENERAL: Yes normal exam except as noted OTHER: Bilateral pitting pedal edema. Neuro: COMMON NORMALS: patient oriented x3 and no focal motor deficits SENSORIUM/ORIENTATION: Yes alert Psych: COMMON NORMALS: mental status grossly normal and cooperative Course Vital Signs: Vital signs: Vital Signs Temperature 101.8 F H 01/17/23 10:53 Pulse Rate 94 01/17/23 13:28 Respiratory Rate 16 01/17/23 13:28 Blood Pressure 101/57 01/17/23 12:30 Pulse Oximetry 99 01/17/23 12:30 Oxygen Delivery Me thod 01/17/23 13:28 MDM - SOB/Dyspnea Medical Decision Making Medical decision making: Patient has a history of COPD and presents with progressively worsening shor tness of breath. He also had a fever. Currently he is on 2 L of oxygen via nasal cannula because on room air he was mostly around 90 and 91%. Breathing treatment and IV steroids given. Patient will be admitted for further treatment. Case discussed with Dr. Durán who accepted patient for admission. Lab Data 01/17/23 11:42 01/17/23 11:42 Labs/Radiology: Radiology Impressions Chest X-Ray 01/17/23 11:20 IMPRESSION: 1. No acute process identified. 2. Widening of the mediastinum which is unchanged. Eventration of the left diaphragm unchanged. Laboratory Results WBC 15.7 10^3/uL (4.0-10.0) H 01/17/23 11:42 RBC 4.02 10^6/uL (4.1-5.3) L 01/17/23 11:42 Hgb 9.6 g/dL (11.7-16.6) L 01/17/23 11:42 Hct 34.4 % (42.0-52.0) L 01/17/23 11:42 MCV 85.6 fl (80-94) 01/17/23 11:42 MCH 23.9 pg (28.0-34.0) L 01/17/23 11:42 MCHC 27.9 g/dL (30.0-36.0) L 01/17/23 11:42 RDW 17.7 % (12.1-15.1) H 01/17/23 11:42 Plt Count 204 10^3/cmm (130-400) 01/17/23 11:42 MPV 10.0 fL (7.4-10.4) 01/17/23 11:42 Neut % (Auto) 94.8 % 01/17/23 11:42 Lymph % (Auto) 1.3 % 01/17/23 11:42 [place] % (Auto) 2.0 % 01/17/23 11:42 Eos % (Auto) 0.0 % 01/17/23 11:42 Baso % (Auto) 0.2 % 01/17/23 11:42 Neut # (Auto) 14.85 10^3/uL (1.8-7.7) H 01/17/23 11:42 Lymph # (Auto) 0.2 10^3/uL (0.8-4.8) L 01/17/23 11:42 [place] # (Auto) 0.3 10^3/uL (0.2-0.9) 01/17/23 11:42 Eos # (Auto) 0.0 10^3/uL (0.0-0.8) 01/17/23 11:42 Baso # (Auto) 0.0 10^3/uL (0.0-0.1) 01/17/23 11:42 Nucleated RBC % (auto) 0 % 01/17/23 11:42 Nucleated RBCs # 0.0 /100WBC 01/17/23 11:42 Specimen Type Arterial 01/17/23 11:46 Sample Site Radial, left 01/17/23 11:46 ABG pH 7.44 (7.35-7.45) 01/17/23 11:46 ABG pCO2 40.9 mmHg (35-45) 01/17/23 11:46 ABG pO2 56.4 mmHg (80.0-100.0) L 01/17/23 11:46 ABG HCO3 27.9 mmol/L (22-26) H 01/17/23 11:46 ABG Base Excess 3.5 mmol/L (-2.0-2.0) H 01/17/23 11:46 Wayne Test Pos 01/17/23 11:46 Hematocrit 31.8 % (42-52) L 01/17/23 11:46 Hgb O2 Saturation 86.3 % (95-100) L 01/17/23 11:46 Carboxyhemoglobin 1.1 %THgb (0.4-20.1) 01/17/23 11:46 Methemoglobin 1.4 % (0.4-1.5) 01/17/23 11:46 Total Hemoglobin 10.4 g/dL (14-18) L 01/17/23 11:46 O2 Delivery Device Room air 01/17/23 11:46 FiO2 21.0 % 01/17/23 11:46 Director Of Nursing ID Monro 01/17/23 11:46 Sodium 140 mmol/L (136-145) 01/17/23 11:42 Potassium 3.4 mmol/L (3.5-5.1) L 01/17/23 11:42 Chloride 99 mmol/L (98-107) 01/17/23 11:42 Carbon Dioxide 27 mmol/L (22-29) 01/17/23 11:42 Anion Gap 17.4 (5-19) 01/17/23 11:42 BUN 27 mg/dL (8-23) H 01/17/23 11:42 Creatinine 1.5 mg/dL (0.7-1.2) H 01/17/23 11:42 GFR Calculation Not Reportable 01/17/23 11:42 Glucose 157 mg/dL (65-115) H 01/17/23 11:42 Calculated Osmolality 298 mOsm/kg (285-295) H 01/17/23 11:42 Calcium 9.6 mg/dL (8.5-10.5) 01/17/23 11:42 Total Bilirubin 1.0 mg/dL (0.15-1.2) 01/17/23 11:42 AST 45 U/L (0-40) H 01/17/23 11:42 ALT 26 U/L (0-41) 01/17/23 11:42 Alkaline Phosphatase 103 U/L (40-130) 01/17/23 11:42 Total Protein 6.7 g/dL (6.6-8.7) 01/17/23 11:42 Albumin 3.4 g/dL (3.5-5.2) L 01/17/23 11:42 Globulin 3.3 g/dL (1.3-4.6) 01/17/23 11:42 Influenza Type A Ag negative (Negative) 01/17/23 14:31 Influenza Type B Ag negative (Negative) 01/17/23 14:31 SARS-CoV-2 Ag (Rapid) negative (Negative) 01/17/23 14:31 Discharge Plan Discharge Condition: Stable Prescriptions: No Action pantoprazole 40 mg tablet,delayed release (DR/EC) 40 mg PO BID furosemide 40 mg tablet 40 mg PO BID@08,16 Qty: 180 3RF budesonide-formoterol [Symbicort] 160-4.5 mcg/actuation HFA aerosol inhaler 2 puff inhalation BID Qty: 10.2 5RF cholecalciferol (vitamin D3) [Vitamin D3] 50 mcg (2,000 unit) Capsule 2,000 unit PO DAILY@06 acetaminophen 500 mg Tablet 1,000 mg PO Q4H PRN (Reason: Pain) magnesium oxide 400 mg magnesium Tablet 400 mg PO DAILY@06 prednisone 20 mg tablet 20 mg PO DAILY@07 metoprolol tartrate 25 mg tablet 25 mg PO BID@ Entresto 49-51 mg tablet 1 tab PO BID@ Hold Instructions: Resume on 11/03/22. ropinirole 4 mg tablet 4 mg PO BEDTIME Eliquis 5 mg tablet 5 mg PO BID mycophenolate mofetil 500 mg tablet 1,000 mg PO BID pyridostigmine bromide 60 mg tablet 60 mg PO TID Keppra 1,000 mg tablet 500 mg PO BID Rx Instructions: 1/ tab Referrals: Jerman Henao DO [Primary Care Provider] - Coding Level of Care Code ED [employer] Assembler for Alessio Chavez
[2023-01-17] MEDS: ipratropium-albuterol 3 mL Neb INHALATION (11:47)
[2023-01-17 11:49] LABS: Basophils % 0.2 %; Hematocrit 34.4 % (42.0-52.0); Hemoglobin 9.6 g/dL (11.7-16.6); Lymphocytes # 0.2 10^3/uL (0.8-4.8); Lymphocytes % 1.3 %; Mean Corpuscular HGB Conc 27.9 g/dL (30.0-36.0); Mean Corpuscular Hemoglobin 23.9 pg (28.0-34.0); Mean Corpuscular Volume 85.6 fl (80-94); Monocytes # 0.3 10^3/uL (0.2-0.9); Neutrophils # 14.85 10^3/uL (1.8-7.7); Neutrophils % 94.8 %; Nucleated Red Blood Cells % 0 %; Platelet Count 204 10^3/cmm (130-400); Red Blood Count 4.02 10^6/uL (4.1-5.3); Red Cell Distribution Width 17.7 % (12.1-15.1); White Blood Count 15.7 10^3/uL (4.0-10.0)
[2023-01-17] MEDS: FUROsemide 10 mg/mL SDV 10mL 60 MG IVP (11:56)
[2023-01-17 11:59] LABS: ABG PCO2 40.9 mmHg (35-45); ABG PH Result 7.44 (7.35-7.45); Arterial Blood Gas Hematocrit 31.8 % (42-52); Base Excess ABG 3.5 mmol/L (-2.0-2.0); Blood Gas Allen Test Pos; Blood Gas Operator Identificat MONRO; Blood Gas Sample Site Radial, left; Blood Gas Sample Type Arterial; Carboxyhemoglobin 1.1 %THgb (0.4-20.1); HCO3 ABG 27.9 mmol/L (22-26); HGB O2 Sat 86.3 % (95-100); Methemoglobin 1.4 % (0.4-1.5); Oxygen Device ROOM AIR; PO2 ABG 56.4 mmHg (80.0-100.0); Total Hemoglobin 10.4 g/dL (14-18)
[2023-01-17 12:11] LABS: Alanine Aminotransferase 26 U/L (0-41); Albumin Level 3.4 g/dL (3.5-5.2); Alkaline Phosphatase 103 U/L (40-130); Anion Gap 17.4 (5-19); Aspartate Amino Transferase 45 U/L (0-40); Blood Urea Nitrogen 27 mg/dL (8-23); Calcium 9.6 mg/dL (8.5-10.5); Carbon Dioxide 27 mmol/L (22-29); Chloride 99 mmol/L (98-107); Globulin 3.3 g/dL (1.3-4.6); Glucose 157 mg/dL (65-115); Osmolality Calculated 298 mOsm/kg (285-295); Potassium 3.4 mmol/L (3.5-5.1); Sodium 140 mmol/L (136-145); Total Protein 6.7 g/dL (6.6-8.7)
[2023-01-17 15:00] LABS: Influenza A by IFA negative (Negative); Influenza B by IFA negative (Negative); SARS Covid-2 Antigen negative (Negative)
[2023-01-17] MEDS: acetaminophen 500 mg Tablet 1000 MG PO (15:06)
[2023-01-17] MEDS: levofloxacin-dextrose 5 % 750 MG/150 ML PREMIX 100 MG IV (15:26)
[2023-01-17 16:04] LABS: NT Pro B Type Natriuretic Pept 1099 pg/mL (0-450); Procalcitonin 2.15 ng/mL (0-0.5)
--- NOTE | 2023-01-17 17:06 | CTR_ITS ---
PROCEDURE INFORMATION: Exam: CT Chest Without Contrast; Diagnostic Exam date and time: 01/17/2023 6:16 PM Age: 87 years old Clinical indication: Fever; Wheezing; Prior surgery; Surgery date: 6+ months; Surgery type: Left lung aspiration abscess; Additional info: Fever, wehezing, ruq pain TECHNIQUE: Imaging protocol: Diagnostic computed tomography of the chest without contrast. Radiation optimization: All CT scans at this facility use at least one of these dose optimization techniques: automated exposure control; mA and/or kV adjustment per patient size (includes targeted exams where dose is matched to clinical indication); or iterative reconstruction. REPORTING DATA: Count of CT and Cardiac NM exams in prior 12 months: This patient has received 2 known CTs and 0 known cardiac nuclear medicine studies in the 12 months prior to the current study. COMPARISON: CT angio chest PE protcl [id number] 11/04/2021 1:05 PM RADIATION DOSE METRICS: Total DLP (mGy-cm): 1209.38 FINDINGS: Lungs: Mild atelectasis in the lung bases. Small scar in the anterior left upper lobe. No consolidation. Calcified granuloma in the lingula. Pleural spaces: Unremarkable. No pneumothorax. No pleural effusion. Heart: The heart size is normal. Coronary arteries: Coronary artery calcifications. Mediastinal space: Distended esophagus with layering fluid. Lymph nodes: Calcified mediastinal lymph node. Vasculature: Unremarkable. No aortic aneurysm. Diaphragm: Small hiatal hernia. Bones/joints: Kyphosis and degenerative changes of the thoracic spine. Multiple chronic mid and lower thoracic compression fractures. No acute fracture. Soft tissues: Unremarkable. PROCEDURE INFORMATION: Exam: CT Abdomen And Pelvis Without Contrast Exam date and time: 01/17/2023 6:16 PM Age: 87 years old Clinical indication: Fever; Wheezing; Prior surgery; Surgery date: 6+ months; Surgery type: Left lung aspiration abscess; Additional info: Fever, wheezing, ruq pain TECHNIQUE: Imaging protocol: Computed tomography of the abdomen and pelvis without contrast. Radiation optimization: All CT scans at this facility use at least one of these dose optimization techniques: automated exposure control; mA and/or kV adjustment per patient size (includes targeted exams where dose is matched to clinical indication); or iterative reconstruction. REPORTING DATA: Count of CT and Cardiac NM exams in prior 12 months: This patient has received 2 known CTs and 0 known cardiac nuclear medicine studies in the 12 months prior to the current study. COMPARISON: CT ang ches abdpel [id number] 10/11/2022 2:46 PM RADIATION DOSE METRICS: Total DLP (mGy-cm): 1209.38 FINDINGS: Liver: Normal. No mass. Gallbladder and bile ducts: Small calcified stones in the gallbladder. No wall thickening. The bile ducts are normal. Pancreas: Normal. No ductal dilation. Spleen: Normal. No splenomegaly. Adrenal glands: Normal. No mass. 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 The kidneys are otherwise unremarkable. No calculus or hydronephrosis. Stomach and bowel: Duodenal diverticulum. Large left inguinal hernia containing a loop of nonobstructed proximal sigmoid colon, with diverticulosis. No diverticulitis. The remainder of the colon is unremarkable. The stomach is decompressed. The small bowel is normal. No wall thickening or obstruction. Previous partial small bowel resection. Appendix: The appendix is not visualized. No secondary signs of appendicitis. Intraperitoneal space: Unremarkable. No free air. No significant fluid collection. Vasculature: Diffuse arterial calcifications. 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 Lymph nodes: Unremarkable. No enlarged lymph nodes. Urinary bladder: Unremarkable as visualized. Reproductive: Enlarged inhomogenous prostate measuring 5.9 cm. Large bilateral hydroceles. Bones/joints: Degenerative changes of the lumbar spine. L4 and L5 kyphoplasties. L1, L2, and L3 compression fractures. L3-S1 decompressive laminectomies. Soft tissues: Large left inguinal hernia as discussed above. CT/CT chest abdpel [id number] IMPRESSION: 1. No acute pulmonary finding. 2. Fluid distended thoracic esophagus, consistent with reflux and/or stasis. IMPRESSION: 1. No acute findings in the abdomen or pelvis. 2. Cholelithiasis. 3. Ectopic right kidney. 4. Large left inguinal hernia containing a loop of nonobstructed proximal sigmoid colon. 5. Enlarged prostate. 6. Multiple lumbar compression fractures, most likely chronic.
--- NOTE | 2023-01-17 17:06 | ECG_ITS ---
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 Measurements Intervals [place] Rate: P: 0 AL: 0 QRS: 0 QRSD: 0 T: 0 QT: 0 QTc: 0 Interpretive Statements ATRIAL FIBRILLATION WITH OCCASIONAL PREMATURE VENTRICULAR CONTRACTIONS RIGHT BUNDLE BRANCH BLOCK Compared to ECG 01/17/2023 11:24:59 Aberrant conduction of supraventricular beat(s) no longer present Indeterminate axis no longer present Electronically Signed On 01-17-2023 17:24:55 CLINICAL DERMATOLOGIST by Rory Epstein M.D. [id number]
--- NOTE | 2023-01-17 17:09 | PM.HP ---
Providers/Chief Complaint Admitting Physician: Rell Durán MD Primary Care Provider: Jerman Henao DO Chief Complaint: SOB, weakness History of Present Illness Mauricio Wilson is a 87 year old male with a past medical history of intermittent atrial fibrillation on Eliquis, history of COPD, history of epilepsy, history of myasthenia gravis, history of CHF, history of GI bleed, history of lung abscess, who presents to [facility] due to weakness, presyncopal episode, shortness of breath, fevers, bilateral lung pain and rib pain. Patient tells me that today he was feeling weak, fatigued, he was walking when he felt a bit lightheaded, and his family was able to catch him before he hit the floor, he never passed out. He is also been complaining of shortness of breath, pain in the bilateral lower ribs, his right upper quadrant also is hurting him. He has been told that he has gallstones, at some point he will need surgery for it. Patient is quite hard of hearing, but is alert oriented x3, following all commands, currently his MAP is 55, he has 3+ pitting edema bilateral lower extremity, not tachycardic, he was febrile in the emergency room on 2 L, does not use oxygen at home, complaining of a cough, productive, he has received steroids, Levaquin, Lasix, while here in the emergency room. Given his low MAP of 55, I have advised nursing staff to avoid fluids because of his bilateral pitting edema and evidence of fluid overload, on examination we will start him on low-dose Levophed. Moving to the ICU for closer monitoring. Had extensive discussion with patient and his , he wants to be DNR/DNI. Advised him of my concerns for his respiratory status, he has evidence of septic shock, fluid overload, his chest x-rays look okay but he seems to have a lot of diffuse wheezing and crackles, will do CT of the chest it is very tender in the right upper quadrant so we will go ahead and do a CT of the abdomen. Denies any bloody or black stools. No diarrhea. No dysuria, no hematuria. Its been a long time since his last myasthenia crisis and this does not seem similar. Review of Systems Const: Reports: fever(s), fatigue and malaise Eyes: Denies: change in vision ENMT: Denies: throat pain Card: Reports: edema and pre-syncope; Denies: chest pain Resp: Reports: dyspnea, productive cough and pain on inspiration GI: Reports: abdominal pain; Denies: nausea or vomiting : Denies: flank pain, difficulty urinating or dysuria Musc: Denies: back pain Skin/Breast: Denies: rash Neuro: Denies: headache(s), numbness in extremities or weakness in extremities Endo: Denies: polyuria Hermann/Lymph: Reports: petechiae Medications/Allergies Home Medications Medication Instructions Recorded Confirmed Last Taken Type cholecalciferol (vitamin D3) 50 2,000 unit PO DAILY@09/03/20 01/17/23 01/17/23 History mcg (2,000 unit) capsule (Vitamin D3) acetaminophen 500 mg tablet 1,000 mg PO Q4H PRN Pain 11/04/21 01/17/23 04/12/22 History furosemide 40 mg tablet 40 mg PO BID@ #180 tabs 03/07/22 01/17/23 01/17/23 Rx budesonide-formoterol HFA 160 2 puff inhalation BID #10.2 grams 09/12/22 01/17/23 01/17/23 Rx mcg-4.5 mcg/actuation aerosol inhaler (Symbicort) magnesium oxide 400 mg PO DAILY@10/04/22 01/17/23 01/17/23 History metoprolol tartrate 25 mg tablet 25 mg PO BID@10/04/22 01/17/23 01/17/23 History prednisone 20 mg tablet 20 mg PO DAILY@10/04/22 01/17/23 01/17/23 History sacubitril 49 mg-valsartan 51 mg 1 tab PO BID@10/04/22 01/17/23 01/17/23 History tablet (Entresto) pantoprazole 40 mg tablet,delayed 40 mg PO BID 12/14/22 01/17/23 01/17/23 History release apixaban 5 mg tablet (Eliquis) 5 mg PO BID 01/17/23 01/17/23 01/17/23 History levetiracetam 1,000 mg tablet 500 mg PO BID 01/17/23 01/17/23 01/17/23 History (Kecory) mycophenolate mofetil 500 mg tablet 1,000 mg PO BID 01/17/23 01/17/23 01/17/23 History pyridostigmine bromide 60 mg tablet 60 mg PO TID 01/17/23 01/17/23 01/17/23 History ropinirole 4 mg tablet 4 mg PO BEDTIME 01/17/23 01/17/23 01/16/23 History Allergies Allergy/AdvReac Type Severity Reaction Status Date / Time No Known Allergies Allergy Verified 01/17/23 11:53 PFSH Acute PFSH: Medical History (Updated 01/17/23 @ 17:25 by Rell Durán MD) Anemia Asthma-COPD overlap syndrome Cardiomyopathy Cellulitis Compression fracture COPD (chronic obstructive pulmonary disease) COVID-19 (~11/2020) Generalized epilepsy GI bleed when hospitalized with covid Heart failure History of lung abscess Describes having had an abscess in his lung that required surgical removal many years ago Intermittent atrial fibrillation Lower extremity edema Myasthenia gravis Sepsis Systolic CHF with reduced left ventricular function, NYHA class 2 Surgical History History of back surgery x2 History of cataract surgery Bilateral History of esophagogastroduodenoscopy (EGD) History of surgery Describes a remote surgical procedure in which he had something done around his esophagus and his liver that may have involved around a concern for biliary duct malignancy possibility Family History Other CAD (coronary artery disease) Diabetes Social History Smoking and tobacco status: former smoker Quit status (tobacco): has quit using tobacco Year quit tobacco: 1979 Former quit date comment: 2ppd x 15 years then 4-5 cigars/day x 25 years Alcohol intake: former Vitals/I&O/Wt Last Vital Signs Temp 101.8 F H 01/17/23 10:53 Pulse 94 01/17/23 13:28 Resp 16 01/17/23 13:28 BP 101/57 01/17/23 12:30 Pulse Ox 99 01/17/23 12:30 O2 Del Method 01/17/23 13:28 Weight last 48 hrs Weight 74.843 kg Physical Exam Const: COMMON NORMALS: no acute distress and patient oriented x3 HENMT: COMMON NORMALS: normocephalic HEAD & SCALP: normocephalic Eye: COMMON NORMALS: Equal, round and reactive pupils present and EOMs intact bilaterally Neck/C-Spine: COMMON NORMALS: no JVD Lymph: LYMPHATIC: no lymphadenopathy noted Chest: COMMONS NORMALS: normal inspection of the chest Resp: COMMON NORMALS: normal respiratory effort, No retractions and No use of accessory muscles AUSCULTATION: crackles and wheezes Cardio: COMMON NORMALS: regular rate, regular rhythm, S1 normal heart sound present and S2 normal heart sound present RATE: regular rate RHYTHM: regular rhythm HEART SOUNDS: S1 normal heart sound present and S2 normal heart sound present GI: PALPATION: Yes Soft to palpation and Yes No hepatosplenomegaly present OTHER: Abdomen soft, slightly distended, good bowel sounds, exquisite right upper quadrant tenderness, positive Macias sign, no guarding, no rebound, no rigidity : COMMON NORMALS: Yes no CVA tenderness Back/Pelvis: OTHER: On back examination, has a cyst, measuring 2 x 3 cm surgical scar on top of it, patient tells me that he has had this multiple times but it keeps coming back Extremity: COMMON NORMALS: no calf tenderness NARRATIVE EXTREMITY EXAM: 2+ pitting edema bilateral lower extremity Neuro: COMMON NORMALS: patient oriented x3, CN's II-XII intact bilaterally, moves all extremities and no focal motor deficits Psych: COMMON NORMALS: mental status grossly normal Data 01/17/23 11:42 01/17/23 11:42 Micro: Microbiology 01/17/23 15:24 Blood Culture - Preliminary Blood SPECIMEN COLLECTED 01/17/23 14:59 Blood Culture - Preliminary Blood SPECIMEN COLLECTED A&P Assessment and plan (1) Septic shock: (2) Acute exacerbation of chronic obstructive airways disease: (3) Systolic CHF with reduced left ventricular function, NYHA class 2: (4) Generalized epilepsy: (5) Myasthenia gravis: (6) Intermittent atrial fibrillation: (7) Fever: (8) Right upper quadrant pain: (9) Cough: (10) Acute on chronic anemia: (11) Acute kidney injury: (12) Hypokalemia: (13) Sepsis: (14) Leukocytosis: Plan Fever, cough, right upper quadrant pain -Focus of infection is not clear at this time -Chest x-ray is unremarkable however he does have a cough, on examination has diffuse crackles and wheezing, could be underlying pneumonia we will do CT of the chest -UA is pending -He also has exquisite right upper quadrant tenderness, history history of gallstones, mild elevated AST, ordered a CT of the abdomen -Lactic acid pending -Troponin series pending -Hypotensive in the emergency room, maps around 55, is fluid overloaded, PLAN: -will monitor in ICU -Start levoped, Map>65 -avoid fluid therapy due to fluid overload evidence -CT chest/abdomen/pelvis -has received levaquin, risk of MG crisis, will avoid -start vancomycin and zosyn -will hold of steroid for now, risk of MG crisis -ipratropium q4hrs -budesonide q12h -has fluid overload, elevated bnp, has received lasix, hold off for now due to hypotention -troponin series -eleno, 15, will monitor likely secondary to sepsis -tyelenol for fever -watch respiratory status -watch hemoglobin iron studies, hemmocult stool -afib as above -chf, diastolic exacerbation, as above -copd exacerbation, as above -watch for worsening myasthenia gravis symptoms, crisis symptoms -goals of care discussion DNR/DNI -protonix for gi prophylaxis -eliquis for DVT prophylaxis Attestations Medical Necessity Statement*: Patient requires hospitalization for septic shock, fevers, cough, right upper quadrant pain, ELENO, hypokalemia, acute on chronic anemia, leukocytosis elevated CRP, elevated Pro-Moises, COPD exacerbation, CHF exacerbation, possible pneumonia, possible gallbladder infection Critical Care Time: 40 Coding Level of Care Code Acute Code for Chg Fwd Diagnoses Septic shock A41.9; R65.21 Acute exacerbation of chronic obstructive airways disease J44.1 Systolic CHF with reduced left ventricular function, NYHA class 2 I50.20 Generalized epilepsy G40.309 Myasthenia gravis G70.00 Intermittent atrial fibrillation I48.0 Fever R50.9 Right upper quadrant pain R10.11 Cough R05.9 Acute on chronic anemia D64.9 Acute kidney injury N17.9 Hypokalemia E87.6 Sepsis A41.9 Leukocytosis D72.829
[2023-01-17 18:13] LABS: Troponin(5th) Baseline 51 ng/L (0-15)
[2023-01-17 18:14] LABS: Lactic Sepsis W/Reflex 2.8 mmol/L (0.5-2.2)
[2023-01-17 19:28] LABS: Reflex Lactate Order REFLEX LACTIC ORDERD
[2023-01-17 20:59] LABS: Lactic Acid level (Lactate) 1.8 mmol/L (0.5-2.2)
--- NOTE | 2023-01-17 21:39 | ECG_ITS ---
[facility] Test Date: 2023-01-18 Pat Name: Mauricio Wilson Department: Room: ICU11 Gender: Male Rn Staff: : 1935 Requested By: Rell Durán Order Number: [id number] Jhonny MD: Rory Epstein M.D. Measurements Intervals [place] Rate: 66 P: 59 SD: 172 QRS: 30 QRSD: 128 T: -5 QT: 424 QTc: 446 Interpretive Statements SINUS RHYTHM RIGHT BUNDLE BRANCH BLOCK [120+ ms QRS DURATION, UPRIGHT V1, 40+ ms S IN I/aVL/V4/V5/V6] Compared to ECG 01/18/2023 01:05:17 Ventricular premature complex(es) no longer present Electronically Signed On 01-18-2023 10:28:53 JET ENGINE MECHANIC by Rory Epstein M.D. [id number]
--- NOTE | 2023-01-17 22:20 | PC.PHAR ---
Pharmacokinetic dosing service Date: 01/17/23 Time: 2219 Patient: Floor: Weight: 77.02 Kilograms Vancomycin single level analysis: Current dose being given: mg Current dosing interval: hrs Current infusion time (hrs): 1 Single level Trough Data: Trough level obtained: 21.4 mcg/ml Timing of trough - # of hrs before next dose: .80 Hrs Desired peak: 40 mcg/ml Desired trough: 15 mcg/ml Diagnosis: Relevant medical/social history: Cultures and sensitivities: Other labs: Estimated PK Parameters: New rate constant (blossom): 0.022 hr-1 Half-life: 31.51 Hours Vd from levels: 69.32 Liters (0.7 L/kg) CLvanco=?? 1.525 L/hr Estimated New Dose and Interval Recommended dose: 1775.4 mg Recommended interval: 45.6 Hrs Patient response: Patient is responding to treatment [yes/no] wbc decreasing, S/SX reduced [yes/no] Renal function is stable/unstable Recommendations: Give Vancomycin 1000 mg q 36 hrs. Infuse over 1 hrs Expected Cpeak: 26.1 mcg/mL Expected Ctrough: 12.1 mcg/mL AUC 0-24 /ANNY Data: ANNY 0.5 mcg/mL:?? AUC/ANNY:? 874.3 ANNY 1.0 mcg/mL:?? AUC/ANNY:? 437.2 Recommended labs and intervals: Measure Bun and Scr 3 times/week. Renal dosing of other antibiotics (review renal dosing of other medications and list guidelines here): Thank you for the consult, will continue to follow. Signature: Columba Fowler [facility]
[2023-01-17 22:34] LABS: Cortisol Random 23.95 ug/dL (2.47-19.5)
[2023-01-17 22:45] LABS: Troponin 5 2HR 40.28 ng/L (0-15)
[2023-01-17 22:47] LABS: Estmated Average Glucose 140; Hemoglobin A1C 6.5 % (4.0-6.0)
[2023-01-17] MEDS: apixaban 5 mg Tablet 2.5 MG PO (22:54)
[2023-01-17] MEDS: pyridostigmine 60 mg Tablet PO (22:54)
[2023-01-17] MEDS: ropinirole 2 mg Tablet 4 MG PO (22:55)
[2023-01-17] MEDS: potassium chloride ER 20 mEq Tablet 40 MEQ PO (22:55)
[2023-01-17] MEDS: pantoprazole 40 mg SDV IVP (22:56)
[2023-01-17] MEDS: vancomycin 1,250 MG/250 ML PIGGYBACK 250 MG IV (22:57)
--- NOTE | 2023-01-17 23:05 | ECG_ITS ---
[facility] Test Date: 2023-01-18 Pat Name: Mauricio Wilson Department: Room: ICU11 Gender: Male Bpm Developer: : 1935 Requested By: Rell Durán Order Number: [id number] Jhonny MD: Rory Epstein M.D. Measurements Intervals [place] Rate: 74 P: 64 AL: 196 QRS: 24 QRSD: 122 T: -27 QT: 412 QTc: 459 Interpretive Statements SINUS RHYTHM WITH OCCASIONAL VENTRICULAR PREMATURE COMPLEXES RIGHT BUNDLE BRANCH BLOCK [120+ ms QRS DURATION, UPRIGHT V1, 40+ ms S IN I/aVL/V4/V5/V6] Compared to ECG 01/17/2023 17:20:14 Atrial fibrillation no longer present Electronically Signed On 01-18-2023 10:29:29 CENTRAL OFFICE INSPECTOR by Rory Epstein M.D. [id number]
[2023-01-17 23:59] LABS: Add Urine Culture? No; Add Urine Microscopic? YES; Amorphous Sediment Urine 1+ /hpf; Bacteria Urine TRACE /hpf; Bilirubin Urine Neg (Negative); Blood Urine 2+ (Negative); Glucose Urine UA Norm (Normal); Hyaline Casts Urine 40-55 /lpf; Ketones Urine Negative (Negative); Leukocyte Esterase Urine Negative (Negative); Mucus Urine TRACE /hpf; Nitrate Urine Negative (Negative); Protein Urine Neg (Negative); RBC Urine 0-4 /hpf (0-2); Squamous Epithelial Cell Urine 0-4 /hpf (0-5); Urine Appearance Clear (CLEAR); Urine Color Yellow (Yellow); Urobilinogen Urine Norm (Negative); WBC Urine 0-4 /hpf (0-5); pH Urine 5 (5-7)
[2023-01-18] VITALS (71 sets, daily range): BP systolic 88–120; BP diastolic 42–63; PULSE 57–164; RESP 12–29; TEMP 36.7–36.9; O2SAT 91–100
[2023-01-18 00:10] LABS: Urine Random Sodium 15 mmol/L
[2023-01-18 00:12] LABS: Troponin 5 6HR 36.83 ng/L (0-15)
[2023-01-18 00:23] LABS: Troponin 5 6HR Delta -14.17 ng/L (0-12)
[2023-01-18] MEDS: albuterol 2.5 mg/3 mL Neb INHALATION ×7 (00:49→23:42)
[2023-01-18] MEDS: ipratropium 0.5 mg/2.5 mL Neb INHALATION ×6 (00:49→23:42)
[2023-01-18] MEDS: piperacillin-tazobactam 3.375 GM in sodium chloride 0.9% (plus) 50 ML IV ×3 (01:02→16:16)
[2023-01-18 03:05] LABS: Basophils % 0.2 %; Hematocrit 31.4 % (42.0-52.0); Hemoglobin 9.1 g/dL (11.7-16.6); Lymphocytes # 0.5 10^3/uL (0.8-4.8); Lymphocytes % 3.1 %; Mean Corpuscular Hemoglobin 24.8 pg (28.0-34.0); Mean Corpuscular Volume 85.6 fl (80-94); Monocytes # 0.6 10^3/uL (0.2-0.9); Monocytes % 3.2 %; Neutrophils # 16.11 10^3/uL (1.8-7.7); Neutrophils % 92.4 %; Nucleated Red Blood Cells % 0 %; Platelet Count 172 10^3/cmm (130-400); Red Blood Count 3.67 10^6/uL (4.1-5.3); Red Cell Distribution Width 17.8 % (12.1-15.1); White Blood Count 17.4 10^3/uL (4.0-10.0)
[2023-01-18 03:11] LABS: Adenovirus Not Detected (NOT DETECT); Chlamydia Pneumoniae Not Detected (NOT DETECT); Coronavirus 229E,HKU1,NL63,OC4 Not Detected (NOT DETECT); Human Metapneumovirus Not Detected (NOT DETECT); Human Rhinovirus/Enterovirus Not Detected (NOT DETECT); Influenza A Not Detected (NOT DETECT); Influenza A H1 Not Detected (NOT DETECT); Influenza A H1-2009 Not Detected (NOT DETECT); Influenza A H3 Not Detected (NOT DETECT); Influenza B Not Detected (NOT DETECT); Mycoplasma Pneumoniae Not Detected (NOT DETECT); Parainfluenza Virus Type 1 Not Detected (NOT DETECT); Parainfluenza Virus Type 2 Not Detected (NOT DETECT); Parainfluenza Virus Type 3 Not Detected (NOT DETECT); Parainfluenza Virus Type 4 Not Detected (NOT DETECT); Respiratory Syncytial Virus A Not Detected (NOT DETECT); Respiratory Syncytial Virus B Not Detected (NOT DETECT); SARS-COV-2 Not Detected (NOT DETECT)
[2023-01-18 04:00] LABS: Slide Review Slide Review Perform
[2023-01-18 04:03] LABS: Ferritin 149 ng/mL (30-400); Iron 7 ug/dL (59-158); Thyroid Stimulating Hormone 1.23 uIU/mL (0.27-4.20); Vitamin B12 351 pg/mL (232-1245)
[2023-01-18 05:54] LABS: Alanine Aminotransferase 22 U/L (0-41); Albumin Level 2.9 g/dL (3.5-5.2); Alkaline Phosphatase 75 U/L (40-130); Anion Gap 16.7 (5-19); Aspartate Amino Transferase 30 U/L (0-40); Blood Urea Nitrogen 34 mg/dL (8-23); Calcium 8.6 mg/dL (8.5-10.5); Carbon Dioxide 24 mmol/L (22-29); Chloride 101 mmol/L (98-107); Globulin 2.5 g/dL (1.3-4.6); Glucose 189 mg/dL (65-115); Magnesium 2.2 mg/dL (1.7-2.3); NT Pro B Type Natriuretic Pept 1735 pg/mL (0-450); Osmolality Calculated 299 mOsm/kg (285-295); Phosphorus 2.9 mg/dL (2.5-4.5); Potassium 3.7 mmol/L (3.5-5.1); Sodium 138 mmol/L (136-145); Total Bilirubin 0.6 mg/dL (0.15-1.2); Total Protein 5.4 g/dL (6.6-8.7)
--- NOTE | 2023-01-18 07:50 | US_ITS ---
WS: [id number] RIGHT UPPER QUADRANT ULTRASOUND HISTORY: ruq pain COMPARISON: 02/23/2009, CT 01/17/2023 Liver: 15.8 cm in length. Mild coarsened echotexture throughout the liver. No mass or bile duct dilat ation. Portal Vein: Normal hepatopetal flow with monophasic waveform. Gallbladder: Poorly visualized gallbladder. Gallbladder is slightly contracted and contains stones. T here may be mild wall thickening. No pericholecystic fluid is evident. CBD: 0.6 cm Pancreas: Not visualized. Right kidney: 10.9 cm in length. Normal size and echogenicity. No hydronephrosis or mass. Aorta and IVC: Unremarkable abdominal aorta and IVC. No ascites. US/US gall bladder [id number] IMPRESSION: 1. Cholelithiasis. Gallbladder is difficult to visualize. The gallbladder is s lightly contracted. No pericholecystic fluid. 2. Common bile duct is top normal size. 3. Hepatic steatosis.
[2023-01-18] MEDS: budesonide 0.5 mg/2 mL Neb INHALATION ×2 (08:37→20:12)
[2023-01-18] MEDS: apixaban 5 mg Tablet 2.5 MG PO ×2 (09:45→17:38)
[2023-01-18] MEDS: levETIRAcetam 500 mg Tablet PO ×2 (09:51→17:38)
[2023-01-18] MEDS: pyridostigmine 60 mg Tablet PO ×3 (09:51→21:45)
[2023-01-18] MEDS: sacubitril/valsartan 24-26 mg Tablet 2 EACH PO (09:52)
[2023-01-18] MEDS: pantoprazole 40 mg SDV IVP ×2 (09:54→21:44)
--- NOTE | 2023-01-18 13:15 | P.PN_ITS ---
Subjective Subjective: - Early this morning, patient was seen, he still requiring oxygen still complaining of a cough, some congestion, he is on 4 of Levophed, alert oriented x3, at bedside, overnight no acute complaints, denies any pain complaints, no new rashes, no new cellulitis, nurses do note 2 areas of DTI's on his back, but they are quite superficial, his gallbladder right upper quadrant continues to hurt him but nausea nausea vomiting -I went over CAT scans with radiology -He does have hiatal hernia, he does have a distended esophagus with layering fluid, possible achalasia, -Thus there could be significant aspiration pneumonia, his CAT scan does show left lower lobe atelectasis, but no other focal infiltrates, or consolidation -He also has perinephric stranding of the right kidney enlarged prostate, so he could in addition have pyelonephritis on the right with a UTI -So far his lactic acid is improved, remains afebrile responding to Levophed, edema has improved -Patient was reexamined in the afternoon, he is able to get up to the side of the bed, he feels better, responding antibiotic therapy - and patient were updated Vitals/I&O/Wt Last Vital Signs Temp 98.4 F 01/18/23 08:00 Pulse 91 01/18/23 11:45 Resp 16 01/18/23 11:36 BP 120/61 01/18/23 08:00 Pulse Ox 100 01/18/23 11:36 O2 Del Method 01/18/23 11:36 O2 Flow Rate 2.5 01/18/23 11:36 01/17/23 01/18/23 01/18/23 22:59 06:59 14:59 Intake Total 169.812 / 169.812 157.442 / 327.254 397.856 / 397.856 Output Total 400 / 400 600 / 1000 200 / 200 Balance -230.188 / -230.188 -442.558 / -672.746 197.856 / 197.856 Weight last 48 hrs Weight 76.975 kg Weight 74.843 kg Physical Exam Const: COMMON NORMALS: no acute distress and patient oriented x3 Resp: COMMON NORMALS: normal respiratory effort, No retractions and No use of accessory muscles AUSCULTATION: crackles and wheezes Cardio: COMMON NORMALS: regular rate, regular rhythm, S1 normal heart sound present and S2 normal heart sound present RATE: regular rate RHYTHM: regular rhythm HEART SOUNDS: S1 normal heart sound present and S2 normal heart sound present GI: COMMON NORMALS: Normal to inspection, nondistended, normoactive bowel sounds present and non-tender Extremity: COMMON NORMALS: no pedal edema Neuro: COMMON NORMALS: patient oriented x3 Psych: COMMON NORMALS: mental status grossly normal Data 01/18/23 02:43 01/18/23 05:21 Micro: Microbiology 01/17/23 14:59 Blood Culture - Preliminary Blood 01/18/23 00:15 Gram Stain - Final Sputum - Expectorated Sputum 01/18/23 02:30 Occult Blood (FIT) - Final Stool - Stool Aspirate 01/17/23 15:24 Blood Culture - Preliminary Blood SPECIMEN COLLECTED A&P Assessment and plan (1) Septic shock: (2) Acute exacerbation of chronic obstructive airways disease: (3) Systolic CHF with reduced left ventricular function, NYHA class 2: (4) Generalized epilepsy: (5) Myasthenia gravis: (6) Intermittent atrial fibrillation: (7) Fever: (8) Right upper quadrant pain: (9) Cough: (10) Acute on chronic anemia: (11) Acute kidney injury: (12) Hypokalemia: (13) Sepsis: (14) Leukocytosis: (15) Gram-negative bacteremia: (16) Iron deficiency anemia: (17) Lactic acidosis: (18) Aspiration pneumonia: (19) Pyelonephritis of right kidney: (20) Enlarged prostate: Plan Fever, cough, right upper quadrant pain -Could be aspiration pneumonia, as he has a hiatal hernia, esophageal dilatation, possible achalasia, does have a left lower lobe consolidation -He also has right perinephric stranding, enlarged prostate, could also have right pyelonephritis with UTI -I do not think that the gallbladder is the source of infection, although he is tender, CAT scan and gallbladder ultrasound unrevealing LFTs and alk phos this morning and bilirubin are relatively unremarkable -Speech therapy to see -We will order a upper GI series -UA unremarkable -He also has exquisite right upper quadrant tenderness, history history of gallstones, mild elevated AST, right upper quadrant ultrasound has gallstones, no gallbladder wall thickening, no biliary duct dilatation on CAT scan -Lactic acid elevated 2.8, likely secondary to sepsis monitor -Iron levels low at 7 has evidence of iron deficiency anemia Does have type II NSTEMI, supply demand ischemia, likely from aspiration pneu monia,-his 6-hour troponin is 36.83 no chest pain complaints -Hypotensive in the emergency room, remains on Levophed at 4, septic shock -Has gram-negative bacteremia, source could be aspiration pneumonia, pyelonephritis, -ProCal 2.15 -CRP 260 PLAN: -will monitor in ICU -Continue levoped, Map>65 -avoid fluid therapy due to fluid overload evidence -has received levaquin, risk of MG crisis, will avoid -Continue vancomycin and zosyn -Await blood culture sensitivities, identification -will hold of steroid for now, risk of MG crisis -ipratropium q4hrs -budesonide q12h -has fluid overload, elevated bnp, has received lasix, 1 dose Lasix today -Monitor kidney function monitor urine output -Elevated troponin series, telemetry monitoring, and her chest pain -eleno, 1.6, will monitor likely secondary to sepsis -Continue clear liquid diet, aspiration precautions, will do a upper GI series tomorrow, consider modified barium swallow, speech therapy eval -tyelenol for fever -watch respiratory status -watch hemoglobin i, Hemoccult stool -afib as above -chf, diastolic exacerbation, as above -copd exacerbation, as above -watch for worsening myasthenia gravis symptoms, crisis symptoms -goals of care discussion DNR/DNI -protonix for gi prophylaxis -eliquis for DVT prophylaxis -Spoke to radiology, spoke to patient, patient's daughters, patient's Attestations Medical Necessity Statement*: Patient requires hospitalization ELENO, gram- negative bacteremia, aspiration pneumonia, right pyelonephritis, septic shock, on Levophed, Critical Care Time: 50 Coding Level of Care Code Critical Care >/= 30 minutes Critical care time (in minutes): 50 The high probability of a clinically significant, sudden or life threatening deterioration, as referenced in this documentation, required my full and direct attention, intervention and personal management. The critical care time shown is in addition to time spent performing any reported separately billable procedures and includes the following: [x] Data and vital sign review and interpretation [x ] Patient assessment, examination and intervention [x] Medication orders and management [x] Patient/Family updates as able [x] Care Coordination and Documentation. Diagnoses Septic shock A41.9; R65.21 Acute exacerbation of chronic obstructive airways disease J44.1 Systolic CHF with reduced left ventricular function, NYHA class 2 I50.20 Generalized epilepsy G40.309 Myasthenia gravis G70.00 Intermittent atrial fibrillation I48.0 Fever R50.9 Right upper quadrant pain R10.11 Cough R05.9 Acute on chronic anemia D64.9 Acute kidney injury N17.9 Hypokalemia E87.6 Sepsis A41.9 Leukocytosis D72.829 Gram-negative bacteremia R78.81 Iron deficiency anemia D50.9 Lactic acidosis E87.20 Aspiration pneumonia J69.0 Pyelonephritis of right kidney N12 Enlarged prostate N40.0
[2023-01-18] MEDS: FUROsemide 10 mg/mL SDV 2mL 20 MG IVP (14:11)
[2023-01-18 14:40] LABS: Acinetobacter baumannii Not Detected (NOT DETECT); Bacteroides fragilis Not Detected (NOT DETECT); CTX-M Not Detected (NOT DETECT); Citrobacter Not Detected (NOT DETECT); Cronobacter sakazakii Not Detected (NOT DETECT); Enterobacter cloacae complex Not Detected (NOT DETECT); Enterobacter non cloacae Not Detected (NOT DETECT); Fusobacterium necrophorum Not Detected (NOT DETECT); Fusobacterium nucleatum Not Detected (NOT DETECT); Haemophilus influenzae Not Detected (NOT DETECT); IMP Resistance Gene Not Detected (NOT DETECT); KPC Resistance Gene Not Detected (NOT DETECT); Klebsiella pneumoniae group Not Detected (NOT DETECT); Morganella morganii Not Detected (NOT DETECT); NDM Resistance Gene Not Detected (NOT DETECT); Neisseria meningitidis Not Detected (NOT DETECT); OXA Resistance Gene Not Detected (NOT DETECT); Pan Candida Not Detected (NOT DETECT); Pan Gram-Positive Not Detected (NOT DETECT); Proteus mirabilis Not Detected (NOT DETECT); Pseudomonas aeruginosa Detected (NOT DETECT); Salmonella Not Detected (NOT DETECT); Serratia Not Detected (NOT DETECT); Serratia marcescens Not Detected (NOT DETECT); Stenotrophomonas maltophilia Not Detected (NOT DETECT); VIM Resistance Gene Not Detected (NOT DETECT)
[2023-01-18] MEDS: acetaminophen 325 mg Tablet 650 MG PO ×2 (17:33→23:13)
[2023-01-18] MEDS: ropinirole 2 mg Tablet 4 MG PO (21:45)
[2023-01-18] MEDS: vancomycin 1,250 MG/250 ML PIGGYBACK 250 MG IV (23:15)
[2023-01-19] VITALS (39 sets, daily range): BP systolic 85–137; BP diastolic 38–91; PULSE 67–109; RESP 14–31; TEMP 36.8–37.3; O2SAT 91–100
[2023-01-19] MEDS: piperacillin-tazobactam 3.375 GM in sodium chloride 0.9% (plus) 50 ML IV ×4 (00:43→23:55)
[2023-01-19 03:14] LABS: Eosinophils % 0.2 %; Hematocrit 27.7 % (42.0-52.0); Hemoglobin 7.9 g/dL (11.7-16.6); Lymphocytes # 0.5 10^3/uL (0.8-4.8); Lymphocytes % 5.5 %; Mean Corpuscular HGB Conc 28.5 g/dL (30.0-36.0); Mean Corpuscular Hemoglobin 24.6 pg (28.0-34.0); Mean Corpuscular Volume 86.3 fl (80-94); Monocytes # 0.4 10^3/uL (0.2-0.9); Monocytes % 3.9 %; Neutrophils # 8.68 10^3/uL (1.8-7.7); Neutrophils % 88.9 %; Nucleated Red Blood Cells % 0 %; Platelet Count 164 10^3/cmm (130-400); Red Blood Count 3.21 10^6/uL (4.1-5.3); Red Cell Distribution Width 17.4 % (12.1-15.1); White Blood Count 9.8 10^3/uL (4.0-10.0)
[2023-01-19 03:45] LABS: Lactate (Lactic Acid level) 1.3 mmol/L (0.5-2.2)
[2023-01-19 03:51] LABS: NT Pro B Type Natriuretic Pept 916 pg/mL (0-450); Procalcitonin 7.18 ng/mL (0-0.5)
[2023-01-19 04:03] LABS: Alanine Aminotransferase 15 U/L (0-41); Albumin Level 2.8 g/dL (3.5-5.2); Alkaline Phosphatase 64 U/L (40-130); Anion Gap 13.2 (5-19); Aspartate Amino Transferase 17 U/L (0-40); Blood Urea Nitrogen 23 mg/dL (8-23); C Reactive Protein 125.2 mg/L (0.0-4.9); Calcium 8.5 mg/dL (8.5-10.5); Carbon Dioxide 27 mmol/L (22-29); Chloride 105 mmol/L (98-107); Creatine Phosphokinase 54 U/L (39-308); Globulin 2.2 g/dL (1.3-4.6); Glucose 131 mg/dL (65-115); Magnesium 2.1 mg/dL (1.7-2.3); Osmolality Calculated 299 mOsm/kg (285-295); Phosphorus 2.5 mg/dL (2.5-4.5); Potassium 3.2 mmol/L (3.5-5.1); Sodium 142 mmol/L (136-145); Total Bilirubin 0.4 mg/dL (0.15-1.2)
[2023-01-19] MEDS: ipratropium 0.5 mg/2.5 mL Neb INHALATION ×2 (04:03→08:48)
[2023-01-19] MEDS: albuterol 2.5 mg/3 mL Neb INHALATION ×2 (04:03→08:48)
[2023-01-19] MEDS: FUROsemide 10 mg/mL SDV 2mL 20 MG IVP (08:45)
[2023-01-19] MEDS: budesonide 0.5 mg/2 mL Neb INHALATION ×2 (08:48→20:01)
--- NOTE | 2023-01-19 09:00 | FL_ITS ---
WS: [id number] Exam: [place] barium swallow [id number] Date/Time of Exam: 01/19/2023 9:10 AM Reason For Exam: check swallowing Preliminary survey was unremarkable. Swallowing function at the level of the oropharynx was normal. T he patient did experience one episode of minimal aspiration into the upper trachea. There is dilatati on and atony of the lower esophagus with spasm. No intrinsic esophageal mass or stricture was demonst rated. The esophagus was not displaced. FL/FL barium swallow [id number] IMPRESSION: 1. The patient experienced a single episode of mild aspiration in the upper eso phagus. 2. There was no sign of esophageal stricture or mass. 3. Patulous atonic lower esophagus . Diffuse tertiary spasm of the esophagus. 4. No gastroesophageal reflux was demonstrated during the exam. Fluoroscopy time: 1min [id number] minutes # of spot films: 49
--- NOTE | 2023-01-19 09:28 | PM.PN ---
Subjective Subjective: - Patient was seen this morning -He continues to complain of right upper quadrant pain, nausea associated -No fevers, no chills -He is hungry, wondering when he can eat -He is off pressors -Awaiting his barium swallow -I discussed performing a HIDA scan tomorrow -He does have Pseudomonas bacteremia Vitals/I&O/Wt Last Vital Signs Temp 98.3 F 01/19/23 07:00 Pulse 79 01/19/23 08:48 Resp 16 01/19/23 08:48 BP 121/52 01/19/23 08:30 Pulse Ox 99 01/19/23 08:48 O2 Del Method 01/19/23 08:48 O2 Flow Rate 2 01/19/23 08:48 01/18/23 01/19/23 01/19/23 22:59 06:59 14:59 Intake Total 315.72 / 970.444 50 / 1020.444 250 / 250 Output Total 800 / 1200 700 / 1900 Balance -484.28 / -229.556 -650 / -879.556 250 / 250 Weight last 48 hrs Weight 76.975 kg Weight 74.843 kg Physical Exam Const: COMMON NORMALS: no acute distress and patient oriented x3 Resp: COMMON NORMALS: normal respiratory effort, No retractions, No use of accessory muscles and clear to auscultation bilaterally AUSCULTATION: clear to auscultation bilaterally Cardio: COMMON NORMALS: regular rate, regular rhythm, S1 normal heart sound present and S2 normal heart sound present RATE: regular rate RHYTHM: regular rhythm HEART SOUNDS: S1 normal heart sound present and S2 normal heart sound present GI: OTHER: Abdomen soft, slightly distended, has exquisite right upper quadrant tenderness, good bowel sounds Extremity: COMMON NORMALS: no pedal edema Neuro: COMMON NORMALS: patient oriented x3 Psych: COMMON NORMALS: mental status grossly normal Urinary Catheter Management: Serrato: Cath Placed During This Visit: yes Reason for Continuing Indwelling Catheter: Accurate Measurement of Urinary Output in Critically Ill Patients Urinary Catheter Date of Insertion: 01/18/23 Urinary Catheter Time of Insertion: 14:20 Data 01/19/23 03:04 01/19/23 03:04 Micro: Microbiology 01/18/23 23:05 Stool Lactoferrin - Final Stool C.difficile Toxin B Gene (PCR) - Final Occult Blood (FIT) - Final 01/17/23 15:24 Blood Culture - Preliminary Blood NEGATIVE TO DATE 01/17/23 14:59 Blood Culture - Preliminary Blood Pseudomonas aeruginosa 01/18/23 13:56 Blood Culture - Preliminary Blood SPECIMEN COLLECTED 01/18/23 13:53 Blood Culture - Preliminary Blood SPECIMEN COLLECTED 01/18/23 00:15 Gram Stain - Final Sputum - Expectorated Sputum 01/18/23 02:30 Occult Blood (FIT) - Final Stool - Stool Aspirate A&P Assessment and plan (1) Septic shock: (2) Acute exacerbation of chronic obstructive airways disease: (3) Systolic CHF with reduced left ventricular function, NYHA class 2: (4) Generalized epilepsy: (5) Myasthenia gravis: (6) Intermittent atrial fibrillation: (7) Fever: (8) Right upper quadrant pain: (9) Cough: (10) Acute on chronic anemia: (11) Acute kidney injury: (12) Hypokalemia: (13) Sepsis: (14) Leukocytosis: (15) Gram-negative bacteremia: (16) Iron deficiency anemia: (17) Lactic acidosis: (18) Aspiration pneumonia: (19) Pyelonephritis of right kidney: (20) Enlarged prostate: Plan Fever, cough, right upper quadrant pain -Could be aspiration pneumonia, as he has a hiatal hernia, esophageal dilatation, possible achalasia, does have a left lower lobe consolidation -He also has right perinephric stranding, enlarged prostate, could also have right pyelonephritis with UTI -I do not think that the gallbladder is the source of infection, although he is tender, CAT scan and gallbladder ultrasound unrevealing LFTs and alk phos this morning and bilirubin are relatively unremarkable, however continues to have right upper quadrant tenderness -Speech therapy to see -We will order a upper GI series, barium for possible evaluation of achalasia as a source of his recurrent aspiration -UA unremarkable -He also has exquisite right upper quadrant tenderness, history history of gallstones, mild elevated AST, right upper quadrant ultrasound has gallstones, no gallbladder wall thickening, no biliary duct dilatation on CAT scan -Lactic acid improved, -Iron levels low at 7 has evidence of iron deficiency anemia Does have type II NSTEMI, supply demand ischemia, likely from aspiration pneumonia,-his 6-hour troponin is 36.83 no chest pain complaints -Hypotensive in the emergency room, remains on Levophed at 4, septic shock, resolved, currently off Levophed -Has gram-negative bacteremia, Pseudomonas, source could be aspiration pneumonia, pyelonephritis, or possibly gallbladder -ProCal 7.18 -CRP 125 PLAN: -will monitor in ICU -Off Levophed, maintain MAP in 65 -avoid fluid therapy due to fluid overload evidence -has received levaquin, risk of MG crisis, will avoid -Continue vancomycin and zosyn -Await blood culture sensitivities, identification -Follow barium swallow -Follow HIDA scan -will hold of steroid for now, risk of MG crisis -ipratropium q4hrs -budesonide q12h -has fluid overload, elevated bnp, has received lasix, 1 dose Lasix today -Monitor kidney function monitor urine output -Elevated troponin series, telemetry monitoring, and her chest pain -anjali, 1.3 will monitor likely secondary to sepsis -Continue clear liquid diet, aspiration precautions, will do a upper GI series tomorrow, speech therapy eval -tyelenol for fever -watch respiratory status -watch hemoglobin i, Hemoccult stool -afib as above -chf, diastolic exacerbation, as above -copd exacerbation, as above -watch for worsening myasthenia gravis symptoms, crisis symptoms -goals of care discussion DNR/DNI -protonix for gi prophylaxis -eliquis for DVT prophylaxis -Spoke to radiology, spoke to patient, patient's daughters, patient's -PT OT today Attestations Medical Necessity Statement*: Patient requires hospitalization for sepsis, septic shock, Pseudomonas bacteremia, pneumonia, UTI, possible gallbladder pathology, undergoing barium swallow, HIDA scan antibiotic therapy, Diagnoses Septic shock A41.9; R65.21 Acute exacerbation of chronic obstructive airways disease J44.1 Systolic CHF with reduced left ventricular function, NYHA class 2 I50.20 Generalized epilepsy G40.309 Myasthenia gravis G70.00 Intermittent atrial fibrillation I48.0 Fever R50.9 Right upper quadrant pain R10.11 Cough R05.9 Acute on chronic anemia D64.9 Acute kidney injury N17.9 Hypokalemia E87.6 Sepsis A41.9 Leukocytosis D72.829 Gram-negative bacteremia R78.81 Iron deficiency anemia D50.9 Lactic acidosis E87.20 Aspiration pneumonia J69.0 Pyelonephritis of right kidney N12 Enlarged prostate N40.0
--- NOTE | 2023-01-19 10:47 | PC.NURSE ---
Morning meds held per Dr. Durán verbal order, pending results of swallow study.
[2023-01-19] MEDS: pantoprazole 40 mg SDV IVP ×2 (11:18→20:48)
[2023-01-19] MEDS: pyridostigmine 60 mg Tablet PO ×3 (11:19→20:44)
[2023-01-19] MEDS: levETIRAcetam 500 mg Tablet PO ×2 (11:19→17:47)
[2023-01-19] MEDS: sacubitril/valsartan 24-26 mg Tablet 2 EACH PO ×2 (11:20→20:45)
[2023-01-19] MEDS: apixaban 5 mg Tablet 2.5 MG PO ×2 (11:20→17:47)
[2023-01-19] MEDS: ipratropium-albuterol 3 mL Neb INHALATION ×4 (13:01→23:57)
[2023-01-19 14:48] LABS: Basophils % 0.2 %; Eosinophils % 0.2 %; Hemoglobin 8.9 g/dL (11.7-16.6); Lymphocytes # 0.5 10^3/uL (0.8-4.8); Lymphocytes % 6.6 %; Mean Corpuscular HGB Conc 29.7 g/dL (30.0-36.0); Mean Corpuscular Hemoglobin 25.3 pg (28.0-34.0); Mean Corpuscular Volume 85.2 fl (80-94); Mean Platelet Volume 11.3 fL (7.4-10.4); Monocytes # 0.4 10^3/uL (0.2-0.9); Monocytes % 4.8 %; Neutrophils % 86.9 %; Nucleated Red Blood Cells % 0 %; Platelet Count 175 10^3/cmm (130-400); Red Blood Count 3.52 10^6/uL (4.1-5.3); Red Cell Distribution Width 17.9 % (12.1-15.1); White Blood Count 8.2 10^3/uL (4.0-10.0)
[2023-01-19 15:07] LABS: Slide Review Slide Review Perform
--- NOTE | 2023-01-19 18:22 | PC.NURSE ---
Patient reports pain is present only when coughing and does not want medication to treat temporary pain.
[2023-01-19] MEDS: acetaminophen 325 mg Tablet 650 MG PO (19:11)
[2023-01-19] MEDS: ropinirole 2 mg Tablet 4 MG PO (20:45)
[2023-01-19] MEDS: vancomycin 1,250 MG/250 ML PIGGYBACK 250 MG IV (23:55)
[2023-01-20] VITALS (47 sets, daily range): BP systolic 95–149; BP diastolic 43–96; PULSE 77–117; RESP 12–34; TEMP 36.9–37.4; O2SAT 90–100
[2023-01-20 03:02] LABS: Basophils % 0.2 %; Eosinophils % 0.3 %; Hemoglobin 7.3 g/dL (11.7-16.6); Lymphocytes # 0.5 10^3/uL (0.8-4.8); Lymphocytes % 8.1 %; Mean Corpuscular HGB Conc 28.1 g/dL (30.0-36.0); Mean Corpuscular Hemoglobin 24.3 pg (28.0-34.0); Mean Corpuscular Volume 86.4 fl (80-94); Mean Platelet Volume 10.6 fL (7.4-10.4); Monocytes # 0.3 10^3/uL (0.2-0.9); Monocytes % 5.3 %; Neutrophils # 4.92 10^3/uL (1.8-7.7); Neutrophils % 84.4 %; Nucleated Red Blood Cells % 0 %; Platelet Count 156 10^3/cmm (130-400); Red Blood Count 3.01 10^6/uL (4.1-5.3); Red Cell Distribution Width 17.6 % (12.1-15.1); White Blood Count 5.8 10^3/uL (4.0-10.0)
[2023-01-20] MEDS: ipratropium-albuterol 3 mL Neb INHALATION ×5 (03:20→20:08)
[2023-01-20 03:33] LABS: NT Pro B Type Natriuretic Pept 982 pg/mL (0-450); Procalcitonin 3.26 ng/mL (0-0.5)
[2023-01-20 03:46] LABS: Alanine Aminotransferase 13 U/L (0-41); Albumin Level 2.7 g/dL (3.5-5.2); Alkaline Phosphatase 66 U/L (40-130); Anion Gap 11.9 (5-19); Aspartate Amino Transferase 17 U/L (0-40); Blood Urea Nitrogen 13 mg/dL (8-23); C Reactive Protein 76.1 mg/L (0.0-4.9); Calcium 8.3 mg/dL (8.5-10.5); Carbon Dioxide 27 mmol/L (22-29); Chloride 109 mmol/L (98-107); Glucose 126 mg/dL (65-115); Magnesium 2.1 mg/dL (1.7-2.3); Osmolality Calculated 302 mOsm/kg (285-295); Phosphorus 2.3 mg/dL (2.5-4.5); Sodium 145 mmol/L (136-145); Total Bilirubin 0.5 mg/dL (0.15-1.2); Total Protein 4.7 g/dL (6.6-8.7)
[2023-01-20 03:54] LABS: Potassium 2.9 mmol/L (3.5-5.1)
[2023-01-20] MEDS: piperacillin-tazobactam 3.375 GM in sodium chloride 0.9% (plus) 50 ML IV ×3 (07:55→23:44)
[2023-01-20] MEDS: lidocaine 1% 5 ML in potassium chloride premix 100 ML 26.25 ML IV (07:56)
[2023-01-20] MEDS: budesonide 0.5 mg/2 mL Neb INHALATION ×2 (08:02→20:08)
--- NOTE | 2023-01-20 09:03 | PC.NURSE ---
Patient in care of radiology staff at 0901.
--- NOTE | 2023-01-20 09:22 | NM_ITS ---
WS: [id number] NUCLEAR MEDICINE HIDA SCAN CLINICAL INFORMATION: ruq pain TECHNIQUE: Following intravenous administration of 8.1 mCi of technetium 99m mebrofenin, images of th e abdomen were obtained over the course of 60 minutes. Next, gallbladder ejection fraction was determ ined by obtaining preprandial and one-hour postprandial images of the gallbladder following oral yelena stion of Ensure. COMPARISON: Ultrasound January 18, [address] January 17, 2023 FINDINGS: Normal hepatic uptake at 5 minutes. Normal hepatic excretion. Gallbladder is visualized by 30 minutes with somewhat faint radiotracer activity likely contracted. No definite evidence of acute cholecysti tis. Normal common bile duct and small bowel activity. Gallbladder ejection fraction unable to be obtained due to small amount of filling NM/NM hepatobiliary w phar* [id number] IMPRESSION: 1. No evidence of acute cholecystitis. 2. Normal common bile duct and small bowel activity. 3. Partial filling of the gallbladder suspicious for chronic gallbladder dysfu nction.
--- NOTE | 2023-01-20 10:00 | PC.CHAP ---
Pastoral Care Encounter/Spiritual Assessment Type of Contact [] Declined commercial loan collection officer visit [] Patient/Family/Request visit [] Outpatient visit [] Follow-up visit [] Physician referral [] Code/Alert [x] Routine visit [] Staff referral [] Actively dying [x] Patient sleeping [] Family support [] [] Out of room [] Palliative care [] [] Receiving care in room [] Pre-surgical visit [] Trauma [] Long length of stay [x] ICU visit [] Other: Relational/Emotional Strength [] Patient feels connected with others/family/visitors/staff [] Distress [] Loneliness/isolation [] Abandonment Spirituality of Patient [] Person of Mely [] Attends Synagogue of their Mely [] Believes in Prayer [] Reads Bible or Restorationist materials [] There are Spiritual issues to be addressed Instructional Designer Interventions [x] Prayer [] Active listening [] Non-anxious presence [] Spiritual/emotional support [] Crisis/trauma care [] Spiritual counseling [] Bereavement support [] Provided bereavement packet [] Provided Bible/devotional materials [] Provided toy/stuffed animal, coloring book to patient or family member [] Provided Communion [] Anointing/[place] [] Salvation [x] Completed spiritual assessment [] Other: Impact on Illness or Injury [] Angry [] Fearful [] Anxious [] Often cries [] Exhaustion [] Unable to work [] Unable to attend hoahaoism [] Unable to walk/stand [] Unable to read [] Unable to drive [] Unable to eat/drink [] Unable to sleep [] Unable to be with family [] Patient intubated [] Other: Summary Time spent with patient
--- NOTE | 2023-01-20 10:15 | P.PN_ITS ---
Subjective Subjective: Patient was seen at morning he was able to ambulate yesterday afternoon, he tells me he feels a lot better, does have some shortness of breath, no back pain, no nausea, no vomiting he is on clear liquid diet, he is undergoing HIDA scan Vitals/I&O/Wt Last Vital Signs Temp 98.5 F 01/20/23 06:30 Pulse 99 01/20/23 08:30 Resp 27 H 01/20/23 08:30 BP 124/60 01/20/23 08:30 Pulse Ox 97 01/20/23 08:30 O2 Del Method 01/20/23 08:30 O2 Flow Rate 2 01/20/23 08:30 FiO2 2 01/19/23 12:00 01/19/23 01/20/23 01/20/23 22:59 06:59 14:59 Intake Total 530 / 1310 50 / 1360 Output Total 550 / 1150 350 / 1500 Balance -20 / 160 -300 / -140 Weight last 48 hrs Weight 78.471 kg Physical Exam Const: COMMON NORMALS: no acute distress and patient oriented x3 Resp: COMMON NORMALS: normal respiratory effort, No retractions, No use of accessory muscles and clear to auscultation bilaterally AUSCULTATION: clear to auscultation bilaterally Cardio: COMMON NORMALS: regular rate, regular rhythm, S1 normal heart sound present and S2 normal heart sound present RATE: regular rate RHYTHM: r egular rhythm HEART SOUNDS: S1 normal heart sound present and S2 normal heart sound present GI: COMMON NORMALS: Normal to inspection, nondistended, normoactive bowel sounds present OTHER: Still quite tender in the right upper quadrant on examination Extremity: COMMON NORMALS: no pedal edema Neuro: COMMON NORMALS: patient oriented x3 Psych: COMMON NORMALS: mental status grossly normal Urinary Catheter Management: Serrato: Cath Placed During This Visit: yes Reason for Continuing Indwelling Catheter: Accurate Measurement of Urinary Output in Critically Ill Patients Urinary Catheter Date of Insertion: 01/18/23 Urinary Catheter Time of Insertion: 14:20 Data 01/20/23 02:31 01/20/23 02:31 Micro: Microbiology 01/18/23 00:15 Gram Stain - Final Sputum - Expectorated Sputum Sputum Culture - Preliminary 01/18/23 23:05 Stool Lactoferrin - Final Stool Enteric Pathogens (PCR) - Final Parasite Antigen Panel - Final C.difficile Toxin B Gene (PCR) - Final Occult Blood (FIT) - Final 01/18/23 13:56 Blood Culture - Preliminary Blood NEGATIVE TO DATE 01/18/23 13:53 Blood Culture - Preliminary Blood NEGATIVE TO DATE A&P Assessment and plan (1) Septic shock: (2) Acute exacerbation of chronic obstructive airways disease: (3) Systolic CHF with reduced left ventricular function, NYHA class 2: (4) Generalized epilepsy: (5) Myasthenia gravis: (6) Intermittent atrial fibrillation: (7) Fever: (8) Right upper quadrant pain: (9) Cough: (10) Acute on chronic anemia: (11) Acute kidney injury: (12) Hypokalemia: (13) Sepsis: (14) Leukocytosis: (15) Gram-negative bacteremia: (16) Iron deficiency anemia: (17) Lactic acidosis: (18) Aspiration pneumonia: (19) Pyelonephritis of right kidney: (20) Enlarged prostate: (21) Acute anemia: Plan Fever, cough, right upper quadrant pain - aspiration pneumonia, as he has a hiatal hernia, esophageal dilatation, possible achalasia, does have a left lower lobe consolidation, however barium swallow does show some aspiration although mild -He also has right perinephric stranding, enlarged prostate, likely right pyelonephritis with UTI -I do not think that the gallbladder is the source of infection, although he is tender, CAT scan and gallbladder ultrasound unrevealing LFTs and alk phos this morning and bilirubin are relatively unremarkable, however continues to have right upper quadrant tenderness, HIDA scan ending -Speech therapy to see -He also has exquisite right upper quadrant tenderness, history history of gallstones, mild elevated AST, right upper quadrant ultrasound has gallstones, no gallbladder wall thickening, no biliary duct dilatation on CAT scan -Lactic acid improved, -Iron levels low at 7 has evidence of iron deficiency anemia Does have type II NSTEMI, supply demand ischemia, likely from aspiration pneumonia,-his 6-hour troponin is 36.83 no chest pain complaints -Hypotensive in the emergency room, remained on Levophed at 4, septic shock, resolved, currently off Levophed -Has gram-negative bacteremia, Pseudomonas, source could be aspiration pneumonia, pyelonephritis, or possibly gallbladder -ProCal 7.18 -CRP 125 -Today has anemia, 7.3, will give 1 unit PRBC, Hemoccult stools negative, likely bone marrow suppression from infection PLAN: -Moved to general medical floors -Off Levophed, maintain MAP in 65 -avoid fluid therapy due to fluid overload evidence -has received levaquin, risk of MG crisis, will avoid -Continue vancomycin and zosyn -Await blood culture sensitivities, identification -Follow HIDA scan -will hold of steroid for now, risk of MG crisis -ipratropium q4hrs -budesonide q12h -has fluid overload, elevated bnp, has received lasix, switch to p.o. Lasix -Monitor kidney function monitor urine output -Elevated troponin series, telemetry monitoring, and her chest pain -anjali, 1.3 will monitor likely secondary to sepsis -Continue clear liquid diet, aspiration precautions, will do a upper GI series tomorrow, speech therapy eval -tyelenol for fever -watch respiratory status -watch hemoglobin i, Hemoccult stool negative, repeat H&H in the evening -afib as above -chf, diastolic exacerbation, as above -copd exacerbation, as above -watch for worsening myasthenia gravis symptoms, crisis symptoms -goals of care discussion DNR/DNI -protonix for gi prophylaxis -eliquis for DVT prophylaxis -Spoke to radiology, spoke to patient, patient's daughters, patient's -PT OT today Attestations Medical Necessity Statement*: Patient requires hospitalization for Pseudomonas bacteremia, with anemia, moving to general medical floors, HIDA scan pending Coding Level of Care Code Acute Code for Chg Fwd Diagnoses Septic shock A41.9; R65.21 Acute exacerbation of chronic obstructive airways disease J44.1 Systolic CHF with reduced left ventricular function, NYHA class 2 I50.20 Generalized epilepsy G40.309 Myasthenia gravis G70.00 Intermittent atrial fibrillation I48.0 Fever R50.9 Right upper quadrant pain R10.11 Cough R05.9 Acute on chronic anemia D64.9 Acute kidney injury N17.9 Hypokalemia E87.6 Sepsis A41.9 Leukocytosis D72.829 Gram-negative bacteremia R78.81 Iron deficiency anemia D50.9 Lactic acidosis E87.20 Aspiration pneumonia J69.0 Pyelonephritis of right kidney N12 Enlarged prostate N40.0 Acute anemia D64.9
[2023-01-20] MEDS: sacubitril/valsartan 24-26 mg Tablet 2 EACH PO ×2 (11:36→20:25)
[2023-01-20] MEDS: apixaban 5 mg Tablet 2.5 MG PO ×2 (11:36→18:38)
[2023-01-20] MEDS: levETIRAcetam 500 mg Tablet PO ×2 (11:37→18:38)
[2023-01-20] MEDS: pyridostigmine 60 mg Tablet PO ×3 (11:42→20:24)
[2023-01-20] MEDS: pantoprazole 40 mg SDV IVP (11:42)
--- NOTE | 2023-01-20 12:00 | PC.NURSE ---
Patient reports pain only when coughing, located on his right side. Patient reports pain is 8/10 and resolves quickly.
--- NOTE | 2023-01-20 15:59 | PC.OT ---
OT tx attempted - Patient receiving blood infusion at time of tx, tx held at this time.
[2023-01-20] MEDS: FUROsemide 20 mg Tablet PO (16:23)
[2023-01-20] MEDS: ropinirole 2 mg Tablet 4 MG PO (20:24)
[2023-01-21] VITALS (23 sets, daily range): BP systolic 105–154; BP diastolic 49–94; PULSE 71–105; RESP 15–39; TEMP 36.5–37.1; O2SAT 90–97
[2023-01-21] MEDS: ipratropium-albuterol 3 mL Neb INHALATION ×4 (03:27→22:24)
[2023-01-21 04:33] LABS: Basophils # 0.1 10^3/uL (0.0-0.1); Basophils % 0.6 %; Eosinophils # 0.1 10^3/uL (0.0-0.8); Hematocrit 39.5 % (42.0-52.0); Hemoglobin 11.4 g/dL (11.7-16.6); Mean Corpuscular HGB Conc 28.9 g/dL (30.0-36.0); Mean Corpuscular Hemoglobin 24.8 pg (28.0-34.0); Mean Corpuscular Volume 86.1 fl (80-94); Mean Platelet Volume 10.2 fL (7.4-10.4); Monocytes # 0.6 10^3/uL (0.2-0.9); Monocytes % 6.4 %; Neutrophils # 6.87 10^3/uL (1.8-7.7); Neutrophils % 77.9 %; Nucleated Red Blood Cells % 0 %; Platelet Count 228 10^3/cmm (130-400); Red Blood Count 4.59 10^6/uL (4.1-5.3); Red Cell Distribution Width 17.2 % (12.1-15.1); White Blood Count 8.8 10^3/uL (4.0-10.0)
[2023-01-21 05:03] LABS: NT Pro B Type Natriuretic Pept 1991 pg/mL (0-450); Procalcitonin 1.73 ng/mL (0-0.5)
[2023-01-21 05:14] LABS: Alanine Aminotransferase 16 U/L (0-41); Albumin Level 3.5 g/dL (3.5-5.2); Alkaline Phosphatase 91 U/L (40-130); Anion Gap 14.1 (5-19); Aspartate Amino Transferase 21 U/L (0-40); Blood Urea Nitrogen 8 mg/dL (8-23); C Reactive Protein 98.4 mg/L (0.0-4.9); Calcium 9.2 mg/dL (8.5-10.5); Carbon Dioxide 26 mmol/L (22-29); Chloride 109 mmol/L (98-107); Glucose 119 mg/dL (65-115); Magnesium 2.2 mg/dL (1.7-2.3); Osmolality Calculated 301 mOsm/kg (285-295); Potassium 3.1 mmol/L (3.5-5.1); Sodium 146 mmol/L (136-145); Total Bilirubin 1.1 mg/dL (0.15-1.2); Total Protein 6.5 g/dL (6.6-8.7)
[2023-01-21] MEDS: levETIRAcetam 500 mg Tablet PO ×2 (08:04→17:32)
[2023-01-21] MEDS: apixaban 5 mg Tablet 2.5 MG PO ×2 (08:05→17:31)
[2023-01-21] MEDS: sacubitril/valsartan 24-26 mg Tablet 2 EACH PO ×2 (08:05→21:08)
[2023-01-21] MEDS: pyridostigmine 60 mg Tablet PO ×3 (08:05→21:08)
[2023-01-21] MEDS: piperacillin-tazobactam 3.375 GM in sodium chloride 0.9% (plus) 50 ML IV ×2 (08:06→17:30)
[2023-01-21] MEDS: potassium chloride ER 20 mEq Tablet 40 MEQ PO (08:06)
[2023-01-21] MEDS: FUROsemide 20 mg Tablet PO ×2 (08:06→17:47)
[2023-01-21] MEDS: budesonide 0.5 mg/2 mL Neb INHALATION ×2 (08:29→22:24)
--- NOTE | 2023-01-21 09:11 | PC.NURSE ---
Report called to [facility] Marla, patient and belongings taken to room 279-1, accompanied by Kim.
[2023-01-21] MEDS: pantoprazole 40 mg SDV IVP (13:00)
--- NOTE | 2023-01-21 14:54 | P.PN_ITS ---
Subjective Subjective: Patient was seen this morning, denies any fevers, no chills, no nausea, no vomiting, is wondering if he can advance his diet Vitals/I&O/Wt Last Vital Signs Temp 98.4 F 01/21/23 12:00 Pulse 100 01/21/23 12:00 Resp 16 01/21/23 12:00 BP 138/70 01/21/23 12:00 Pulse Ox 96 01/21/23 12:00 O2 Del Method 01/21/23 12:00 O2 Flow Rate 0.5 01/20/23 15:46 FiO2 2 01/19/23 12:00 01/20/23 01/21/23 01/21/23 22:59 06:59 14:59 Intake Total 1150 / 2035 50 / 2085 600 / 600 Output Total 400 / 400 750 / 1150 200 / 200 Balance 750 / 1635 -700 / 935 400 / 400 Weight last 48 hrs Weight 78.471 kg Physical Exam Const: COMMON NORMALS: no acute distress and patient oriented x3 Resp: COMMON NORMALS: normal respiratory effort, No retractions, No use of accessory muscles and clear to auscultation bilaterally AUSCULTATION: clear to auscultation bilaterally Cardio: COMMON NORMALS: regular rate, regular rhythm, S1 normal heart sound present and S2 normal heart sound present RATE: regular rate RHYTHM: regular rhythm HEART SOUNDS: S1 normal heart sound present and S2 normal heart sound present GI: COMMON NORMALS: Normal to inspection, nondistended, normoactive bowel sounds present and non-tender Extremity: COMMON NORMALS: capillary refill normal and no pedal edema Neuro: COMMON NORMALS: patient oriented x3 Psych: COMMON NORMALS: mental status grossly normal Urinary Catheter Management: Serrato: Cath Placed During This Visit: yes, but has since been removed by the nurse Reason for Continuing Indwelling Catheter: Decision to DC Catheter Urinary Catheter Date of Insertion: 01/18/23 Urinary Catheter Time of Insertion: 14:20 Date Urinary Catheter Removed: 01/21/23 Time Urinary Catheter Discontinued: 09:25 Data 01/21/23 04:00 01/21/23 04:00 Micro: Microbiology 01/17/23 14:59 Blood Culture - Final Blood Pseudomonas aeruginosa 01/18/23 00:15 Gram Stain - Final Sputum - Expectorated Sputum Sputum Culture - Final A&P Assessment and plan (1) Septic shock: (2) Acute exacerbation of chronic obstructive airways disease: (3) Systolic CHF with reduced left ventricular function, NYHA class 2: (4) Generalized epilepsy: (5) Myasthenia gravis: (6) Intermittent atrial fibrillation: (7) Fever: (8) Right upper quadrant pain: (9) Cough: (10) Acute on chronic anemia: (11) Acute kidney injury: (12) Hypokalemia: (13) Sepsis: (14) Leukocytosis: (15) Gram-negative bacteremia: (16) Iron deficiency anemia: (17) Lactic acidosis: (18) Aspiration pneumonia: (19) Pyelonephritis of right kidney: (20) Enlarged prostate: (21) Acute anemia: Plan Fever, cough, right upper quadrant pain - aspiration pneumonia, as he has a hiatal hernia, esophageal dilatation, possible achalasia, does have a left lower lobe consolidation, however barium swallow does show some aspiration although mild -He also has right perinephric stranding, enlarged prostate, likely right pyelonephritis with UTI -I do not think that the gallbladder is the source of infection, although he is tender, CAT scan and gallbladder ultrasound unrevealing LFTs and alk phos this morning and bilirubin are relatively unremarkable, however continues to have right upper quadrant tenderness, HIDA scan shows chronic gallbladder dysfunction -Speech therapy to see -He also has exquisite right upper quadrant tenderness, history history of gallstones, mild elevated AST, right upper quadrant ultrasound has gallstones, no gallbladder wall thickening, no biliary duct dilatation on CAT scan -Lactic acid improved, -Iron levels low at 7 has evidence of iron deficiency anemia Does have type II NSTEMI, supply demand ischemia, likely from aspiration pneumonia,-his 6-hour troponin is 36.83 no chest pain complaints -Hypotensive in the emergency room, remained on Levophed at 4, septic shock, resolved, currently off Levophed -Has gram-negative bacteremia, Pseudomonas, source could be aspiration pneumonia, pyelonephritis, or possibly gallbladder -ProCal 7.18 -CRP 125 PLAN: -Move to general medical floors -avoid fluid therapy due to fluid overload evidence -has received levaquin, risk of MG crisis, will avoid -Continue Zosyn, awaiting sensitivities on Pseudomonas -Repeat blood cultures so far negative -Await blood culture sensitivities, identification -will hold of steroid for now, risk of MG crisis -ipratropium q4hrs -budesonide q12h -has fluid overload, elevated bnp, has received lasix, switch to p.o. Lasix -Monitor kidney function monitor urine output -Elevated troponin series, telemetry monitoring, and her chest pain -anjali, 1.3 will monitor likely secondary to sepsis -Continue clear liquid diet, aspiration precautions, will do a upper GI series tomorrow, speech therapy eval -tyelenol for fever -watch respiratory status -watch hemoglobin i, Hemoccult stool negative, hemoglobin 11.4 status post 1 unit PRBC -afib as above -chf, diastolic exacerbation, as above -copd exacerbation, as above -watch for worsening myasthenia gravis symptoms, crisis symptoms -goals of care discussion DNR/DNI -protonix for gi prophylaxis -eliquis for DVT prophylaxis -Spoke to patient today -PT OT today Attestations Medical Necessity Statement*: Patient requires hospitalization for Pseudomonas bacteremia requiring IV antibiotic therapy, PT OT, planning on discharging in the next 24 hours Diagnoses Septic shock A41.9; R65.21 Acute exacerbation of chronic obstructive airways disease J44.1 Systolic CHF with reduced left ventricular function, NYHA class 2 I50.20 Generalized epilepsy G40.309 Myasthenia gravis G70.00 Intermittent atrial fibrillation I48.0 Fever R50.9 Right upper quadrant pain R10.11 Cough R05.9 Acute on chronic anemia D64.9 Acute kidney injury N17.9 Hypokalemia E87.6 Sepsis A41.9 Leukocytosis D72.829 Gram-negative bacteremia R78.81 Iron deficiency anemia D50.9 Lactic acidosis E87.20 Aspiration pneumonia J69.0 Pyelonephritis of right kidney N12 Enlarged prostate N40.0 Acute anemia D64.9
[2023-01-21] MEDS: acetaminophen 325 mg Tablet 650 MG PO (17:48)
[2023-01-21] MEDS: ropinirole 2 mg Tablet 4 MG PO (21:08)
[2023-01-22] VITALS: BP 123/68; PULSE 87; RESP 15; TEMP 36.7; O2SAT 95
[2023-01-22] MEDS: piperacillin-tazobactam 3.375 GM in sodium chloride 0.9% (plus) 50 ML IV (00:39)
[2023-01-22 04:00] VITALS: BP 138/74; PULSE 81; RESP 18; TEMP 36.4; O2SAT 96
[2023-01-22 05:40] LABS: Basophils # 0.1 10^3/uL (0.0-0.1); Basophils % 0.6 %; Eosinophils # 0.1 10^3/uL (0.0-0.8); Eosinophils % 1.5 %; Hematocrit 33.5 % (42.0-52.0); Hemoglobin 9.6 g/dL (11.7-16.6); Lymphocytes # 0.9 10^3/uL (0.8-4.8); Lymphocytes % 10.6 %; Mean Corpuscular HGB Conc 28.7 g/dL (30.0-36.0); Mean Corpuscular Hemoglobin 24.8 pg (28.0-34.0); Mean Corpuscular Volume 86.6 fl (80-94); Mean Platelet Volume 10.8 fL (7.4-10.4); Monocytes # 0.5 10^3/uL (0.2-0.9); Monocytes % 5.8 %; Neutrophils # 6.76 10^3/uL (1.8-7.7); Neutrophils % 77.5 %; Nucleated Red Blood Cells % 0 %; Platelet Count 213 10^3/cmm (130-400); Red Blood Count 3.87 10^6/uL (4.1-5.3); Red Cell Distribution Width 17.4 % (12.1-15.1); White Blood Count 8.7 10^3/uL (4.0-10.0)
[2023-01-22 05:57] LABS: Anion Gap 12.8 (5-19); Blood Urea Nitrogen 6 mg/dL (8-23); Calcium 8.3 mg/dL (8.5-10.5); Carbon Dioxide 27 mmol/L (22-29); Chloride 110 mmol/L (98-107); Glucose 135 mg/dL (65-115); Osmolality Calculated 304 mOsm/kg (285-295); Sodium 147 mmol/L (136-145)
[2023-01-22 06:05] LABS: Potassium 2.8 mmol/L (3.5-5.1)
[2023-01-22 08:00] VITALS: BP 132/66; PULSE 88; RESP 16; TEMP 36.8; O2SAT 97
--- NOTE | 2023-01-22 08:23 | PC.NURSE ---
Dr. Meza notified of critical potassium level at 0645. Order received for potassium rider. Reported to Marla MOSS and she will hang.
[2023-01-22] MEDS: budesonide 0.5 mg/2 mL Neb INHALATION (08:42)
[2023-01-22] MEDS: ipratropium-albuterol 3 mL Neb INHALATION (08:42)
[2023-01-22 08:43] VITALS: PULSE 88; RESP 16; O2SAT 94
[2023-01-22] MEDS: lidocaine 1% 5 ML in potassium chloride premix 100 ML 26.25 ML IV (08:51)
[2023-01-22] MEDS: sacubitril/valsartan 24-26 mg Tablet 2 EACH PO (08:52)
[2023-01-22] MEDS: pyridostigmine 60 mg Tablet PO (08:53)
[2023-01-22] MEDS: levETIRAcetam 500 mg Tablet PO (08:54)
[2023-01-22] MEDS: apixaban 5 mg Tablet 2.5 MG PO (08:54)
[2023-01-22] MEDS: potassium chloride ER 20 mEq Tablet 40 MEQ PO (08:58)
[2023-01-22] MEDS: ciprofloxacin 500 mg Tablet PO (08:59)
--- NOTE | 2023-01-22 10:12 | PC.SOCIAL ---
IMM update IMM updated with patient and at bedside. Verbalized an understanding. Copy pg 2 provided. Initialled, dated, timed, and placed in chart.
--- NOTE | 2023-01-22 11:08 | P.DS_ITS ---
Discharge Providers Date of Admission: 01/17/23 15:37 Date of Discharge: January 22, 2023 Attending Provider at Admission: Rell Durán MD Attending Provider at Discharge: Rell Durán MD Primary Care Provider: Jerman Henao DO Diagnoses at Discharge Discharge Diagnosis (1) Septic shock: Status: Acute (2) Acute exacerbation of chronic obstructive airways disease: Status: Acute (3) Systolic CHF with reduced left ventricular function, NYHA class 2: Status: Acute (4) Generalized epilepsy: Status: Acute (5) Myasthenia gravis: Status: Acute (6) Intermittent atrial fibrillation: Status: Acute (7) Fever: Status: Acute (8) Right upper quadrant pain: Status: Acute (9) Cough: Status: Acute (10) Acute on chronic anemia: Status: Acute (11) Acute kidney injury: Status: Acute (12) Hypokalemia: Status: Acute (13) Sepsis: Status: Acute (14) Leukocytosis: Status: Acute (15) Gram-negative bacteremia: Status: Acute (16) Iron deficiency anemia: Status: Acute (17) Lactic acidosis: Status: Acute (18) Aspiration pneumonia: Status: Acute (19) Pyelonephritis of right kidney: Status: Acute (20) Enlarged prostate: Status: Acute (21) Acute anemia: Status: Acute Reason for Visit Reason for Visit: SOB, weakness Hospital Course Hospital Course Mauricio Wilson is a 87 year old male with a past medical history of intermittent atrial fibrillation on Eliquis, history of COPD, history of epilepsy, history of myasthenia gravis, history of CHF, history of GI bleed, history of lung abscess, who presents to [facility] due to weakness, presyncopal episode, shortness of breath, fevers, bilateral lung pain and rib pain.? Patient tells me that today he was feeling weak, fatigued, he was walking when he felt a bit lightheaded, and his family was able to catch him before he hit the floor, he never passed out.? He is also been complaining of shortness of breath, pain in the bilateral lower ribs, his right upper quadrant also is hurting him.? He has been told that he has gallstones, at some point he will need surgery for it.? Patient is quite hard of hearing, but is alert oriented x3, following all commands, currently his MAP is 55, he has 3+ pitting edema bilateral lower extremity, not tachycardic, he was febrile in the emergency room on 2 L, does not use oxygen at home, complaining of a cough, productive, he has received steroids, Levaquin, Lasix, while here in the emergency room.? Given his low MAP of 55, I have advised nursing staff to avoid fluids because of his bilateral pitting edema and evidence of fluid overload, on examination we will start him on low-dose Levophed.? Moving to the ICU for closer monitoring.? Had extensive discussion with patient and his , he wants to be DNR/DNI.? Advised him of my concerns for his respiratory status, he has evidence of septic shock, fluid overload, his chest x-rays look okay but he seems to have a lot of diffuse wheezing and crackles, will do CT of the chest it is very tender in the right upper quadrant so we will go ahead and do a CT of the abdomen.? Denies any bloody or black stools.? No diarrhea.? No dysuria, no hematuria.? Its been a long time since his last myasthenia crisis and this does not seem similar. Patient was admitted to [facility] for fever, cough, secondary to aspiration pneumonia, Pseudomonas bacteremia secondary to right pyelonephritis, UTI For his aspiration pneumonia, received broad-spectrum antibiotic therapy, oxygen was weaned, was diuresed, overall clinically improved, had a barium swallow which does show some aspiration although mild, sent on aspiration precautions instructions, dysphagia level 6 diet For patient's right pyelonephritis with UTI, blood cultures repeat were negative remain afebrile, discharged on 10 remaining days of cefdinir For patient's septic shock, required ICU admission, Levophed for 48 hours, overall clinically improved, monitor general medical floors, overall clinically did well, ambulating without significant symptomatology Had ELENO secondary to sepsis which resolved Had acute anemia during hospitalization requiring transfusion 1 unit PRBC, Hemoccult occult stool negative, likely bone marrow suppression from bacteremia, which resolved on time of discharge Had a CHF exacerbation during hospitalization requiring intermittent diuresis Hypokalemia, received potassium replacement during hospitalization Physical Exam Const: COMMON NORMALS: no acute distress and patient oriented x3 Resp: COMMON NORMALS: normal respiratory effort, No retractions, No use of accessory muscles and clear to auscultation bilaterally AUSCULTATION: clear to auscultation bilaterally Cardio: COMMON NORMALS: regular rate, regular rhythm, S1 normal heart sound present and S2 normal heart sound present RATE: regular rate RHYTHM: regular rhythm HEART SOUNDS: S1 normal heart sound present and S2 normal heart sound present GI: COMMON NORMALS: Normal to inspection, nondistended, normoactive bowel sounds present and non-tender Extremity: COMMON NORMALS: no calf tenderness Neuro: COMMON NORMALS: patient oriented x3 Psych: COMMON NORMALS: mental status grossly normal Urinary Catheter Management: Serrato: Cath Placed During This Visit: yes, but has since been removed by the nurse Reason for Continuing Indwelling Catheter: Decision to DC Catheter Urinary Catheter Date of Insertion: 01/18/23 Urinary Catheter Time of Insertion: 14:20 Date Urinary Catheter Removed: 01/21/23 Time Urinary Catheter Discontinued: 09:25 Discharge Data Studies Completed and Pending Completed Studies During Hospitalization Category Date Time Status CT chest abdomen pelvis [[place] [id number] Cat Scan 01/17/23 17:06 Completed ] Stat FL barium swallow [id number] Routine Exams 01/19/23 09:00 Completed XR chest 1V portable [id number] Stat Exams 01/17/23 11:20 Completed NM hepatobiliary w phar* [id number] Routine Nuc Med 01/20/23 09:22 Completed US gall bladder [id number] Stat Ultrasound 01/18/23 07:50 Completed Pending at discharge Category Date Time Status Basic Metabolic Panel AM LABS Lab 01/23/23 04:00 Ordered Basic Metabolic Panel AM LABS Lab 01/24/23 04:00 Ordered Blood Culture Stat Lab 01/17/23 14:59 Results Blood Culture Stat Lab 01/18/23 13:56 Results Complete Blood Count w/Auto AM LABS Lab 01/23/23 04:00 Ordered Complete Blood Count w/Auto AM LABS Lab 01/24/23 04:00 Ordered Potassium Stat Lab 01/22/23 12:00 Ordered Radiology Impressions Chest X-Ray 01/17/23 11:20 IMPRESSION: 1. No acute process identified. 2. Widening of the mediastinum which is unchanged. Eventration of the left diaphragm unchanged. Chest/Abdomen/Pelvis CT 01/17/23 17:06 IMPRESSION: 1. No acute pulmonary finding. 2. Fluid distended thoracic esophagus, consistent with reflux and/or stasis. IMPRESSION: 1. No acute findings in the abdomen or pelvis. 2. Cholelithiasis. 3. Ectopic right kidney. 4. Large left inguinal hernia containing a loop of nonobstructed proximal sigmoid colon. 5. Enlarged prostate. 6. Multiple lumbar compression fractures, most likely chronic. ADDENDUM: 01/17/231922 Soft tissues: There are multiple oval densities in the posterior right chest wall measuring up to 3.6 cm. These are most likely sub basis cysts. Clinical correlation recommended. Gallbladder Ultrasound 01/18/23 07:50 IMPRESSION: 1. Cholelithiasis. Gallbladder is difficult to visualize. The gallbladder is slightly contracted. No pericholecystic fluid. 2. Common bile duct is top normal size. 3. Hepatic steatosis. Barium Swallow X-Ray 01/19/23 09:00 IMPRESSION: 1. The patient experienced a single episode of mild aspiration in the upper esophagus. 2. There was no sign of esophageal stricture or mass. 3. Patulous atonic lower esophagus . Diffuse tertiary spasm of the esophagus. 4. No gastroesophageal reflux was demonstrated during the exam. Fluoroscopy time: 1min [id number] minutes # of spot films: 49 Hepatobiliary Scan Nuclear Medicine 01/20/23 09:22 IMPRESSION: 1. No evidence of acute cholecystitis. 2. Normal common bile duct and small bowel activity. 3. Partial filling of the gallbladder suspicious for chronic gallbladder dysfunction. Laboratory Results WBC 8.7 10^3/uL (4.0-10.0) 01/22/23 05:05 RBC 3.87 10^6/uL (4.1-5.3) L 01/22/23 05:05 Hgb 9.6 g/dL (11.7-16.6) L 01/22/23 05:05 Hct 33.5 % (42.0-52.0) L 01/22/23 05:05 MCV 86.6 fl (80-94) 01/22/23 05:05 MCH 24.8 pg (28.0-34.0) L 01/22/23 05:05 MCHC 28.7 g/dL (30.0-36.0) L 01/22/23 05:05 RDW 17.4 % (12.1-15.1) H 01/22/23 05:05 Plt Count 213 10^3/cmm (130-400) 01/22/23 05:05 MPV 10.8 fL (7.4-10.4) H 01/22/23 05:05 Neut % (Auto) 77.5 % 01/22/23 05:05 Lymph % (Auto) 10.6 % 01/22/23 05:05 Lar[place] % (Auto) 5.8 % 01/22/23 05:05 Eos % (Auto) 1.5 % 01/22/23 05:05 Baso % (Auto) 0.6 % 01/22/23 05:05 Neut # (Auto) 6.76 10^3/uL (1.8-7.7) 01/22/23 05:05 Lymph # (Auto) 0.9 10^3/uL (0.8-4.8) 01/22/23 05:05 Larimer # (Auto) 0.5 10^3/uL (0.2-0.9) 01/22/23 05:05 Eos # (Auto) 0.1 10^3/uL (0.0-0.8) 01/22/23 05:05 Baso # (Auto) 0.1 10^3/uL (0.0-0.1) 01/22/23 05:05 Nucleated RBC % (auto) 0 % 01/22/23 05:05 Nucleated RBCs # 0.0 /100WBC 01/22/23 05:05 Specimen Type Arterial 01/17/23 11:46 Sample Site Radial, left 01/17/23 11:46 ABG pH 7.44 (7.35-7.45) 01/17/23 11:46 ABG pCO2 40.9 mmHg (35-45) 01/17/23 11:46 ABG pO2 56.4 mmHg (80.0-100.0) L 01/17/23 11:46 ABG HCO3 27.9 mmol/L (22-26) H 01/17/23 11:46 ABG Base Excess 3.5 mmol/L (-2.0-2.0) H 01/17/23 11:46 Wayne Test Pos 01/17/23 11:46 Hematocrit 31.8 % (42-52) L 01/17/23 11:46 Hgb O2 Saturation 86.3 % (95-100) L 01/17/23 11:46 Carboxyhemoglobin 1.1 %THgb (0.4-20.1) 01/17/23 11:46 Methemoglobin 1.4 % (0.4-1.5) 01/17/23 11:46 Total Hemoglobin 10.4 g/dL (14-18) L 01/17/23 11:46 O2 Delivery Device Room air 01/17/23 11:46 FiO2 21.0 % 01/17/23 11:46 Newspaper Photographer ID Monro 01/17/23 11:46 Sodium 147 mmol/L (136-145) H 01/22/23 05:05 Potassium 2.8 mmol/L (3.5-5.1) L* 01/22/23 05:05 Chloride 110 mmol/L (98-107) H 01/22/23 05:05 Carbon Dioxide 27 mmol/L (22-29) 01/22/23 05:05 Anion Gap 12.8 (5-19) 01/22/23 05:05 BUN 6 mg/dL (8-23) L 01/22/23 05:05 Creatinine 0.9 mg/dL (0.7-1.2) 01/22/23 05:05 GFR Calculation Not Reportable 01/22/23 05:05 Glucose 135 mg/dL (65-115) H 01/22/23 05:05 Estimat Average Glucose 140 01/17/23 11:42 Hemoglobin A1c 6.5 % (4.0-6.0) H 01/17/23 11:42 Calculated Osmolality 304 mOsm/kg (285-295) H 01/22/23 05:05 Lactic Acid 2.8 mmol/L (0.5-2.2) H 01/17/23 17:38 Lactic Acid (Sepsis) 1.8 mmol/L (0.5-2.2) 01/17/23 20:31 Lactate 1.3 mmol/L (0.5-2.2) 01/19/23 03:04 Calcium 8.3 mg/dL (8.5-10.5) L 01/22/23 05:05 Phosphorus 2.0 mg/dL (2.5-4.5) L 01/21/23 04:00 Magnesium 2.2 mg/dL (1.7-2.3) 01/21/23 04:00 Iron 7 ug/dL (59-158) L 01/17/23 17:38 Ferritin 149 ng/mL (30-400) 01/17/23 17:38 Total Bilirubin 1.1 mg/dL (0.15-1.2) 01/21/23 04:00 AST 21 U/L (0-40) 01/21/23 04:00 ALT 16 U/L (0-41) 01/21/23 04:00 Alkaline Phosphatase 91 U/L (40-130) 01/21/23 04:00 Creatine Kinase 54 U/L (39-308) 01/19/23 03:04 Troponin T Baseline 51 ng/L (0-15) H 01/17/23 17:38 Troponin T 120 Minute 40.28 ng/L (0-15) H 01/17/23 22:13 Delta Troponin T -10.72 ABS# (0-10) L 01/17/23 22:13 Troponin T Hi Sens 6Hr 36.83 ng/L (0-15) H 01/17/23 23:28 Troponin T Hi Sens 6Hr Delta -14.17 ng/L (0-12) L 01/17/23 23:28 C-Reactive Protein 98.4 mg/L (0.0-4.9) H 01/21/23 04:00 NT-Pro-B Natriuret Pep 1991 pg/mL (0-450) H 01/21/23 04:00 Total Protein 6.5 g/dL (6.6-8.7) L 01/21/23 04:00 Albumin 3.5 g/dL (3.5-5.2) 01/21/23 04:00 Globulin 3.0 g/dL (1.3-4.6) 01/21/23 04:00 Vitamin B12 351 pg/mL (232-1245) 01/17/23 17:38 Folate 20.0 ng/mL (4.5-32.2) 01/17/23 17:38 Procalcitonin 1.73 ng/mL (0-0.5) H 01/21/23 04:00 TSH 1.23 uIU/mL (0.27-4.20) 01/17/23 17:38 Random Cortisol 23.95 ug/dL (2.47-19.5) H 01/17/23 17:38 Urine Color Yellow (Yellow) 01/17/23 23:40 Urine Appearance Clear (CLEAR) 01/17/23 23:40 Urine pH 5 (5-7) 01/17/23 23:40 Ur Specific Redford 1.020 (1.005-1.030) 01/17/23 23:40 Urine Protein Neg (Negative) 01/17/23 23:40 Urine Glucose (UA) Norm (Normal) 01/17/23 23:40 Urine Ketones Negative (Negative) 01/17/23 23:40 Urine Blood 2+ (Negative) H 01/17/23 23:40 Urine Nitrate Negative (Negative) 01/17/23 23:40 Urine Bilirubin Neg (Negative) 01/17/23 23:40 Urine Urobilinogen Norm mg/dL (Negative) 01/17/23 23:40 Ur Leukocyte Esterase Negative (Negative) 01/17/23 23:40 Urine RBC 0-4 /hpf (0-2) H 01/17/23 23:40 Urine WBC 0-4 /hpf (0-5) H 01/17/23 23:40 Ur Squamous Epith Cells 0-4 /hpf (0-5) H 01/17/23 23:40 Amorphous Sediment 1+ /hpf 01/17/23 23:40 Urine Bacteria Trace /hpf (NONE) 01/17/23 23:40 Hyaline Casts 40-55 /lpf H 01/17/23 23:40 Urine Mucus Trace /hpf 01/17/23 23:40 Ur Random Sodium 15 mmol/L 01/17/23 23:40 Nasal Influ A H1 2008 PCR Not detected (NOT DETECT) 01/18/23 01:20 Adenovirus (PCR) Not detected (NOT DETECT) 01/18/23 01:20 C. pneumoniae DNA (PCR) Not detected (NOT DETECT) 01/18/23 01:20 Coronavirus 229E (PCR) Not detected (NOT DETECT) 01/18/23 01:20 Human Metapneumovir PCR Not detected (NOT DETECT) 01/18/23 01:20 Influenza A (H1) PCR Not detected (NOT DETECT) 01/18/23 01:20 Influenza A (H3) PCR Not detected (NOT DETECT) 01/18/23 01:20 Influenza Type A Ag negative (Negative) 01/17/23 14:31 Influenza Type A (PCR) Not detected (NOT DETECT) 01/18/23 01:20 Influenza Type B Ag negative (Negative) 01/17/23 14:31 Influenza Type B (PCR) Not detected (NOT DETECT) 01/18/23 01:20 M. pneumoniae (PCR) Not detected (NOT DETECT) 01/18/23 01:20 Parainfluenza 1 (PCR) Not detected (NOT DETECT) 01/18/23 01:20 Parainfluenza 2 (PCR) Not detected (NOT DETECT) 01/18/23 01:20 Parainfluenza 3 (PCR) Not detected (NOT DETECT) 01/18/23 01:20 Parainfluenza 4 (PCR) Not detected (NOT DETECT) 01/18/23 01:20 RSV Type A (PCR) Not detected (NOT DETECT) 01/18/23 01:20 RSV Type B (PCR) Not detected (NOT DETECT) 01/18/23 01:20 Entero/Rhino (PCR) Not detected (NOT DETECT) 01/18/23 01:20 SARS-CoV-2 (PCR) Not detected (NOT DETECT) 01/18/23 01:20 SARS-CoV-2 Ag (Rapid) negative (Negative) 01/17/23 14:31 Blood Type A Negative 01/20/23 07:28 Rho(D) Type Negative 01/20/23 07:28 Antibody Screen Negative 01/20/23 07:28 Crossmatch See Detail 01/20/23 07:28 Vitals Last Vital Signs Temp 98.2 F 01/22/23 08:00 Pulse 88 01/22/23 08:43 Resp 16 01/22/23 08:43 BP 132/66 01/22/23 08:00 Pulse Ox 94 01/22/23 08:43 O2 Del Method 01/22/23 08:43 O2 Flow Rate 0.5 01/20/23 15:46 FiO2 2 01/19/23 12:00 Discharge Plan Discharge Patient Disposition: Home Condition: Stable Prescriptions: New potassium chloride [Klor-Con M20] 20 mEq tablet,ER particles/crystals 20 meq PO BID 30 Days Qty: 60 0RF ferrous sulfate 325 mg (65 mg iron) tablet 325 mg PO DAILY 30 Days Qty: 30 0RF cefdinir 300 mg capsule 300 mg PO BID 10 Days Qty: 20 0RF Continued pantoprazole 40 mg tablet,delayed release (DR/EC) 40 mg PO BID budesonide-formoterol [Symbicort] 160-4.5 mcg/actuation HFA aerosol inhaler 2 puff inhalation BID Qty: 10.2 5RF cholecalciferol (vitamin D3) [Vitamin D3] 50 mcg (2,000 unit) Capsule 2,000 unit PO DAILY@06 acetaminophen 500 mg Tablet 1,000 mg PO Q4H PRN (Reason: Pain) prednisone 20 mg tablet 20 mg PO DAILY@07 metoprolol tartrate 25 mg tablet 25 mg PO BID@, Entresto 49-51 mg tablet 1 tab PO BID@ Hold Instructions: Resume on 11/03/22. ropinirole 4 mg tablet 4 mg PO BEDTIME Eliquis 5 mg tablet 5 mg PO BID mycophenolate mofetil 500 mg tablet 1,000 mg PO BID pyridostigmine bromide 60 mg tablet 60 mg PO TID Keppra 1,000 mg tablet 500 mg PO BID Rx Instructions: 1/2 tab Changed furosemide 40 mg tablet 20 mg PO BID@08,16 Qty: 180 3RF Discontinued magnesium oxide 400 mg magnesium Tablet 400 mg PO DAILY@06 Discharge Orders: Discharge Order (Routine); Ordered 01/22/23 Ordered By: Rell Durán Referrals: Arias Mcmahon DO [Physician] - 1 month Jerman Henao DO [Primary Care Provider] - 1-3 days Discharge Diet: Cardiac Discharge Activity: Resume usual activity Patient Instructions: Opioid Safety Activity Restrictions/Additional Instructions: - Please see your primary care provider next week -Follow-up with general surgery in 1 month -Take antibiotics as prescribed -Recheck your hemoglobin through primary care provider in 1 week -Have your primary care provider recheck your potassium and your kidney function in 1 week Discharge Attestations Time Spent in Discharge Care*: greater than 30 min Status at Discharge: Cognitive status at discharge: cognitively intact , Behavioral status at discharge: cooperative , Quality Metrics Clinical Quality Measures [ No reported AMI, CVA or VTE this stay] Coding Level of Care Code 96560 Total time (in minutes) for Discharge: 40 Diagnoses Septic shock A41.9; R65.21 Acute exacerbation of chronic obstructive airways disease J44.1 Systolic CHF with reduced left ventricular function, NYHA class 2 I50.20 Generalized epilepsy G40.309 Myasthenia gravis G70.00 Intermittent atrial fibrillation I48.0 Fever R50.9 Right upper quadrant pain R10.11 Cough R05.9 Acute on chronic anemia D64.9 Acute kidney injury N17.9 Hypokalemia E87.6 Sepsis A41.9 Leukocytosis D72.829 Gram-negative bacteremia R78.81 Iron deficiency anemia D50.9 Lactic acidosis E87.20 Aspiration pneumonia J69.0 Pyelonephritis of right kidney N12 Enlarged prostate N40.0 Acute anemia D64.9
[2023-01-22 12:00] VITALS: BP 134/71; PULSE 100; RESP 17; TEMP 36.8; O2SAT 98
[2023-01-22 14:37] LABS: Potassium 3.4 mmol/L (3.5-5.1)
== END 2023-01-22 15:22 | disposition home or self-care (01) | DRG 871 ==
LOC: ER 15:36 → MEDSURG 17:30 → ICU 20:49 → MEDSURG 01-21 09:24
PROVIDERS: Admitting Provider Family Medicine; Emergency Provider Family Medicine; PCP Internal Medicine; Visit Provider Family Medicine
DX: A41.52 Sepsis due to Pseudomonas (principal); I21.A1 Myocardial infarction type 2; R65.21 Severe sepsis with septic shock; J69.0 Pneumonitis due to inhalation of food and vomit; I50.43 Acute on chronic combined systolic (congestive) and diastolic (congestive) heart failure; N12 Tubulo-interstitial nephritis, not specified as acute or chronic; N17.9 Acute kidney failure, unspecified; J44.1 Chronic obstructive pulmonary disease with (acute) exacerbation; J44.0 Chronic obstructive pulmonary disease with (acute) lower respiratory infection; E87.6 Hypokalemia; D50.9 Iron deficiency anemia, unspecified; I95.9 Hypotension, unspecified; G40.409 Other generalized epilepsy and epileptic syndromes, not intractable, without status epilepticus; G70.00 Myasthenia gravis without (acute) exacerbation; I48.91 Unspecified atrial fibrillation; N40.0 Benign prostatic hyperplasia without lower urinary tract symptoms; H91.90 Unspecified hearing loss, unspecified ear; K80.20 Calculus of gallbladder without cholecystitis without obstruction; K44.9 Diaphragmatic hernia without obstruction or gangrene; Z66 Do not resuscitate; Z79.01 Long term (current) use of anticoagulants; Z87.891 Personal history of nicotine dependence
CPT/HCPCS: 36415; 36430; 36600; 51702; 71045; 71250; 74176; 74220; 76705; 78227; 80048; 80053; 81001; 82274; 82533; 82550; 82607; 82728; 82746; 82805; 83036; 83540; 83605; 83630; 83735; 83880; 84100; 84132; 84145; 84300; 84443; 84484; 85025; 86140; 86850; 86900; 86920; 87040; 87070; 87077; 87150; 87186; 87205; 87426; 87486; 87493; 87506; 87581; 87633; 87804; 92523; 92526; 92610; 93005; 94640; 94664; 96365; 96366; 96374; 97110; 97116; 97161; 97165; 99285; A9270; A9537; C9113; J1940; J1956; J2543; J2930; J3370; J3480; J7060; J7517; J7613; J7626; J7644; P9016

== ENCOUNTER 2023-01-23 10:42 | Emergency (ER) | payer MEDICAID, SELFPAY ==
[2023-01-23 10:56] VITALS: BP 143/78; PULSE 90; RESP 18; TEMP 36.4; O2SAT 98; BMI 24.2
--- NOTE | 2023-01-23 11:07 | XR_ITS ---
WS: [id number] Portable AP upright chest, 01/23/2023 Clinical Data: Gi bleed Comparison: Portable chest, 01/17/2023 Findings: No nodules, masses or effusions are seen. The heart is normal. The pulmonary vascularity is not increased. No pneumonia or pneumothorax is seen. There is minimal patchy opacity at the left cos tophrenic angle which may represent atelectasis and/or effusion. There is minimal elevation left diap hragm. The aortic arch and descending thoracic aorta show tortuosity. XR/XR chest 1V portable [id number] Impression: 1. Minimal patchy opacity at left costophrenic angle which is probably atelecta sis and or minimal left effusion. 2. Atherosclerosis.
[2023-01-23 11:09] VITALS: BP 144/91; BP 153/76; PULSE 89; RESP 14; O2SAT 97; O2SAT 98
--- NOTE | 2023-01-23 11:09 | ED_ITS ---
HPI - GI Bleed General: Chief complaint: GI Bleed Stated complaint: Blood in Urine and vomit Time Seen by Provider: 01/23/23 11:00 History of Present Illness: 87-year-old in with concerns of coffee-ground emesis x1 and melanotic stool. The patient reports this onset about 5:00 in the morning of note he recently was discharged from the hospital over concerns of urinary tract infection and what sounds like bacteremia. He is on several blood thinners including Eliquis. He has had a history of GI bleeding previously it sounds like this was esophageal in nature where he had to be treated at outside tertiary care facility and there was some cauterization done over several attempts last year. The patient reports he is generally weak but otherwise does not have any significant complaints. Associated symptoms: Denies headache(s) Review of Systems Narrative: Weakness Card: Denies: chest pain or palpitations : Denies: flank pain or difficulty urinating Neuro: Denies: headache(s) PFS ED PFSH: Medical History Anemia Asthma-COPD overlap syndrome Cardiomyopathy Cellulitis Compression fracture COPD (chronic obstructive pulmonary disease) COVID-19 (~11/2020) Generalized epilepsy GI bleed when hospitalized with covid Heart failure History of lung abscess Describes having had an abscess in his lung that required surgical removal many years ago Intermittent atrial fibrillation Lower extremity edema Myasthenia gravis Sepsis Systolic CHF with reduced left ventricular function, NYHA class 2 Surgical History History of back surgery x2 History of cataract surgery Bilateral History of esophagogastroduodenoscopy (EGD) History of surgery Describes a remote surgical procedure in which he had something done around his esophagus and his liver that may have involved around a concern for natalya iary duct malignancy possibility Family History Other CAD (coronary artery disease) Diabetes Social History Smoking and tobacco status: former smoker Quit status (tobacco): has quit using tobacco Year quit tobacco: 1979 Former quit date comment: 2ppd x 15 years then 4-5 cigars/day x 25 years Alcohol intake: former Physical Exam Const: COMMON NORMALS: no acute distress, patient oriented x3, alert and well nourished Eye: COMMON NORMALS: EOMs intact bilaterally and conjunctivae normal CONJUNCTIVA: Yes conjunctivae normal Neck/C-Spine: COMMON NORMALS: full ROM, no lymphadenopathy and Thyroid normal THYROID: Thyroid normal Resp: COMMON NORMALS: normal respiratory effort, No retractions, No use of accessory muscles, clear to auscultation bilaterally and percussion normal AUSCULTATION: clear to auscultation bilaterally PERCUSSION: percussion normal GI: COMMON NORMALS: Normal to inspection, nondistended, normoactive bowel sounds present, non-tender and no masses : COMMON NORMALS: Yes no CVA tenderness BLADDER/KIDNEY EXAM: Yes no CVA tenderness Back/Pelvis: COMMON NORMALS: no CVA tenderness Extremity: COMMON NORMALS: normal to inspection, full ROM, capillary refill normal, no joint enlargement, no clubbing, cyanosis or edema, no calf tenderness and no pedal edema Neuro: COMMON NORMALS: patient oriented x3 SENSORIUM/ORIENTATION: Yes alert Skin: COMMON NORMALS: no rashes or lesions noted, turgor normal and no jaundice GENERAL SKIN EXAM: no rashes or lesions noted and turgor normal Course Vital Signs: Vital signs: Vital Signs Temperature 97.6 F 01/23/23 10:56 Pulse Rate 89 01/23/23 11:09 Respiratory Rate 14 01/23/23 11:09 Blood Pressure 124/78 01/23/23 11:45 Pulse Oximetry 96 01/23/23 11:45 Oxygen Delivery Me thod 01/23/23 11:09 MDM - GI Bleed Medical Decision Making 87-year-old man with melanotic stool and hematemesis x1. This patient has a history of GI bleeding. This sounds like the beginning of another GI bleed although there are other things in differential but I am worried that he could have some esophageal varices I will review his old records and start him on octreotide and Protonix and type and screen him for blood check routine labs and do serial reexaminations. The patient did not have any ongoing concerns of GI bleeding here his vital signs remained stable his hemoglobin was 9.9 which is consistent with his previous readings. I talked to him and his family about what they like to do given his recent history of bleeding this morning but no ongoing symptoms and the patient is largely asymptomatic with normal vital signs and ultimately we decided we did hold some of his medications have him continue twice daily proton pump inhibitor stay on more of a liquid type diet and observe at home if he continues to have bleeding especially hematemesis he needs to return immediately. Differential Diagnosis Likely hemorrhoids, infectious diarrhea, esophageal varices, gastritis, Upper gastrointestinal hemorrhage, Lower gastrointestinal hemorrhage, hematochezia and melena Lab Data 01/23/23 11:50 01/23/23 11:50 Radiology Impressions Chest X-Ray 01/23/23 11:07 Impression: 1. Minimal patchy opacity at left costophrenic angle which is probably atelectasis and or minimal left effusion. 2. Atherosclerosis. Laboratory Results WBC 9.7 10^3/uL (4.0-10.0) 01/23/23 11:50 RBC 3.96 10^6/uL (4.1-5.3) L 01/23/23 11:50 Hgb 9.9 g/dL (11.7-16.6) L 01/23/23 11:50 Hct 34.4 % (42.0-52.0) L 01/23/23 11:50 MCV 86.9 fl (80-94) 01/23/23 11:50 MCH 25.0 pg (28.0-34.0) L 01/23/23 11:50 MCHC 28.8 g/dL (30.0-36.0) L 01/23/23 11:50 RDW 17.8 % (12.1-15.1) H 01/23/23 11:50 Plt Count 257 10^3/cmm (130-400) 01/23/23 11:50 MPV 10.3 fL (7.4-10.4) 01/23/23 11:50 Neut % (Auto) 84.8 % 01/23/23 11:50 Lymph % (Auto) 6.5 % 01/23/23 11:50 [place] % (Auto) 2.6 % 01/23/23 11:50 Eos % (Auto) 0.5 % 01/23/23 11:50 Baso % (Auto) 0.6 % 01/23/23 11:50 Neut # (Auto) 8.20 10^3/uL (1.8-7.7) H 01/23/23 11:50 Lymph # (Auto) 0.6 10^3/uL (0.8-4.8) L 01/23/23 11:50 [place] # (Auto) 0.3 10^3/uL (0.2-0.9) 01/23/23 11:50 Eos # (Auto) 0.1 10^3/uL (0.0-0.8) 01/23/23 11:50 Baso # (Auto) 0.1 10^3/uL (0.0-0.1) 01/23/23 11:50 Nucleated RBC % (auto) 0 % 01/23/23 11:50 Nucleated RBCs # 0.0 /100WBC 01/23/23 11:50 Sodium 144 mmol/L (136-145) 01/23/23 11:50 Potassium 4.2 mmol/L (3.5-5.1) 01/23/23 11:50 Chloride 108 mmol/L (98-107) H 01/23/23 11:50 Carbon Dioxide 27 mmol/L (22-29) 01/23/23 11:50 Anion Gap 13.2 (5-19) 01/23/23 11:50 BUN 7 mg/dL (8-23) L 01/23/23 11:50 Creatinine 0.8 mg/dL (0.7-1.2) 01/23/23 11:50 GFR Calculation Not Reportable 01/23/23 11:50 Glucose 136 mg/dL (65-115) H 01/23/23 11:50 Calculated Osmolality 298 mOsm/kg (285-295) H 01/23/23 11:50 Calcium 8.7 mg/dL (8.5-10.5) 01/23/23 11:50 Total Bilirubin 0.5 mg/dL (0.15-1.2) 01/23/23 11:50 AST 16 U/L (0-40) 01/23/23 11:50 ALT 11 U/L (0-41) 01/23/23 11:50 Alkaline Phosphatase 95 U/L (40-130) 01/23/23 11:50 Total Protein 5.8 g/dL (6.6-8.7) L 01/23/23 11:50 Albumin 3.3 g/dL (3.5-5.2) L 01/23/23 11:50 Globulin 2.5 g/dL (1.3-4.6) 01/23/23 11:50 Urine Color Light yellow (Yellow) 01/23/23 12:12 Urine Appearance Clear (CLEAR) 01/23/23 12:12 Urine pH 5 (5-7) 01/23/23 12:12 Ur Specific [place] 1.010 (1.005-1.030) 01/23/23 12:12 Urine Protein Neg (Negative) 01/23/23 12:12 Urine Glucose (UA) Norm (Normal) 01/23/23 12:12 Urine Ketones Negative (Negative) 01/23/23 12:12 Urine Blood Trace (Negative) H 01/23/23 12:12 Urine Nitrate Negative (Negative) 01/23/23 12:12 Urine Bilirubin Neg (Negative) 01/23/23 12:12 Urine Urobilinogen Norm mg/dL (Negative) 01/23/23 12:12 Ur Leukocyte Esterase Negative (Negative) 01/23/23 12:12 Urine RBC 0-4 /hpf (0-2) H 01/23/23 12:12 Urine WBC 0-4 /hpf (0-5) H 01/23/23 12:12 Ur Squamous Epith Cells 0-4 /hpf (0-5) H 01/23/23 12:12 Amorphous Sediment Not Reportable 01/23/23 12:12 Urine Bacteria Trace /hpf (NONE) 01/23/23 12:12 Blood Type A Negative 01/23/23 11:59 Rho(D) Type Negative 01/23/23 11:59 Antibody Screen Not Reportable 01/23/23 11:59 PEG Antibody Screen Negative 01/23/23 11:59 Discharge Plan Discharge Clinical Impression: Upper gastrointestinal hemorrhage Condition: Stable Prescriptions: No Action pantoprazole 40 mg tablet,delayed release (DR/EC) 40 mg PO BID budesonide-formoterol [Symbicort] 160-4.5 mcg/actuation HFA aerosol inhaler 2 puff inhalation BID Qty: 10.2 5RF cholecalciferol (vitamin D3) [Vitamin D3] 50 mcg (2,000 unit) Capsule 2,000 unit PO DAILY@06 acetaminophen 500 mg Tablet 1,000 mg PO Q4H PRN (Reason: Pain) prednisone 20 mg tablet 20 mg PO DAILY@07 metoprolol tartrate 25 mg tablet 25 mg PO BID@07, Entresto 49-51 mg tablet 1 tab PO BID@, Hold Instructions: Resume on 11/03/22. ropinirole 4 mg tablet 4 mg PO BEDTIME Eliquis 5 mg tablet 5 mg PO BID mycophenolate mofetil 500 mg tablet 1,000 mg PO BID pyridostigmine bromide 60 mg tablet 60 mg PO TID levetiracetam [Keppra] 1,000 mg tablet 500 mg PO BID Rx Instructions: 1/2 tab cefdinir 300 mg capsule 300 mg PO BID 10 Days Qty: 20 0RF furosemide 40 mg tablet 20 mg PO BID@,16 Qty: 180 3RF potassium chloride [Klor-Con M20] 20 mEq tablet,ER particles/crystals 20 meq PO BID 30 Days Qty: 60 0RF ferrous sulfate 325 mg (65 mg iron) tablet 325 mg PO DAILY 30 Days Qty: 30 0RF Discharge Orders: Discharge ED (Routine); Ordered 01/23/23 Ordered By: Adán Gonzalez Referrals: Jerman Henao DO [Primary Care Provider] - Discharge Diet: Full LIquid Discharge Activity: Limit activity as instructed Activity Restrictions/Additional Instructions: 1. Hold Eliquis and prednisone 2. Follow up with PCP in 24-48 hours for recheck H&H 3. Return for repeated vomiting blood or symptomatic GI bleeding Coding Level of Care Code ED Special Agent for Alessio Chavez
[2023-01-23 11:15] VITALS: BP 153/76; O2SAT 97
[2023-01-23] MEDS: pantoprazole 40 mg SDV IVP (11:23)
[2023-01-23] MEDS: lactated ringers 500 ML 999 ML IV (11:23)
[2023-01-23 11:30] VITALS: BP 140/76; O2SAT 96
[2023-01-23 11:45] VITALS: BP 124/78; O2SAT 96
[2023-01-23] MEDS: octreotide 100 mcg/mL SDV 50 MCG IVP (11:57)
[2023-01-23 11:58] LABS: Basophils # 0.1 10^3/uL (0.0-0.1); Basophils % 0.6 %; Eosinophils # 0.1 10^3/uL (0.0-0.8); Eosinophils % 0.5 %; Hematocrit 34.4 % (42.0-52.0); Hemoglobin 9.9 g/dL (11.7-16.6); Lymphocytes # 0.6 10^3/uL (0.8-4.8); Lymphocytes % 6.5 %; Mean Corpuscular HGB Conc 28.8 g/dL (30.0-36.0); Mean Corpuscular Volume 86.9 fl (80-94); Mean Platelet Volume 10.3 fL (7.4-10.4); Monocytes # 0.3 10^3/uL (0.2-0.9); Monocytes % 2.6 %; Neutrophils % 84.8 %; Nucleated Red Blood Cells % 0 %; Platelet Count 257 10^3/cmm (130-400); Red Blood Count 3.96 10^6/uL (4.1-5.3); Red Cell Distribution Width 17.8 % (12.1-15.1); White Blood Count 9.7 10^3/uL (4.0-10.0)
[2023-01-23 12:14] LABS: Alanine Aminotransferase 11 U/L (0-41); Albumin Level 3.3 g/dL (3.5-5.2); Alkaline Phosphatase 95 U/L (40-130); Anion Gap 13.2 (5-19); Aspartate Amino Transferase 16 U/L (0-40); Blood Urea Nitrogen 7 mg/dL (8-23); Calcium 8.7 mg/dL (8.5-10.5); Carbon Dioxide 27 mmol/L (22-29); Chloride 108 mmol/L (98-107); Globulin 2.5 g/dL (1.3-4.6); Glucose 136 mg/dL (65-115); Osmolality Calculated 298 mOsm/kg (285-295); Potassium 4.2 mmol/L (3.5-5.1); Sodium 144 mmol/L (136-145); Total Bilirubin 0.5 mg/dL (0.15-1.2); Total Protein 5.8 g/dL (6.6-8.7)
[2023-01-23 12:45] LABS: Add Urine Microscopic? YES; Bilirubin Urine Neg (Negative); Blood Urine Trace (Negative); Glucose Urine UA Norm (Normal); Ketones Urine Negative (Negative); Leukocyte Esterase Urine Negative (Negative); Nitrate Urine Negative (Negative); Protein Urine Neg (Negative); Urine Appearance Clear (CLEAR); Urine Color Light yellow (Yellow); Urobilinogen Urine Norm (Negative); pH Urine 5 (5-7)
[2023-01-23 12:46] LABS: Add Urine Culture? No; Bacteria Urine TRACE /hpf; RBC Urine 0-4 /hpf (0-2); Squamous Epithelial Cell Urine 0-4 /hpf (0-5); WBC Urine 0-4 /hpf (0-5)
--- NOTE | 2023-01-23 14:03 | ED_ITS ---
HPI - GI Bleed General: Chief complaint: GI Bleed Stated complaint: Blood in Urine and vomit Time Seen by Provider: 01/23/23 11:00 PFSH ED PFSH: Medical History Anemia Asthma-COPD overlap syndrome Cardiomyopathy Cellulitis Compression fracture COPD (chronic obstructive pulmonary disease) COVID-19 (~11/2020) Generalized epilepsy GI bleed when hospitalized with covid Heart failure History of lung abscess Describes having had an abscess in his lung that required surgical removal many years ago Intermittent atrial fibrillation Lower extremity edema Myasthenia gravis Sepsis Systolic CHF with reduced left ventricular function, NYHA class 2 Surgical History History of back surgery x2 History of cataract surgery Bilateral History of esophagogastroduodenoscopy (EGD) History of surgery Describes a remote surgical procedure in which he had something done around his esophagus and his liver that may have involved around a concern for biliary duct malignancy possibility Family History Other CAD (coronary artery disease) Diabetes Social History Smoking and tobacco status: former smoker Quit status (tobacco): has quit using tobacco Year quit tobacco: 1979 Former quit date comment: 2ppd x 15 years then 4-5 cigars/day x 25 years Alcohol intake: former Course Vital Signs: Vital signs: Vital Signs Temperature 97.6 F 01/23/23 10:56 Pulse Rate 89 01/23/23 11:09 Respiratory Rate 14 01/23/23 11:09 Blood Pressure 124/78 01/23/23 11:45 Pulse Oximetry 96 01/23/23 11:45 Oxygen Delivery Me thod 01/23/23 11:09 MDM - GI Bleed Lab Data 01/23/23 11:50 01/23/23 11:50 Radiology Impressions Chest X-Ray 01/23/23 11:07 Impression: 1. Minimal patchy opacity at left costophrenic angle which is probably atelectasis and or minimal left effusion. 2. Atherosclerosis. Laboratory Results WBC 9.7 10^3/uL (4.0-10.0) 01/23/23 11:50 RBC 3.96 10^6/uL (4.1-5.3) L 01/23/23 11:50 Hgb 9.9 g/dL (11.7-16.6) L 01/23/23 11:50 Hct 34.4 % (42.0-52.0) L 01/23/23 11:50 MCV 86.9 fl (80-94) 01/23/23 11:50 MCH 25.0 pg (28.0-34.0) L 01/23/23 11:50 MCHC 28.8 g/dL (30.0-36.0) L 01/23/23 11:50 RDW 17.8 % (12.1-15.1) H 01/23/23 11:50 Plt Count 257 10^3/cmm (130-400) 01/23/23 11:50 MPV 10.3 fL (7.4-10.4) 01/23/23 11:50 Neut % (Auto) 84.8 % 01/23/23 11:50 Lymph % (Auto) 6.5 % 01/23/23 11:50 [place] % (Auto) 2.6 % 01/23/23 11:50 Eos % (Auto) 0.5 % 01/23/23 11:50 Baso % (Auto) 0.6 % 01/23/23 11:50 Neut # (Auto) 8.20 10^3/uL (1.8-7.7) H 01/23/23 11:50 Lymph # (Auto) 0.6 10^3/uL (0.8-4.8) L 01/23/23 11:50 [place] # (Auto) 0.3 10^3/uL (0.2-0.9) 01/23/23 11:50 Eos # (Auto) 0.1 10^3/uL (0.0-0.8) 01/23/23 11:50 Baso # (Auto) 0.1 10^3/uL (0.0-0.1) 01/23/23 11:50 Nucleated RBC % (auto) 0 % 01/23/23 11:50 Nucleated RBCs # 0.0 /100WBC 01/23/23 11:50 Sodium 144 mmol/L (136-145) 01/23/23 11:50 Potassium 4.2 mmol/L (3.5-5.1) 01/23/23 11:50 Chloride 108 mmol/L (98-107) H 01/23/23 11:50 Carbon Dioxide 27 mmol/L (22-29) 01/23/23 11:50 Anion Gap 13.2 (5-19) 01/23/23 11:50 BUN 7 mg/dL (8-23) L 01/23/23 11:50 Creatinine 0.8 mg/dL (0.7-1.2) 01/23/23 11:50 GFR Calculation Not Reportable 01/23/23 11:50 Glucose 136 mg/dL (65-115) H 01/23/23 11:50 Calculated Osmolality 298 mOsm/kg (285-295) H 01/23/23 11:50 Calcium 8.7 mg/dL (8.5-10.5) 01/23/23 11:50 Total Bilirubin 0.5 mg/dL (0.15-1.2) 01/23/23 11:50 AST 16 U/L (0-40) 01/23/23 11:50 ALT 11 U/L (0-41) 01/23/23 11:50 Alkaline Phosphatase 95 U/L (40-130) 01/23/23 11:50 Total Protein 5.8 g/dL (6.6-8.7) L 01/23/23 11:50 Albumin 3.3 g/dL (3.5-5.2) L 01/23/23 11:50 Globulin 2.5 g/dL (1.3-4.6) 01/23/23 11:50 Urine Color Light yellow (Yellow) 01/23/23 12:12 Urine Appearance Clear (CLEAR) 01/23/23 12:12 Urine pH 5 (5-7) 01/23/23 12:12 Ur Specific [place] 1.010 (1.005-1.030) 01/23/23 12:12 Urine Protein Neg (Negative) 01/23/23 12:12 Urine Glucose (UA) Norm (Normal) 01/23/23 12:12 Urine Ketones Negative (Negative) 01/23/23 12:12 Urine Blood Trace (Negative) H 01/23/23 12:12 Urine Nitrate Negative (Negative) 01/23/23 12:12 Urine Bilirubin Neg (Negative) 01/23/23 12:12 Urine Urobilinogen Norm mg/dL (Negative) 01/23/23 12:12 Ur Leukocyte Esterase Negative (Negative) 01/23/23 12:12 Urine RBC 0-4 /hpf (0-2) H 01/23/23 12:12 Urine WBC 0-4 /hpf (0-5) H 01/23/23 12:12 Ur Squamous Epith Cells 0-4 /hpf (0-5) H 01/23/23 12:12 Amorphous Sediment Not Reportable 01/23/23 12:12 Urine Bacteria Trace /hpf (NONE) 01/23/23 12:12 Blood Type A Negative 01/23/23 11:59 Rho(D) Type Negative 01/23/23 11:59 Antibody Screen Not Reportable 01/23/23 11:59 PEG Antibody Screen Negative 01/23/23 11:59 Discharge Plan Discharge Patient Disposition: Home Clinical Impression: Upper gastrointestinal hemorrhage Condition: Stable Prescriptions: No Action pantoprazole 40 mg tablet,delayed release (DR/EC) 40 mg PO BID budesonide-formoterol [Symbicort] 160-4.5 mcg/actuation HFA aerosol inhaler 2 puff inhalation BID Qty: 10.2 5RF cholecalciferol (vitamin D3) [Vitamin D3] 50 mcg (2,000 unit) Capsule 2,000 unit PO DAILY@06 acetaminophen 500 mg Tablet 1,000 mg PO Q4H PRN (Reason: Pain) prednisone 20 mg tablet 20 mg PO DAILY@07 metoprolol tartrate 25 mg tablet 25 mg PO BID@07,19 Entresto 49-51 mg tablet 1 tab PO BID@ Hold Instructions: Resume on 11/03/22. ropinirole 4 mg tablet 4 mg PO BEDTIME Eliquis 5 mg tablet 5 mg PO BID mycophenolate mofetil 500 mg tablet 1,000 mg PO BID pyridostigmine bromide 60 mg tablet 60 mg PO TID levetiracetam [Keppra] 1,000 mg tablet 500 mg PO BID Rx Instructions: 1/2 tab cefdinir 300 mg capsule 300 mg PO BID 10 Days Qty: 20 0RF furosemide 40 mg tablet 20 mg PO BID@08,16 Qty: 180 3RF potassium chloride [Klor-Con M20] 20 mEq tablet,ER particles/crystals 20 meq PO BID 30 Days Qty: 60 0RF ferrous sulfate 325 mg (65 mg iron) tablet 325 mg PO DAILY 30 Days Qty: 30 0RF Discharge Orders: Discharge ED (Routine); Ordered 01/23/23 Ordered By: Adán Gonzalez Referrals: Jerman Henao DO [Primary Care Provider] - Discharge Diet: Full LIquid Discharge Activity: Limit activity as instructed Patient Instructions: Opioid Safety, Pain Management Activity Restrictions/Additional Instructions: 1. Hold Eliquis and prednisone 2. Follow up with PCP in 24-48 hours for recheck H&H 3. Return for repeated vomiting blood or symptomatic GI bleeding Coding Level of Care Code ED Electronic Page Makeup System Operator for Alessio Chavez
== END 2023-01-23 14:26 | disposition home or self-care (01) ==
PROVIDERS: Emergency Provider Family Medicine; PCP Internal Medicine
DX: K92.2 Gastrointestinal hemorrhage, unspecified (principal); Z79.01 Long term (current) use of anticoagulants; J44.9 Chronic obstructive pulmonary disease, unspecified; I50.20 Unspecified systolic (congestive) heart failure; Z87.891 Personal history of nicotine dependence
CPT/HCPCS: 71045; 80053; 81001; 85025; 86850; 86900; 96361; 96374; 96375; 99284; C9113; J2354; J7120

== ENCOUNTER 2023-02-25 16:00 | Emergency (ER) | payer MEDICAID, SELFPAY ==
[2023-02-25 16:13] VITALS: BP 119/62; PULSE 94; RESP 18; TEMP 36.4; O2SAT 96
--- NOTE | 2023-02-25 17:30 | CTR_ITS ---
PROCEDURE INFORMATION: Exam: CT Abdomen And Pelvis With Contrast Exam date and time: 02/25/2023 6:46 PM Age: 87 years old Clinical indication: Abdominal pain; Prior surgery; Surgery type: L-spine; Additional info: Abd pain TECHNIQUE: Imaging protocol: Computed tomography of the abdomen and pelvis with contrast. Radiation optimization: All CT scans at this facility use at least one of these dose optimization techniques: automated exposure control; mA and/or kV adjustment per patient size (includes targeted exams where dose is matched to clinical indication); or iterative reconstruction. Contrast material: OMNI 350; Contrast volume: 100 ml; Contrast route: INTRAVENOUS (IV); REPORTING DATA: Count of CT and Cardiac NM exams in prior 12 months: This patient has received 2 known CTs and 0 known cardiac nuclear medicine studies in the 12 months prior to the current study. COMPARISON: [place] [id number] 01/17/2023 6:16 PM RADIATION DOSE METRICS: Total DLP (mGy-cm): 516.73 FINDINGS: Mediastinal space: There is fluid distention and thickening of the distal esophagus as seen on 01/17/2023. This could represent some esophagitis. Please correlate clinically. Diaphragm: There is small hiatal hernia. Liver: There is no focal abnormality within the liver. Gallbladder and bile ducts: Multiple calcified gallstones are present. Number of gallstones increased from previous. Pancreas: The pancreas is normal. Spleen: The spleen is normal. Adrenal glands: The adrenal glands are normal. Kidneys and ureters: The kidneys are normal. There is no evidence of hydronephrosis. There is no evidence of renal or ureteral calcifications. Stomach and bowel: There is no evidence of colitis/diverticulitis. There is no evidence of intestinal obstruction. There is duodenal diverticulum not changed from previous. Appendix: A normal appendix is identified. Intraperitoneal space: There is no evidence of free intraperitoneal fluid. Vasculature: A retroaortic left renal vein is incidentally noted. 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 Lymph nodes: There is no evidence of lymphadenopathy. Urinary bladder: There is moderate urinary bladder wall thickening likely due to muscular hypertrophy. Please correlate for any clinical signs or symptoms of urinary tract infection. Reproductive: The prostate demonstrates marked nonspecific enlargement. The seminal vesicles are normal. Prostate volume is 92 cc. There are bilateral hydroceles smaller than on the previous examination. Bones/joints: Chronic compression deformities in the lumbar spine and other degenerative changes stable compared with 01/17/2023. Findings of vertebroplasties at L4 and L5 unchanged. There are wide laminectomies L3 through L5 unchanged. Soft tissues: There is a large left inguinal hernia which contains fat and a portion of the proximal sigmoid colon without evidence for incarceration or obstruction. CT/CT abdomen pelvis w con* [id number] IMPRESSION: 1. Cholelithiasis with increased number of gallstones. 2. Large left inguinal hernia containing bowel not significantly changed. 3. Markedly enlarged prostate unchanged. 4. Thickened urinary bladder, likely due to muscular hypertrophy. Please correlate for any clinical signs or symptoms of urinary tract infection. 5. Thickened distal esophagus suggesting possible esophagitis. 6. No change in chronic lumbar compression fractures and postsurgical changes in the lumbar spine.
[2023-02-25] MEDS: pantoprazole 40 mg SDV IVP ×2 (17:35→21:28)
--- NOTE | 2023-02-25 17:35 | W.ED.GIBLEED ---
Documented by User: Benjamín Ng DO 02/25/23 18:02 HPI - GI Bleed General: Chief complaint: Nausea/Vomiting/Diarrhea Stated complaint: throwing up blood Time Seen by Provider: 02/25/23 16:59 Source: patient Mode of arrival: ambulatory History of Present Illness: 87-year-old male presents to the emergency room with complaint of hematemesis today. In talking to him sounds like he had blood-streaked emesis he was seen last month with a similar presentation his hemoglobin was stable managed and being discharged home on a PPI. His made the comment that they were told at one time he had a bile duct or gallbladder cancer but that the diagnosis is incorrect and he got better with antibiotics. He did have a hepatobiliary scan that was unremarkable last month did not find anything in the previous imaging was suggestive of a mass or abnormality. He has had problems with GI bleeds in the past. He mentioned that he had bleeding is in esophagus he tells me does not have any liver cirrhosis he never been diagnosed with any esophageal varices there is no previous imaging suggestive of cirrhosis CT done in December 2022 showed some small gallstones but otherwise a normal-appearing liver and gallbladder within normal bile ducts. Patient was previously on Eliquis for atrial fibrillation but that was stopped because of upper GI bleed. See the notes from hospitalization in late December. He is stable at this time denies chest pain or shortness of breath no abdominal pain. MD complaint: blood streaked emesis Onset (ago): hour(s) Severity: mild Relieving factors: none Exacerbating factors: none Context: history of GI bleed Associated symptoms: Reports nausea, poor appetite and vomiting; Denies abdominal pain, chills, easy bruising, epistaxis, fever(s), headache(s), malaise, other bleeding, rash, syncope or weakness Review of Systems Const: Denies: fever(s), chills, fatigue or malaise ENMT: Denies: throat pain or epistaxis Card: Denies: chest pain or syncope Resp: Denies: dyspnea, productive cough or non-productive cough GI: Reports: nausea and vomiting; Denies: abdominal pain : Denies: flank pain, dysuria, urinary frequency or urinary urgency Skin/Breast: Denies: rash or pruritus Neuro: Denies: headache(s) Hermann/Lymph: Denies: easy bruising PFSH ED PFSH: Medical History Anemia Asthma-COPD overlap syndrome Cardiomyopathy Cellulitis Compression fracture COPD (chronic obstructive pulmonary disease) COVID-19 (~11/2020) Generalized epilepsy GI bleed when hospitalized with covid Heart failure History of lung abscess Describes having had an abscess in his lung that required surgical removal many years ago Intermittent atrial fibrillation Lower extremity edema Myasthenia gravis Sepsis Systolic CHF with reduced left ventricular function, NYHA class 2 Surgical History History of back surgery x2 History of cataract surgery Bilateral History of esophagogastroduodenoscopy (EGD) History of surgery Describes a remote surgical procedure in which he had something done around his esophagus and his liver that may have involved around a concern for biliary duct malignancy possibility Family History Other CAD (coronary artery disease) Diabetes Social History Smoking and tobacco status: former smoker Quit status (tobacco): has quit using tobacco Year quit tobacco: 1979 Former quit date comment: 2ppd x 15 years then 4-5 cigars/day x 25 years Alcohol intake: former Physical Exam Const: GENERAL APPEARANCE: cooperative and comfortable ORIENTATION/CONSCIOUSNESS: Yes awake, Yes oriented to person, Yes oriented to place and Yes oriented to time HENMT: COMMON NORMALS: normocephalic, atraumatic and hearing grossly normal bilaterally HEAD & SCALP: normocephalic and atraumatic Resp: COMMON NORMALS: normal respiratory effort, No retractions, No use of accessory muscles and clear to auscultation bilaterally AUSCULTATION: clear to auscultation bilaterally Cardio: COMMON NORMALS: regular rate, regular rhythm and No murmurs present (Cardio) RATE: regular rate RHYTHM: regular rhythm GI: COMMON NORMALS: Soft to palpation and No hepatosplenomegaly present AUSCULTATION: Yes normoactive bowel sounds PALPATION: Yes Soft to palpation, No Tenderness to palpation present (GI), No Guarding due to palpation present (GI) and Yes No hepatosplenomegaly present Extremity: COMMON NORMALS: normal to inspection, capillary refill normal, no clubbing, cyanosis or edema, no calf tenderness and no pedal edema Neuro: SENSORIUM/ORIENTATION: Yes oriented to person, Yes oriented to place and Yes oriented to time Skin: COMMON NORMALS: no rashes or lesions noted GENERAL SKIN EXAM: no rashes or lesions noted Course Vital Signs: Vital signs: Vital Signs Temperature 97.5 F L 02/25/23 16:13 Pulse Rate 104 H 02/25/23 19:54 Respiratory Rate 16 02/25/23 19:54 Blood Pressure 136/59 02/25/23 19:54 Pulse Oximetry 95 02/25/23 19:54 Oxygen Delivery Me thod 02/25/23 19:54 MDM - GI Bleed Medical Decision Making Care signed out to Dr. Tamez at change of shift. See final notes for diagnosis and disposition. Medical Records I reviewed the patient's medical records. Lab Data I reviewed the patient's lab results. 02/25/23 17:21 02/25/23 17:21 Radiology Impressions Abdomen/Pelvis CT 02/25/23 17:30 IMPRESSION: 1. Cholelithiasis with increased number of gallstones. 2. Large left inguinal hernia containing bowel not significantly changed. 3. Markedly enlarged prostate unchanged. 4. Thickened urinary bladder, likely due to muscular hypertrophy. Please correlate for any clinical signs or symptoms of urinary tract infection. 5. Thickened distal esophagus suggesting possible esophagitis. 6. No change in chronic lumbar compression fractures and postsurgical changes in the lumbar spine. Laboratory Results WBC 7.7 10^3/uL (4.0-10.0) 02/25/23 17:21 RBC 4.18 10^6/uL (4.1-5.3) 02/25/23 17:21 Hgb 10.5 g/dL (11.7-16.6) L 02/25/23 17: Hct 36.3 % (42.0-52.0) L 02/25/23 17:21 MCV 86.8 fl (80-94) 02/25/23 17: MCH 25.1 pg (28.0-34.0) L 02/25/23 17:21 MCHC 28.9 g/dL (30.0-36.0) L 02/25/23 17: RDW 18.6 % (12.1-15.1) H 02/25/23 17:21 Plt Count 272 10^3/cmm (130-400) 02/25/23 17:21 MPV 10.4 fL (7.4-10.4) 02/25/23 17:21 Neut % (Auto) 72.5 % 02/25/23 17:21 Lymph % (Auto) 14.0 % 02/25/23 17:21 [place] % (Auto) 10.8 % 02/25/23 17:21 Eos % (Auto) 0.5 % 02/25/23 17:21 Baso % (Auto) 1.2 % 02/25/23 17:21 Neut # (Auto) 5.56 10^3/uL (1.8-7.7) 02/25/23 17:21 Lymph # (Auto) 1.1 10^3/uL (0.8-4.8) 02/25/23 17:21 [place] # (Auto) 0.8 10^3/uL (0.2-0.9) 02/25/23 17:21 Eos # (Auto) 0.0 10^3/uL (0.0-0.8) 02/25/23 17:21 Baso # (Auto) 0.1 10^3/uL (0.0-0.1) 02/25/23 17:21 Nucleated RBC % (auto) 0 % 02/25/23 17: Nucleated RBCs # 0.0 /100WBC 02/25/23 17:21 PT 14.30 SECONDS (12.1-14.9) 02/25/23 17:21 INR 1.07 (0.8-1.2) 02/25/23 17:21 APTT 26.3 SECONDS (23.9-36.7) 02/25/23 17:21 Sodium 142 mmol/L (136-145) 02/25/23 17:21 Potassium 3.7 mmol/L (3.5-5.1) 02/25/23 17:21 Chloride 104 mmol/L (98-107) 02/25/23 17:21 Carbon Dioxide 26 mmol/L (22-29) 02/25/23 17:21 Anion Gap 15.7 (5-19) 02/25/23 17:21 BUN 19 mg/dL (8-23) 02/25/23 17:21 Creatinine 1.1 mg/dL (0.7-1.2) 02/25/23 17:21 GFR Calculation Not Reportable 02/25/23 17:21 Glucose 118 mg/dL (65-115) H 02/25/23 17:21 Calculated Osmolality 297 mOsm/kg (285-295) H 02/25/23 17:21 Calcium 9.3 mg/dL (8.5-10.5) 02/25/23 17:21 Total Bilirubin 0.6 mg/dL (0.15-1.2) 02/25/23 17:21 AST 18 U/L (0-40) 02/25/23 17:21 ALT 7 U/L (0-41) 02/25/23 17:21 Alkaline Phosphatase 108 U/L (40-130) 02/25/23 17:21 Total Protein 6.7 g/dL (6.6-8.7) 02/25/23 17:21 Albumin 3.7 g/dL (3.5-5.2) 02/25/23 17:21 Globulin 3.0 g/dL (1.3-4.6) 02/25/23 17:21 Lipase 46 U/L (13-60) 02/25/23 17:21 Urine Color Yellow (Yellow) 02/25/23 18:41 Urine Appearance Clear (CLEAR) 02/25/23 18:41 Urine pH 5 (5-7) 02/25/23 18:41 Ur Specific Trumann 1.020 (1.005-1.030) 02/25/23 18:41 Urine Protein Neg (Negative) 02/25/23 18:41 Urine Glucose (UA) Norm (Normal) 02/25/23 18:41 Urine Ketones 1+ (Negative) H 02/25/23 18:41 Urine Blood Neg (Negative) 02/25/23 18:41 Urine Nitrate Negative (Negative) 02/25/23 18:41 Urine Bilirubin Neg (Negative) 02/25/23 18:41 Urine Urobilinogen Norm mg/dL (Negative) 02/25/23 18:41 Ur Leukocyte Esterase Negative (Negative) 02/25/23 18:41 Discharge Plan Discharge Patient Disposition: Home Clinical Impression: Esophagitis Condition: Stable Prescriptions: New pantoprazole 40 mg tablet,delayed release (DR/EC) 40 mg PO BID Qty: 60 0RF sucralfate 1 gram tablet 1 g PO TID 28 Days Qty: 84 0RF Rx Instructions: dissolve in water No Action budesonide-formoterol [Symbicort] 160-4.5 mcg/actuation HFA aerosol inhaler 2 puff inhalation BID Qty: 10.2 5RF mycophenolate mofetil 500 mg tablet See Rx Instructions .ROUTE .COMPLEX Qty: 120 0RF Dose Instruction: TAKE 2 TABLETS BY MOUTH TWICE DAILY AT 8AM AND 8PM Rx Instructions: TAKE 2 TABLETS BY MOUTH TWICE DAILY AT 8AM AND 8PM furosemide 40 mg tablet 20 mg PO BID@08,16 Qty: 180 3RF cholecalciferol (vitamin D3) [Vitamin D3] 50 mcg (2,000 unit) Capsule 2,000 unit PO DAILY@06 acetaminophen 500 mg Tablet 1,000 mg PO Q4H PRN (Reason: Pain) prednisone 20 mg tablet 20 mg PO DAILY@07 metoprolol tartrate 25 mg tablet 25 mg PO BID@, Entresto 49-51 mg tablet 1 tab PO BID@, Hold Instructions: Resume on 11/03/22. ropinirole 4 mg tablet 4 mg PO BEDTIME pyridostigmine bromide 60 mg tablet 60 mg PO TID levetiracetam [Keppra] 1,000 mg tablet 500 mg PO BID Discharge Orders: Discharge ED (Routine); Ordered 02/25/23 Ordered By: Yovani Tamez Referrals: Jerman Henao DO [Primary Care Provider] - 1-3 days Patient Instructions: Esophagitis (ED) Activity Restrictions/Additional Instructions: Return for vomiting liquids or medications, fever greater than 100, worsening pain, other concerning symptoms see your doctor early next week. Medications as directed. Coding Level of Care Code ED Metal Cabinet Finisher for Chg Fwd Documented by User: Yovani Tamez DO 02/26/23 16:07 HPI - GI Bleed General: Chief complaint: Nausea/Vomiting/Diarrhea Stated complaint: throwing up blood Time Seen by Provider: 02/25/23 16:59 PFSH ED PFSH: Medical History Anemia Asthma-COPD overlap syndrome Cardiomyopathy Cellulitis Compression fracture COPD (chronic obstructive pulmonary disease) COVID-19 (~11/2020) Generalized epilepsy GI bleed when hospitalized with covid Heart failure History of lung abscess Describes having had an abscess in his lung that required surgical removal many years ago Intermittent atrial fibrillation Lower extremity edema Myasthenia gravis Sepsis Systolic CHF with reduced left ventricular function, NYHA class 2 Surgical History History of back surgery x2 History of cataract surgery Bilateral History of esophagogastroduodenoscopy (EGD) History of surgery Describes a remote surgical procedure in which he had something done around his esophagus and his liver that may have involved around a concern for biliary duct malignancy possibility Family History Other CAD (coronary artery disease) Diabetes Social History Smoking and tobacco status: former smoker Quit status (tobacco): has quit using tobacco Year quit tobacco: 1979 Former quit date comment: 2ppd x 15 years then 4-5 cigars/day x 25 years Alcohol intake: former Course Vital Signs: Vital signs: Vital Signs Temperature 97.5 F L 02/25/23 16:13 Pulse Rate 104 H 02/25/23 19:54 Respiratory Rate 16 02/25/23 19:54 Blood Pressure 136/59 02/25/23 19:54 Pulse Oximetry 95 02/25/23 19:54 Oxygen Delivery Me thod 02/25/23 19:54 MDM - GI Bleed Medical Decision Making Care signed out to Dr. Tamez at change of shift. See final notes for diagnosis and disposition. Patient checked out to me by previous physician and shifts change. 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 He was checked out pending CT results. Hemoglobin is 10.5. He has had no more episodes of emesis here. His INR is 1. CMP is not remarkable. Urinalysis is not remarkable. Liver enzymes are normal. CT reveals this thickened distal esophagus suggesting possible esophagitis, likely the cause of his symptoms. He's feeling improved after treatment here. They'll be discharged home to continue PPI therapy period we will add sucralfate as well. He will follow up with his doctor. He may require further outpatient evaluation such as EGD. He knows to return for any return of GI bleeding. Lab Data 02/25/23 17:21 02/25/23 17:21 Radiology Impressions Abdomen/Pelvis CT 02/25/23 17:30 IMPRESSION: 1. Cholelithiasis with increased number of gallstones. 2. Large left inguinal hernia containing bowel not significantly changed. 3. Markedly enlarged prostate unchanged. 4. Thickened urinary bladder, likely due to muscular hypertrophy. Please correlate for any clinical signs or symptoms of urinary tract infection. 5. Thickened distal esophagus suggesting possible esophagitis. 6. No change in chronic lumbar compression fractures and postsurgical changes in the lumbar spine. Laboratory Results WBC 7.7 10^3/uL (4.0-10.0) 02/25/23 17: RBC 4.18 10^6/uL (4.1-5.3) 02/25/23 17: Hgb 10.5 g/dL (11.7-16.6) L 02/25/23 17: Hct 36.3 % (42.0-52.0) L 02/25/23 17: MCV 86.8 fl (80-94) 02/25/23 17: MCH 25.1 pg (28.0-34.0) L 02/25/23 17: MCHC 28.9 g/dL (30.0-36.0) L 02/25/23 17:21 RDW 18.6 % (12.1-15.1) H 02/25/23 17: Plt Count 272 10^3/cmm (130-400) 02/25/23 17: MPV 10.4 fL (7.4-10.4) 02/25/23 17: Neut % (Auto) 72.5 % 02/25/23 17: Lymph % (Auto) 14.0 % 02/25/23 17: Livingston % (Auto) 10.8 % 02/25/23 17: Eos % (Auto) 0.5 % 02/25/23 17:21 Baso % (Auto) 1.2 % 02/25/23 17:21 Neut # (Auto) 5.56 10^3/uL (1.8-7.7) 02/25/23 17:21 Lymph # (Auto) 1.1 10^3/uL (0.8-4.8) 02/25/23 17:21 [place]ston # (Auto) 0.8 10^3/uL (0.2-0.9) 02/25/23 17:21 Eos # (Auto) 0.0 10^3/uL (0.0-0.8) 02/25/23 17:21 Baso # (Auto) 0.1 10^3/uL (0.0-0.1) 02/25/23 17:21 Nucleated RBC % (auto) 0 % 02/25/23 17: Nucleated RBCs # 0.0 /100WBC 02/25/23 17:21 PT 14.30 SECONDS (12.1-14.9) 02/25/23 17:21 INR 1.07 (0.8-1.2) 02/25/23 17:21 APTT 26.3 SECONDS (23.9-36.7) 02/25/23 17:21 Sodium 142 mmol/L (136-145) 02/25/23 17:21 Potassium 3.7 mmol/L (3.5-5.1) 02/25/23 17:21 Chloride 104 mmol/L (98-107) 02/25/23 17:21 Carbon Dioxide 26 mmol/L (22-29) 02/25/23 17:21 Anion Gap 15.7 (5-19) 02/25/23 17:21 BUN 19 mg/dL (8-23) 02/25/23 17:21 Creatinine 1.1 mg/dL (0.7-1.2) 02/25/23 17:21 GFR Calculation Not Reportable 02/25/23 17:21 Glucose 118 mg/dL (65-115) H 02/25/23 17:21 Calculated Osmolality 297 mOsm/kg (285-295) H 02/25/23 17:21 Calcium 9.3 mg/dL (8.5-10.5) 02/25/23 17:21 Total Bilirubin 0.6 mg/dL (0.15-1.2) 02/25/23 17:21 AST 18 U/L (0-40) 02/25/23 17:21 ALT 7 U/L (0-41) 02/25/23 17:21 Alkaline Phosphatase 108 U/L (40-130) 02/25/23 17:21 Total Protein 6.7 g/dL (6.6-8.7) 02/25/23 17:21 Albumin 3.7 g/dL (3.5-5.2) 02/25/23 17:21 Globulin 3.0 g/dL (1.3-4.6) 02/25/23 17:21 Lipase 46 U/L (13-60) 02/25/23 17:21 Urine Color Yellow (Yellow) 02/25/23 18:41 Urine Appearance Clear (CLEAR) 02/25/23 18:41 Urine pH 5 (5-7) 02/25/23 18:41 Ur Specific Trumann 1.020 (1.005-1.030) 02/25/23 18:41 Urine Protein Neg (Negative) 02/25/23 18:41 Urine Glucose (UA) Norm (Normal) 02/25/23 18:41 Urine Ketones 1+ (Negative) H 02/25/23 18:41 Urine Blood Neg (Negative) 02/25/23 18:41 Urine Nitrate Negative (Negative) 02/25/23 18:41 Urine Bilirubin Neg (Negative) 02/25/23 18:41 Urine Urobilinogen Norm mg/dL (Negative) 02/25/23 18:41 Ur Leukocyte Esterase Negative (Negative) 02/25/23 18:41 Discharge Plan Discharge Patient Disposition: Home Clinical Impression: Esophagitis Condition: Stable Prescriptions: New pantoprazole 40 mg tablet,delayed release (DR/EC) 40 mg PO BID Qty: 60 0RF sucralfate 1 gram tablet 1 g PO TID 28 Days Qty: 84 0RF Rx Instructions: dissolve in water No Action budesonide-formoterol [Symbicort] 160-4.5 mcg/actuation HFA aerosol inhaler 2 puff inhalation BID Qty: 10.2 5RF mycophenolate mofetil 500 mg tablet See Rx Instructions .ROUTE .COMPLEX Qty: 120 0RF Dose Instruction: TAKE 2 TABLETS BY MOUTH TWICE DAILY AT 8AM AND 8PM Rx Instructions: TAKE 2 TABLETS BY MOUTH TWICE DAILY AT 8AM AND 8PM furosemide 40 mg tablet 20 mg PO BID@08,16 Qty: 180 3RF cholecalciferol (vitamin D3) [Vitamin D3] 50 mcg (2,000 unit) Capsule 2,000 unit PO DAILY@06 acetaminophen 500 mg Tablet 1,000 mg PO Q4H PRN (Reason: Pain) prednisone 20 mg tablet 20 mg PO DAILY@07 metoprolol tartrate 25 mg tablet 25 mg PO BID@, Entresto 49-51 mg tablet 1 tab PO BID@, Hold Instructions: Resume on 11/03/22. ropinirole 4 mg tablet 4 mg PO BEDTIME pyridostigmine bromide 60 mg tablet 60 mg PO TID levetiracetam [Keppra] 1,000 mg tablet 500 mg PO BID Discharge Orders: Discharge ED (Routine); Ordered 02/25/23 Ordered By: Yovani Tamez Referrals: Jerman Henao DO [Primary Care Provider] - 1-3 days Patient Instructions: Esophagitis (ED) Activity Restrictions/Additional Instructions: Return for vomiting liquids or medications, fever greater than 100, worsening pain, other concerning symptoms see your doctor early next week. Medications as directed. Coding Level of Care Code ED Metal Cabinet Finisher for Alessio Chavez
[2023-02-25 17:58] LABS: Basophils # 0.1 10^3/uL (0.0-0.1); Basophils % 1.2 %; Eosinophils % 0.5 %; Hematocrit 36.3 % (42.0-52.0); Hemoglobin 10.5 g/dL (11.7-16.6); Lymphocytes # 1.1 10^3/uL (0.8-4.8); Mean Corpuscular HGB Conc 28.9 g/dL (30.0-36.0); Mean Corpuscular Hemoglobin 25.1 pg (28.0-34.0); Mean Corpuscular Volume 86.8 fl (80-94); Mean Platelet Volume 10.4 fL (7.4-10.4); Monocytes # 0.8 10^3/uL (0.2-0.9); Monocytes % 10.8 %; Neutrophils # 5.56 10^3/uL (1.8-7.7); Neutrophils % 72.5 %; Nucleated Red Blood Cells % 0 %; Platelet Count 272 10^3/cmm (130-400); Red Blood Count 4.18 10^6/uL (4.1-5.3); Red Cell Distribution Width 18.6 % (12.1-15.1); White Blood Count 7.7 10^3/uL (4.0-10.0)
[2023-02-25 18:10] LABS: INR 1.07 (0.8-1.2); Partial Thromboplastin Time 26.3 SECONDS (23.9-36.7)
[2023-02-25 18:28] LABS: Alanine Aminotransferase 7 U/L (0-41); Albumin Level 3.7 g/dL (3.5-5.2); Alkaline Phosphatase 108 U/L (40-130); Anion Gap 15.7 (5-19); Aspartate Amino Transferase 18 U/L (0-40); Blood Urea Nitrogen 19 mg/dL (8-23); Calcium 9.3 mg/dL (8.5-10.5); Carbon Dioxide 26 mmol/L (22-29); Chloride 104 mmol/L (98-107); Creatinine Clr Calc Pharmacy 51.8364; Glucose 118 mg/dL (65-115); Lipase 46 U/L (13-60); Osmolality Calculated 297 mOsm/kg (285-295); Potassium 3.7 mmol/L (3.5-5.1); Sodium 142 mmol/L (136-145); Total Bilirubin 0.6 mg/dL (0.15-1.2); Total Protein 6.7 g/dL (6.6-8.7)
[2023-02-25] MEDS: iohexol 350 mg/mL 500 mL Btl (per mL) IV (18:42)
[2023-02-25 18:48] LABS: Add Urine Microscopic? NO; Charge for UA Resulting for Rev
[2023-02-25 18:52] LABS: Bilirubin Urine Neg (Negative); Blood Urine Neg (Negative); Glucose Urine UA Norm (Normal); Ketones Urine 1+ (Negative); Leukocyte Esterase Urine Negative (Negative); Nitrate Urine Negative (Negative); Protein Urine Neg (Negative); Urine Appearance Clear (CLEAR); Urine Color Yellow (Yellow); Urobilinogen Urine Norm (Negative); pH Urine 5 (5-7)
[2023-02-25 19:54] VITALS: BP 136/59; PULSE 104; RESP 16; O2SAT 95
[2023-02-25] MEDS: lidocaine 2% viscous 15 ML, aluminum-mag hydrox-simethicon 30 ML, sucralfate oral liq 1 GM PO (21:28)
== END 2023-02-25 22:35 | disposition home or self-care (01) ==
PROVIDERS: Family Medicine; Physician Assistant; Emergency Provider Emergency Medicine; PCP Internal Medicine
DX: K20.90 Esophagitis, unspecified without bleeding (principal); Z87.891 Personal history of nicotine dependence; J44.9 Chronic obstructive pulmonary disease, unspecified; I50.9 Heart failure, unspecified; K80.20 Calculus of gallbladder without cholecystitis without obstruction
CPT/HCPCS: 74177; 80053; 81003; 83690; 85025; 85610; 85730; 96374; 96376; 99285; C9113; Q9967

== ENCOUNTER → 2023-03-14 10:50 | Outpatient (BNVA) | payer MEDICAID, SELFPAY | PROVIDERS: PCP Internal Medicine; Referring Provider Internal Medicine; Visit Provider Dermatology | DX: C72.0 Malignant neoplasm of spinal cord (principal); L57.8 Other skin changes due to chronic exposure to nonionizing radiation; D69.2 Other nonthrombocytopenic purpura; L82.1 Other seborrheic keratosis | CPT/HCPCS: 99203 ==

== ENCOUNTER → 2023-03-16 14:18 | Outpatient (BNVA) | payer MEDICAID, SELFPAY | PROVIDERS: PCP Internal Medicine; Visit Provider Surgery | DX: K80.20 Calculus of gallbladder without cholecystitis without obstruction (principal); K40.90 Unilateral inguinal hernia, without obstruction or gangrene, not specified as recurrent | CPT/HCPCS: 99203 ==

== ENCOUNTER → 2023-03-29 08:06 | Outpatient (BNVA) | payer MEDICAID, SELFPAY | PROVIDERS: PCP Internal Medicine; Visit Provider Dermatology | DX: L72.0 Epidermal cyst (principal) | CPT/HCPCS: 11404; 12032 ==

== ENCOUNTER 2023-04-17 07:46 | Day surgery (SDC) | payer MEDICAID, SELFPAY ==
--- NOTE | 2023-04-13 11:30 | ECG_ITS ---
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 Measurements Intervals [place] Rate: 71 P: 30 ID: [id number] QRS: 131 QRSD: 142 T: -2 QT: 451 QTc: 492 Interpretive Statements SINUS RHYTHM WITH FIRST DEGREE AV BLOCK INDETERMINATE AXIS RIGHT BUNDLE BRANCH BLOCK [120+ ms QRS DURATION, UPRIGHT V1, 40+ ms S IN I/aVL/V4/V5/V6] Compared to ECG 01/18/2023 04:43:51 First degree AV block now present Indeterminate axis now present Electronically Signed On 04-15-2023 6:55:52 CDT by Antonia Myers M.D. [id number]
[2023-04-13 11:48] VITALS: BMI 23.6
[2023-04-13 12:57] LABS: Basophils # 0.1 10^3/uL (0.0-0.1); Eosinophils # 0.2 10^3/uL (0.0-0.8); Hematocrit 34.6 % (42.0-52.0); Hemoglobin 10.1 g/dL (11.7-16.6); Lymphocytes # 1.3 10^3/uL (0.8-4.8); Lymphocytes % 16.2 %; Mean Corpuscular HGB Conc 29.2 g/dL (30.0-36.0); Mean Corpuscular Hemoglobin 25.8 pg (28.0-34.0); Mean Corpuscular Volume 88.3 fl (80-94); Mean Platelet Volume 9.8 fL (7.4-10.4); Monocytes # 0.9 10^3/uL (0.2-0.9); Monocytes % 10.6 %; Neutrophils % 69.5 %; Nucleated Red Blood Cells % 0 %; Platelet Count 242 10^3/cmm (130-400); Red Blood Count 3.92 10^6/uL (4.1-5.3); Red Cell Distribution Width 15.7 % (12.1-15.1); White Blood Count 8.2 10^3/uL (4.0-10.0)
--- NOTE | 2023-04-13 13:04 | P.ANESASSM_ITS ---
Pre-Anesthetic Assessment Height/Weight: Height 1.78 m Weight 74.843 kg Operation Date: 04/17/23 10:05 Proposed Procedures p : 70883 Lap Gloria K80.20(Not Applicable) - Arias Mcmahon DO Familial anesthetic complications: None Social No alcohol and No tobacco Airway Mallampati: Class II Dentition: full Pulmonary Chronic Obstructive Pulmonary Disease CV/HEM Congestive Heart Failure Neuropsych Seizure (epilepsy) myasthenia gravis - no trouble swallowing Anesthetic Plan ASA status: 3 Anesthesia: General Risk of > 500 ml blood loss (7ml/kg in children): No Medications/Allergies Home Medications Medication Instructions Recorded Confirmed Last Taken Type cholecalciferol (vitamin D3) 50 2,000 unit PO DAILY@06 09/03/20 04/13/23 04/13/23 06:00 History mcg (2,000 unit) capsule (Vitamin D3) acetaminophen 500 mg tablet 1,000 mg PO Q4H PRN Pain 11/04/21 04/13/23 04/13/23 04:00 History budesonide-formoterol HFA 160 2 puff inhalation BID #10.2 grams 09/12/22 04/13/23 04/13/23 08:00 Rx mcg-4.5 mcg/actuation aerosol inhaler (Symbicort) sacubitril 49 mg-valsartan 51 mg 1 tab PO BID@10/04/22 04/13/23 04/13/23 09:00 History tablet (Entresto) pyridostigmine bromide 60 mg tablet 60 mg PO TID 01/17/23 04/13/23 04/13/23 06: 00 History ropinirole 4 mg tablet 4 mg PO BEDTIME 01/17/23 04/13/23 04/12/23 22:00 History furosemide 40 mg tablet 20 mg PO BID@08,16 #180 tabs 02/06/23 04/13/23 04/13/23 08:00 Rx metoprolol tartrate 25 mg tablet 25 mg PO BID@07,19 #180 tabs 03/08/23 04/13/23 04/13/23 08:00 Rx levetiracetam 500 mg tablet 500 mg PO BID 04/13/23 04/13/23 04/13/23 08:00 History (Keppra) mycophenolate mofetil 500 mg tablet 1,000 mg PO BID 04/13/23 04/13/23 04/13/23 08:00 History pantoprazole 40 mg tablet,delayed 40 mg PO DAILY 04/13/23 04/13/23 04/13/23 09:00 History release Allergies Allergy/AdvReac Type Severity Reaction Status Date / Time No Known Allergies Allergy Verified 04/13/23 11:33 [facility] Anesthesia Medical History Anemia Asthma-COPD overlap syndrome Cardiomyopathy Cellulitis Compression fracture COPD (chronic obstructive pulmonary disease) COVID-19 (~11/2020) Generalized epilepsy GI bleed when hospitalized with covid Heart failure History of lung abscess Describes having had an abscess in his lung that required surgical removal many years ago Intermittent atrial fibrillation Lower extremity edema Myasthenia gravis Sepsis Systolic CHF with reduced left ventricular function, NYHA class 2 Surgical History History of back surgery x2 History of cataract surgery Bilateral History of esophagogastroduodenoscopy (EGD) History of surgery Describes a remote surgical procedure in which he had something done around his esophagus and his liver that may have involved around a concern for biliary duct malignancy possibility Family History Other CAD (coronary artery disease) Diabetes Social History Smoking and tobacco status: former smoker Quit status (tobacco): has quit using tobacco Year quit tobacco: 1979 Former quit date comment: 2ppd x 15 years then 4-5 cigars/day x 25 years Alcohol intake: former Substance/Drug Use: never Data Anesthesia 04/13/23 12:10 04/13/23 12:10 Short CBC 04/13/23 Range/Units 12:10 WBC 8.2 (4.0-10.0) 10^3/uL Hgb 10.1 L (11.7-16.6) g/dL Hct 34.6 L (42.0-52.0) % MCV 88.3 (80-94) fl Plt Count 242 (130-400) 10^3/cmm Neut % (Auto) 69.5 % Neut # (Auto) 5.70 (1.8-7.7) 10^3/uL Cardiac Studies: Echocardiogram 10/04/22 Echocardiogram Ultrasound 09/04/20 Sestamibi Stress Test (Cardiology) 02/24
[2023-04-13 13:15] LABS: Anion Gap 12.9 (5-19); Blood Urea Nitrogen 8 mg/dL (8-23); Carbon Dioxide 31 mmol/L (22-29); Chloride 97 mmol/L (98-107); Creatinine Clr Calc Pharmacy 70.4088; Glucose 106 mg/dL (65-115); Osmolality Calculated 285 mOsm/kg (285-295); Sodium 138 mmol/L (136-145)
[2023-04-13 13:23] LABS: Potassium 2.9 mmol/L (3.5-5.1)
--- NOTE | 2023-04-13 13:47 | SUR.PREOP ---
Lab called with a potassium critical value. K=2.9. Dr. Howard was notified.
--- NOTE | 2023-04-13 14:02 | SUR.PREOP ---
Called [facility] to notify Dr Henao of K=2.9, Dr Henao is out off office and result will be sent to destination imagination coordinator.
[2023-04-17] VITALS (16 sets, daily range): BP systolic 126–144; BP diastolic 64–90; PULSE 78–105; RESP 16–21; TEMP 36.2–36.6; O2SAT 94–100
[2023-04-17] MEDS: sodium chloride 0.9% 1,000 ML 30 ML IV (08:15)
[2023-04-17 08:58] LABS: Potassium 3.5 mmol/L (3.5-5.1)
--- NOTE | 2023-04-17 10:00 | ANES.PAUD2 ---
Pre-Anesthetic Update Pre-Anesthetic Assessment: Date of Surgery/Procedure: 04/17/23 Proposed Procedure: Operation Date: 04/17/23 09:25 Proposed Procedures p : 95459 Lap Gloria K80.20(Not Applicable) - Arias Mcmahon, DO Any changes to Pre-Anesthetic Assessment?: No Last Intake: Intake Last Liquid Date 04/16/23 Last Liquid Time 19:00 Last Solid Date 04/16/23 Last Solid Time 19:00 Labs Last 48hrs: BMP 04/17/23 08:13 Potassium 3.5 Vitals: Temperature 97.9 F 04/17/23 08:01 Temperature Source Temporal Artery S can 04/17/23 08:01 Pulse Rate 78 04/17/23 08:01 Respiratory Rate 16 04/17/23 08:01 Blood Pressure 141/65 04/17/23 08:01 Blood Pressure Misty n 90 04/17/23 08:01 Pulse Oximetry 98 04/17/23 08:01 Oxygen Delivery Me thod Room Air 04/17/23 08:01 Exam: Pre-Anes Outpt Exam: alert, oriented x 3, clear to auscultation bilaterally and regular rate & rhythm Cardiac Studies: Echocardiogram 10/04/22 Echocardiogram Ultrasound 09/04/20 Sestamibi Stress Test (Cardiology) 02/24/22
--- NOTE | 2023-04-17 10:23 | PM.HP ---
Providers/Chief Complaint Primary Care Provider: Jerman Henao DO Chief Complaint: K80.20 History of Present Illness Mauricio Wilson is a 87 year old male here for laparoscopic cholecystectomy Medications/Allergies Home Medications Medication Instructions Recorded Confirmed Last Taken Type cholecalciferol (vitamin D3) 50 2,000 unit PO DAILY@06 09/03/20 04/17/23 04/16/23 History mcg (2,000 unit) capsule (Vitamin D3) acetaminophen 500 mg tablet 1,000 mg PO Q4H PRN Pain 11/04/21 04/13/23 04/13/23 04:00 History budesonide-formoterol HFA 160 2 puff inhalation BID #10.2 grams 09/12/22 04/17/23 04/16/23 20:00 Rx mcg-4.5 mcg/actuation aerosol inhaler (Symbicort) sacubitril 49 mg-valsartan 51 mg 1 tab PO BID@10/04/22 04/13/23 04/13/23 09:00 History tablet (Entresto) pyridostigmine bromide 60 mg tablet 60 mg PO TID 01/17/23 04/17/23 04/16/23 22:00 History ropinirole 4 mg tablet 4 mg PO BEDTIME 01/17/23 04/17/23 04/16/23 22:00 History furosemide 40 mg tablet 20 mg PO BID@08,16 #180 tabs 02/06/23 04/17/23 04/16/23 Rx metoprolol tartrate 25 mg tablet 25 mg PO BID@07,19 #180 tabs 03/08/23 04/17/23 04/17/23 07:00 Rx levetiracetam 500 mg tablet 500 mg PO BID 04/13/23 04/17/23 04/16/23 20:00 History (Keppra) mycophenolate mofetil 500 mg tablet 1,000 mg PO BID 04/13/23 04/17/23 04/16/23 20:00 History pantoprazole 40 mg tablet,delayed 40 mg PO DAILY 04/13/23 04/17/23 04/17/23 07:00 History release Allergies Allergy/AdvReac Type Severity Reaction Status Date / Time No Known Allergies Allergy Verified 04/13/23 11:33 PFSH Acute PFSH: Medical History Anemia Asthma-COPD overlap syndrome Cardiomyopathy Cellulitis Compression fracture COPD (chronic obstructive pulmonary disease) COVID-19 (~11/2020) Generalized epilepsy GI bleed when hospitalized with covid Heart failure History of lung abscess Describes having had an abscess in his lung that required surgical removal many years ago Intermittent atrial fibrillation Lower extremity edema Myasthenia gravis Sepsis Systolic CHF with reduced left ventricular function, NYHA class 2 Surgical History History of back surgery x2 History of cataract surgery Bilateral History of esophagogastroduodenoscopy (EGD) History of surgery Describes a remote surgical procedure in which he had something done around his esophagus and his liver that may have involved around a concern for biliary duct malignancy possibility Family History Other CAD (coronary artery disease) Diabetes Social History Smoking and tobacco status: former smoker Quit status (tobacco): has quit using tobacco Year quit tobacco: 1979 Former quit date comment: 2ppd x 15 years then 4-5 cigars/day x 25 years Alcohol intake: former Substance/Drug Use: never Vitals/I&O/Wt Last Vital Signs Temp 97.9 F 04/17/23 08:01 Pulse 78 04/17/23 08:01 Resp 16 04/17/23 08:01 BP 141/65 04/17/23 08:01 Pulse Ox 98 04/17/23 08:01 O2 Del Method Room Air 04/17/23 08:01 Data 04/13/23 12:10 04/17/23 08:13 A&P Assessment and plan (1) Symptomatic cholelithiasis: Plan Laparoscopic cholecystectomy Attestations Medical Necessity Statement*: Home Coding Level of Care Code Acute Code for g Fwd Diagnoses Symptomatic cholelithiasis K80.20
[2023-04-17] MEDS: ceFAZolin 2,000 MG in sodium chloride 0.9% (plus) 50 ML 100 MG IV (10:41)
[2023-04-17] MEDS: lidocaine-epi 2% 20 mL INJ 4 ML INJECTION (11:24)
[2023-04-17] MEDS: tranexamic acid 1,000 mg/10mL SDV 1000 MG IV (11:50)
--- NOTE | 2023-04-17 11:52 | P.OP_ITS ---
Operative Report Date of procedure: April 17, 2023 Pre-op diagnosis: Symptomatic cholelithiasis Post-op diagnosis: same Procedure done: Laparoscopic cholecystectomy Implants: Surgicel Specimens removed/disposition: Gallbladder Surgeon: Dr. Arias Mcmahon DO Anesthesia: General Estimated blood loss (mL): 30 Complications: None apparent Brief History: This very pleasant 87-year-old gentleman who came to my office for symptomatic cholelithiasis. Laparoscopic cholecystectomy was indicated. The risk and benefits were explained and documented. Procedure: Patient was wheeled into the operative room and placed on the OR table in a supine position. Abdomen was inspected prepped and draped in usual sterile fashion. Time-out was performed and all present were in agreement. A 15 blade scalp was used to make a stab incision in the left upper quadrant and intra-a bdominal insufflation was achieved using a Veress needle. After localizing the tissue incisions were made and a 5 millimeter trocar was placed into the umbilicus as well as 2 in the right upper quadrant. A 12 millimeter trocar was placed in the epigastrium. Gallbladder was grasped and elevated. The triangle of Calot was carefully dissected using blunt dissection and electrocautery until the triangle of Calot clearly identified. The cystic duct was clipped proximally and double clipped distally. The duct was then ligated proximally. The cystic artery was doubly clipped and ligated. The gallbladder was then removed from the liver bed using electrocautery. The gallbladder was removed from the abdomen using an Endo-Catch bag through the epigastric incision. The liver bed was inspected and some bleeding was seen. Liver bed was cauterized. A piece of Surgicel was placed into the liver bed. The abdomen was irrigated and suctioned. All ports removed. Skin was washed and dried. Incisions were closed with 3-0 and 4-O Vicryl in a subcuticular interrupted fashion. Skin glue was applied. Patient tolerated the procedure well.
[2023-04-17] MEDS: HYDROmorphone 1 mg/mL INJ 1 mL 0.5 MG IVP ×2 (12:13→13:04)
[2023-04-17] MEDS: sodium chloride 0.9% 500 ML 999 ML IV (13:03)
--- NOTE | 2023-04-17 13:43 | ANE.PACU2 ---
Inpatient post-anesthesia follow up: Airway intact: Yes Vital signs: Temperature 97.2 F Pulse Rate 90 Respiratory Rate 18 Blood Pressure 129/76 Pulse Oximetry 96 Oxygen Delivery Me thod Room Air Oxygen Flow Rate 6 Fraction of Inspir ed Oxygen Hydration adequate: Yes Nausea and vomiting: No Pain level: 3 Mental status: Baseline
== END 2023-04-17 14:15 | disposition home or self-care (01) ==
PROVIDERS: Anesthesiology; PCP Internal Medicine; Visit Provider Surgery
PROC: 0FT44ZZ Resection of Gallbladder, Percutaneous Endoscopic Approach (ICD-10-PCS; CPT 47562; principal; 2023-04-17 09:25)
DX: K80.10 Calculus of gallbladder with chronic cholecystitis without obstruction (principal); I45.10 Unspecified right bundle-branch block; J44.9 Chronic obstructive pulmonary disease, unspecified; I50.9 Heart failure, unspecified; G40.909 Epilepsy, unspecified, not intractable, without status epilepticus; G70.00 Myasthenia gravis without (acute) exacerbation; Z87.891 Personal history of nicotine dependence
CPT/HCPCS: 47562; 36415; 80048; 84132; 85025; 88304; 93005; A4216; J0690; J1100; J1170; J2405; J2704; J3010; J3490; J7030; J7040

== ENCOUNTER → 2023-04-27 15:39 | Outpatient (BNVA) | payer MEDICAID, SELFPAY | PROVIDERS: PCP Internal Medicine; Visit Provider Internal Medicine | DX: I50.20 Unspecified systolic (congestive) heart failure (principal); R06.00 Dyspnea, unspecified; Z87.891 Personal history of nicotine dependence; J44.9 Chronic obstructive pulmonary disease, unspecified; I48.91 Unspecified atrial fibrillation | CPT/HCPCS: 99214 ==

== ENCOUNTER → 2023-05-02 15:26 | Outpatient (BNVA) | payer MEDICAID, SELFPAY | PROVIDERS: PCP Internal Medicine; Visit Provider Surgery | DX: Z98.890 Other specified postprocedural states (principal); Z90.49 Acquired absence of other specified parts of digestive tract | CPT/HCPCS: 99024 ==

== ENCOUNTER → 2023-06-20 13:49 | Outpatient (BNVA) | payer MEDICAID, SELFPAY | PROVIDERS: PCP Internal Medicine; Visit Provider Specialist | DX: G70.01 Myasthenia gravis with (acute) exacerbation (principal); G40.309 Generalized idiopathic epilepsy and epileptic syndromes, not intractable, without status epilepticus | CPT/HCPCS: 99214 ==

== ENCOUNTER 2023-09-20 13:12 | Inpatient (IN) | payer MEDICARE, MEDICAID, SELFPAY ==
[2023-09-20] VITALS (67 sets, daily range): BP systolic 81–119; BP diastolic 37–66; PULSE 88–115; RESP 11–34; TEMP 36.7–37.7; O2SAT 84–98; BMI 20.3
--- NOTE | 2023-09-20 13:25 | XR_ITS ---
WS: [id number] Exam: XR chest 1V portable [id number] Date/Time of Exam: 09/20/2023 1:27 PM Reason For Exam: cp Comparison 02/01/2023. There are patchy airspace and interstitial infiltrates throughout the LEFT lung suggesting pneumonia. The RIGHT lung is clear. No pneumothorax. Small LEFT basal pleural effusion. Cardiomediastinal silho uette is unremarkable. Regional bony elements are intact. Chronic elevation of the LEFT diaphragm. IMPRESSION: 1. Airspace and interstitial infiltrates throughout the LEFT lung. There are 2 areas that are relativ rosa consolidated. This most likely represents pneumonia however follow-up imaging to confirm resoluti on is recommended to exclude the possibility of an underlying mass. Small LEFT basal pleural effusio n.
[2023-09-20 13:51] LABS: Basophils # 0.1 10^3/uL (0.0-0.1); Basophils % 0.2 %; Hematocrit 37.1 % (37-53); Lymphocytes # 0.4 10^3/uL (0.8-4.8); Lymphocytes % 1.8 %; Mean Corpuscular Hemoglobin 28.7 pg (27-33); Mean Corpuscular Volume 92.5 fl (82-101); Mean Platelet Volume 10.9 fL (7.4-10.4); Monocytes # 1.3 10^3/uL (0.2-0.9); Monocytes % 5.6 %; Neutrophils % 91.7 %; Nucleated Red Blood Cells % 0 %; Platelet Count 182 10^3/cmm (157-399); Red Blood Count 4.01 10^6/uL (3.85-5.65); Red Cell Distribution Width 14.6 % (12.1-15.1); White Blood Count 24.02 10^3/uL (3.29-11.43)
--- NOTE | 2023-09-20 13:53 | ECG_ITS ---
[facility] Test Date: 2023-09-20 Pat Name: Mauricio Wilson Department: Room: Gender: Male [employer]ic: : [id number] Requested By: Shruthi West Order Number: [id number] Jhonny MD: Rory Epstein M.D. Measurements Intervals [place] Rate: 100 P: 75 MI: 210 QRS: -54 QRSD: 118 T: 10 QT: 340 QTc: 440 Interpretive Statements SINUS TACHYCARDIA WITH FIRST DEGREE AV BLOCK WITH OCCASIONAL VENTRICULAR PREMATURE COMPLEXES LOW QRS VOLTAGE IN PRECORDIAL LEADS [QRS DEFLECTION < 1.0 mV IN CHEST LEADS] PATTERN CONSISTENT WITH PULMONARY DISEASE RIGHT BUNDLE BRANCH BLOCK [120+ ms QRS DURATION, UPRIGHT V1, 40+ ms S IN I/aVL/V4/V5/V6] LEFT ANTERIOR FASCICULAR BLOCK [QRS AXIS <= -45, QR IN I, RS IN II] Compared to ECG 04/13/2023 11:43:39 Ventricular premature complex(es) now present Low QRS voltage now present Left anterior fascicular block now present Sinus rhythm no longer present Indeterminate axis no longer present Electronically Signed On 09-20-2023 19:07:18 CDT by Rory Epstein M.D. [id number]
[2023-09-20 14:09] LABS: Alanine Aminotransferase 15 U/L (0-41); Albumin Level 4.3 g/dL (3.5-5.2); Alkaline Phosphatase 81 U/L (40-130); Anion Gap 17.6 (5-19); Aspartate Amino Transferase 50 U/L (0-40); Blood Urea Nitrogen 32 mg/dL (8-23); Calcium 9.5 mg/dL (8.5-10.5); Carbon Dioxide 26 mmol/L (22-29); Chloride 101 mmol/L (98-107); Globulin 1.8 g/dL (1.3-4.6); Glucose 154 mg/dL (65-115); Osmolality Calculated 300 mOsm/kg (285-295); Potassium 4.6 mmol/L (3.5-5.1); Sodium 140 mmol/L (136-145); Total Bilirubin 1.4 mg/dL (0.15-1.2); Total Protein 6.1 g/dL (6.6-8.7)
[2023-09-20 14:11] LABS: Troponin(5th) Baseline 53 ng/L (0-15)
--- NOTE | 2023-09-20 14:15 | ED_ITS ---
HPI - Nausea/Vomiting/Diarrhea General: Chief complaint: Nausea/Vomiting/Diarrhea Stated complaint: irregular hr Time Seen by Provider: 09/20/23 13:49 Source: patient Mode of arrival: ambulatory Limitations: no limitations History of Present Illness: 88-year-old male states that he has not been feeling well over the last 2 days he states he started having nausea vomiting diarrhea this morning. He states he has had multiple episodes of vomiting this morning has been feeling very weak states his heart rate was high when he checked his blood pressure was low he feels dehydrated denies any fever denies any worsening improving factors states he had his gallbladder out earlier this year and has had some chronic vomiting since then. patient has had a cough along with some slight dyspnea throughout the day Associated nausea: Yes Associated symtoms: Reports fatigue, malaise and nausea; Denies chest pain, dysuria or headache(s) Review of Systems Const: Reports: fatigue and malaise; Denies: fever(s), chills or body aches Eyes: Denies: eye discomfort ENMT: Denies: throat pain or dental pain Card: Denies: chest pain Resp: Denies: dyspnea GI: Reports: nausea and vomiting; Denies: abdominal pain or diarrhea : Denies: dysuria Musc: Denies: neck pain or back pain Skin/Breast: Denies: rash Neuro: Denies: headache(s) [facility] ED PFSH: Medical History (Updated 09/20/23 @ 15:40 by Shruthi West MD) Anemia Asthma-COPD overlap syndrome Cardiomyopathy Cellulitis Compression fracture COPD (chronic obstructive pulmonary disease) COVID-19 (~11/2020) Generalized epilepsy GI bleed when hospitalized with covid Heart failure History of lung abscess Describes having had an abscess in his lung that required surgical removal many years ago Intermittent atrial fibrillation Lower extremity edema Myasthenia gravis Sepsis Systolic CHF with reduced left ventricular function, NYHA class 2 Surgical History History of back surgery x2 History of cataract surgery Bilateral History of esophagogastroduodenoscopy (EGD) History of surgery Describes a remote surgical procedure in which he had something done around his esophagus and his liver that may have involved around a concern for b iliary duct malignancy possibility Hx laparoscopic cholecystectomy 04/17/23 Family History Other CAD (coronary artery disease) Diabetes Social History Smoking and tobacco/nicotine status: former use of tobacco/nicotine Quit status (tobacco/nicotine): has quit using Year quit tobacco: 1979 Former quit date comment: 2ppd x 15 years then 4-5 cigars/day x 25 years Alcohol intake: former Substance/Drug Use: never Physical Exam Const: COMMON NORMALS: patient oriented x3 GENERAL APPEARANCE: ill appearing HENMT: COMMON NORMALS: normocephalic and atraumatic HEAD & SCALP: normocephalic and atraumatic Eye: COMMON NORMALS: Equal, round and reactive pupils present and EOMs intact bilaterally PUPIL: Yes Equal, round and reactive pupils present Neck/C-Spine: COMMON NORMALS: full ROM and supple Chest: COMMONS NORMALS: normal inspection of the chest and normal palpation of entire chest wall Resp: COMMON NORMALS: No retractions AUSCULTATION: rales Cardio: COMMON NORMALS: regular rate, regular rhythm and No murmurs present (Cardio) RATE: regular rate RHYTHM: regular rhythm GI: COMMON NORMALS: Normal to inspection, nondistended, normoactive bowel sounds present, Soft to palpation, non-tender and no masses PALPATION: Yes Soft to palpation Extremity: COMMON NORMALS: normal to inspection and full ROM Neuro: COMMON NORMALS: patient oriented x3, moves all extremities and no focal motor deficits Psych: COMMON NORMALS: mental status grossly normal, Normal thought process present and cooperative THOUGHT PROCESS: Normal thought process present Skin: COMMON NORMALS: no rashes or lesions noted and no wounds GENERAL SKIN EXAM: no rashes or lesions noted Procedures Central Line Placement Right IJ: Time Out Performed: Yes Patient Placed on Monitor/Pulse Ox: Yes MD Prep: mask, gown and gloves Central Line Prep: Chlorhexidine scrub Local Anesthetic: lidocaine 1% Amount of anesthesia used (mL): 3 Ultrasound Used for Placement: Yes Central Line Lumen Inserted: triple Post Procedure: sutured in place, good blood return, all ports aspirated, flushed, capped and sterile dressing applied Post Procedure X-Ray: tip of catheter in good position and no pneumothorax seen Patient Tolerated Procedure: well Complications: none Course Vital Signs: Vital signs: Vital Signs Temperature 98.0 F 09/20/23 13:42 Pulse Rate 94 10/25/23 14:32 Respiratory Rate 18 09/20/23 13:42 Blood Pressure 84/41 09/20/23 14:32 Pulse Oximetry 96 09/20/23 14:32 Oxygen Delivery Me thod Room Air 09/20/23 14:32 MDM - Nausea/Vomiting/Diarrhea Medical Decision Making patient presents here with pneumonia he is also septic did give him 30 mL/kg fluid bolus his blood pressure did not improve he was started on Levophed with a central line patient given IV antibiotics I spoke to the hospitalist will admit to the ICU Medical Records I reviewed the patient's medical records. Lab Data I reviewed the patient's lab results. 09/20/23 13:40 09/20/23 13:40 Laboratory Results WBC 24.02 10^3/uL (3.29-11.43) H 09/20/23 13:40 RBC 4.01 10^6/uL (3.85-5.65) 09/20/23 13:40 Hgb 11.50 g/dL (11.27-16.99) 09/20/23 13:40 Hct 37.1 % (37-53) 09/20/23 13:40 MCV 92.5 fl (82-101) 09/20/23 13:40 MCH 28.7 pg (27-33) 09/20/23 13:40 MCHC 31.0 g/dL (30-55) 09/20/23 13:40 RDW 14.6 % (12.1-15.1) 09/20/23 13:40 Plt Count 182 10^3/cmm (157-399) 09/20/23 13:40 MPV 10.9 fL (7.4-10.4) H 09/20/23 13:40 Neut % (Auto) 91.7 % 09/20/23 13:40 Lymph % (Auto) 1.8 % 09/20/23 13:40 [place] % (Auto) 5.6 % 09/20/23 13:40 Eos % (Auto) 0.0 % 09/20/23 13:40 Baso % (Auto) 0.2 % 09/20/23 13:40 Neut # (Auto) 22.00 10^3/uL (1.8-7.7) H 09/20/23 13:40 Lymph # (Auto) 0.4 10^3/uL (0.8-4.8) L 09/20/23 13:40 [place] # (Auto) 1.3 10^3/uL (0.2-0.9) H 09/20/23 13:40 Eos # (Auto) 0.0 10^3/uL (0.0-0.8) 09/20/23 13:40 Baso # (Auto) 0.1 10^3/uL (0.0-0.1) 09/20/23 13:40 Nucleated RBC % (auto) 0 % 09/20/23 13:40 Nucleated RBCs # 0.0 /100WBC 09/20/23 13:40 Sodium 140 mmol/L (136-145) 09/20/23 13:40 Potassium 4.6 mmol/L (3.5-5.1) 09/20/23 13:40 Chloride 101 mmol/L (98-107) 09/20/23 13:40 Carbon Dioxide 26 mmol/L (22-29) 09/20/23 13:40 Anion Gap 17.6 (5-19) 09/20/23 13:40 BUN 32 mg/dL (8-23) H 09/20/23 13:40 Creatinine 1.3 mg/dL (0.7-1.2) H 09/20/23 13:40 GFR Calculation Not Reportable 09/20/23 13:40 Glucose 154 mg/dL (65-115) H 09/20/23 13:40 Calculated Osmolality 300 mOsm/kg (285-295) H 09/20/23 13:40 Lactic Acid 3.3 mmol/L (0.5-2.2) H 09/20/23 14:10 Calcium 9.5 mg/dL (8.5-10.5) 09/20/23 13:40 Total Bilirubin 1.4 mg/dL (0.15-1.2) H 09/20/23 13:40 AST 50 U/L (0-40) H 09/20/23 13:40 ALT 15 U/L (0-41) 09/20/23 13:40 Alkaline Phosphatase 81 U/L (40-130) 09/20/23 13:40 Troponin T Baseline 53 ng/L (0-15) H 09/20/23 13:40 Total Protein 6.1 g/dL (6.6-8.7) L 09/20/23 13:40 Albumin 4.3 g/dL (3.5-5.2) 09/20/23 13:40 Globulin 1.8 g/dL (1.3-4.6) 09/20/23 13:40 Lipase 43 U/L (13-60) 09/20/23 14:10 All radiology interpretation(s) finalized by discharge Critical Care Time Critical Care Time: Critical Care Time: Yes Total Critical Care Time: 45 Attestation: The high probability of a clinically significant, sudden or life threatening deterioration of the patient's resp system(s) required my full and direct attention, intervention and personal management. The critical care time is as shown. This time is in addition to time spent performing any reported procedures but includes the following: [x] Data and vital sign review and interpretation [x] Patient assessment, examination and intervention [x] Documentation [x] Medication orders and management Discharge Plan Discharge Patient Disposition: Admitted As Inpatient Clinical Impression: Pneumonia, Vomiting, Sepsis Condition: Stable Prescriptions: No Action levetiracetam 500 mg tablet See Rx Instructions .ROUTE .COMPLEX Qty: 180 3RF Dose Instruction: TAKE 1 TABLET BY MOUTH TWICE DAILY Rx Instructions: TAKE 1 TABLET BY MOUTH TWICE DAILY mycophenolate mofetil 500 mg tablet See Rx Instructions .ROUTE .COMPLEX Qty: 360 3RF Dose Instruction: TAKE 2 TABLETS(1000 MG) BY MOUTH TWICE DAILY AT 8 AM AND AT 8 PM Rx Instructions: TAKE 2 TABLETS(1000 MG) BY MOUTH TWICE DAILY AT 8 AM AND AT 8 PM pyridostigmine bromide 60 mg tablet 60 mg PO TID Qty: 300 3RF furosemide 40 mg tablet 20 mg PO BID@08,16 Qty: 180 3RF metoprolol tartrate 25 mg tablet 25 mg PO BID@07,19 Qty: 180 3RF ropinirole 4 mg tablet See Rx Instructions .ROUTE .COMPLEX Qty: 90 1RF Dose Instruction: TAKE 1 TABLET BY MOUTH DAILY Rx Instructions: TAKE 1 TABLET BY MOUTH DAILY budesonide-formoterol [Symbicort] 160-4.5 mcg/actuation HFA aerosol inhaler 2 puff inhalation BID Qty: 10.2 0RF Rx Instructions: NEEDS APPT FOR FURTHER REFILLS cholecalciferol (vitamin D3) [Vitamin D3] 50 mcg (2,000 unit) Capsule 2,000 unit PO DAILY@06 acetaminophen 500 mg Tablet 1,000 mg PO Q4H PRN (Reason: Pain) Entresto 49-51 mg tablet 1 tab PO BID@,21 Hold Instructions: Resume on 11/03/22. pantoprazole 40 mg tablet,delayed release (DR/EC) 40 mg PO DAILY DOK 100 mg capsule 100 mg PO BID Qty: 14 0RF Referrals: Jerman Henao DO [Primary Care Provider] - Coding Level of Care Code ED Clinical Pharmacy Manager for [facility]
[2023-09-20] MEDS: ondansetron 2 mg/ML SDV 2 mL 4 MG IVP (14:25)
[2023-09-20] MEDS: azithromycin 500 MG in sodium chloride 0.9% 250 ML 250 MG IV (14:25)
[2023-09-20] MEDS: cefTRIAXone 1,000 MG in sodium chloride 0.9% (plus) 50 ML 100 MG IV (14:25)
[2023-09-20] MEDS: sodium chloride 0.9% 1,000 ML 999 ML IV ×2 (14:28→15:00)
[2023-09-20 15:03] LABS: Lactic Sepsis W/Reflex 3.3 mmol/L (0.5-2.2); Lipase 43 U/L (13-60)
--- NOTE | 2023-09-20 15:29 | XR_ITS ---
WS: [id number] Exam: XR chest 1V portable [id number] Date/Time of Exam: 09/20/2023 3:29 PM Reason For Exam: post line Compared to the latest exam performed on the same day at 1:30 p.m. A right-sided IJ catheter has been placed and ends at the cavoatrial junction in satisfactory positio n. The lungs remain fully expanded. Again noted is widespread infiltrate throughout the LEFT lung and small LEFT basal pleural effusion. The heart is top limits normal size. The mediastinum is normal in contour. Bony structures are intact. IMPRESSION: 1. Right-sided IJ catheter ending at the cavoatrial junction in satisfactory position. 2. The chest is otherwise unchanged since the latest study.
[2023-09-20 15:56] LABS: Add Urine Microscopic? YES; Bilirubin Urine Neg (Negative); Blood Urine Neg (Negative); Glucose Urine UA Norm (Normal); Ketones Urine Negative (Negative); Leukocyte Esterase Urine 2+ (Negative); Nitrate Urine Negative (Negative); Protein Urine Neg (Negative); Specific Gravity, Urine 1.015 (1.005-1.030); Urine Appearance Clear (CLEAR); Urine Color Amber (Yellow); Urobilinogen Urine Norm (Negative); pH Urine 5 (5-7)
--- NOTE | 2023-09-20 15:57 | CTR_ITS ---
PROCEDURE INFORMATION: Exam: CT Chest With Contrast; Diagnostic Exam date and time: 09/20/2023 4:05 PM Age: 88 years old Clinical indication: Nausea and vomiting; Other: Weakness; Prior surgery; Surgery date: <1 month; Surgery type: Unknown date for gb surgery; Additional info: Weakness, n/v, septic shock, weightloss, gb surgery TECHNIQUE: Imaging protocol: Diagnostic computed tomography of the chest with contrast. Radiation optimization: All CT scans at this facility use at least one of these dose optimization techniques: automated exposure control; mA and/or kV adjustment per patient size (includes targeted exams where dose is matched to clinical indication); or iterative reconstruction. Contrast material: OMNI 350; Contrast volume: 100 ml; Contrast route: INTRAVENOUS (IV); REPORTING DATA: Count of CT and Cardiac NM exams in prior 12 months: This patient has received 3 known CTs and 0 known cardiac nuclear medicine studies in the 12 months prior to the current study. COM[place] [id number] 01/17/2023 6:[address] chest January 17, 2023. RADIATION DOSE METRICS: Total DLP (mGy-cm): 1129 FINDINGS: Lungs: Multiple new ground-glass and nodular abnormalities throughout the left lung, unchanged. 3 mm solid noncalcified nodule right lower lobe image number 34 axial series 11. Otherwise, unremarkable. Pleural spaces: Unremarkable. No pneumothorax. No pleural effusion. Heart: Unremarkable. No cardiomegaly. No pericardial effusion. Coronary arteries: Unchanged moderate amount of coronary artery calcification. Mediastinal space: Unchanged dilated, patulous esophagus containing fluid. Lymph nodes: Unchanged calcified mediastinal lymph nodes. Vasculature: Unchanged small amount of systemic arterial calcification. Diaphragm: Unchanged moderate elevation of the left hemidiaphragm. Bones/joints: Multiple thoracic vertebral body compression deformities are not obviously changed. Unchanged mild kyphosis and mild and moderate multilevel spondylosis. Otherwise, unremarkable. Soft tissues: Increased abnormal soft tissue in the left pulmonary hilum. Subsequent management based on the most suspicious nodule(s). (Reference: Carol) 2. Increased abnormal soft tissue in the left pulmonary hilum could be reactive or neoplastic. 3. Additional details as above. Unchanged. REFERENCES: Carol Duff, et al. Guidelines for Management of Incidental Pulmonary Nodules Detected on CT Images: From the Fleischner Society 2017. Radiology. 2017;284(1):228-243. PROCEDURE INFORMATION: Exam: CT Abdomen And Pelvis With Contrast Exam date and time: 09/20/2023 4:05 PM Age: 88 years old Clinical indication: Nausea and vomiting; Other: Weakness; Prior surgery; Surgery date: <1 month; Surgery type: Unknown date for gb surgery; Additional info: Weakness, n/v, septic shock, weightloss, gb surgery TECHNIQUE: Imaging protocol: Computed tomography of the abdomen and pelvis with contrast. Radiation optimization: All CT scans at this facility use at least one of these dose optimization techniques: automated exposure control; mA and/or kV adjustment per patient size (includes targeted exams where dose is matched to clinical indication); or iterative reconstruction. Contrast material: OMNI 350; Contrast volume: 100 ml; Contrast route: INTRAVENOUS (IV); REPORTING DATA: Count of CT and Cardiac NM exams in prior 12 months: This patient has received 3 known CTs and 0 known cardiac nuclear medicine studies in the 12 months prior to the current study. COMPARISON: CT abdomen pelvis w con* [id number] 02/25/2023 6:46 PM RADIATION DOSE METRICS: Total DLP (mGy-cm): 1129 FINDINGS: Lungs: See above. Liver: Normal. No mass. Gallbladder and bile ducts: New cholecystectomy. Normal bile ducts. Pancreas: Normal. No ductal dilation. Spleen: Normal. No splenomegaly. Adrenal glands: Normal. No mass. Kidneys and ureters: Unchanged ptotic right kidney. Unchanged tiny left renal cortical cyst needs no follow-up. Otherwise, unremarkable. Stomach and bowel: Unremarkable. No obstruction. No mucosal thickening. Appendix: No evidence of appendicitis. Intraperitoneal space: Unremarkable. No free air. No significant fluid collection. Vasculature: Unchanged 3 cm in diameter infrarenal abdominal aortic aneurysm. Unchanged large amount of arterial calcification. 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 Lymph nodes: Unremarkable. No enlarged lymph nodes. Urinary bladder: Unchanged mild thickening of the urinary bladder wall which is likely due to partial bladder outlet obstruction, but chronic cystitis is possible. Reproductive: Unchanged marked enlargement of the prostate gland. Bones/joints: Unchanged vertebral body compression deformities and osteoplasty cement in the L4 and L5 vertebral bodies. Unchanged mild scoliosis with multilevel spondylosis. Soft tissues: Unchanged large inguinal hernia containing benign-appearing bowel and fat. CT/CT chest abdpel w/*[id number] IMPRESSION: 1. Extensive new multifocal abnormality throughout the left lung could be pneumonitis, possibly atypical pneumonia, but could also be malignancy. Unchanged small right lung nodule.Recommend CT Chest at 3-6 months. IMPRESSION: 1. No acute findings. 2. Additional details as above. Unchanged.
--- NOTE | 2023-09-20 15:59 | P.HP_ITS ---
Providers/Chief Complaint Admitting Physician: Rell Durán MD Primary Care Provider: Jerman Henao DO Chief Complaint: irregular hr History of Present Illness Mauricio Wilson is a 88 year old male with a past medical history of intermittent atrial fibrillation, currently not on anticoagulation, history of epilepsy history of myasthenia gravis, history of CHF and history of GI bleed, history of lung abscess, recent hospitalization for septic shock secondary to pneumonia, on pressors, with acute anemia, recent history of cholecystectomy for symptomatic cholelithiasis, history of Pseudomonas bacteremia, who presents to [facility] due to fatigue, malaise, low blood pressures, nausea and vomiting. Patient tells me that he has been doing fine this week, he actually worked out on his reyn[place], worked on the tractor, he tells me he was relatively asymptomatic, no fevers, no cough, shortness of breath, chest pain, abdominal pain he did report diarrhea. He tells me that this morning, he did not feel well, had some fatigue, malaise no fevers, had a poor appetite this morning, he tells me that he vomited this morning. Denies any shortness of breath acutely, but he tells me he is always short of breath. No chest pain. He tells me he always has back pain, no flank pain. Denies any dysuria, no hematuria. No bloody or black stools. He does not use oxygen at home. Does have myasthenia gravis, denies any exacerbations of his myasthenia gravis no diplopia, no weakness, no neck pain, neck stiffness, Review of Systems Const: Reports: fatigue and malaise; Denies: fever(s) or chills Eyes: Denies: change in vision ENMT: Denies: throat pain Card: Reports: lightheadedness and syncope; Denies: chest pain or palpitations Resp: Reports: dyspnea; Denies: non-productive cough GI: Reports: nausea, vomiting and diarrhea; Denies: abdominal pain, hematemesis or coffee ground emesis : Denies: flank pain, difficulty urinating or dysuria Musc: Reports: back pain; Denies: neck pain Skin/Breast: Denies: rash Neuro: Denies: headache(s) or numbness in extremities Psych: Denies: anxiety Endo: Denies: polyuria or polydipsia Hermann/Lymph: Denies: easy bruising Medications/Allergies Home Medications Medication Instructions Recorded Confirmed Last Taken Type cholecalciferol (vitamin D3) 50 2,000 unit PO DAILY@06 09/03/20 09/20/23 09/20/23 History mcg (2,000 unit) capsule (Vitamin D3) acetaminophen 500 mg tablet 1,000 mg PO Q4H PRN Pain 11/04/21 09/20/23 04/13/23 04:00 History sacubitril 49 mg-valsartan 51 mg 1 tab PO BID@10/04/22 09/20/23 09/20/23 History tablet (Entresto) furosemide 40 mg tablet 20 mg PO BID@ #180 tabs 02/06/23 09/20/23 09/20/23 Rx pantoprazole 40 mg tablet,delayed 40 mg PO DAILY 04/13/23 09/20/23 09/20/23 History release metoprolol tartrate 25 mg tablet 25 mg PO BID@ #180 tabs 06/12/23 09/20/23 09/20/23 Rx levetiracetam 500 mg tablet See Rx Instructions .Route 06/20/23 09/20/23 09/20/23 Rx .COMPLEX #180 tabs mycophenolate mofetil 500 mg tablet See Rx Instructions .Route 06/20/23 09/20/23 09/20/23 Rx .COMPLEX #360 tabs pyridostigmine bromide 60 mg tablet 60 mg PO TID #300 tabs 06/20/23 09/20/23 Unknown Rx budesonide-formoterol HFA 160 2 puff inhalation BID #10.2 grams 09/12/23 09/20/23 09/20/23 Rx mcg-4.5 mcg/actuation aerosol inhaler (Symbicort) ropinirole 4 mg tablet 4 mg PO DAILY 09/20/23 09/20/23 09/20/23 History Allergies Allergy/AdvReac Type Severity Reaction Status Date / Time No Known Allergies Allergy Verified 09/20/23 15:42 PFSH Acute PFSH: Medical History Anemia Asthma-COPD overlap syndrome Cardiomyopathy Cellulitis Compression fracture COPD (chronic obstructive pulmonary disease) COVID-19 (~11/2020) Generalized epilepsy GI bleed when hospitalized with covid Heart failure History of lung abscess Describes having had an abscess in his lung that required surgical removal many years ago Intermittent atrial fibrillation Lower extremity edema Myasthenia gravis Sepsis Systolic CHF with reduced left ventricular function, NYHA class 2 Surgical History History of back surgery x2 History of cataract surgery Bilateral History of esophagogastroduodenoscopy (EGD) History of surgery Describes a remote surgical procedure in which he had something done around his esophagus and his liver that may have involved around a concern for biliary duct malignancy possibility Hx laparoscopic cholecystectomy 04/17/23 Family History Other CAD (coronary artery disease) Diabetes Social History Smoking and tobacco/nicotine status: former use of tobacco/nicotine Quit status (tobacco/nicotine): has quit using Year quit tobacco: 1979 Former quit date comment: 2ppd x 15 years then 4-5 cigars/day x 25 years Alcohol intake: former Substance/Drug Use: never Vitals/I&O/Wt Last Vital Signs Temp 98.0 F 09/20/23 13:42 Pulse 94 09/20/23 14:32 Resp 20 H 09/20/23 15:30 BP 101/66 09/20/23 15:30 Pulse Ox 96 09/20/23 14:32 O2 Del Method Room Air 09/20/23 15:30 09/20/23 09/20/23 09/20/23 06:59 14:59 22:59 Intake Total 50 / 50 Balance 50 / 50 Weight last 48 hrs Weight 64.41 kg Physical Exam Const: COMMON NORMALS: no acute distress and patient oriented x3 HENMT: COMMON NORMALS: normocephalic HEAD & SCALP: normocephalic Eye: COMMON NORMALS: Equal, round and reactive pupils present and EOMs intact bilaterally Neck/C-Spine: COMMON NORMALS: no JVD Lymph: LYMPHATIC: no lymphadenopathy noted Resp: COMMON NORMALS: normal respiratory effort, No retractions, No use of a ccessory muscles and clear to auscultation bilaterally AUSCULTATION: wheezes Cardio: COMMON NORMALS: no JVD, regular rate, regular rhythm, S1 normal heart sound present and S2 normal heart sound present RATE: regular rate RHYTHM: regular rhythm HEART SOUNDS: S1 normal heart sound present and S2 normal heart sound present GI: COMMON NORMALS: Normal to inspection, nondistended, normoactive bowel sounds present, Soft to palpation, non-tender and No hepatosplenomegaly present PALPATION: Yes Soft to palpation and Yes No hepatosplenomegaly present Extremity: COMMON NORMALS: capillary refill normal, no calf tenderness and no pedal edema Neuro: COMMON NORMALS: patient oriented x3, CN's II-XII intact bilaterally, moves all extremities and no focal motor deficits Psych: COMMON NORMALS: mental status grossly normal Sepsis: Is patient septic: Yes Focused sepsis exam performed: Yes Focused sepsis exam: DP PT pulses diminished bilaterally, 1+, capillary refill greater than 3 seconds, no mottling, but pale bilateral lower extremities, Data 09/20/23 13:40 09/20/23 13:40 Micro: Microbiology 09/20/23 14:10 Blood Culture - Preliminary Blood SPECIMEN COLLECTED 09/20/23 14:25 Blood Culture - Preliminary Blood SPECIMEN COLLECTED A&P Assessment and plan (1) Septic shock: (2) Pneumonia: (3) Acute kidney injury: (4) NSTEMI (non-ST elevated myocardial infarction): (5) Vomiting: (6) Sepsis: (7) Generalized epilepsy: (8) Hx laparoscopic cholecystectomy: (9) Intermittent atrial fibrillation: (10) Systolic CHF with reduced left ventricular function, NYHA class 2: (11) Myasthenia gravis: Plan Septic shock -In the emergency room, has received sepsis bolus, remained hypotensive, currently on Levophed -Troponin 53, creatinine 1.3 blood cell count over 24,000, currently alert oriented x3, following all commands, tachycardic heart rate 103, he is 98% on room air, afebrile, has received antibiotics, -With NSTEMI -With ELENO -With elevated lactic acid -Currently on pressors -Plan -Monitor in ICU -Will do vazquez CT scan with contrast, he has had gallbladder surgery, does report a 30 pound weight loss, after surgery, CT angiogram of chest to rule out pulm embolism, D-dimer, CT scan abdomen due to nausea, vomiting, diarrhea -Serial EKGs, serial troponins -Telemetry monitoring ? Follow blood cultures, urine cultures, sputum cultures, random cortisol, TSH, COVID ? Start vancomycin ? Start Zosyn -Monitor hemodynamics closely ? Monitor urine output ? Full code ? Lovenox for DVT prophylaxis Attestations Medical Necessity Statement*: Patient requires hospitalization, inpatient, greater than 2 midnights, for s eptic shock, pneumonia, sepsis, ELENO, NSTEMI Coding Level of Care Code Critical Care >/= 30 minutes Critical care time (in minutes): 45 The high probability of a clinically significant, sudden or life threatening deterioration, as referenced in this documentation, required my full and direct attention, intervention and personal management. The critical care time shown is in addition to time spent performing any reported separately billable procedures and includes the following: [x] Data and vital sign review and interpretation [x ] Patient assessment, examination and intervention [x] Medication orders and management [x] Patient/Family updates as able [x] Care Coordination and Documentation. Diagnoses Septic shock A41.9; R65.21 Pneumonia J18.9 Acute kidney injury N17.9 NSTEMI (non-ST elevated myocardial infarction) I21.4 Vomiting R11.10 Sepsis A41.9 Generalized epilepsy G40.309 Hx laparoscopic cholecystectomy Z90.49 Intermittent atrial fibrillation I48.0 Systolic CHF with reduced left ventricular function, NYHA class 2 I50.20 Myasthenia gravis G70.00
[2023-09-20 16:07] LABS: Bacteria Urine 1+ /hpf; Mucus Urine TRACE /hpf; RBC Urine RARE /hpf (0-2)
[2023-09-20 16:08] LABS: Add Urine Culture? No
[2023-09-20] MEDS: iohexol 350 mg/mL 500 mL Btl (per mL) IV (16:08)
[2023-09-20 16:11] LABS: SARS Covid-2 Antigen negative (Negative)
[2023-09-20 16:21] LABS: Troponin 5 2HR 51.99 ng/L (0-15); Troponin 5 2HR Delta -1.01 ABS# (0-10)
[2023-09-20 16:24] LABS: Reflex Lactate Order REFLEX LACTIC ORDERD
[2023-09-20 16:47] LABS: Erythrocyte Sedimentation Rate 3 mm/hr (0-10)
[2023-09-20] MEDS: piperacillin-tazobactam 3.375 GM in sodium chloride 0.9% (plus) 50 ML IV (17:02)
[2023-09-20 17:07] LABS: Troponin(5th) Baseline 40 ng/L (0-15)
[2023-09-20 17:11] LABS: Estmated Average Glucose 131; Hemoglobin A1C 6.2 % (4.0-6.0)
[2023-09-20] MEDS: vancomycin 1,000 MG in sodium chloride 0.9% 250 ML 250 MG IV (17:13)
[2023-09-20] MEDS: levETIRAcetam 500 mg Tablet PO (17:13)
[2023-09-20] MEDS: sodium chloride 0.9% 1,000 ML 50 ML IV (17:13)
[2023-09-20 17:15] LABS: Procalcitonin 3.64 ng/mL (0-0.5); Thyroid Stimulating Hormone 2.35 uIU/mL (0.27-4.20)
[2023-09-20 17:18] LABS: Cortisol Random 16.46 ug/dL (2.47-19.5)
[2023-09-20 17:23] LABS: D Dimer 2.99 ug/mLFEU (0-0.59)
[2023-09-20 17:28] LABS: C Reactive Protein 34.4 mg/L (0.0-4.9); Ferritin 70 ng/mL (30-400); Iron 50 ug/dL (59-158); Percent Saturation 23.4 % (20-50); Total Iron Binding Capacity 213 mcg/dl; Unsaturated Iron Binding 163 ug/dL (112-347)
--- NOTE | 2023-09-20 17:54 | ECG_ITS ---
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 Measurements Intervals [place] Rate: 99 P: 93 WV: 239 QRS: 261 QRSD: 124 T: 14 QT: 361 QTc: 465 Interpretive Statements SINUS RHYTHM WITH FIRST DEGREE AV BLOCK INDETERMINATE AXIS POSSIBLE RIGHT VENTRICULAR CONDUCTION DELAY [RSR (QR) IN V1/V2] SEPTAL MYOCARDIAL INFARCTION , OF INDETERMINATE AGE [40+ ms Q WAVE IN V1/V2] MODERATE T-WAVE ABNORMALITY, CONSIDER ANTERIOR ISCHEMIA [-0.1+ mV T-WAVE IN V3/V4] Compared to ECG 09/20/2023 13:53:25 Indeterminate axis now present Myocardial infarct finding now present T-wave abnormality now present Right bundle-branch block no longer present Left anterior fascicular block no longer present Electronically Signed On 09-20-2023 19:08:21 CDT by Rory Epstein M.D. [id number]
[2023-09-20 18:32] LABS: Lactic Acid level (Lactate) 1.3 mmol/L (0.5-2.2)
[2023-09-20] MEDS: enoxaparin 40 mg/0.4 mL Syringe SUBCUT (19:42)
--- NOTE | 2023-09-20 20:13 | ECG_ITS ---
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 Measurements Intervals [place] Rate: 97 P: 79 SD: 261 QRS: -27 QRSD: 122 T: 36 QT: 375 QTc: 478 Interpretive Statements SINUS RHYTHM WITH FIRST DEGREE AV BLOCK POSSIBLE RIGHT VENTRICULAR CONDUCTION DELAY [RSR (QR) IN V1/V2] SEPTAL MYOCARDIAL INFARCTION , OF INDETERMINATE AGE [40+ ms Q WAVE IN V1/V2] MODERATE T-WAVE ABNORMALITY, CONSIDER ANTERIOR ISCHEMIA [-0.1+ mV T-WAVE IN V3/V4] Compared to ECG 09/20/2023 17:11:37 Indeterminate axis no longer present Myocardial infarct finding still present T-wave abnormality still present Possible ischemia still present Electronically Signed On 09-20-2023 23:40:01 CDT by Rory Epstein M.D. [id number]
[2023-09-20 20:26] LABS: Troponin 5 6HR 43.44 ng/L (0-15)
[2023-09-20 20:27] LABS: Troponin 5 6HR Delta 3.44 ng/L (0-12)
[2023-09-20] MEDS: ipratropium-albuterol 3 mL Neb INHALATION (20:27)
[2023-09-20] MEDS: pyridostigmine 60 mg Tablet PO (20:52)
[2023-09-21] VITALS (51 sets, daily range): BP systolic 78–126; BP diastolic 39–92; PULSE 74–108; RESP 10–34; O2SAT 90–99
[2023-09-21] MEDS: piperacillin-tazobactam 3.375 GM in sodium chloride 0.9% (plus) 50 ML IV ×3 (01:41→17:19)
[2023-09-21] MEDS: acetaminophen 325 mg Tablet 650 MG PO (03:38)
[2023-09-21 04:18] LABS: Basophils # 0.1 10^3/uL (0.0-0.1); Basophils % 0.3 %; Eosinophils % 0.2 %; Hematocrit 31.4 % (37-53); Lymphocytes # 1.7 10^3/uL (0.8-4.8); Lymphocytes % 6.7 %; Mean Corpuscular HGB Conc 30.3 g/dL (30-55); Mean Corpuscular Hemoglobin 28.4 pg (27-33); Mean Platelet Volume 11.1 fL (7.4-10.4); Monocytes # 1.4 10^3/uL (0.2-0.9); Monocytes % 5.6 %; Neutrophils # 21.62 10^3/uL (1.8-7.7); Neutrophils % 86.5 %; Nucleated Red Blood Cells % 0 %; Platelet Count 169 10^3/cmm (157-399); Red Blood Count 3.34 10^6/uL (3.85-5.65); Red Cell Distribution Width 14.8 % (12.1-15.1); White Blood Count 24.98 10^3/uL (3.29-11.43)
[2023-09-21 04:39] LABS: Chol HDL Ratio 2.71 mg/dL (1.0-5.00); Cholesterol 114 mg/dL (0-200); HDL Cholesterol 42 mg/dL (60-100); LDL Cholesterol Calculated 60 mg/dL (50-129); LDL HDL Ratio 1.43 RATIO (0.00-3.22); Triglycerides 62 mg/dL (0-150)
[2023-09-21 04:43] LABS: Alanine Aminotransferase 10 U/L (0-41); Albumin Level 2.9 g/dL (3.5-5.2); Alkaline Phosphatase 62 U/L (40-130); Anion Gap 12.2 (5-19); Aspartate Amino Transferase 26 U/L (0-40); Blood Urea Nitrogen 25 mg/dL (8-23); Calcium 8.4 mg/dL (8.5-10.5); Carbon Dioxide 24 mmol/L (22-29); Chloride 107 mmol/L (98-107); Globulin 2.1 g/dL (1.3-4.6); Glucose 130 mg/dL (65-115); Osmolality Calculated 294 mOsm/kg (285-295); Phosphorus 2.4 mg/dL (2.5-4.5); Potassium 4.2 mmol/L (3.5-5.1); Sodium 139 mmol/L (136-145); Total Bilirubin 0.9 mg/dL (0.15-1.2)
[2023-09-21] MEDS: ropinirole 2 mg Tablet 4 MG PO (07:43)
[2023-09-21] MEDS: levETIRAcetam 500 mg Tablet PO ×2 (07:43→20:22)
[2023-09-21] MEDS: pyridostigmine 60 mg Tablet PO ×3 (07:44→20:22)
[2023-09-21 14:35] LABS: Bacillus cereus group Not Detected (NOT DETECT); Bacillus subtillis group Not Detected (NOT DETECT); Corynebacterium Not Detected (NOT DETECT); Cutibacterium acnes (P.acnes) Not Detected (NOT DETECT); Enterococcus Not Detected (NOT DETECT); Enterococcus faecalis Not Detected (NOT DETECT); Enterococcus faecium Not Detected (NOT DETECT); Lactobacillus species Not Detected (NOT DETECT); Listeria Not Detected (NOT DETECT); Listeria monocytogenes Not Detected (NOT DETECT); Micrococcus Not Detected (NOT DETECT); Pan Candida Not Detected (NOT DETECT); Pan Gram-Negative Not Detected (NOT DETECT); Staphylococcus epidermidis Not Detected (NOT DETECT); Staphylococcus lugdunensis Not Detected (NOT DETECT); Staphylococcus species Not Detected (NOT DETECT); Streptococcus agalactiae Not Detected (NOT DETECT); Streptococcus anginosus group Not Detected (NOT DETECT); Streptococcus pneumoniae Not Detected (NOT DETECT); Streptococcus pyogenes Not Detected (NOT DETECT); Streptococcus species Detected (NOT DETECT)
[2023-09-21] MEDS: azithromycin 500 MG in sodium chloride 0.9% 250 ML 250 MG IV (17:19)
[2023-09-21] MEDS: vancomycin 1,000 MG in sodium chloride 0.9% 250 ML 250 MG IV (17:20)
[2023-09-21] MEDS: sodium chloride 0.9% 1,000 ML 50 ML IV (17:20)
[2023-09-21] MEDS: norepinephrine 8 MG in dextrose 5 % 500 ML 22.86 MG IV (17:22)
[2023-09-21] MEDS: ondansetron 2 mg/ML SDV 2 mL 4 MG IVP (17:32)
--- NOTE | 2023-09-21 18:14 | P.PN_ITS ---
Subjective Subjective: Patient was seen this morning, he is on 2 L, he remains on 8 of Levophed, does report a cough, no fevers, chills, some shortness of breath with exertion, no abdominal pain, no lightheadedness, no dizziness, alert to person, to place, to time, follows all commands, Vitals/I&O/Wt Last Vital Signs Temp 98.8 F 09/20/23 20:10 Pulse 103 H 09/21/23 17:30 Resp 23 H 09/21/23 17:30 BP 114/50 09/21/23 17:30 Pulse Ox 94 09/21/23 15:30 O2 Del Method Nasal Cannula 09/21/23 07:40 O2 Flow Rate 2 09/21/23 07:40 09/21/23 09/21/23 09/21/23 06:59 14:59 22:59 Intake Total 304.000 / 3378.696 1290 / 1290 271.018 / 1561.018 Output Total 350 / 1225 500 / 500 520 / 1020 Balance -46.000 / 2153.696 790 / 790 -248.982 / 541.018 Weight last 48 hrs Weight 64.41 kg Physical Exam Const: COMMON NORMALS: no acute distress and patient oriented x3 Resp: COMMON NORMALS: normal respiratory effort, No retractions and No use of accessory muscles OTHER: Wheezing and crackles in left lung reynoso Cardio: COMMON NORMALS: regular rate, regular rhythm, S1 normal heart sound present and S2 normal heart sound present RATE: regular rate RHYTHM: regular rhythm HEART SOUNDS: S1 normal heart sound present and S2 normal heart sound present GI: COMMON NORMALS: Normal to inspection, nondistended, normoactive bowel sounds present and non-tender Extremity: COMMON NORMALS: no pedal edema Neuro: COMMON NORMALS: patient oriented x3 Psych: COMMON NORMALS: mental status grossly normal Sepsis: Is patient septic: Yes Focused sepsis exam performed: Yes Focused sepsis exam: DP PT pulses diminished bilaterally, capillary refill greater than 3 seconds, no mottling of the lower extremities but pale bilateral extremities Date exam was performed: 09/21/23 Time exam was performed: 08:00 Data 09/21/23 03:31 09/21/23 03:31 Micro: Microbiology 09/20/23 16:47 Gram Stain - Final Sputum - Expectorated Sputum Sputum Culture - Preliminary 09/20/23 14:10 Blood Culture - Preliminary Blood Streptococcus species 09/20/23 14:25 Blood Culture - Preliminary Blood NEGATIVE TO DATE A&P Assessment and plan (1) Septic shock: (2) Pneumonia: (3) Acute kidney injury: (4) NSTEMI (non-ST elevated myocardial infarction): (5) Vomiting: (6) Sepsis: (7) Generalized epilepsy: (8) Hx laparoscopic cholecystectomy: (9) Intermittent atrial fibrillation: (10) Systolic CHF with reduced left ventricular function, NYHA class 2: (11) Myasthenia gravis: (12) Streptococcal bacteremia: Plan Septic shock -Secondary to pneumonia, with streptococcal bacteremia -In the emergency room, has received sepsis bolus, remained hypotensive, currently on Levophed -Troponin 53, creatinine 1.3 blood cell count over 24,000, currently alert oriented x3, following all commands, tachycardic heart rate 103, he is 98% on room air, afebrile, has received antibiotics, CT/CT chest abdpel w/*[id number] IMPRESSION: 1. ? Extensive new multifocal abnormality throughout the left lung could be pneumonitis, possibly atypical pneumonia, but could also be malignancy. Unchanged small right lung nodule.Recommend CT Chest at 3-6 months. -With streptococcal bacteremia -With NSTEMI -With ELENO -With elevated lactic acid -Currently on pressors -Plan -Monitor in ICU -Telemetry monitoring ? Follow blood cultures 1 out of 4 blood cultures positive for streptococcal species, urine cultures, s ? Continue vancomycin ? Continue Zosyn -Continue azithromycin -Currently on Levophed at 8, wean as tolerated -Monitor hemodynamics closely ? Monitor urine output ? Full code ? Lovenox for DVT prophylaxis Plan for today, add on azithromycin, follow blood cultures, wean off Levophed, watch respiratory status closely, Attestations Medical Necessity Statement*: Patient requires hospitalization, for septic shock, streptococcal bacteremia, pneumonia, septic shock, ELENO, NSTEMI Coding Level of Care Code Critical Care >/= 30 minutes Critical care time (in minutes): 45 The high probability of a clinically significant, sudden or life threatening deterioration, as referenced in this documentation, required my full and direct attention, intervention and personal management. The critical care time shown is in addition to time spent performing any reported separately billable procedures and includes the following: [x] Data and vital sign review and interpretation [x ] Patient assessment, examination and intervention [x] Medication orders and management [x] Patient/Family updates as able [x] Care Coordination and Documentation. Diagnoses Septic shock A41.9; R65.21 Pneumonia J18.9 Acute kidney injury N17.9 NSTEMI (non-ST elevated myocardial infarction) I21.4 Vomiting R11.10 Sepsis A41.9 Generalized epilepsy G40.309 Hx laparoscopic cholecystectomy Z90.49 Intermittent atrial fibrillation I48.0 Systolic CHF with reduced left ventricular function, NYHA class 2 I50.20 Myasthenia gravis G70.00 Streptococcal bacteremia R78.81; B95.5
[2023-09-21 18:24] LABS: Influenza A by IFA negative (Negative); Influenza B by IFA negative (Negative)
[2023-09-21] MEDS: enoxaparin 40 mg/0.4 mL Syringe SUBCUT (20:23)
[2023-09-22] VITALS (59 sets, daily range): BP systolic 69–124; BP diastolic 30–83; PULSE 76–102; RESP 14–32; TEMP 37.7; O2SAT 90–100
[2023-09-22] MEDS: piperacillin-tazobactam 3.375 GM in sodium chloride 0.9% (plus) 50 ML IV ×3 (01:17→18:19)
[2023-09-22 05:08] LABS: Basophils # 0.1 10^3/uL (0.0-0.1); Basophils % 0.4 %; Eosinophils # 0.2 10^3/uL (0.0-0.8); Eosinophils % 1.1 %; Mean Corpuscular Hemoglobin 28.3 pg (27-33); Mean Corpuscular Volume 94.5 fl (82-101); Mean Platelet Volume 10.5 fL (7.4-10.4); Monocytes # 0.6 10^3/uL (0.2-0.9); Monocytes % 4.7 %; Neutrophils # 11.73 10^3/uL (1.8-7.7); Neutrophils % 85.9 %; Nucleated Red Blood Cells % 0 %; Platelet Count 147 10^3/cmm (157-399); Red Blood Count 3.07 10^6/uL (3.85-5.65); Red Cell Distribution Width 14.8 % (12.1-15.1); White Blood Count 13.66 10^3/uL (3.29-11.43)
[2023-09-22 05:33] LABS: Alanine Aminotransferase 8 U/L (0-41); Albumin Level 2.8 g/dL (3.5-5.2); Alkaline Phosphatase 52 U/L (40-130); Anion Gap 8.9 (5-19); Aspartate Amino Transferase 18 U/L (0-40); Blood Urea Nitrogen 15 mg/dL (8-23); Calcium 8.3 mg/dL (8.5-10.5); Carbon Dioxide 26 mmol/L (22-29); Chloride 112 mmol/L (98-107); Globulin 2.1 g/dL (1.3-4.6); Glucose 119 mg/dL (65-115); Osmolality Calculated 298 mOsm/kg (285-295); Potassium 3.9 mmol/L (3.5-5.1); Sodium 143 mmol/L (136-145); Total Bilirubin 0.5 mg/dL (0.15-1.2); Total Protein 4.9 g/dL (6.6-8.7)
[2023-09-22] MEDS: ropinirole 2 mg Tablet 4 MG PO (08:10)
[2023-09-22] MEDS: levETIRAcetam 500 mg Tablet PO ×2 (08:11→21:26)
[2023-09-22] MEDS: pyridostigmine 60 mg Tablet PO ×3 (08:11→21:26)
--- NOTE | 2023-09-22 09:30 | FL_ITS ---
WS: [id number] Exam: FL barium swallow modifd [id number] Date/Time of Exam: 09/22/2023 10:09 AM Reason For Exam: Other dysphagia Fluoroscopy time: 3min [id number] minutes # of spot films: Modified barium swallow was performed in conjunction with the speech therapy service. Swallowing function at the level oropharynx was normal. There was no aspiration or penetration. The p atient tolerated thin liquid, nectar consistency liquid and solid barium mixture foodstuffs without d ifficulty. The patient swallowed the barium pill without difficulty. It is noted that there appears t o be a smooth stricture at the gastroesophageal junction with dilatation of the lower esophagus that might indicate achalasia. There is some retention of food and fluid in the lower esophagus noted duri ng the exam. IMPRESSION: 1. Normal swallowing function. No sign of aspiration or penetration. 2. Findings suspicious for achalasia with smooth stricture near the gastroesophageal junction. Dilata tion of the lower esophagus with retained food and fluid. A separate report of findings and recommendations will follow from the speech therapy service.
--- NOTE | 2023-09-22 09:47 | XR_ITS ---
WS: [id number] Exam: XR KUB portable [id number] Date/Time of Exam: 09/22/2023 9:58 AM Reason For Exam: n/v No bowel obstruction or free air. There is barium in the stomach and small bowel secondary to prior m odified barium swallow test. No sign of organ enlargement. Extensive postoperative changes of the spi ne from L3-L5 with laminectomy defects and signs of previous vertebroplasty. Dextroscoliosis of the l umbar spine. Signs of prior cholecystectomy. IMPRESSION: 1. No acute abdominal finding. 2. Postoperative changes of the lumbar spine. 3. Barium within the GI tract secondary to prior modified barium swallow test.
--- NOTE | 2023-09-22 10:59 | PC.SOCIAL ---
PG 2 IMM Explained to pt & Pg 2 IMM. no questions voiced. Provided pt a copy. Initialed, dated, & timed a copy & placed in chart.
--- NOTE | 2023-09-22 11:42 | P.PN_ITS ---
Subjective Subjective: Patient was seen this morning, he remains on 1 of Levophed, he had several episodes of vomiting yesterday, he had 1 episode of vomiting this morning, denies any fevers, no chills, will see how he does with a modified barium swallow, patient was seen thereafter with family at bedside, had a detailed discussion about his sepsis, septic shock, strep bacteremia, and his recurrent pneumonia, they voiced understanding, we will see how he does with a modified barium swallow, the question is is it is he recurrently aspirating, recurrently causing pneumonia on the left side, as he has had an abscess and pulmonary abscesses that required drainage from recurrent aspiration events, as tells me something was wrong with his esophagus, causing the event but she is not exactly sure, modified barium swallow, shows findings suspicious for achalasia, possible smooth stricture nearing gastroesophageal junction, spoke with Dr. Urbano You, for consideration of EGD, will see patient, Vitals/I&O/Wt Last Vital Signs Temp 98.8 F 09/20/23 20:10 Pulse 92 09/22/23 10:30 Resp 21 H 09/22/23 10:30 BP 90/51 09/22/23 10:30 Pulse Ox 94 09/22/23 10:30 O2 Del Method Nasal Cannula 09/22/23 08:00 O2 Flow Rate 2 09/22/23 08:00 09/21/23 09/22/23 09/22/23 22:59 06:59 14:59 Intake Total 321.018 / 1611.018 50 / 1661.018 227.188 / 227.188 Output Total 820 / 1320 350 / 1670 300 / 300 Balance -498.982 / 291.018 -300 / -8.982 -72.812 / -72.812 Weight last 48 hrs Weight 64.41 kg Physical Exam Const: COMMON NORMALS: no acute distress and patient oriented x3 Resp: COMMON NORMALS: normal respiratory effort, No retractions and No use of accessory muscles AUSCULTATION: wheezes Cardio: COMMON NORMALS: regular rate, regular rhythm, S1 normal heart sound present and S2 normal heart sound present RATE: regular rate RHYTHM: regular rhythm HEART SOUNDS: S1 normal heart sound present and S2 normal heart sound present GI: COMMON NORMALS: Normal to inspection, nondistended, normoactive bowel sounds present and non-tender Extremity: COMMON NORMALS: no clubbing, cyanosis or edema and no pedal edema Neuro: COMMON NORMALS: patient oriented x3 Psych: COMMON NORMALS: mental status grossly normal Data 09/22/23 04:55 09/22/23 04:55 Micro: Microbiology 09/22/23 09:19 Blood Culture - Preliminary Blood SPECIMEN COLLECTED 09/22/23 09:13 Blood Culture - Preliminary Blood SPECIMEN COLLECTED 09/20/23 16:47 Gram Stain - Final Sputum - Expectorated Sputum Sputum Culture - Preliminary 09/20/23 14:10 Blood Culture - Preliminary Blood Streptococcus species 09/20/23 14:25 Blood Culture - Preliminary Blood NEGATIVE TO DATE A&P Assessment and plan (1) Septic shock: (2) Pneumonia: (3) Acute kidney injury: (4) NSTEMI (non-ST elevated myocardial infarction): (5) Vomiting: (6) Sepsis: (7) Generalized epilepsy: (8) Hx laparoscopic cholecystectomy: (9) Intermittent atrial fibrillation: (10) Systolic CHF with reduced left ventricular function, NYHA class 2: (11) Myasthenia gravis: (12) Streptococcal bacteremia: (13) Aspiration pneumonia: (14) Aspiration pneumonitis: Plan Septic shock -Recurrent aspiration pneumonia? Aspiration pneumonitis -Secondary to pneumonia, with streptococcal bacteremia -In the emergency room, has received sepsis bolus, remained hypotensive, currently on Levophed -Troponin 53, creatinine 1.3 blood cell count over 24,000, currently alert oriented x3, following all commands, tachycardic heart rate 103, he is 98% on room air, afebrile, has received antibiotics, CT/CT chest abdpel w/*[id number] IMPRESSION: 1. ? Extensive new multifocal abnormality throughout the left lung could be pneumonitis, possibly atypical pneumonia, but could also be malignancy. Unchanged small right lung nodule.Recommend CT Chest at 3-6 months Barium swallow -IMPRESSION: 1. Normal swallowing function. No sign of aspiration or penetration. 2. Findings suspicious for achalasia with smooth stricture near the gastroesoph ageal junction. Dilatation of the lower esophagus with retained food and fluid -Aspiration precautions, dysphagia diet, small volume feeds, nausea control, Reglan, Zofran, promethazine -With streptococcal bacteremia -With NSTEMI -With ELENO -With elevated lactic acid -Currently on pressors -Plan -Monitor in ICU -Telemetry monitoring ? Follow blood cultures 1 out of 4 blood cultures positive for streptococcal species, ? Continue vancomycin ? Continue Zosyn -Consulted general surgery for EGD -Currently on Levophed at 1, wean as tolerated -Monitor hemodynamics closely ? Monitor urine output ? Full code ? Lovenox for DVT prophylaxis Plan for today, follow-up with general surgery, EGD, status post modified barium swallow, wean off Levophed, continue antibiotics, follow repeat blood cultures, Attestations Medical Necessity Statement*: Spoke to patient, spoke to patient's family, spoke to , spoke to general surgery, spoke to nursing staff, patient requires hospitalization for persistent sepsis, septic shock, on Levophed, with recurrent aspiration aspiration pneumonitis, strep bacteremia, pneumonia, NSTEMI, ELENO, Coding Level of Care Code Critical Care >/= 30 minutes Critical care time (in minutes): 45 The high probability of a clinically significant, sudden or life threatening deterioration, as referenced in this documentation, required my full and direct attention, intervention and personal management. The critical care time shown is in addition to time spent performing any reported separately billable procedures and includes the following: [x] Data and vital sign review and interpretation [x ] Patient assessment, examination and intervention [x] Medication orders and management [x] Patient/Family updates as able [x] Care Coordination and Documentation. Diagnoses Septic shock A41.9; R65.21 Pneumonia J18.9 Acute kidney injury N17.9 NSTEMI (non-ST elevated myocardial infarction) I21.4 Vomiting R11.10 Sepsis A41.9 Generalized epilepsy G40.309 Hx laparoscopic cholecystectomy Z90.49 Intermittent atrial fibrillation I48.0 Systolic CHF with reduced left ventricular function, NYHA class 2 I50.20 Myasthenia gravis G70.00 Streptococcal bacteremia R78.81; B95.5 Aspiration pneumonia J69.0 Aspiration pneumonitis J69.0
--- NOTE | 2023-09-22 14:03 | P.CONIM_ITS ---
Providers/Reason For Consult Consulting Physician/Specialty*: General surgery Reason for Consult*: Esophageal stricture Attending Physician: Rell Durán MD Primary Care Provider: Jerman Henao DO History of Present Illness History of Present Illness Mauricio Wilson is a 88 year old male who was admitted to the ICU with aspiration pneumonia, patient has had a history of similar episodes in the past. At some point he was told that he had some issue in the esophagus causing his problem. During this admission patient had an upper GI swallow study, this consistent with the possibility of aclasia. I have been asked to evaluate the patient for possible endoluminal evaluation and possible dilation. Review of Systems Narrative: 10 point review of systems done and negative otherwise noted in HPI Medications/Allergies Home Medications Medication Instructions Recorded Confirmed Last Taken Type cholecalciferol (vitamin D3) 50 2,000 unit PO DAILY@06 09/03/20 09/20/23 09/20/23 History mcg (2,000 unit) capsule (Vitamin D3) acetaminophen 500 mg tablet 1,000 mg PO Q4H PRN Pain 11/04/21 09/20/23 04/13/23 04:00 History sacubitril 49 mg-valsartan 51 mg 1 tab PO BID@10/04/22 09/20/23 09/20/23 History tablet (Entresto) furosemide 40 mg tablet 20 mg PO BID@,16 #180 tabs 02/06/23 09/20/23 09/20/23 Rx pantoprazole 40 mg tablet,delayed 40 mg PO DAILY 04/13/23 09/20/23 09/20/23 History release metoprolol tartrate 25 mg tablet 25 mg PO BID@,19 #180 tabs 06/12/23 09/20/23 09/20/23 Rx levetiracetam 500 mg tablet See Rx Instructions .Route 06/20/23 09/20/23 09/20/23 Rx .COMPLEX #180 tabs mycophenolate mofetil 500 mg tablet See Rx Instructions .Route 06/20/23 09/20/23 09/20/23 Rx .COMPLEX #360 tabs pyridostigmine bromide 60 mg tablet 60 mg PO TID #300 tabs 06/20/23 09/20/23 Unknown Rx budesonide-formoterol HFA 160 2 puff inhalation BID #10.2 grams 09/12/23 09/20/23 09/20/23 Rx mcg-4.5 mcg/actuation aerosol inhaler (Symbicort) ropinirole 4 mg tablet 4 mg PO DAILY 09/20/23 09/20/23 09/20/23 History Allergies Allergy/AdvReac Type Severity Reaction Status Date / Time No Known Allergies Allergy Verified 09/20/23 15:42 Current Medications Generic Name Dose Route Start Last Admin Trade Name Freq PRN Reason Stop Dose Admin Acetaminophen 650 mg 09/20/23 16:28 09/21/23 03:38 Acetaminophen 325 Mg Tablet PO 650 mg Q6H PRN Administration Mild/Mod Pain Or Temp >/= 101 Albuterol/Ipratropium 3 ml 09/20/23 17:16 09/20/23 20:27 Ipratropium-Albuterol 3 Ml Neb INHALATION 3 ml Q6H PRN Administration SHORTNESS OF BREATH Enoxaparin Sodium 40 mg 09/20/23 20:00 09/21/23 20:23 Enoxaparin 40 Mg/0.4 Ml Syringe SUBCUT 40 mg Q24H CEASAR Administration Norepinephrine Bitartrate 4 mg 254 mls @ 0 mls/hr 09/20/23 15:00 09/21/23 17:43 / Dextrose IV Infused .Q0M CEASAR Titration Protocol Per Protocol Sodium Chloride 1,000 mls @ 50 mls/hr 09/20/23 16:28 09/21/23 17:20 Sodium Chloride 0.9% IV 50 mls/hr .Q20H CEASAR Administration Vancomycin HCl 1,000 mg/ 250 mls @ 250 mls/hr 09/20/23 18:00 09/21/23 17:20 Sodium Chloride IV 250 mls/hr Q24H CEASAR Administration Protocol As Directed Piperacillin Sod/Tazobactam 50 mls @ 12.5 mls/hr 09/20/23 17:00 09/22/23 08:11 Sod 3.375 gm/ Sodium Chloride IV 12.5 mls/hr Q8H CEASAR Administration Protocol As Directed Norepinephrine Bitartrate 8 mg 508 mls @ 0 mls/hr 09/21/23 16:15 09/22/23 08:14 / Dextrose IV 1 mcg/min .Q0M CEASAR 3.81 mls/hr Titration Protocol Per Protocol Levetiracetam 500 mg 10/25/23 17:00 09/22/23 08:11 Levetiracetam 500 Mg Tablet PO 500 mg BID@0900,2100 CEASAR Administration Mycophenolate Mofetil 1,000 mg 09/20/23 20:00 09/22/23 08:12 Mycophenolate Mofetil 500 Mg Tablet PO 1,000 mg BID@0800,2000 CEASAR Administration Ondansetron HCl 4 mg 09/20/23 16:28 09/21/23 17:32 Ondansetron 2 Mg/Ml Sdv 2 Ml IVP 4 mg Q8H PRN Administration vomiting, or N/V if npo Pyridostigmine [place] 60 mg 09/20/23 21:00 09/22/23 08:11 Pyridostigmine 60 Mg Tablet PO 60 mg TID CEASAR Administration Ropinirole HCl 4 mg 09/21/23 09:00 09/22/23 08:10 Ropinirole 2 Mg Tablet PO 4 mg DAILY CEASAR Administration PFSH Acute PFSH: Medical History Anemia Asthma-COPD overlap syndrome Cardiomyopathy Cellulitis Compression fracture COPD (chronic obstructive pulmonary disease) COVID-19 (~11/2020) Generalized epilepsy GI bleed when hospitalized with covid Heart failure History of lung abscess Describes having had an abscess in his lung that required surgical removal many years ago Intermittent atrial fibrillation Lower extremity edema Myasthenia gravis Sepsis Systolic CHF with reduced left ventricular function, NYHA class 2 Surgical History History of back surgery x2 History of cataract surgery Bilateral History of esophagogastroduodenoscopy (EGD) History of surgery Describes a remote surgical procedure in which he had something done around his esophagus and his liver that may have involved around a concern for biliary duct malignancy possibility Hx laparoscopic cholecystectomy 04/17/23 Family History Other CAD (coronary artery disease) Diabetes Social History Smoking and tobacco/nicotine status: former use of tobacco/nicotine Quit status (tobacco/nicotine): has quit using Year quit tobacco: 1979 Former quit date comment: 2ppd x 15 years then 4-5 cigars/day x 25 years Alcohol intake: former Substance/Drug Use: never Vitals/I&O/Wt Last Vital Signs Temp 98.8 F 09/20/23 20:10 Pulse 92 09/22/23 10:30 Resp 21 H 09/22/23 10:30 BP 90/51 09/22/23 10:30 Pulse Ox 94 09/22/23 10:30 O2 Del Method Nasal Cannula 09/22/23 08:00 O2 Flow Rate 2 09/22/23 08:00 09/21/23 09/22/23 09/22/23 22:59 06:59 14:59 Intake Total 321.018 / 1611.018 50 / 1661.018 227.188 / 227.188 Output Total 820 / 1320 350 / 1670 300 / 300 Balance -498.982 / 291.018 -300 / -8.982 -72.812 / -72.812 Physical Exam Const: OTHER: Alert and oriented Resp: OTHER: Equal chest rise bilaterally. GI: OTHER: Abdomen is soft, nontender, nondistended Data 09/22/23 04:55 09/22/23 04:55 Micro: Microbiology 09/22/23 09:19 Blood Culture - Preliminary Blood SPECIMEN COLLECTED 09/22/23 09:13 Blood Culture - Preliminary Blood SPECIMEN COLLECTED 09/20/23 16:47 Gram Stain - Final Sputum - Expectorated Sputum Sputum Culture - Preliminary 09/20/23 14:10 Blood Culture - Preliminary Blood Streptococcus species 09/20/23 14:25 Blood Culture - Preliminary Blood NEGATIVE TO DATE A&P Assessment and plan (1) Aspiration pneumonitis: (2) Streptococcal bacteremia: (3) Benign esophageal stricture: Plan After complete history, physical examination and review of all available clinical data the following is my assessment. Patient symptoms may be caused by achalasia. Will further work-up with esophageal manometry will be needed before a final diagnosis, due to patient's severity of symptoms and multiple instances of regurgitation causing aspiration pneumonitis I think it would be appropriate to proceed with EGD and possible dilation during this admission. I have explained all the risk and benefits of the dilation to the patient including the risk of perforation of the esophagus, stomach or duodenum I have explained that if this happens he will require surgical intervention that likely will require transfer to higher level of care. In addition there is a risk of bleeding, aspiration, recurrent stricture. Even after dilation patient will require esophageal manometry as outpatient. Procedure to be done tomorrow. Coding Level of Care Code 16031 Diagnoses Aspiration pneumonitis J69.0 Streptococcal bacteremia R78.81; B95.5 Benign esophageal stricture K22.2
[2023-09-22 17:49] LABS: Vancomycin Trough 7.3 ug/mL (10-15)
[2023-09-22] MEDS: vancomycin 1,000 MG in sodium chloride 0.9% 250 ML 250 MG IV (18:35)
[2023-09-22] MEDS: enoxaparin 40 mg/0.4 mL Syringe SUBCUT (21:27)
[2023-09-23] VITALS (34 sets, daily range): BP systolic 86–138; BP diastolic 43–80; PULSE 77–106; RESP 16–33; TEMP 36.4–37.5; O2SAT 83–100
[2023-09-23] MEDS: piperacillin-tazobactam 3.375 GM in sodium chloride 0.9% (plus) 50 ML IV ×3 (01:37→15:45)
[2023-09-23 04:40] LABS: Basophils # 0.1 10^3/uL (0.0-0.1); Basophils % 0.6 %; Eosinophils # 0.1 10^3/uL (0.0-0.8); Eosinophils % 1.3 %; Hematocrit 30.4 % (37-53); Lymphocytes # 0.9 10^3/uL (0.8-4.8); Lymphocytes % 9.4 %; Mean Corpuscular HGB Conc 28.6 g/dL (30-55); Mean Corpuscular Hemoglobin 27.6 pg (27-33); Mean Corpuscular Volume 96.5 fl (82-101); Mean Platelet Volume 10.7 fL (7.4-10.4); Monocytes # 0.6 10^3/uL (0.2-0.9); Monocytes % 5.9 %; Neutrophils # 7.45 10^3/uL (1.8-7.7); Neutrophils % 79.5 %; Nucleated Red Blood Cells % 0 %; Platelet Count 144 10^3/cmm (157-399); Red Blood Count 3.15 10^6/uL (3.85-5.65); Red Cell Distribution Width 14.9 % (12.1-15.1); White Blood Count 9.37 10^3/uL (3.29-11.43)
[2023-09-23 05:21] LABS: Alanine Aminotransferase 8 U/L (0-41); Alkaline Phosphatase 51 U/L (40-130); Anion Gap 11.7 (5-19); Aspartate Amino Transferase 13 U/L (0-40); Blood Urea Nitrogen 11 mg/dL (8-23); Calcium 8.4 mg/dL (8.5-10.5); Carbon Dioxide 25 mmol/L (22-29); Chloride 113 mmol/L (98-107); Glucose 97 mg/dL (65-115); Magnesium 2.1 mg/dL (1.7-2.3); Osmolality Calculated 301 mOsm/kg (285-295); Phosphorus 2.5 mg/dL (2.5-4.5); Potassium 3.7 mmol/L (3.5-5.1); Sodium 146 mmol/L (136-145); Total Bilirubin 0.4 mg/dL (0.15-1.2)
--- NOTE | 2023-09-23 07:38 | P.HPUD_ITS ---
Surgery/Procedure H&P Update DATE OF PROCEDURE: September 23, 2023 DATE H&P PERFORMED: 09/22/23 H&P UPDATE INFORMATION: I have reviewed H&P completed within last 30 days, I have examined patient prior to procedure, No changes to prior documentation and H&P is in [facility] EMR on date indicated PLANNED PROCEDURE: Operation Date: 09/23/23 08:30 Proposed Procedures p EGD(Not Applicable) - Navjot Hatfield MD
[2023-09-23] MEDS: ondansetron 2 mg/ML SDV 2 mL 4 MG IVP (08:12)
--- NOTE | 2023-09-23 10:25 | P.ANESASSM_ITS ---
Pre-Anesthetic Assessment Height/Weight: Height 1.78 m Weight 64.41 kg Temp Pulse Resp BP Pulse Ox O2 Del Method O2 Flow Rate 97.5 F L 91 16 130/55 100 Nasal Cannula 2 09/23/23 09:36 09/23/23 09:36 09/23/23 09:36 09/23/23 09:36 09/23/23 09:36 09/23/23 09:36 09/23/23 09:36 Operation Date: 09/23/23 08:30 Proposed Procedures p EGD(Not Applicable) - Navjot Hatfield MD Was Beta Herber taken within 24 hours: Yes Was Clonidine taken within 24 hours: N/A Social No alcohol and No tobacco Exam alert, oriented x 3 and clear to auscultation bilaterally Irregular rate/rythm Airway Submandibular: within normal limits Cervical ROM: Other (limited CROM) Mallampati: Class II Dentition: false Pulmonary Chronic Obstructive Pulmonary Disease, Cough, Exertional Dyspnea and Shortness of Breath Pneumonia with sepsis CV/HEM Atrial Fibrillation, Arrythmia, Coronary Artery Disease, Congestive Heart Failure, Hypertension and Myocardial Infarction GI Dysphasia with n/v Musc/skel Lower Back Pain, Osteoarthritis/DJD and Weakness Myasthenia Gravis Anesthetic Plan ASA status: 4E Anesthesia: MAC Medications/Allergies Home Medications Medication Instructions Recorded Confirmed Last Taken Type cholecalciferol (vitamin D3) 50 2,000 unit PO DAILY@06 09/03/20 09/20/23 09/20/23 History mcg (2,000 unit) capsule (Vitamin D3) acetaminophen 500 mg tablet 1,000 mg PO Q4H PRN Pain 11/04/21 09/20/23 04/13/23 04:00 History sacubitril 49 mg-valsartan 51 mg 1 tab PO BID@10/04/22 09/20/23 09/20/23 History tablet (Entresto) furosemide 40 mg tablet 20 mg PO BID@08,16 #180 tabs 02/06/23 09/20/23 09/20/23 Rx pantoprazole 40 mg tablet,delayed 40 mg PO DAILY 04/13/23 09/20/23 09/20/23 History release metoprolol tartrate 25 mg tablet 25 mg PO BID@07,19 #180 tabs 06/12/23 09/20/23 09/20/23 Rx levetiracetam 500 mg tablet See Rx Instructions .Route 06/20/23 09/20/23 09/20/23 Rx .COMPLEX #180 tabs mycophenolate mofetil 500 mg tablet See Rx Instructions .Route 06/20/23 09/20/23 09/20/23 Rx .COMPLEX #360 tabs pyridostigmine bromide 60 mg tablet 60 mg PO TID #300 tabs 06/20/23 09/20/23 Unknown Rx budesonide-formoterol HFA 160 2 puff inhalation BID #10.2 grams 09/12/23 09/20/23 09/20/23 Rx mcg-4.5 mcg/actuation aerosol inhaler (Symbicort) ropinirole 4 mg tablet 4 mg PO DAILY 09/20/23 09/20/23 09/20/23 History Allergies Allergy/AdvReac Type Severity Reaction Status Date / Time No Known Allergies Allergy Verified 09/20/23 15:42 Current Medications Generic Name Dose Route Start Last Admin Trade Name Freq PRN Reason Stop Dose Admin Acetaminophen 650 mg 09/20/23 16:28 09/21/23 03:38 Acetaminophen 325 Mg Tablet PO 650 mg Q6H PRN Administration Mild/Mod Pain Or Temp >/= 101 Albuterol/Ipratropium 3 ml 09/20/23 17:16 09/20/23 20:27 Ipratropium-Albuterol 3 Ml Neb INHALATION 3 ml Q6H PRN Administration SHORTNESS OF BREATH Enoxaparin Sodium 40 mg 09/20/23 20:00 09/22/23 21:27 Enoxaparin 40 Mg/0.4 Ml Syringe SUBCUT 40 mg Q24H CEASAR Administration Norepinephrine Bitartrate 4 mg 254 mls @ 0 mls/hr 09/20/23 15:00 09/21/23 17:43 / Dextrose IV Infused .Q0M CEASAR Titration Protocol Per Protocol Sodium Chloride 1,000 mls @ 50 mls/hr 09/20/23 16:28 09/22/23 15:27 Sodium Chloride 0.9% IV Not Given .Q20H CEASAR Piperacillin Sod/Tazobactam 50 mls @ 12.5 mls/hr 09/20/23 17:00 09/23/23 07:12 Sod 3.375 gm/ Sodium Chloride IV Infused Q8H CEASAR Infusion Protocol As Directed Norepinephrine Bitartrate 8 mg 508 mls @ 0 mls/hr 09/21/23 16:15 09/22/23 12:25 / Dextrose IV 0 mcg/min .Q0M CEASAR 0 mls/hr Titration Protocol Per Protocol Levetiracetam 500 mg 09/20/23 17:00 09/22/23 21:26 Levetiracetam 500 Mg Tablet PO 500 mg BID@0900,2100 CEASAR Administration Mycophenolate Mofetil 1,000 mg 09/20/23 20:00 09/22/23 21:26 Mycophenolate Mofetil 500 Mg Tablet PO 1,000 mg BID@0800,2000 CEASAR Administration Ondansetron HCl 4 mg 09/20/23 16:28 09/23/23 08:12 Ondansetron 2 Mg/Ml Sdv 2 Ml IVP 4 mg Q8H PRN Administration vomiting, or N/V if npo Pyridostigmine [place] 60 mg 09/20/23 21:00 09/22/23 21:26 Pyridostigmine 60 Mg Tablet PO 60 mg TID CEASAR Administration Ropinirole HCl 4 mg 09/21/23 09:00 09/22/23 08:10 Ropinirole 2 Mg Tablet PO 4 mg DAILY CEASAR Administration PFSH Anesthesia Medical History Anemia Asthma-COPD overlap syndrome Cardiomyopathy Cellulitis Compression fracture COPD (chronic obstructive pulmonary disease) COVID-19 (~11/2020) Generalized epilepsy GI bleed when hospitalized with covid Heart failure History of lung abscess Describes having had an abscess in his lung that required surgical removal many years ago Intermittent atrial fibrillation Lower extremity edema Myasthenia gravis Sepsis Systolic CHF with reduced left ventricular function, NYHA class 2 Surgical History History of back surgery x2 History of cataract surgery Bilateral History of esophagogastroduodenoscopy (EGD) History of surgery Describes a remote surgical procedure in which he had something done around his esophagus and his liver that may have involved around a concern for biliary duct malignancy possibility Hx laparoscopic cholecystectomy 04/17/23 Family History Other CAD (coronary artery disease) Diabetes Social History Smoking and tobacco/nicotine status: former use of tobacco/nicotine Quit status (tobacco/nicotine): has quit using Year quit tobacco: 1979 Former quit date comment: 2ppd x 15 years then 4-5 cigars/day x 25 years Alcohol intake: former Substance/Drug Use: never Data Anesthesia 09/23/23 03:52 09/23/23 03:52 Short CBC 09/22/23 09/23/23 Range/Units 04:55 03:52 WBC 13.66 H 9.37 (3.29-11.43) 10^3/uL Hgb 8.70 L 8.70 L (11.27-16.99) g/dL Hct 29.0 L 30.4 L (37-53) % MCV 94.5 96.5 (82-101) fl Plt Count 147 L 144 L (157-399) 10^3/cmm Neut % (Auto) 85.9 79.5 % Neut # (Auto) 11.73 H 7.45 (1.8-7.7) 10^3/uL BMP 09/22/23 09/23/23 04:55 03:52 Sodium 143 146 H Potassium 3.9 3.7 Chloride 112 H 113 H Carbon Dioxide 26 25 BUN 15 11 Creatinine 1.0 1.1 Glucose 119 H 97 Calcium 8.3 L 8.4 L Liver Function 09/22/23 09/23/23 Range/Units 04:55 03:52 Total Bilirubin 0.5 0.4 (0.15-1.2) mg/dL AST 18 13 (0-40) U/L ALT 8 8 (0-41) U/L Alkaline Phosphatase 52 51 (40-130) U/L Albumin 2.8 L 3.0 L (3.5-5.2) g/dL Microbiology 09/22/23 09:19 Blood Culture - Preliminary Blood NEGATIVE TO DATE 09/22/23 09:13 Blood Culture - Preliminary Blood NEGATIVE TO DATE 09/20/23 16:47 Gram Stain - Final Sputum - Expectorated Sputum Sputum Culture - Final Cardiac Studies: Echocardiogram 10/04/22 Echocardiogram Ultrasound 09/04/20 Sestamibi Stress Test (Cardiology) 02/24
--- NOTE | 2023-09-23 10:29 | ANE.PACU2 ---
Inpatient post-anesthesia follow up: Vital signs: Temperature 97.5 F Pulse Rate 91 Respiratory Rate 16 Blood Pressure 130/55 Pulse Oximetry 100 Oxygen Delivery Me thod Nasal Cannula Oxygen Flow Rate 2 Fraction of Inspir ed Oxygen Hydration adequate: Yes Nausea and vomiting: No Pain level: 1 Mental status: Baseline
--- NOTE | 2023-09-23 10:33 | USCV_ITS ---
Mauricio Wilson Age: 88 Gender: M : 1935 Exam Date: 09/23/2023 13:26 Ordering Phys: Rell Durán MD Technologist: Janak Blue [place] [facility] [place]: low ef BP: 115 / 66 HR: 106 Rhythm: Sinus Technical Quality: Adequate MEASUREMENTS (Male / Female) Normal Values 2D ECHO LVOT Diameter 2.2 cm LV Ejection Fraction MOD 2C 51.1 % LV Ejection Fraction 2C AL 55.1 % LA Diameter 3.3 cm LA Width 2.9 cm LA Height 4.9 cm RA Width 3.1 cm RA Height 4.2 cm Aorta at Sinotubular Diameter 2.6 cm M-MODE Aortic Annulus Diameter 3.3 cm LA Ao Ratio MM 0.9 MV E Point Septal Separation 0.8 cm DOPPLER AV Peak Velocity 173.0 cm/s LVOT Peak Velocity 128.0 cm/s AV Area Cont Eq vti 2.7 cm squared AV Area Cont Eq pk 2.8 cm squared MV Peak Velocity 120.0 cm/s MV Area PHT 7.6 cm squared Mitral E to A Ratio 0.9 MV E' Velocity 54.5 cm/s Mitral E to MV E' Ratio 7.0 Mitral E to LV E' Lateral Ratio 6.4 Mitral E to LV E' Septal Ratio 7.7 TR Peak Velocity 282.2 cm/s TR Peak Gradient 31.9 mmHg TR Mean Velocity 216.1 cm/s TR Mean Gradient 20.6 mmHg TR Velocity Time Integral 69.0 cm Right Atrial Pressure 8.0 mmHg Pulmonary Artery Systolic Pressu 39.9 mmHg PV Peak Velocity 127.0 cm/s RV Acceleration Time 0.1 s RV Ejection Time 0.3 s RV AcT/ET 0.4 FINDINGS Left Ventricle Technically limited quality echocardiogram because of poor ultrasonic windows. Left ventricle is normal in size. LV systolic function is mildly reduced with EF of 45-50%. Mild global hypokinesis. Right Ventricle Normal in size and function Right Atrium Normal in size Left Atrium Dilated Mitral Valve Structurally normal mitral valve. Trace mitral regurgitation. Aortic Valve Aortic valve is thickened. No significant stenosis or regurgitation Tricuspid Valve Trace tricuspid regurgitation. Insufficient TR jet to calculate RVSP Pulmonic Valve Not well visualized Pericardium Normal Aorta Normal in size IVC Not well visualized CONCLUSIONS Technically limited quality echocardiogram because of poor ultrasonic windows. LV systolic function is mildly reduced with EF of 45-50% Left atrial dilation Trace mitral regurgitation Trace tricuspid regurgitation Compared to prior echocardiogram from 2021, LV systolic function has mildly reduced now and is 45-50%. Rory Epstein MD (Electronically Signed) Final Date: 24 September 2023 10:13 S
[2023-09-23] MEDS: pyridostigmine 60 mg Tablet PO ×3 (11:07→21:21)
[2023-09-23] MEDS: ropinirole 2 mg Tablet 4 MG PO (11:07)
[2023-09-23] MEDS: sucralfate 1 gm/10 mL Oral Liq UDC PO ×3 (11:08→21:21)
[2023-09-23] MEDS: levETIRAcetam 500 mg Tablet PO ×2 (11:08→21:21)
[2023-09-23] MEDS: metoclopramide 5 mg/mL SDV 2 mL IVP (12:29)
--- NOTE | 2023-09-23 14:02 | PC.NURSE ---
Report called to second floor nurse, [place], room 254-2. Patient resting in bed at this time, see chart for stable vitals. Will remove central line and monitor before transfer.
--- NOTE | 2023-09-23 14:41 | PC.NURSE ---
Central line removed, dressing applied, no bleeding or other complications. Tolerated well. Line intact. Approximately forty minutes has passed with no bleeding or complications, will transfer to room 254-2. Family at bedside, See documentation for stable vitals.
--- NOTE | 2023-09-23 15:16 | PC.NURSE ---
Patient transferred to second floor 254-2. Patient resting comfortably in bed with visitors and Nurse Getachew SANTOS at bedside. [employer] and paper chart left with Nurse. Patient on 2L NC, Vitals stable. 20G IV L AC patent, clean dry. Has no complaints, denies pain. Belongings at bedside, family transported them.
[2023-09-23 15:19] LABS: Methicillin-Resist S.aureu PCR NOT DETECTED (NOT DETECTED)
[2023-09-23] MEDS: sodium chloride 0.9% 1,000 ML 50 ML IV (15:45)
[2023-09-23] MEDS: pantoprazole DR 40 mg Tablet PO (15:46)
--- NOTE | 2023-09-23 16:49 | PM.PN ---
Subjective Subjective: Patient was seen this morning, he had a couple of episodes of nausea this morning, productive cough, no fevers, chills, no lightheadedness, no dizziness, he remains off Levophed, no shortness of breath, is at bedside, had discussion with EGD, she agreeable to proceed, Vitals/I&O/Wt Last Vital Signs Temp 98.3 F 09/23/23 15:00 Pulse 100 09/23/23 15:00 Resp 16 09/23/23 15:00 BP 122/62 09/23/23 15:00 Pulse Ox 97 09/23/23 15:00 O2 Del Method Nasal Cannula 09/23/23 15:00 O2 Flow Rate 2 09/23/23 13:33 09/23/23 09/23/23 09/23/23 06:59 14:59 22:59 Intake Total 50 / 949.545 7532 / 1290 300 / 1590 Output Total 150 / 1050 220 / 220 Balance -100 / -454.597 6072 / 1070 300 / 1370 Physical Exam Const: COMMON NORMALS: no acute distress and patient oriented x3 Resp: COMMON NORMALS: normal respiratory effort, No retractions and No use of accessory muscles AUSCULTATION: wheezes Cardio: COMMON NORMALS: regular rate, regular rhythm, S1 normal heart sound present and S2 normal heart sound present RATE: regular rate RHYTHM: regular rhythm HEART SOUNDS: S1 normal heart sound present and S2 normal heart sound present GI: COMMON NORMALS: Normal to inspection, nondistended, normoactive bowel sounds present and non-tender Extremity: COMMON NORMALS: no pedal edema Neuro: COMMON NORMALS: patient oriented x3 Psych: COMMON NORMALS: mental status grossly normal Data 09/23/23 03:52 09/23/23 03:52 Micro: Microbiology 09/20/23 14:10 Blood Culture - Preliminary Blood Coag negative Staphylococcus Streptococcus species 09/22/23 09:19 Blood Culture - Preliminary Blood NEGATIVE TO DATE 09/22/23 09:13 Blood Culture - Preliminary Blood NEGATIVE TO DATE 09/20/23 16:47 Gram Stain - Final Sputum - Expectorated Sputum Sputum Culture - Final A&P Assessment and plan (1) Septic shock: (2) Pneumonia: (3) Acute kidney injury: (4) NSTEMI (non-ST elevated myocardial infarction): (5) Vomiting: (6) Sepsis: (7) Generalized epilepsy: (8) Hx laparoscopic cholecystectomy: (9) Intermittent atrial fibrillation: (10) Systolic CHF with reduced left ventricular function, NYHA class 2: (11) Myasthenia gravis: (12) Streptococcal bacteremia: (13) Aspiration pneumonia: (14) Aspiration pneumonitis: Plan Septic shock -Recurrent aspiration pneumonia? Aspiration pneumonitis -Secondary to pneumonia, with streptococcal bacteremia -In the emergency room, has received sepsis bolus, remained hypotensive, currently on Levophed -Troponin 53, creatinine 1.3 blood cell count over 24,000, currently alert oriented x3, following all commands, tachycardic heart rate 103, he is 98% on room air, afebrile, has received antibiotics, CT/CT chest abdpel w/*[id number] IMPRESSION: 1. ? Extensive new multifocal abnormality throughout the left lung could be pneumonitis, possibly atypical pneumonia, but could also be malignancy. Unchanged small right lung nodule.Recommend CT Chest at 3-6 months Barium swallow -IMPRESSION: 1. Normal swallowing function. No sign of aspiration or penetration. 2. Findings suspicious for achalasia with smooth stricture near the gastroesophageal junction. Dilatation of the lower esophagus with retained food and fluid -Aspiration precautions, dysphagia diet, small volume feeds, nausea control, Reglan, Zofran, promethazine -With streptococcal bacteremia -With NSTEMI -With ELENO -With elevated lactic acid -Currently on pressors -Plan -Monitor in ICU -Telemetry monitoring ? Follow blood cultures 1 out of 4 blood cultures positive for streptococcal species, ?stop vancomycin ? Continue Zosyn -Consulted general surgery for EGD -off levophed -Monitor hemodynamics closely ? Monitor urine output ? Full code ? Lovenox for DVT prophylaxis Plan for today, will have EGD today, if pressors remain off we will move to ops general medical floors, continue dysphagia diet, continue antibiotics, follow blood cultures, repeat blood cultures so far negative Attestations Medical Necessity Statement*: Patient requires hospitalization for left-sided pneumonia, concerns for streptococcal bacteremia, undergoing EGD for concerns for aspiration Diagnoses Septic shock A41.9; R65.21 Pneumonia J18.9 Acute kidney injury N17.9 NSTEMI (non-ST elevated myocardial infarction) I21.4 Vomiting R11.10 Sepsis A41.9 Generalized epilepsy G40.309 Hx laparoscopic cholecystectomy Z90.49 Intermittent atrial fibrillation I48.0 Systolic CHF with reduced left ventricular function, NYHA class 2 I50.20 Myasthenia gravis G70.00 Streptococcal bacteremia R78.81; B95.5 Aspiration pneumonia J69.0 Aspiration pneumonitis J69.0
[2023-09-23] MEDS: ipratropium-albuterol 3 mL Neb INHALATION (19:46)
[2023-09-23] MEDS: enoxaparin 40 mg/0.4 mL Syringe SUBCUT (19:53)
[2023-09-24] VITALS (13 sets, daily range): BP systolic 103–130; BP diastolic 48–63; PULSE 54–98; RESP 16–20; TEMP 36.5–37; O2SAT 93–99
[2023-09-24] MEDS: piperacillin-tazobactam 3.375 GM in sodium chloride 0.9% (plus) 50 ML IV ×3 (00:15→17:31)
[2023-09-24] MEDS: acetaminophen 325 mg Tablet 650 MG PO (01:08)
[2023-09-24] MEDS: ipratropium-albuterol 3 mL Neb INHALATION ×4 (03:33→19:46)
[2023-09-24] MEDS: pantoprazole DR 40 mg Tablet PO ×2 (04:20→17:32)
[2023-09-24 04:28] LABS: Hematocrit 29.6 % (37-53); Mean Corpuscular HGB Conc 29.4 g/dL (30-55); Mean Corpuscular Hemoglobin 28.7 pg (27-33); Mean Corpuscular Volume 97.7 fl (82-101); Mean Platelet Volume 10.3 fL (7.4-10.4); Platelet Count 166 10^3/cmm (157-399); Red Blood Count 3.03 10^6/uL (3.85-5.65); Red Cell Distribution Width 14.8 % (12.1-15.1); White Blood Count 6.42 10^3/uL (3.29-11.43)
[2023-09-24 04:50] LABS: Alanine Aminotransferase 7 U/L (0-41); Albumin Level 2.9 g/dL (3.5-5.2); Alkaline Phosphatase 55 U/L (40-130); Anion Gap 9.2 (5-19); Aspartate Amino Transferase 18 U/L (0-40); Blood Urea Nitrogen 13 mg/dL (8-23); C Reactive Protein 41.8 mg/L (0.0-4.9); Calcium 8.9 mg/dL (8.5-10.5); Carbon Dioxide 27 mmol/L (22-29); Chloride 116 mmol/L (98-107); Creatinine Clr Calc Pharmacy 43.4775; Glucose 114 mg/dL (65-115); Magnesium 2.3 mg/dL (1.7-2.3); Osmolality Calculated 307 mOsm/kg (285-295); Potassium 4.2 mmol/L (3.5-5.1); Sodium 148 mmol/L (136-145); Total Bilirubin 0.4 mg/dL (0.15-1.2); Total Protein 4.9 g/dL (6.6-8.7)
[2023-09-24 04:52] LABS: NT Pro B Type Natriuretic Pept 16199 pg/mL (0-450); Procalcitonin 0.58 ng/mL (0-0.5)
[2023-09-24 05:26] LABS: Slide Review Slide Review Perform
[2023-09-24 05:27] LABS: Absolute Neutrophil 4.2 10^3/cmm (1.4-6.5); Absolute Segmented Neutrophil 4.2 10/cmm (1.6-7.1); Basophils Absolute 0.1 10^3/cmm (0.0-0.2); Eosinophils 0 %; Lymphocytes 25 %; Lymphocytes Absolute 1.6 10^3/cmm (1.2-3.4); Monocytes Absolute 0.3 10^3/cmm (0.1-0.6); Platelet Estimate Normal (Normal); Segmented Neutrophils 65 %; Total Cells Counted 100 (0-100)
[2023-09-24] MEDS: sucralfate 1 gm/10 mL Oral Liq UDC PO ×4 (06:49→20:21)
--- NOTE | 2023-09-24 07:00 | XRR_ITS ---
PROCEDURE INFORMATION: Exam: XR Chest Exam date and time: 09/24/2023 10:30 AM Age: 88 years old Clinical indication: Shortness of breath; Additional info: SOB TECHNIQUE: Imaging protocol: Radiologic exam of the chest. Views: 1 view. COMPARISON: CT chest pérezl w/*[id number] 09/20/2023 4:05 PM. Chest x-ray September 20, 2023. FINDINGS: Lungs: Decreased size and amount of left lung atelectasis, pneumonitis, and/or areas of infarction. Pleural spaces: Increased moderate left pleural effusion. New small right pleural effusion. No pneumothorax. Heart/Mediastinum: Unremarkable. No cardiomegaly. Bones/joints: Unremarkable. XR/XR chest 1V portable [id number] IMPRESSION: 1. Decreasing left lung abnormality. 2. Increased moderate left pleural effusion. New small right pleural effusion.
[2023-09-24] MEDS: budesonide 0.5 mg/2 mL Neb 0.25 MG INHALATION ×2 (07:13→19:46)
[2023-09-24] MEDS: ropinirole 2 mg Tablet 4 MG PO (09:24)
[2023-09-24] MEDS: levETIRAcetam 500 mg Tablet PO ×2 (09:24→20:23)
[2023-09-24] MEDS: FUROsemide 10 mg/mL SDV 4mL 40 MG IVP ×2 (09:25→17:32)
[2023-09-24] MEDS: pyridostigmine 60 mg Tablet PO ×3 (11:07→20:21)
--- NOTE | 2023-09-24 15:50 | P.PN_ITS ---
Subjective Subjective: Patient was seen this morning, he is able to ambulate, does report some shortness of breath, no fevers, no chills no lightheadedness Vitals/I&O/Wt Last Vital Signs Temp 98.0 F 09/24/23 12:00 Pulse 84 09/24/23 14:00 Resp 18 09/24/23 13:06 BP 103/50 09/24/23 12:00 Pulse Ox 93 09/24/23 13:06 O2 Del Method Nasal Cannula 09/24/23 13:06 O2 Flow Rate 1 09/24/23 13:06 09/24/23 09/24/23 09/24/23 06:59 14:59 22:59 Intake Total 50 / 1749.167 420 / 420 Output Total 125 / 345 600 / 600 Balance -75 / 1404.167 -180 / -180 Physical Exam Const: COMMON NORMALS: no acute distress and patient oriented x3 Resp: COMMON NORMALS: normal respiratory effort, No retractions, No use of accessory muscles and clear to auscultation bilaterally AUSCULTATION: clear to auscultation bilaterally Cardio: COMMON NORMALS: regular rate, regular rhythm, S1 normal heart sound present and S2 normal heart sound present RATE: regular rate RHYTHM: regular rhythm HEART SOUNDS: S1 normal heart sound present and S2 normal heart sound present GI: COMMON NORMALS: Normal to inspection, nondistended, normoactive bowel sounds present and non-tender Extremity: NARRATIVE EXTREMITY EXAM: 1+ pitting edema Neuro: COMMON NORMALS: patient oriented x3 Psych: COMMON NORMALS: mental status grossly normal Data 09/24/23 03:30 09/24/23 03:30 Micro: Microbiology 09/20/23 14:10 Blood Culture - Preliminary Blood Staphylococcus epidermidis Strep species, alpha hemolytic A&P Assessment and plan (1) Septic shock: (2) Pneumonia: (3) Acute kidney injury: (4) NSTEMI (non-ST elevated myocardial infarction): (5) Vomiting: (6) Sepsis: (7) Generalized epilepsy: (8) Hx laparoscopic cholecystectomy: (9) Intermittent atrial fibrillation: (10) Systolic CHF with reduced left ventricular function, NYHA class 2: (11) Myasthenia gravis: (12) Streptococcal bacteremia: (13) Aspiration pneumonia: (14) Aspiration pneumonitis: (15) Bilateral pleural effusion: (16) Benign esophageal stricture: (17) Pulmonary edema: (18) Systolic CHF, acute: (19) Protein calorie malnutrition: (20) Physical deconditioning: Plan Septic shock -Recurrent aspiration pneumonia? Aspiration pneumonitis -Secondary to pneumonia, with streptococcal bacteremia -In the emergency room, has received sepsis bolus, remained hypotensive, currently on Levophed -Troponin 53, creatinine 1.3 blood cell count over 24,000, currently alert oriented x3, following all commands, tachycardic heart rate 103, he is 98% on room air, afebrile, has received antibiotics, CT/CT chest abdpel w/*[id number] IMPRESSION: 1. ? Extensive new multifocal abnormality throughout the left lung could be pneumonitis, possibly atypical pneumonia, but could also be malignancy. Unchanged small right lung nodule.Recommend CT Chest at 3-6 months Barium swallow -IMPRESSION: 1. Normal swallowing function. No sign of aspiration or penetration. 2. Findings suspicious for achalasia with smooth stricture near the gastroesophageal junction. Dilatation of the lower esophagus with retained food and fluid -Aspiration precautions, dysphagia diet, small volume feeds, nausea control, R eglan, Zofran, promethazine -With streptococcal bacteremia -With NSTEMI -With ELENO -With elevated lactic acid -Currently on pressors -Plan -Currently on medical floors -Telemetry monitoring ? Follow blood cultures 1 out of 4 blood cultures positive for streptococcal species, repeat blood cultures negative ?stop vancomycin ? Continue Zosyn -Consulted general surgery for EGD, EGD esophageal cardia, luminal abnormality, friable mucosa, biopsies taken,, gastritis -off levophed -Systolic CHF, pulm edema, requiring inpatient diuresis, with bilateral pleural effusions, 40 IV Lasix twice daily today -Cardiac echo -?Technically limited quality echocardiogram because of poor ?ultrasonic windows.? LV systolic function is mildly reduced with ?EF of 45-50% ?Left atrial dilation ?Trace mitral regurgitation ?Trace tricuspid regurgitation ?Compared to prior echocardiogram from 2021, LV systolic function ?has mildly reduced now and is 45-50%. -Chest x-ray shows large left pleural effusion, will require diuresis today, does have crackles on exam scattered, -Monitor hemodynamics closely ? Monitor urine output -Protein calorie malnutrition, physical deconditioning, evidence of muscle wasting including peripheral muscle wasting, bilateral arms, thighs, temporal muscle wasting, consult dietary, PT OT ? Full code ? Lovenox for DVT prophylaxis Plan for today, continue Zosyn, 1 dose of Lasix, follow repeat blood cultures, up out of bed, will consider IV antibiotics versus p.o. on discharge, plan on discharging in the next 24 to 48 hours, consult dietary, Attestations Medical Necessity Statement*: Plan for today, IV diuresis, for systolic CHF exacerbation, continue IV Zosyn, for strep bacteremia, dietary eval, speech therapy eval Diagnoses Septic shock A41.9; R65.21 Pneumonia J18.9 Acute kidney injury N17.9 NSTEMI (non-ST elevated myocardial infarction) I21.4 Vomiting R11.10 Sepsis A41.9 Generalized epilepsy G40.309 Hx laparoscopic cholecystectomy Z90.49 Intermittent atrial fibrillation I48.0 Systolic CHF with reduced left ventricular function, NYHA class 2 I50.20 Myasthenia gravis G70.00 Streptococcal bacteremia R78.81; B95.5 Aspiration pneumonia J69.0 Aspiration pneumonitis J69.0 Bilateral pleural effusion J90 Benign esophageal stricture K22.2 Pulmonary edema J81.1 Systolic CHF, acute I50.21 Protein calorie malnutrition E46 Physical deconditioning R53.81
[2023-09-24] MEDS: potassium chloride ER 20 mEq Tablet PO (17:31)
[2023-09-24] MEDS: enoxaparin 40 mg/0.4 mL Syringe SUBCUT (20:22)
[2023-09-25] VITALS (12 sets, daily range): BP systolic 113–149; BP diastolic 49–68; PULSE 48–100; RESP 14–24; TEMP 36.4–37.1; O2SAT 95–99
[2023-09-25] MEDS: piperacillin-tazobactam 3.375 GM in sodium chloride 0.9% (plus) 50 ML IV (02:12)
[2023-09-25] MEDS: pantoprazole DR 40 mg Tablet PO ×2 (02:12→16:32)
[2023-09-25] MEDS: ipratropium-albuterol 3 mL Neb INHALATION ×4 (02:16→20:41)
[2023-09-25] MEDS: acetaminophen 325 mg Tablet 650 MG PO ×2 (03:19→20:00)
[2023-09-25 05:21] LABS: Basophils # 0.1 10^3/uL (0.0-0.1); Basophils % 0.7 %; Eosinophils # 0.1 10^3/uL (0.0-0.8); Eosinophils % 1.4 %; Hematocrit 31.7 % (37-53); Lymphocytes # 0.9 10^3/uL (0.8-4.8); Lymphocytes % 8.6 %; Mean Corpuscular HGB Conc 29.7 g/dL (30-55); Mean Corpuscular Hemoglobin 28.4 pg (27-33); Mean Corpuscular Volume 95.8 fl (82-101); Mean Platelet Volume 10.4 fL (7.4-10.4); Monocytes # 0.7 10^3/uL (0.2-0.9); Monocytes % 6.8 %; Neutrophils # 7.76 10^3/uL (1.8-7.7); Neutrophils % 78.6 %; Nucleated Red Blood Cells % 0 %; Platelet Count 167 10^3/cmm (157-399); Red Blood Count 3.31 10^6/uL (3.85-5.65); Red Cell Distribution Width 14.7 % (12.1-15.1); White Blood Count 9.87 10^3/uL (3.29-11.43)
[2023-09-25 05:48] LABS: Alanine Aminotransferase 7 U/L (0-41); Albumin Level 3.3 g/dL (3.5-5.2); Alkaline Phosphatase 49 U/L (40-130); Anion Gap 10.6 (5-19); Aspartate Amino Transferase 20 U/L (0-40); Blood Urea Nitrogen 12 mg/dL (8-23); Calcium 8.7 mg/dL (8.5-10.5); Carbon Dioxide 32 mmol/L (22-29); Chloride 111 mmol/L (98-107); Globulin 2.2 g/dL (1.3-4.6); Glucose 130 mg/dL (65-115); Magnesium 1.9 mg/dL (1.7-2.3); Osmolality Calculated 312 mOsm/kg (285-295); Phosphorus 2.6 mg/dL (2.5-4.5); Potassium 3.6 mmol/L (3.5-5.1); Sodium 150 mmol/L (136-145); Total Bilirubin 0.4 mg/dL (0.15-1.2); Total Protein 5.5 g/dL (6.6-8.7)
[2023-09-25 05:58] LABS: NT Pro B Type Natriuretic Pept 27753 pg/mL (0-450); Procalcitonin 0.41 ng/mL (0-0.5)
[2023-09-25] MEDS: sucralfate 1 gm/10 mL Oral Liq UDC PO ×4 (06:17→20:01)
[2023-09-25] MEDS: pyridostigmine 60 mg Tablet PO ×3 (08:57→20:40)
[2023-09-25] MEDS: budesonide 0.5 mg/2 mL Neb 0.25 MG INHALATION ×2 (08:57→20:41)
[2023-09-25] MEDS: ropinirole 2 mg Tablet 4 MG PO (08:58)
[2023-09-25] MEDS: levETIRAcetam 500 mg Tablet PO ×2 (08:58→20:00)
[2023-09-25] MEDS: vancomycin 1,250 MG/250 ML PIGGYBACK 250 MG IV (10:55)
--- NOTE | 2023-09-25 12:30 | PC.SOCIAL ---
IMM Updated Updated pt on IMM. no questions voiced. Provided pt a copy. Initialed, dated, & timed copy in chart.
--- NOTE | 2023-09-25 16:08 | P.PN_ITS ---
Subjective Subjective: Patient was seen this morning, he is alert oriented x3, following all commands, he tells me that he urinated throughout the day yesterday, his breathing has improved, no fevers, no chills, no cough, -I had extensive discussion with him about his blood cultures ?, Yesterday his blood culture showed staph species, and strep species, ?, I had assumed that the staph species would have been a contamination of the strep wound, to be a strep pneumoniae like species, as he has had strep pneumoniae bacteremia the past, ? He is Serrato catheter was removed, his central line was removed, unfortunately we did not obtain a culture of the central line when it was removed, nonetheless his blood cultures have come back positive for Staph epidermidis, and Streptococcus mitis oralis ? I believe the Streptococcus species is likely contamination ? However the Staphylococcus epidermis species concerning, for real infection although it was 1 out of 4 blood cultures -He does not have any hardware, he did have cement placed in his back for a vertebral fracture ?, Possible source of infection could be a central line, but it was removed 2 days ago, we did not culture the trip, as unfortunately did not know that he would have a Staphylococcus epidermidis positive blood culture, nonetheless the source of infection is out if indeed it is a source of infection ? His echocardiogram his valves, has trace mitral valve regurg, trace tricuspid valve regurg, ?, All his repeat blood cultures have been negative, he remains afebrile, ? There is always a risk of valvular heart infection although I think the like lihood is fairly unlikely, as again he has clinically improved, he is out of a septic shock, and he has repeat blood cultures have been negative, ? However if in the future he does have recurrent bacteremia he would likely require transesophageal echocardiogram ? But I will certainly talk to infectious disease about that, if they recommend that we can go ahead and proceed with that ? Nonetheless now the question is with the Staphylococcus epidermidis bacteremia, and his left-sided pneumonia, in terms of antibiotic coverage, and for how long, ? I believe he will likely need 2 weeks of IV vancomycin, for the Staph epidermidis bacteremia, he likely can be discharged on p.o. antibiotics for his left-sided pneumonia, ? But I am going to discuss with infectious disease, get their consultation, for antibiotic choice, and duration,, they will see patient tonight -Patient voiced understanding, all consents are, agreed to proceed -He is sodium has gone up to 150, I would hold further diuresis, -His ejection fraction is at 45%, mildly reduced, prior echocardiogram also showed a mildly reduced ejection fraction of 45 to 50% Vitals/I&O/Wt Last Vital Signs Temp 97.9 F 09/25/23 12:00 Pulse 66 09/25/23 13:21 Resp 14 09/25/23 13:21 BP 126/54 09/25/23 12:00 Pulse Ox 95 09/25/23 13:21 O2 Del Method Nasal Cannula 09/25/23 13:21 O2 Flow Rate 3 09/25/23 13:21 09/25/23 09/25/23 09/25/23 06:59 14:59 22:59 Intake Total 38 / 1038 982 / 982 Output Total 575 / 2125 500 / 500 Balance -537 / -1087 482 / 482 Physical Exam Const: COMMON NORMALS: no acute distress and patient oriented x3 Resp: COMMON NORMALS: normal respiratory effort, No retractions, No use of accessory muscles and clear to auscultation bilaterally AUSCULTATION: clear to auscultation bilaterally Cardio: COMMON NORMALS: regular rate, regular rhythm, S1 normal heart sound present and S2 normal heart sound present RATE: regular rate RHYTHM: regular rhythm HEART SOUNDS: S1 normal heart sound present and S2 normal heart sound present GI: COMMON NORMALS: Normal to inspection, nondistended, normoactive bowel sounds present, Soft to palpation and non-tender PALPATION: Yes Soft to palpation Extremity: COMMON NORMALS: no pedal edema Neuro: COMMON NORMALS: patient oriented x3 Data 09/25/23 04:53 09/25/23 04:53 Micro: Microbiology 09/20/23 14:25 Blood Culture - Final Blood NO GROWTH AFTER 5 DAYS 09/20/23 14:10 Blood Culture - Final Blood Staphylococcus epidermidis Streptococcus mitis oralis A&P Assessment and plan (1) Septic shock: (2) Pneumonia: (3) Acute kidney injury: (4) NSTEMI (non-ST elevated myocardial infarction): (5) Vomiting: (6) Sepsis: (7) Generalized epilepsy: (8) Hx laparoscopic cholecystectomy: (9) Intermittent atrial fibrillation: (10) Systolic CHF with reduced left ventricular function, NYHA class 2: (11) Myasthenia gravis: (12) Streptococcal bacteremia: (13) Aspiration pneumonia: (14) Aspiration pneumonitis: (15) Bilateral pleural effusion: (16) Benign esophageal stricture: (17) Pulmonary edema: (18) Systolic CHF, acute: (19) Protein calorie malnutrition: (20) Physical deconditioning: (21) Staphylococcus epidermidis bacteremia: Plan Septic shock -Recurrent aspiration pneumonia, Aspiration pneumonitis -Secondary to pneumonia, -In the emergency room, has received sepsis bolus, remained hypotensive, currently on Levophed -Troponin 53, creatinine 1.3 blood cell count over 24,000, currently alert oriented x3, following all commands, tachycardic heart rate 103, he is 98% on room air, afebrile, has received antibiotics, CT/CT chest abdpel w/*[id number] IMPRESSION: 1. ? Extensive new multifocal abnormality throughout the left lung could be pneumonitis, possibly atypical pneumonia, but could also be malignancy. Unchanged small right lung nodule.Recommend CT Chest at 3-6 months Barium swallow -IMPRESSION: 1. Normal swallowing function. No sign of aspiration or penetration. 2. Findings suspicious for achalasia with smooth stricture near the gastroesophageal junction. Dilatation of the lower esophagus with retained food and fluid -Aspiration precautions, dysphagia diet, small volume feeds, nausea control, Reglan, Zofran, promethazine -With NSTEMI, resolved -With ELENO, resolved -With elevated lactic acid, resolved -on pressors, resolved -Plan -Currently on medical floors -Telemetry monitoring ?De-escalate antibiotics to Augmentin, was on Zosyn -Consulted general surgery for EGD, EGD esophageal cardia, luminal abnormality, friable mucosa, biopsies taken,, gastritis -off levophed -Systolic CHF, pulm edema, requiring inpatient diuresis, negative over 2 L yesterday, still +3 L overall, with a sodium of 150, I would hold off on further diuresis, lungs are clear to auscultation bilaterally, no lower extremity edema -?Technically limited quality echocardiogram because of poor ?ultrasonic windows.? LV systolic function is mildly reduced with ?EF of 45-50% ?Left atrial dilation ?Trace mitral regurgitation ?Trace tricuspid regurgitation ?Compared to prior echocardiogram from 2021, LV systolic function ?has mildly reduced now and is 45-50%. -Chest x-ray shows large left pleural effusion, -EF 45 to 50%, will discuss with cardiology about resuming Entresto -Monitor hemodynamics closely ? Monitor urine output -Protein calorie malnutrition, physical deconditioning, evidence of muscle wasting including peripheral muscle wasting, bilateral arms, thighs, temporal muscle wasting, consult dietary, PT OT -Staphylococcus epidermis bacteremia, ? Infection versus contamination, 1 out of 4 blood cultures positive -Repeat blood cultures negative ? Concerns for real infection, no artificial hardward, but did have central line which was removed, tip was not cultured -Consult infectious disease, antibiotic selection, duration ? Full code ? Lovenox for DVT prophylaxis Plan for today, started on vancomycin, will deesaclate to augmentin, hold diu erese, ID consultation, will consider picc line placement, leikyl vancomycin on discharge Attestations Medical Necessity Statement*: patient requires hospitalization for pna, aspiration, staph epi, bacteremia Diagnoses Septic shock A41.9; R65.21 Pneumonia J18.9 Acute kidney injury N17.9 NSTEMI (non-ST elevated myocardial infarction) I21.4 Vomiting R11.10 Sepsis A41.9 Generalized epilepsy G40.309 Hx laparoscopic cholecystectomy Z90.49 Intermittent atrial fibrillation I48.0 Systolic CHF with reduced left ventricular function, NYHA class 2 I50.20 Myasthenia gravis G70.00 Streptococcal bacteremia R78.81; B95.5 Aspiration pneumonia J69.0 Aspiration pneumonitis J69.0 Bilateral pleural effusion J90 Benign esophageal stricture K22.2 Pulmonary edema J81.1 Systolic CHF, acute I50.21 Protein calorie malnutrition E46 Physical deconditioning R53.81 Staphylococcus epidermidis bacteremia R78.81; B95.7
[2023-09-25] MEDS: amoxicillin-clav 875-125 mg Tablet 1 TAB PO (17:06)
[2023-09-25] MEDS: enoxaparin 40 mg/0.4 mL Syringe SUBCUT (20:00)
[2023-09-25] MEDS: cefTRIAXone 1,000 MG in sodium chloride 0.9% (plus) 50 ML 100 MG IV (20:01)
[2023-09-26] VITALS (12 sets, daily range): BP systolic 122–156; BP diastolic 55–61; PULSE 72–107; RESP 16–26; TEMP 36.2–36.8; O2SAT 85–100
--- NOTE | 2023-09-26 00:12 | PC.NURSE ---
pt states his pain is not improving in his left shoulder and explained this is a chronic pain. He declines any other pain medication options this nurse discussed and states he will wait for the next dose of Tylenol.
[2023-09-26] MEDS: ipratropium-albuterol 3 mL Neb INHALATION ×2 (01:12→09:16)
[2023-09-26] MEDS: acetaminophen 325 mg Tablet 650 MG PO ×2 (02:34→11:31)
[2023-09-26] MEDS: pantoprazole DR 40 mg Tablet PO ×2 (02:35→15:41)
[2023-09-26 05:33] LABS: Basophils # 0.1 10^3/uL (0.0-0.1); Basophils % 0.8 %; Eosinophils # 0.2 10^3/uL (0.0-0.8); Eosinophils % 2.6 %; Hematocrit 32.3 % (37-53); Lymphocytes # 1.2 10^3/uL (0.8-4.8); Lymphocytes % 13.3 %; Mean Corpuscular HGB Conc 28.8 g/dL (30-55); Mean Corpuscular Hemoglobin 27.9 pg (27-33); Mean Platelet Volume 10.7 fL (7.4-10.4); Monocytes # 0.6 10^3/uL (0.2-0.9); Monocytes % 6.8 %; Neutrophils % 72.7 %; Nucleated Red Blood Cells % 0 %; Platelet Count 159 10^3/cmm (157-399); Red Blood Count 3.33 10^6/uL (3.85-5.65); Red Cell Distribution Width 14.8 % (12.1-15.1); White Blood Count 9.22 10^3/uL (3.29-11.43)
[2023-09-26 05:54] LABS: Alanine Aminotransferase 9 U/L (0-41); Albumin Level 3.3 g/dL (3.5-5.2); Alkaline Phosphatase 56 U/L (40-130); Anion Gap 8.9 (5-19); Aspartate Amino Transferase 17 U/L (0-40); Blood Urea Nitrogen 10 mg/dL (8-23); C Reactive Protein 40.3 mg/L (0.0-4.9); Calcium 8.9 mg/dL (8.5-10.5); Carbon Dioxide 33 mmol/L (22-29); Chloride 110 mmol/L (98-107); Globulin 1.7 g/dL (1.3-4.6); Glucose 158 mg/dL (65-115); Osmolality Calculated 308 mOsm/kg (285-295); Phosphorus 2.9 mg/dL (2.5-4.5); Potassium 3.9 mmol/L (3.5-5.1); Sodium 148 mmol/L (136-145); Total Bilirubin 0.3 mg/dL (0.15-1.2)
[2023-09-26 05:58] LABS: NT Pro B Type Natriuretic Pept 21524 pg/mL (0-450); Procalcitonin 0.23 ng/mL (0-0.5)
[2023-09-26] MEDS: sucralfate 1 gm/10 mL Oral Liq UDC PO ×2 (06:40→15:41)
[2023-09-26] MEDS: ropinirole 2 mg Tablet 4 MG PO (08:54)
[2023-09-26] MEDS: pyridostigmine 60 mg Tablet PO ×2 (08:54→15:41)
[2023-09-26] MEDS: levETIRAcetam 500 mg Tablet PO (08:54)
--- NOTE | 2023-09-26 08:56 | PM.CONSULT ---
Providers/Reason For Consult Consulting Physician/Specialty*: Keely Jean MD/ infectious disease Reason for Consult*: streptococcus bacteremia Requesting Physician: Rell Durán MD Attending Physician: Rell Durán MD Primary Care Provider: Jerman Henao DO History of Present Illness History of Present Illness Mauricio Wilson is a 88 year old male with a past medical history of intermittent atrial fibrillation, currently not on anticoagulation, history of epilepsy, history of myasthenia gravis on Cellcept, off steroids since Dec 2022, history of CHF and history of GI bleed, history of lung abscess required surgical removal many years ago. He is currently admitted to the hospital since September 20, 2023 after presenting with nausea vomiting and diarrhea which started the morning of admission. He was septic on admission, required Levophed initially during course of admission was unable to be successfully weaned off. He was found to have pneumonia and strep mitis oralis bacteremia. A modified barium swallow was performed due to concern for recurrent aspiration and showed a possible stricture nearing the gastroesophageal junction. He underwent an EGD and follow-up on September 23, 2023 which showed friable mucosa with nodularity at the esophageal cardia. Biopsy was taken and is currently pending. In the prepyloric area there was mild acute gastritis. No other abnormalities were noted. Echocardiogram 12/06/2027 showed LVEF of 45 to 50%, left atrial dilatation and, trace mitral and tricuspid regurgitations.HE is currently improving Review of Systems General: Reports: 10 or more systems reviewed and unremarkable except in HPI and below Const: Denies: fever(s), chills or body aches Eyes: Denies: change in vision, blurry vision or photophobia ENMT: Reports: hoarseness; Denies: throat pain, enlarged tonsils, odynophagia or nasal congestion Card: Denies: chest pain, palpitations, irregular heart rhythm, edema, swelling of feet/ankles, lightheadedness, pre-syncope, dyspnea on exertion or orthopnea Resp: Denies: dyspnea, productive cough, non-productive cough, wheezing, stridor, pain on inspiration, change in phlegm color, hemoptysis or chest congestion GI: Denies: abdominal pain, nausea, vomiting, hematemesis, coffee ground emesis, dysphagia, heartburn, diarrhea, constipation, GI cramping, change in stool character, hematochezia or melena : Denies: flank pain, dysuria, urinary frequency, urinary urgency, urinary hesitancy or hematuria Musc: Denies: neck pain, back pain, extremity pain, joint swelling, joint warmth or deformity Neuro: Denies: headache(s), numbness in extremities, weakness in extremities, sensory changes, difficulty walking, frequent falls, dizziness, vertigo, behavioral changes, Slurred speech present or seizure-like activity Psych: Denies: anxiety, depression, suicidal ideation or homicidal ideation Endo: Denies: polyuria, polydipsia, tired all the time, cold intolerance or hot flashes Hermann/Lymph: Denies: easy bruising or easy bleeding Medications/Allergies Home Medications Medication Instructions Recorded Confirmed Last Taken Type cholecalciferol (vitamin D3) 50 2,000 unit PO DAILY@06 09/03/20 09/20/23 09/20/23 History mcg (2,000 unit) capsule (Vitamin D3) acetaminophen 500 mg tablet 1,000 mg PO Q4H PRN Pain 11/04/21 09/20/23 04/13/23 04:00 History sacubitril 49 mg-valsartan 51 mg 1 tab PO BID@10/04/22 09/20/23 09/20/23 History tablet (Entresto) furosemide 40 mg tablet 20 mg PO BID@,16 #180 tabs 02/06/23 09/20/23 09/20/23 Rx levetiracetam 500 mg tablet See Rx Instructions .Route 06/20/23 09/20/23 09/20/23 Rx .COMPLEX #180 tabs mycophenolate mofetil 500 mg tablet See Rx Instructions .Route 06/20/23 09/20/23 09/20/23 Rx .COMPLEX #360 tabs pyridostigmine bromide 60 mg tablet 60 mg PO TID #300 tabs 06/20/23 09/20/23 Unknown Rx budesonide-formoterol HFA 160 2 puff inhalation BID #10.2 grams 09/12/23 09/20/23 09/20/23 Rx mcg-4.5 mcg/actuation aerosol inhaler (Symbicort) ropinirole 4 mg tablet 4 mg PO DAILY 09/20/23 09/20/23 09/20/23 History metoprolol tartrate 25 mg tablet 12.5 mg PO BID@07,19 #180 tabs 09/26/23 09/20/23 09/20/23 Rx pantoprazole 40 mg tablet,delayed 40 mg PO Q12H 30 days #60 tabs 09/26/23 Unknown Rx release sucralfate 100 mg/mL oral 1 g (10 mL) PO Q12H 30 days #600 mL 09/26/23 Unknown Rx suspension Allergies Allergy/AdvReac Type Severity Reaction Status Date / Time No Known Allergies Allergy Verified 09/20/23 15:42 Current Medications Generic Name Dose Route Start Last Admin Trade Name Freq PRN Reason Stop Dose Admin Acetaminophen 650 mg 09/20/23 16:28 09/26/23 02:34 Acetaminophen 325 Mg Tablet PO 650 mg Q6H PRN Administration Mild/Mod Pain Or Temp >/= 101 Albuterol/Ipratropium 3 ml 09/20/23 17:16 09/24/23 03:33 Ipratropium-Albuterol 3 Ml Neb INHALATION 3 ml Q6H PRN Administration SHORTNESS OF BREATH Albuterol/Ipratropium 3 ml 09/24/23 08:00 09/26/23 01:12 Ipratropium-Albuterol 3 Ml Neb INHALATION 3 ml Q6H.RESP CEASAR Administration Budesonide 0.25 mg 09/24/23 08:00 09/25/23 20:41 Budesonide 0.5 Mg/2 Ml Neb INHALATION 0.25 mg BID.RESPIRATORY CEASAR Administration Enoxaparin Sodium 40 mg 09/20/23 20:00 09/25/23 20:00 Enoxaparin 40 Mg/0.4 Ml Syringe SUBCUT 40 mg Q24H CEASAR Administration Ceftriaxone Sodium 1,000 mg/ 50 mls @ 100 mls/hr 09/25/23 20:00 09/25/23 20:36 Sodium Chloride IV Infused Q24H CEASAR Infusion Protocol Levetiracetam 500 mg 09/20/23 17:00 09/25/23 20:00 Levetiracetam 500 Mg Tablet PO 500 mg BID@0900,2100 CEASAR Administration Metoclopramide HCl 5 mg 09/22/23 09:55 09/23/23 12:29 Metoclopramide 5 Mg/Ml Sdv 2 Ml IVP 5 mg Q6H PRN Administration NAUSEA AND VOMITING Mycophenolate Mofetil 1,000 mg 09/20/23 20:00 09/25/23 20:01 Mycophenolate Mofetil 500 Mg Tablet PO 1,000 mg BID@0800,2000 CEASAR Administration Ondansetron HCl 4 mg 09/20/23 16:28 09/23/23 08:12 Ondansetron 2 Mg/Ml Sdv 2 Ml IVP 4 mg Q8H PRN Administration vomiting, or N/V if npo Pantoprazole Sodium 40 mg 09/23/23 15:21 09/26/23 02:[address] 40 Mg Tablet PO 40 mg Q12H CEASAR Administration Pyridostigmine [place] 60 mg 09/20/23 21:00 09/25/23 20:40 Pyridostigmine 60 Mg Tablet PO 60 mg TID CEASAR Administration Ropinirole HCl 4 mg 09/21/23 09:00 09/25/23 08:58 Ropinirole 2 Mg Tablet PO 4 mg DAILY CEASAR Administration Sucralfate 1 gm 09/23/23 11:00 09/26/23 06:40 Sucralfate 1 Gm/10 Ml Oral Liq Udc PO 1 gm AC&BEDTIME CEASAR Administration PFSH Acute PFSH: Medical History Anemia Asthma-COPD overlap syndrome Cardiomyopathy Cellulitis Compression fracture COPD (chronic obstructive pulmonary disease) COVID-19 (~11/2020) Generalized epilepsy GI bleed when hospitalized with covid Heart failure History of lung abscess Describes having had an abscess in his lung that required surgical removal many years ago Intermittent atrial fibrillation Lower extremity edema Myasthenia gravis Sepsis Systolic CHF with reduced left ventricular function, NYHA class 2 Surgical History History of back surgery x2 History of cataract surgery Bilateral History of esophagogastroduodenoscopy (EGD) History of surgery Describes a remote surgical procedure in which he had something done around his esophagus and his liver that may have involved around a concern for biliary duct malignancy possibility Hx laparoscopic cholecystectomy 04/17/23 Family History Other CAD (coronary artery disease) Diabetes Social History Smoking and tobacco/nicotine status: former use of tobacco/nicotine Quit status (tobacco/nicotine): has quit using Year quit tobacco: 1979 Former quit date comment: 2ppd x 15 years then 4-5 cigars/day x 25 years Alcohol intake: former Substance/Drug Use: never Vitals/I&O/Wt Last Vital Signs Temp 97.5 F L 09/26/23 07:36 Pulse 107 H 09/26/23 07:51 Resp 21 H 09/26/23 07:36 BP 156/55 09/26/23 07:36 Pulse Ox 98 09/26/23 07:36 O2 Del Method Nasal Cannula 09/26/23 07:36 O2 Flow Rate 3 09/26/23 01:12 09/25/23 09/26/23 09/26/23 22:59 06:59 14:59 Intake Total 530 / 1512 480 / 480 Balance 530 / 1012 480 / 480 Physical Exam Narrative: General: No acute distress, AO x3 HEENT: PERRLA, pupils bilaterally equal and reactive, pallors not present Chest: Normal vesicular breath sounds, no added sounds, equal good air entry bilaterally CVS: S1-S2 regular, no murmurs, no tachycardia, no gallops, no rubs Abdomen: Soft, nontender, no organomegaly, bowel sounds present Neuro: No focal deficits, no facial deformity, AO x3, power 5/5 in all limbs Data 09/26/23 04:59 09/26/23 04:59 Micro: Microbiology 09/20/23 14:25 Blood Culture - Final Blood NO GROWTH AFTER 5 DAYS 09/20/23 14:10 Blood Culture - Final Blood Staphylococcus epidermidis Streptococcus mitis oralis Other data: XR/XR chest 1V portable [id number] IMPRESSION: 1. ? Decreasing left lung abnormality. 2. ? Increased moderate left pleural effusion. New small right pleural effusion. Modified barium swallow was performed in conjunction with the speech therapy service. Swallowing function at the level oropharynx was normal. There was no aspiration or penetration. The patient tolerated thin liquid, nectar consistency liquid and solid barium mixture foodstuffs without difficulty. The patient swallowed the barium pill without difficulty. It is noted that there appears to be a smooth stricture at the gastroesophageal junction with dilatation of the lower esophagus that might indicate achalasia. There is some retention of food and fluid in the lower esophagus noted during the exam. IMPRESSION: 1. Normal swallowing function. No sign of aspiration or penetration. 2. Findings suspicious for achalasia with smooth stricture near the gastroesophageal junction. Dilatation of the lower esophagus with retained food and fluid. CT Scan Report Signed Patient: Mauricio Wilson Unit #: [id number] : 1935 Age/Sex: 88 / M ADM Date: 09/20/23 Loc: ICU Room/Bed: [place] [address]: Rell Durán MD Ordering Provider/Ordering MD: Rell Durán MD Date of Service: 09/20/23 Procedure(s): CT chest abdpel w/*[id number] Accession Number(s): [id number] Report Number: [id number] PROCEDURE INFORMATION: Exam: CT Chest With Contrast; Diagnostic Exam date and time: 09/20/2023 4:05 PM Age: 88 years old Clinical indication: Nausea and vomiting; Other: Weakness; Prior surgery; Surgery date: <1 month; Surgery type: Unknown date for gb surgery; Additional info: Weakness, n/v, septic shock, weightloss, gb surgery TECHNIQUE: Imaging protocol: Diagnostic computed tomography of the chest with contrast. Radiation optimization: All CT scans at this facility use at least one of these dose optimization techniques: automated exposure control; mA and/or kV adjustment per patient size (includes targeted exams where dose is matched to clinical indication); or iterative reconstruction. Contrast material: OMNI 350; Contrast volume: 100 ml; Contrast route: INTRAVENOUS (IV);? REPORTING DATA: Count of CT and Cardiac NM exams in prior 12 months: This patient has received 3 known CTs and 0 known cardiac nuclear medicine studies in the 12 months prior to the current study. COM[place]: [place] [id number] 01/17/2023 6:[address] chest January 17, 2023. RADIATION DOSE METRICS: Total DLP (mGy-cm): 1129 FINDINGS: Lungs: Multiple new ground-glass and nodular abnormalities throughout the left lung, unchanged. 3 mm solid noncalcified nodule right lower lobe image number 34 axial series 11. Otherwise, unremarkable. Pleural spaces: Unremarkable. No pneumothorax. No pleural effusion. Heart: Unremarkable. No cardiomegaly. No pericardial effusion. Coronary arteries: Unchanged moderate amount of coronary artery calcification. Mediastinal space: Unchanged dilated, patulous esophagus containing fluid. Lymph nodes: Unchanged calcified mediastinal lymph nodes. Vasculature: Unchanged small amount of systemic arterial calcification. Diaphragm: Unchanged moderate elevation of the left hemidiaphragm. Bones/joints: Multiple thoracic vertebral body compression deformities are not obviously changed. Unchanged mild kyphosis and mild and moderate multilevel spondylosis. Otherwise, unremarkable. Soft tissues: Increased abnormal soft tissue in the left pulmonary hilum. Subsequent management based on the most suspicious nodule(s). (Reference: Carol) 2. ? Increased abnormal soft tissue in the left pulmonary hilum could be reactive or neoplastic. 3. ? Additional details as above. Unchanged. REFERENCES: Carol Duff et al. Guidelines for Management of Incidental Pulmonary Nodules Detected on CT Images: From the Fleischner Society 2017. Radiology. 2017;284(1):228-243. PROCEDURE INFORMATION: Exam: CT Abdomen And Pelvis With Contrast Exam date and time: 09/20/2023 4:05 PM Age: 88 years old Clinical indication: Nausea and vomiting; Other: Weakness; Prior surgery; Surgery date: <1 month; Surgery type: Unknown date for gb surgery; Additional info: Weakness, n/v, septic shock, weightloss, gb surgery TECHNIQUE: Imaging protocol: Computed tomography of the abdomen and pelvis with contrast. Radiation optimization: All CT scans at this facility use at least one of these dose optimization techniques: automated exposure control; mA and/or kV adjustment per patient size (includes targeted exams where dose is matched to clinical indication); or iterative reconstruction. Contrast material: OMNI 350; Contrast volume: 100 ml; Contrast route: INTRAVENOUS (IV);? REPORTING DATA: Count of CT and Cardiac NM exams in prior 12 months: This patient has received 3 known CTs and 0 known cardiac nuclear medicine studies in the 12 months prior to the current study. COMPARISON: CT abdomen pelvis w con* [id number] 02/25/2023 6:46 PM RADIATION DOSE METRICS: Total DLP (mGy-cm): 1129 FINDINGS: Lungs: See above. Liver: Normal. No mass. Gallbladder and bile ducts: New cholecystectomy. Normal bile ducts. Pancreas: Normal. No ductal dilation. Spleen: Normal. No splenomegaly. Adrenal glands: Normal. No mass. Kidneys and ureters: Unchanged ptotic right kidney. Unchanged tiny left renal cortical cyst needs no follow-up. Otherwise, unremarkable. Stomach and bowel: Unremarkable. No obstruction. No mucosal thickening. Appendix: No evidence of appendicitis. Intraperitoneal space: Unremarkable. No free air. No significant fluid collection. Vasculature: Unchanged 3 cm in diameter infrarenal abdominal aortic aneurysm. Unchanged large amount of arterial calcification. 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 Lymph nodes: Unremarkable. No enlarged lymph nodes. Urinary bladder: Unchanged mild thickening of the urinary bladder wall which is likely due to partial bladder outlet obstruction, but chronic cystitis is possible. Reproductive: Unchanged marked enlargement of the prostate gland. Bones/joints: Unchanged vertebral body compression deformities and osteoplasty cement in the L4 and L5 vertebral bodies. Unchanged mild scoliosis with multilevel spondylosis. Soft tissues: Unchanged large inguinal hernia containing benign-appearing bowel and fat. CT/CT chest abdpel w/*[id number] IMPRESSION: 1. ? Extensive new multifocal abnormality throughout the left lung could be pneumonitis, possibly atypical pneumonia, but could also be malignancy. Unchanged small right lung nodule.Recommend CT Chest at 3-6 months. IMPRESSION: 1. ? No acute findings. 2. ? Additional details as above. Unchanged. A&P Assessment and plan (1) Staphylococcus epidermidis bacteremia: likely contamination (2) Streptococcal bacteremia: likely true bacteremia recommend ceftriaxone 1 g iv q24h for 2 weeks TTE negative for gross vegetations source likely to be pneumonia ,perhaps aspiration pneumonia given abnormal Ba swallow (3) Aspiration pneumonitis: (4) Immunocompromised patient: Coding Level of Care Code Acute Code for [facility] Fwd Diagnoses Staphylococcus epidermidis bacteremia R78.81; B95.7 Streptococcal bacteremia R78.81; B95.5 Aspiration pneumonitis J69.0 Immunocompromised patient D84.9
[2023-09-26] MEDS: budesonide 0.5 mg/2 mL Neb 0.25 MG INHALATION (09:15)
--- NOTE | 2023-09-26 11:52 | PM.DCS ---
Discharge Providers Date of Admission: 09/20/23 15:30 Date of Discharge: September 26, 2023 Attending Provider at Admission: Rell Durán MD Attending Provider at Discharge: Rell Durán MD Primary Care Provider: Jerman Henao DO Diagnoses at Discharge Discharge Diagnosis (1) Staphylococcus epidermidis bacteremia: Status: Acute (2) Streptococcal bacteremia: Status: Acute (3) Aspiration pneumonitis: Status: Acute (4) Immunocompromised patient: Status: Acute Reason for Visit Reason for Visit: irregular hr Hospital Course Hospital Course Mauricio Wilson is a 88 year old male with a past medical history of intermittent atrial fibrillation, currently not on anticoagulation, history of epilepsy history of myasthenia gravis, history of CHF and history of GI bleed, history of lung abscess, recent hospitalization for septic shock secondary to pneumonia, on pressors, with acute anemia, recent history of cholecystectomy for symptomatic cholelithiasis, history of Pseudomonas bacteremia, who presents to [facility] due to fatigue, malaise, low blood pressures, nausea and vomiting.? Patient tells me that he has been doing fine this week, he actually worked out on his reyn[place], worked on the tractor, he tells me he was relatively asymptomatic, no fevers, no cough, shortness of breath, chest pain, abdominal pain he did report diarrhea.? He tells me that this morning, he did not feel well, had some fatigue, malaise no fevers, had a poor appetite this morning, he tells me that he vomited this morning.? Denies any shortness of breath acutely, but he tells me he is always short of breath.? No chest pain.? He tells me he always has back pain, no flank pain.? Denies any dysuria, no hematuria.? No bloody or black stools.? He does not use oxygen at home.? Does have myasthenia gravis, denies any exacerbations of his myasthenia gravis no diplopia, no weakness, no neck pain, neck stiffness, This is a 88-year-old male, who presents [facility] for septic shock, secondary to aspiration pneumonia, aspiration pneumonitis, with NSTEMI, ELENO, elevated lactic acid, admitted to the ICU, managed with broad-spectrum antibiotic therapy, on pressor therapy, overall patient clinically improved, required intermittent diuresis, moved to general medical floors. Patient's blood cultures were positive for Streptococcus mitis oralis, after discussion with infectious disease, this is likely real infection and bacteremia, given his aspiration pneumonia as a source. PICC line placed, patient will receive 12 days of IV Rocephin In terms of patient's recurrent aspiration, evaluated by speech pathology, barium swallow showed findings suspicious for achalasia withconcern for stricture at junction, EGD performed by general surgery showed luminal abnormality at the esophageal cardia, friable mucosa, biopsies were obtained, gastritis. Will have follow-up with general surgery as outpatient for biopsy results. Discharged on Protonix, Carafate. For recurrent aspiration pneumonia, potentially esophageal motility disorder, we will have patient follow-up with general surgery. For patient's fluid overload, pulm edema required inpatient diuresis, continue home Lasix Repeat echocardiogram showed EF of 45 to 50%, discussed with cardiology about holding Entresto on discharge, follow-up with cardiology as outpatient Patient's CT of the chest did show multifocal abnormality throughout the left lung, will have him follow-up with pulmonary as outpatient for repeat CAT scan Physical Exam Const: COMMON NORMALS: no acute distress and patient oriented x3 Resp: COMMON NORMALS: normal respiratory effort, No retractions, No use of accessory muscles and clear to auscultation bilaterally AUSCULTATION: clear to auscultation bilaterally Cardio: COMMON NORMALS: regular rate, regular rhythm, S1 normal heart sound present and S2 normal heart sound present RATE: regular rate RHYTHM: regular rhythm HEART SOUNDS: S1 normal heart sound present and S2 normal heart sound present GI: COMMON NORMALS: Normal to inspection, nondistended, normoactive bowel sounds present and non-tender Extremity: COMMON NORMALS: no pedal edema Neuro: COMMON NORMALS: patient oriented x3 Psych: COMMON NORMALS: mental status grossly normal Discharge Data Studies Completed and Pending Completed Studies During Hospitalization Category Date Time Status CT chest abdomen pelvis [CT chest abdpel w/*[id number] Cat Scan 09/20/23 15:57 Completed ] Stat CXRP [XR chest 1V portable [id number]] Stat Exams 09/20/23 15:29 Completed Modified barium swallow [FL barium swallow modifd [id number] Exams 09/22/23 09:30 Completed ] Routine XR KUB portable [id number] Routine Exams 09/22/23 09:47 Completed XR chest 1V portable [id number] Routine Exams 09/24/23 07:00 Completed XR chest 1V portable [id number] Stat Exams 09/20/23 13:25 Completed Pathology: Surgical [PTH] Routine Pth 09/23/23 10:01 Completed CV. echo complete* [id number] Routine Ultrasound 09/23/23 10:33 Completed Pending at discharge Category Date Time Status Blood Culture Stat Lab 09/22/23 09:19 Results Radiology Impressions Chest/Abdomen/Pelvis CT 09/20/23 15:57 IMPRESSION: 1. Extensive new multifocal abnormality throughout the left lung could be pneumonitis, possibly atypical pneumonia, but could also be malignancy. Unchanged small right lung nodule.Recommend CT Chest at 3-6 months. IMPRESSION: 1. No acute findings. 2. Additional details as above. Unchanged. Chest X-Ray 09/24/23 07:00 IMPRESSION: 1. Decreasing left lung abnormality. 2. Increased moderate left pleural effusion. New small right pleural effusion. Laboratory Results WBC 9.22 10^3/uL (3.29-11.43) 09/26/23 04:59 RBC 3.33 10^6/uL (3.85-5.65) L 09/26/23 04:59 Hgb 9.30 g/dL (11.27-16.99) L 09/26/23 04:59 Hct 32.3 % (37-53) L 09/26/23 04:59 MCV 97.0 fl (82-101) 09/26/23 04:59 MCH 27.9 pg (27-33) 09/26/23 04:59 MCHC 28.8 g/dL (30-55) L 09/26/23 04:59 RDW 14.8 % (12.1-15.1) 09/26/23 04:59 Plt Count 159 10^3/cmm (157-399) 09/26/23 04:59 MPV 10.7 fL (7.4-10.4) H 09/26/23 04:59 Neut % (Auto) 72.7 % 09/26/23 04:59 Lymph % (Auto) 13.3 % 09/26/23 04:59 [place] % (Auto) 6.8 % 09/26/23 04:59 Eos % (Auto) 2.6 % 09/26/23 04:59 Baso % (Auto) 0.8 % 09/26/23 04:59 Neut # (Auto) 6.70 10^3/uL (1.8-7.7) 09/26/23 04:59 Lymph # (Auto) 1.2 10^3/uL (0.8-4.8) 09/26/23 04:59 [place] # (Auto) 0.6 10^3/uL (0.2-0.9) 09/26/23 04:59 Eos # (Auto) 0.2 10^3/uL (0.0-0.8) 09/26/23 04:59 Baso # (Auto) 0.1 10^3/uL (0.0-0.1) 09/26/23 04:59 Nucleated RBC % (auto) 0 % 09/26/23 04:59 Total Counted 100 (0-100) 09/24/23 03:30 Atypical Lymphs % 0.0 % (0-5) 09/24/23 03:30 Absolute Neutrophils 4.2 10^3/cmm (1.4-6.5) 09/24/23 03:30 Segmented Neutrophils 65 % 09/24/23 03:30 Abs Segm Neuts (Man) 4.2 10/cmm (1.6-7.1) 09/24/23 03:30 Band Neutrophils 0.0 % 09/24/23 03:30 Abs Band Neuts (Man) 0.0 10^3/cmm (0.0-1.2) 09/24/23 03:30 Absolute Lymphocytes 1.6 10^3/cmm (1.2-3.4) 09/24/23 03:30 Lymphocytes (Manual) 25 % 09/24/23 03:30 Monocytes (Manual) 4.0 % 09/24/23 03:30 Absolute Monocytes 0.3 10^3/cmm (0.1-0.6) 09/24/23 03:30 Eosinophils (Manual) 0 % 09/24/23 03:30 Absolute Eosinophils 0.0 10^3/cmm (0.0-0.7) 09/24/23 03:30 Basophils (Manual) 1.0 % 09/24/23 03:30 Absolute Basophils 0.1 10^3/cmm (0.0-0.2) 09/24/23 03:30 Metamyelocytes 3.0 % 09/24/23 03:30 Myelocytes 2.0 % 09/24/23 03:30 Nucleated RBCs # 0.0 /100WBC 09/26/23 04:59 Platelet Estimate Normal (Normal) 09/24/23 03:30 ESR 3 mm/hr (0-10) 09/20/23 16:34 D-Dimer 2.99 ug/mLFEU (0-0.59) H 09/20/23 14:10 Sodium 148 mmol/L (136-145) H 09/26/23 04:59 Potassium 3.9 mmol/L (3.5-5.1) 09/26/23 04:59 Chloride 110 mmol/L (98-107) H 09/26/23 04:59 Carbon Dioxide 33 mmol/L (22-29) H 09/26/23 04:59 Anion Gap 8.9 (5-19) 09/26/23 04:59 BUN 10 mg/dL (8-23) 09/26/23 04:59 Creatinine 1.1 mg/dL (0.7-1.2) 09/26/23 04:59 GFR Calculation Not Reportable 09/26/23 04:59 Glucose 158 mg/dL (65-115) H 09/26/23 04:59 Estimat Average Glucose 131 09/20/23 16:34 Hemoglobin A1c 6.2 % (4.0-6.0) H 09/20/23 16:34 Calculated Osmolality 308 mOsm/kg (285-295) H 09/26/23 04:59 Lactic Acid 1.0 mmol/L (0.5-2.2) 09/21/23 03:31 Lactic Acid (Sepsis) 1.3 mmol/L (0.5-2.2) 09/20/23 17:41 Calcium 8.9 mg/dL (8.5-10.5) 09/26/23 04:59 Phosphorus 2.9 mg/dL (2.5-4.5) 09/26/23 04:59 Magnesium 2.0 mg/dL (1.7-2.3) 09/26/23 04:59 Iron 50 ug/dL (59-158) L 09/20/23 16:34 TIBC 213 mcg/dl 09/20/23 16:34 % Saturation 23.4 % (20-50) 09/20/23 16:34 Unsat Iron Binding 163 ug/dL (112-347) 09/20/23 16:34 Ferritin 70 ng/mL (30-400) 09/20/23 16:34 Total Bilirubin 0.3 mg/dL (0.15-1.2) 09/26/23 04:59 AST 17 U/L (0-40) 09/26/23 04:59 ALT 9 U/L (0-41) 09/26/23 04:59 Alkaline Phosphatase 56 U/L (40-130) 09/26/23 04:59 Troponin T Baseline 40 ng/L (0-15) H 09/20/23 16:34 Troponin T 120 Minute 51.99 ng/L (0-15) H 09/20/23 15:54 Delta Troponin T -1.01 ABS# (0-10) L 09/20/23 15:54 Troponin T Hi Sens 6Hr 43.44 ng/L (0-15) H 09/20/23 19:40 Troponin T Hi Sens 6Hr Delta 3.44 ng/L (0-12) 09/20/23 19:40 C-Reactive Protein 40.3 mg/L (0.0-4.9) H 09/26/23 04:59 NT-Pro-B Natriuret Pep 13310 pg/mL (0-450) H 09/26/23 04:59 Total Protein 5.0 g/dL (6.6-8.7) L 09/26/23 04:59 Albumin 3.3 g/dL (3.5-5.2) L 09/26/23 04:59 Globulin 1.7 g/dL (1.3-4.6) 09/26/23 04:59 Triglycerides 62 mg/dL (0-150) 09/21/23 03:31 Cholesterol 114 mg/dL (0-200) 09/21/23 03:31 LDL Cholesterol, Calc 60 mg/dL (50-129) 09/21/23 03:31 HDL Cholesterol 42 mg/dL (60-100) L 09/21/23 03:31 LDL/HDL Ratio 1.43 RATIO (0.00-3.22) 09/21/23 03:31 Cholesterol/HDL Ratio 2.71 mg/dL (1.0-5.00) 09/21/23 03:31 Lipase 43 U/L (13-60) 09/20/23 14:10 Procalcitonin 0.23 ng/mL (0-0.5) 09/26/23 04:59 TSH 2.35 uIU/mL (0.27-4.20) 09/20/23 16:34 Random Cortisol 16.46 ug/dL (2.47-19.5) 09/20/23 16:34 Urine Color Ursula (Yellow) 09/20/23 14:52 Urine Appearance Clear (CLEAR) 09/20/23 14:52 Urine pH 5 (5-7) 09/20/23 14:52 Ur Specific [employer] 1.015 (1.005-1.030) 09/20/23 14:52 Urine Protein Neg (Negative) 09/20/23 14:52 Urine Glucose (UA) Norm (Normal) 09/20/23 14:52 Urine Ketones Negative (Negative) 09/20/23 14:52 Urine Blood Neg (Negative) 09/20/23 14:52 Urine Nitrate Negative (Negative) 09/20/23 14:52 Urine Bilirubin Neg (Negative) 09/20/23 14:52 Urine Urobilinogen Norm mg/dL (Negative) 09/20/23 14:52 Ur Leukocyte Esterase 2+ (Negative) H 09/20/23 14:52 Urine RBC Rare /hpf (0-2) 09/20/23 14:52 Urine WBC 5-10 /hpf (0-5) H 09/20/23 14:52 Ur Squamous Epith Cells 5-10 /hpf (0-5) H 09/20/23 14:52 Amorphous Sediment Not Reportable 09/20/23 14:52 Urine Bacteria 1+ /hpf (NONE) H 09/20/23 14:52 Hyaline Casts 10-15 /lpf H 09/20/23 14:52 Urine Mucus Trace /hpf 09/20/23 14:52 Vancomycin Trough 7.3 ug/mL (10-15) L 09/22/23 17:17 Influenza Type A Ag negative (Negative) 09/21/23 17:15 Influenza Type B Ag negative (Negative) 09/21/23 17:15 SARS-CoV-2 Ag (Rapid) negative (Negative) 09/20/23 15:39 MRSA (PCR) Not detected (NOT DETECTED) 09/21/23 17:15 Vitals Last Vital Signs Temp 97.5 F L 09/26/23 07:36 Pulse 75 09/26/23 09:21 Resp 16 09/26/23 09:10 BP 156/55 09/26/23 07:36 Pulse Ox 98 09/26/23 07:36 O2 Del Method Nasal Cannula 09/26/23 09:10 O2 Flow Rate 3 09/26/23 09:10 Discharge Plan Discharge Patient Disposition: Home Condition: Stable Prescriptions: New ceftriaxone 1 gram recon soln 1 g IV DAILY 12 Days Qty: 12 0RF Continued levetiracetam 500 mg tablet See Rx Instructions .ROUTE .COMPLEX Qty: 180 3RF Dose Instruction: TAKE 1 TABLET BY MOUTH TWICE DAILY Rx Instructions: TAKE 1 TABLET BY MOUTH TWICE DAILY mycophenolate mofetil 500 mg tablet See Rx Instructions .ROUTE .COMPLEX Qty: 360 3RF Dose Instruction: TAKE 2 TABLETS(1000 MG) BY MOUTH TWICE DAILY AT 8 AM AND AT 8 PM Rx Instructions: TAKE 2 TABLETS(1000 MG) BY MOUTH TWICE DAILY AT 8 AM AND AT 8 PM pyridostigmine bromide 60 mg tablet 60 mg PO TID Qty: 300 3RF furosemide 40 mg tablet 20 mg PO BID@16 Qty: 180 3RF budesonide-formoterol [Symbicort] 160-4.5 mcg/actuation HFA aerosol inhaler 2 puff inhalation BID Qty: 10.2 0RF Rx Instructions: NEEDS APPT FOR FURTHER REFILLS cholecalciferol (vitamin D3) [Vitamin D3] 50 mcg (2,000 unit) Capsule 2,000 unit PO DAILY@06 acetaminophen 500 mg Tablet 1,000 mg PO Q4H PRN (Reason: Pain) pantoprazole 40 mg tablet,delayed release (DR/EC) 40 mg PO DAILY ropinirole 4 mg tablet 4 mg PO DAILY Changed metoprolol tartrate 25 mg tablet 12.5 mg PO BID@ Qty: 180 3RF Held Entresto 49-51 mg tablet 1 tab PO BID@ Hold Instructions: Resume on 11/03/22. Discharge Orders: Discharge Order (Routine); Ordered 09/26/23 Ordered By: Rell Durán Referrals: Epifanio Garvin MD [Referring] - 1-3 days Henao,Jerman Frank, [Primary Care Provider] - Discharge Diet: As Directed and Cardiac Discharge Activity: Resume usual activity Patient Instructions: GI Discharge Instructions, Opioid Safety Activity Restrictions/Additional Instructions: - Please adhere to dysphagia level 6 diet, soft and bite sized -I will have you follow-up with general surgery for your recurrent aspiration events, for concerns for esophageal motility disorder, ? For your EGD, biopsy results please follow-up with general surgery in the next 2 weeks ? Please take antibiotics for the next 12 days ? Please follow-up with your primary care provider in 1 week ? If you have any lightheadedness or dizziness, nausea vomiting please go to emergency room ? If you have any recurrent aspiration events, choking and coughing please come back to emergency room ? I have discharged you on a low-dose of metoprolol 12.5 twice daily, monitor heart rate, monitor blood pressure ? I have held your Entresto until you follow-up with cardiology, given your echocardiogram results Discharge Attestations Time Spent in Discharge Care*: greater than 30 min Status at Discharge: Cognitive status at discharge: cognitively intact, Behavioral status at discharge: cooperative, Quality Metrics Clinical Quality Measures [ No reported AMI, CVA or VTE this stay] Coding Level of Care Code 54194 Total time (in minutes) for Discharge: 45 Diagnoses Staphylococcus epidermidis bacteremia R78.81; B95.7 Streptococcal bacteremia R78.81; B95.5 Aspiration pneumonitis J69.0 Immunocompromised patient D84.9
--- NOTE | 2023-09-26 14:05 | XR_ITS ---
WS: [id number] PORTABLE CHEST HISTORY: Post PICC insertion COMPARISON: 09/24/2023 Right-sided PICC line in good position with tip towards the SVC atrial junction. Lung volumes are decreased. Bilateral areas of interstitial thickening and patchy opacifications. No pneumothorax. Small LEFT pleural effusion is suspected. Cardiac size: Mildly enlarged cardiac silhouette. Mediastinum/Aorta: Mild atherosclerosis aorta. No osseous abnormality seen. IMPRESSION: 1. RIGHT PICC line in good position. 2. Lung volumes are decreased with mild pulmonary edema and patchy opacifications.
== END 2023-09-26 16:30 | disposition home health service (06) | DRG 871 ==
LOC: ER 15:40 → ICU 16:59 → MEDSURG 09-23 15:09
PROVIDERS: Surgery; Admitting Provider Family Medicine; Emergency Provider Emergency Medicine; PCP Internal Medicine; Visit Provider Family Medicine
PROC: 0DJ08ZZ Inspection of Upper Intestinal Tract, Via Natural or Artificial Opening Endoscopic (ICD-10-PCS; CPT 43235; principal; 2023-09-23 08:30)
DX: A40.8 Other streptococcal sepsis (principal); I21.4 Non-ST elevation (NSTEMI) myocardial infarction; I50.23 Acute on chronic systolic (congestive) heart failure; R65.21 Severe sepsis with septic shock; J69.0 Pneumonitis due to inhalation of food and vomit; N17.9 Acute kidney failure, unspecified; I42.9 Cardiomyopathy, unspecified; D84.9 Immunodeficiency, unspecified; J44.9 Chronic obstructive pulmonary disease, unspecified; Z86.16 Personal history of COVID-19; G70.00 Myasthenia gravis without (acute) exacerbation; Z87.891 Personal history of nicotine dependence; G40.409 Other generalized epilepsy and epileptic syndromes, not intractable, without status epilepticus; I48.91 Unspecified atrial fibrillation; K29.00 Acute gastritis without bleeding
CPT/HCPCS: 36415; 36556; 36573; 36592; 43239; 71045; 71260; 74018; 74177; 74230; 80053; 80061; 80202; 81001; 82533; 82728; 83036; 83540; 83550; 83605; 83690; 83735; 83880; 84100; 84145; 84443; 84484; 85007; 85025; 85378; 85651; 86140; 87040; 87070; 87077; 87150; 87186; 87205; 87426; 87641; 87804; 88305; 92526; 92610; 92611; 93005; 93306; 94640; 94664; 94760; 96365; 96367; 96372; 96375; 96376; 99285; 99291; 99292; J0456; J0696; J1650; J1940; J2371; J2405; J2543; J2704; J2765; J3370; J7030; J7050; J7060; J7517; J7626; Q9967

== ENCOUNTER 2023-10-09 14:30 | Oncology outpatient (recurring) (ONCR) | payer MEDICARE, MEDICAID, SELFPAY ==
[2023-10-03 14:40] VITALS: BP 113/53; PULSE 72; RESP 16; TEMP 37.1; O2SAT 94
[2023-10-09 14:47] VITALS: BP 120/52; PULSE 81; RESP 16; TEMP 37.2; O2SAT 98
== END 2023-10-26 23:59 | disposition home or self-care (01) ==
PROVIDERS: PCP Internal Medicine; Visit Provider Internal Medicine
DX: Z53.9 Procedure and treatment not carried out, unspecified reason (principal)
CPT/HCPCS: J1642

== ENCOUNTER → 2023-10-31 14:52 | Outpatient (BNVA) | payer MEDICARE, MEDICAID, SELFPAY | PROVIDERS: PCP Internal Medicine; Visit Provider Internal Medicine | DX: I50.20 Unspecified systolic (congestive) heart failure (principal); R06.00 Dyspnea, unspecified; Z87.891 Personal history of nicotine dependence; J44.9 Chronic obstructive pulmonary disease, unspecified; I48.0 Paroxysmal atrial fibrillation | CPT/HCPCS: 99213 ==

== ENCOUNTER → 2023-12-26 15:21 | Outpatient (BNVA) | payer MEDICAID, SELFPAY | PROVIDERS: PCP Internal Medicine; Visit Provider Specialist | DX: G40.309 Generalized idiopathic epilepsy and epileptic syndromes, not intractable, without status epilepticus (principal); R29.90 Unspecified symptoms and signs involving the nervous system; G70.00 Myasthenia gravis without (acute) exacerbation; Z79.899 Other long term (current) drug therapy | CPT/HCPCS: 36415; 80053; 85007; 85027; 99214 ==

== ENCOUNTER → 2024-02-20 14:31 | Outpatient (BNVA) | payer MEDICARE, MEDICAID, SELFPAY | PROVIDERS: PCP Internal Medicine; Visit Provider Internal Medicine Pulmonary Disease | DX: J44.9 Chronic obstructive pulmonary disease, unspecified (principal); R06.00 Dyspnea, unspecified; Z87.891 Personal history of nicotine dependence; I50.20 Unspecified systolic (congestive) heart failure; Z86.16 Personal history of COVID-19 | CPT/HCPCS: 99214 ==